=== PATIENT | male | born 1950 | race Hispanic/Latino ===

== ENCOUNTER 2017-04-04 09:47 | Day surgery (SDC) | payer MEDICARE, MEDICAID ==
[2017-01-25 08:05] VITALS: BMI 30.1
[~2017-04-04 09:47] MED LIST: Gentamicin 160 MG in Sodium Chloride 0.9% 100 ML IVPB ONE
[2017-04-04 11:25] LABS: INR 1.3
[2017-04-04] MEDS ORDERED: Lidocaine 2% Jelly (Uro-Jet) ONE (11:47)
[2017-04-04] MEDS ORDERED: Ciprofloxacin 400mg/200ml D5W 400 MG/200 ML BAG IVPB ONE (11:47)
[2017-04-04] MEDS ORDERED: Lactated Ringer's 1,000 ML IV ONE (11:55)
[2017-04-04] MEDS ORDERED: Propofol 10 mg/ml Inj (20 ML) ONE ×2 (12:01→12:23)
[2017-04-04] MEDS ORDERED: Midazolam 2 MG/2 ML VIAL ONE ×2 (12:02→12:12)
--- NOTE | 2017-04-04 12:50 | PCM.SURG1 ---
Surgeon's Initial Post Op Note - Surgeon's Notes Surgeon: leonidas Gunnery/Ordnance Officer: hemant Type of Anesthesia: General LMA Anesthesia Administered By: staff Pre-Operative Diagnosis: BPH/elevated PSA Operative Findings: bph/[place]-Operative Diagnosis: same Operation Performed: cysto prostate bx/us/usguidance Specimen/Specimens Removed: 12 core bx Estimated Blood Loss: EBL {In ML}: 0 Blood Products Given: N/A Drains Used: No Drains Post-Op Condition: Good Date of Surgery/Procedure: 04/04/17 Time of Surgery/Procedure: 12:49
--- NOTE | 2017-04-04 12:51 | OP ---
PROCEDURE DATE: 04/04/2017 PREOPERATIVE DIAGNOSES: Benign prostatic hypertrophy, elevated PSA. POSTOPERATIVE DIAGNOSES: Benign prostatic hypertrophy, elevated PSA. PROCEDURES: Cystoscopy and transrectal prostate ultrasound and ultrasound-guided prostate biopsy. DESCRIPTION OF PROCEDURE: Prior to the procedure, the patient was asked to sign a detailed informed consent. He was apprised of all the risks and complications of this procedure and elected to proceed with the procedure. He signed the consent. He was brought into the room. A timeout was taken according to rules and regulations of [facility] and the patient was draped and prepped in the usual manner. He received a Betadine enema and pro phylactic antibiotics. An ultrasound was obtained by inserting an ultrasound probe in the rectum. M ultiple images were obtained. The biopsy guide on the ultrasound was used to guide a 12-core biopsy which was taken transrectally. The patient tolerated this procedure very well. There was minimal bl eeding. The patient was then redraped and prepped and cystoscoped with a #21 Storz panendoscope. Th e membranous and pendulous urethra was normal. The prostatic urethra showed trilobar hypertrophy wit h moderately severe outlet obstruction. Bladder was entered atraumatically. There was +3 trabeculat ion. No evidence of urothelial tumor or stone. Based on the above findings, the patient is a candid ate for GreenLight laser if biopsy is negative for prostate cancer. If it is positive, other therapy and evaluation is necessary. Naseem Tolbert MD cc: [id number] TT: 04/04/2017 12:50:10 wa
[2017-04-04 12:55] VITALS: O2SAT 100
[2017-04-04 13:52] VITALS: BP 105/55; PULSE 90; RESP 16; TEMP 98.2
== END 2017-04-04 14:15 | disposition home or self-care (01) ==
LOC: C.SDS 09:47
PROVIDERS: ATTEND Urology
DX: C61 Malignant neoplasm of prostate (principal); N40.1 Benign prostatic hyperplasia with lower urinary tract symptoms
CPT/HCPCS: 36415; 52000; 55700; 76872; 76942; 85610; 88305; 88342; J0744; J1580; J7120

== ENCOUNTER 2017-12-01 11:41 | Inpatient (IN) | payer MEDICARE, MEDICAID ==
[2017-12-01 11:42] VITALS: BMI 30.1
[2017-12-01 12:51] LABS: BASO # 0.1 K/uL (0.0-0.2); BASO % 0.6 % (0.0-2.0); EOS # 0.1 K/uL (0.0-0.7); EOS % 1.3 % (0.0-4.0); LYMPH # 0.8 K/uL (1.0-4.3); LYMPH % 7.5 % (20.0-40.0); MEAN CELL VOLUME 78.8 fL (80.0-94.0); MEAN CORPUSCULAR HEMOGLOBIN 27.1 pg (27.0-31.0); MEAN CORPUSCULAR HGB CONC 34.4 g/dL (33.0-37.0); MEAN PLATELET VOLUME 8.8 fL (7.2-11.7); MONO # 0.8 K/uL (0.0-0.8); MONO % 7.5 % (0.0-10.0); NEUT # 8.6 K/uL (1.8-7.0); NEUT % 83.1 % (50.0-75.0); PLATELET COUNT 219 K/uL (130-400); RBC 4.39 Mil/uL (4.40-5.90); RED CELL DISTRIBUTION WIDTH 28.6 % (11.5-14.5)
--- NOTE | 2017-12-01 12:51 | C.PDOC ---
Time Seen by Provider: 12/01/17 11:50 Chief Complaint (Nursing): Weakness/Neurological Deficit History Per: Patient History/Exam Limitations: no limitations Onset/Duration Of Symptoms: Days Past Medical History Vital Signs: Last Vital Signs Temp 98 F 12/01/17 12:01 Pulse 81 12/01/17 12:01 Resp 20 12/01/17 12:01 BP 115/67 12/01/17 12:01 Pulse Ox 98 12/01/17 12:51 - Medical History PMH: Anemia, CHF, HTN Denies: Chronic Kidney Disease Surgical History: Endoscopy - [facility] Procedures EXCISION OF ESOPHAGUS, ENDO, DIAGN (12/01/16) EXCISION OF STOMACH, ENDO, DIAGN (12/01/16) TRANSFUSE NONAUT WHOLE BLOOD IN PERIPH VEIN, PERC (12/01/16) Family History: States: Unknown Family Hx - Social History Hx Alcohol Use: Yes Hx Substance Use: Yes (alcohol) - Immunization History Hx Tetanus Toxoid Vaccination: No Hx Influenza Vaccination: No Hx Pneumococcal Vaccination: No ED Course And Treatment O2 Sat by Pulse Oximetry: 98 Disposition - Disposition Forms: [facility] (Kiswahili)
[2017-12-01 12:52] LABS: HEMOGLOBIN 11.9 g/dL (12.0-18.0); WHITE BLOOD COUNT 10.3 K/uL (4.8-10.8)
--- NOTE | 2017-12-01 12:56 | C.PDOC ---
History Of Present Illness 67 year old male with a past medical history of anemia, liver cirrhosis and iron deficiency presents to the ED complaining of weakness, fatigue, constipation and decreased appetite x2 weeks. The patient reports that he has also noticed that his skin has been yellow but he is unsure of when this started. He states that his symptoms began after he started drinking but his last drink was on . Patient also notes some mild shortness of breath but states this may be due to his cirrhosis. PMD: Dr. Keo Olmos. Time Seen by Provider: 12/01/17 11:50 Chief Complaint (Nursing): Weakness/Neurological Deficit History Per: Patient History/Exam Limitations: no limitations Onset/Duration Of Symptoms: Days Current Symptoms Are (Timing): Still Present Past Medical History Reviewed: Historical Data, Nursing Documentation, Vital Signs Vital Signs: Last Vital Signs Temp 98 F 12/01/17 12:01 Pulse 81 12/01/17 12:01 Resp 20 12/01/17 12:01 BP 115/67 12/01/17 12:01 Pulse Ox 98 12/01/17 13:59 - Medical History PMH: Anemia, CHF, HTN Denies: Chronic Kidney Disease Other PMH: liver cirrhosis, Iron deficiency Surgical History: Endoscopy - [facility] Procedures EXCISION OF ESOPHAGUS, ENDO, DIAGN (12/01/16) EXCISION OF STOMACH, ENDO, DIAGN (12/01/16) TRANSFUSE NONAUT WHOLE BLOOD IN PERIPH VEIN, PERC (12/01/16) Family History: States: Unknown Family Hx - Social History Hx Tobacco Use: No Hx Alcohol Use: Yes Hx Substance Use: Yes (alcohol) - Immunization History Hx Tetanus Toxoid Vaccination: No Hx Influenza Vaccination: No Hx Pneumococcal Vaccination: No Review Of Systems Except As Marked, All Systems Reviewed And Found Negative. Constitutional: Positive for: Weakness, Other (fatigue; decreased appetite) Gastrointestinal: Positive for: Constipation Physical Exam - Physical Exam Appears: Non-toxic, No Acute Distress Skin: No Normal Color, Warm, Dry, Jaundice Eye(s): bilateral: Scleral Icterus Ear(s): Bilateral: Normal Nose: Normal, No Flaring Oral Mucosa: Moist, No Dry Tongue: Normal Appearing Lips: Normal Appearing Teeth: Normal Dentition Gingiva: Normal Appearing Throat: Normal Neck: Normal, Normal ROM, Supple Chest: Symmetrical, No Deformity, No Tenderness Cardiovascular: Rhythm Regular, No Edema, No Murmur Respiratory: Normal Breath Sounds, No Rales, No Rhonchi, No Wheezing Gastrointestinal/Abdominal: Bowel Sounds, Soft, No Tenderness, Organomegaly (tap ), Distention Back: Normal Inspection, No CVA Tenderness, No Paraspinal Tenderness Extremity: Normal ROM, No Tenderness, No Deformity Neurological/Psych: Oriented x3, Normal Speech, Normal Sensation ED Course And Treatment - Laboratory Results Result Diagrams: 12/01/17 12:44 12/01/17 12:44 O2 Sat by Pulse Oximetry: 98 (RA) Pulse Ox Interpretation: Normal - Other Rad X-Ray - Obstructive Series X-Ray: Viewed By Me, Read By Radiologist Interpretation: PROCEDURE: Radiographs of the chest and abdomen (obstructive series). HISTORY: Abdominal pain this. COMPARISON: No prior. TECHNIQUE: AP radiograph of the chest, with upright and supine radiographs of the abdomen. FINDINGS: CHEST: Lungs: The lungs are well inflated and clear. Cardiovascular: Normal size heart. No pulmonary vascular congestion. Pleura: No pleural fluid. No pneumothorax. Other findings: None. ABDOMEN AND PELVIS: Bowel: The bowel gas pattern is nonspecific. No evidence of mechanical obstruction. Free air: None. Bones: Unremarkable. Other findings: None. IMPRESSION: Nonspecific bowel gas pattern. No evidence of mechanical bowel obstruction. Clear lungs. Medical Decision Making Medical Decision Makin Initial Impression 67 y/o male presenting with jaundice and weakness Initial Plan: * EKG * Ammonia * B-type Natriuretic * CMP * Lipase * Troponin * CBC * Partial Thromboplastin * Prothrombin Time * Obstructive Series * Pepcid 20mg IVP * Urinalysis * Reevaluation 1303 PROCEDURE: Radiographs of the chest and abdomen (obstructive series) FINDINGS: CHEST: Lungs: The lungs are well inflated and clear. Cardiovascular: Normal size heart. No pulmonary vascular congestion. Pleura: No pleural fluid. No pneumothorax. Other findings: None. ABDOMEN AND PELVIS: Bowel: The bowel gas pattern is nonspecific. No evidence of mechanical obstruction. Free air: None. Bones: Unremarkable. Other findings: None. IMPRESSION: Nonspecific bowel gas pattern. No evidence of mechanical bowel obstruction. Clear lungs. 1316 EKG performed: Normal sinus rhythm and 76bpm, Normal intervals, Normal axis, Non specific T-wave changes 1330 Case discussed w/ hospitalist who agrees to admit patient but also requests ICU consult. 1333 ICU paged. Abdominal US ordered as per hospitalist request. [id number] ICU (Dr. Mal Parry) accepts admission to unit. Abdominal US ordered ICU will follow through. Diagnosis: Cirrhosis and Renal Failure Condition: Critical Disposition Discussed With Dr.: Epi De Los Santos Doctor Will See Patient In The: Hospital Counseled Patient/Family Regarding: Studies Performed, Diagnosis - Disposition Referrals: Mal Parry DO [Staff Provider] - Disposition: HOSPITALIZED Disposition Time: 13:51 Condition: CRITICAL Forms: [facility] (Kosovan) - POA Present On Arrival: None - Clinical Impression Clinical Impression: Renal failure, Liver failure - Scribe Statement The provider has reviewed the documentation as recorded by the Scribe Rebekah Cordova All medical record entries made by the Scribe were at my direction and personally dictated by me. I have reviewed the chart and agree that the record accurately reflects my personal performance of the history, physical exam, medical decision making, and the department course for this patient. I have also personally directed, reviewed, and agree with the discharge instructions and disposition.
--- NOTE | 2017-12-01 13:05 | RAD ---
PROCEDURE: Radiographs of the chest and abdomen (obstructive series) HISTORY: Abdominal pain this COMPARISON: No prior. TECHNIQUE: AP radiograph of the chest, with upright and supine radiographs of the abdomen. FINDINGS: CHEST: Lungs: The lungs are well inflated and clear. Cardiovascular: Normal size heart. No pulmonary vascular congestion. Pleura: No pleural fluid. No pneumothorax. Other findings: None. ABDOMEN AND PELVIS: Bowel: The bowel gas pattern is nonspecific. No evidence of mechanical obstruction. Free air: None. Bones: Unremarkable. Other findings: None. IMPRESSION: Nonspecific bowel gas pattern. No evidence of mechanical bowel obstruction. Clear lungs.
[2017-12-01 13:10] LABS: PROTHROMBIN TIME 23.1 SECONDS (9.7-12.2)
[2017-12-01 13:11] LABS: ALB/GLOB RATIO 0.6 (1.0-2.1); ALBUMIN 2.8 g/dL (3.5-5.0); ALT/SGPT 60 U/L (21-72); AST/SGOT 249 U/L (17-59); BLOOD UREA NITROGEN 59 mg/dL (9-20); CALCIUM 7.1 mg/dl (8.6-10.4); GFR AFRICAN-AMERICAN 12; GFR NON-AFRICAN AMERICAN 10; LIPASE 339 U/L (23-300)
[2017-12-01 13:20] LABS: B-TYPE NATRIURETIC PEPTIDE 1410 pg/mL (0-900)
[2017-12-01 13:25] LABS: BANDS 3 % (0-2); EOSINOPHIL 6 % (0-4); LYMPHOCYTE 5 % (20-40); MONOCYTE 5 % (0-10); NEUTROPHIL 81 % (50-75); PLATELET ESTIMATE NORMAL (NORMAL); TOTAL CELLS COUNTED 100
[2017-12-01 13:26] LABS: ANISOCYTOSIS SLIGHT; HYPOCHROMIC SLIGHT; OVALOCYTES SLIGHT; POIKILOCYTOSIS SLIGHT; TARGET CELLS SLIGHT
[2017-12-01 14:15] LABS: SQUAMOUS EPITHIAL 4 /hpf (0-5); URINE BACTERIA OCC (<OCC); URINE BILIRUBIN 2+ (NEGATIVE); URINE BLOOD NEGATIVE (NEGATIVE); URINE CLARITY Clear (Clear); URINE COLOR Amber (YELLOW); URINE GLUCOSE (UA) 1+ mg/dL (Normal); URINE LEUKOCYTE ESTERASE NEG Leu/uL (Negative); URINE NITRATE NEGATIVE (NEGATIVE); URINE PROTEIN NEGATIVE (NEGATIVE)
--- NOTE | 2017-12-01 14:59 | CP.CCUPN ---
CCU Subjective - Physician Review Critical Care Time Spent (in minutes): 35 CCU Objective - Vital Signs / Intake & Output Vital Signs (Last 4 hours): Vital Signs Temp Pulse Resp BP Pulse Ox 12/01/17 14:02 98 12/01/17 12:01 98 F 81 20 115/67 98 Intake and Output (Last 8hrs): Intake & Output 11/30/17 12/01/17 12/01/17 22:59 06:59 14:59 Weight 205 lb - Medications Active Medications: Active Medications Generic Name Dose Route Start Last Admin Trade Name Freq PRN Reason Stop Dose Admin Albumin Human 12.5 gm 12/01/17 14:45 Albumin Human 25% (12.5 Gm/50 Ml) IV Q8 DAWNA - Patient Studies Lab Studies: Lab Studies 12/01/17 12/01/17 12/01/17 Range/Units 14:00 12:44 12:44 WBC (4.8-10.8) K/uL RBC (4.40-5.90) Mil/uL Hgb (12.0-18.0) g/dL Hct (35.0-51.0) % MCV (80.0-94.0) fL MCH (27.0-31.0) pg MCHC (33.0-37.0) g/dL RDW (11.5-14.5) % Plt Count (130-400) K/uL MPV (7.2-11.7) fL Neut % (Auto) (50.0-75.0) % Lymph % (Auto) (20.0-40.0) % Spink % (Auto) (0.0-10.0) % Eos % (Auto) (0.0-4.0) % Baso % (Auto) (0.0-2.0) % Neut # (1.8-7.0) K/uL Lymph # (1.0-4.3) K/uL Spink # (0.0-0.8) K/uL Eos # (0.0-0.7) K/uL Baso # (0.0-0.2) K/uL Neutrophils % (Manual) (50-75) % Band Neutrophils % (0-2) % Lymphocytes % (Manual) (20-40) % Monocytes % (Manual) (0-10) % Eosinophils % (Manual) (0-4) % Platelet Estimate (NORMAL) Hypochromasia (manual) Poikilocytosis (manual Anisocytosis (manual) Target Cells Ovalocytes PT (9.7-12.2) SECONDS INR APTT (21-34) SECONDS Sodium 120 L* (132-148) mmol/L Potassium 3.8 (3.6-5.2) mmol/L Chloride 89 L (98-107) mmol/L Carbon Dioxide 18 L (22-30) mmol/L Anion Gap 18 (10-20) BUN 59 H (9-20) mg/dL Creatinine 5.6 H (0.8-1.5) mg/dL Est GFR ( Amer) 12 Est GFR (Non-Af Amer) 10 Random Glucose 111 H (75-110) mg/dL Calcium 7.1 L (8.6-10.4) mg/dl Total Bilirubin 33.8 H (0.2-1.3) mg/dL AST 249 H (17-59) U/L ALT 60 (21-72) U/L Alkaline Phosphatase 307 H (38-126) U/L Ammonia 55 H D (9-33) umol/L Troponin I < 0.0120 (0.00-0.120) ng/mL NT-Pro-B Natriuret Pep 1410 H (0-900) pg/mL Total Protein 7.6 (6.3-8.3) g/dL Albumin 2.8 L D (3.5-5.0) g/dL Globulin 4.8 H (2.2-3.9) gm/dL Albumin/Globulin Ratio 0.6 L (1.0-2.1) Lipase 339 H (23-300) U/L Urine Color Amanda (YELLOW) Urine Clarity Clear (Clear) Urine pH 5.0 (5.0-8.0) Ur Specific [place] 1.013 (1.003-1.030) Urine Protein Negative (NEGATIVE) mg/dL Urine Glucose (UA) 1+ H (Normal) mg/dL Urine Ketones Negative (NEGATIVE) mg/dL Urine Blood Negative (NEGATIVE) Urine Nitrate Negative (NEGATIVE) Urine Bilirubin 2+ H (NEGATIVE) Urine Urobilinogen 4.0 (0.2-1.0) mg/dL Ur Leukocyte Esterase Neg (Negative) Monica/uL Urine WBC (Auto) 7 H (0-5) /hpf Urine RBC (Auto) 1 (0-3) /hpf Ur Squamous Epith Cells 4 (0-5) /hpf Urine Bacteria Occ H (<OCC) 12/01/17 12/01/17 Range/Units 12:44 12:44 WBC 10.3 D (4.8-10.8) K/uL RBC 4.39 L (4.40-5.90) Mil/uL Hgb 11.9 L D (12.0-18.0) g/dL Hct 34.6 L (35.0-51.0) % MCV 78.8 L (80.0-94.0) fL MCH 27.1 (27.0-31.0) pg MCHC 34.4 (33.0-37.0) g/dL RDW 28.6 H (11.5-14.5) % Plt Count 219 (130-400) K/uL MPV 8.8 (7.2-11.7) fL Neut % (Auto) 83.1 H (50.0-75.0) % Lymph % (Auto) 7.5 L (20.0-40.0) % Spink % (Auto) 7.5 (0.0-10.0) % Eos % (Auto) 1.3 (0.0-4.0) % Baso % (Auto) 0.6 (0.0-2.0) % Neut # 8.6 H (1.8-7.0) K/uL Lymph # 0.8 L (1.0-4.3) K/uL Spink # 0.8 (0.0-0.8) K/uL Eos # 0.1 (0.0-0.7) K/uL Baso # 0.1 (0.0-0.2) K/uL Neutrophils % (Manual) 81 H (50-75) % Band Neutrophils % 3 H (0-2) % Lymphocytes % (Manual) 5 L (20-40) % Monocytes % (Manual) 5 (0-10) % Eosinophils % (Manual) 6 H (0-4) % Platelet Estimate Normal (NORMAL) Hypochromasia (manual) Slight Poikilocytosis (manual Slight Anisocytosis (manual) Slight Target Cells Slight Ovalocytes Slight PT 23.1 H (9.7-12.2) SECONDS INR 2.0 APTT 41 H (21-34) SECONDS Sodium (132-148) mmol/L Potassium (3.6-5.2) mmol/L Chloride (98-107) mmol/L Carbon Dioxide (22-30) mmol/L Anion Gap (10-20) BUN (9-20) mg/dL Creatinine (0.8-1.5) mg/dL Est GFR ( Amer) Est GFR (Non-Af Amer) Random Glucose (75-110) mg/dL Calcium (8.6-10.4) mg/dl Total Bilirubin (0.2-1.3) mg/dL AST (17-59) U/L ALT (21-72) U/L Alkaline Phosphatase (38-126) U/L Ammonia (9-33) umol/L Troponin I (0.00-0.120) ng/mL NT-Pro-B Natriuret Pep (0-900) pg/mL Total Protein (6.3-8.3) g/dL Albumin (3.5-5.0) g/dL Globulin (2.2-3.9) gm/dL Albumin/Globulin Ratio (1.0-2.1) Lipase (23-300) U/L Urine Color (YELLOW) Urine Clarity (Clear) Urine pH (5.0-8.0) Ur Specific [place] (1.003-1.030) Urine Protein (NEGATIVE) mg/dL Urine Glucose (UA) (Normal) mg/dL Urine Ketones (NEGATIVE) mg/dL Urine Blood (NEGATIVE) Urine Nitrate (NEGATIVE) Urine Bilirubin (NEGATIVE) Urine Urobilinogen (0.2-1.0) mg/dL Ur Leukocyte Esterase (Negative) Monica/uL Urine WBC (Auto) (0-5) /hpf Urine RBC (Auto) (0-3) /hpf Ur Squamous Epith Cells (0-5) /hpf Urine Bacteria (<OCC) Laboratory Results - last 24 hr 12/01/17 12/01/17 12/01/17 12:44 12:44 12:44 WBC 10.3 D RBC 4.39 L Hgb 11.9 L D Hct 34.6 L MCV 78.8 L MCH 27.1 MCHC 34.4 RDW 28.6 H Plt Count 219 MPV 8.8 Neut % (Auto) 83.1 H Lymph % (Auto) 7.5 L Spink % (Auto) 7.5 Eos % (Auto) 1.3 Baso % (Auto) 0.6 Neut # 8.6 H Lymph # 0.8 L Spink # 0.8 Eos # 0.1 Baso # 0.1 Neutrophils % (Manual) 81 H Band Neutrophils % 3 H Lymphocytes % (Manual) 5 L Monocytes % (Manual) 5 Eosinophils % (Manual) 6 H Platelet Estimate Normal Hypochromasia (manual) Slight Poikilocytosis (manual Slight Anisocytosis (manual) Slight Target Cells Slight Ovalocytes Slight PT 23.1 H INR 2.0 APTT 41 H Sodium 120 L* Potassium 3.8 Chloride 89 L Carbon Dioxide 18 L Anion Gap 18 BUN 59 H Creatinine 5.6 H Est GFR ( Amer) 12 Est GFR (Non-Af Amer) 10 Random Glucose 111 H Calcium 7.1 L Total Bilirubin 33.8 H AST 249 H ALT 60 Alkaline Phosphatase 307 H Ammonia Troponin I < 0.0120 NT-Pro-B Natriuret Pep 1410 H Total Protein 7.6 Albumin 2.8 L D Globulin 4.8 H Albumin/Globulin Ratio 0.6 L Lipase 339 H Urine Color Urine Clarity Urine pH Ur Specific [place] Urine Protein Urine Glucose (UA) Urine Ketones Urine Blood Urine Nitrate Urine Bilirubin Urine Urobilinogen Ur Leukocyte Esterase Urine WBC (Auto) Urine RBC (Auto) Ur Squamous Epith Cells Urine Bacteria 12/01/17 12/01/17 12:44 14:00 WBC RBC Hgb Hct MCV MCH MCHC RDW Plt Count MPV Neut % (Auto) Lymph % (Auto) Spink % (Auto) Eos % (Auto) Baso % (Auto) Neut # Lymph # Spink # Eos # Baso # Neutrophils % (Manual) Band Neutrophils % Lymphocytes % (Manual) Monocytes % (Manual) Eosinophils % (Manual) Platelet Estimate Hypochromasia (manual) Poikilocytosis (manual Anisocytosis (manual) Target Cells Ovalocytes PT INR APTT Sodium Potassium Chloride Carbon Dioxide Anion Gap BUN Creatinine Est GFR ( Amer) Est GFR (Non-Af Amer) Random Glucose Calcium Total Bilirubin AST ALT Alkaline Phosphatase Ammonia 55 H D Troponin I NT-Pro-B Natriuret Pep Total Protein Albumin Globulin Albumin/Globulin Ratio Lipase Urine Color Amanda Urine Clarity Clear Urine pH 5.0 Ur Specific [place] 1.013 Urine Protein Negative Urine Glucose (UA) 1+ H Urine Ketones Negative Urine Blood Negative Urine Nitrate Negative Urine Bilirubin 2+ H Urine Urobilinogen 4.0 Ur Leukocyte Esterase Neg Urine WBC (Auto) 7 H Urine RBC (Auto) 1 Ur Squamous Epith Cells 4 Urine Bacteria Occ H EKG/Cardiology Studies: Cardiology / EKG Studies 12/01/17 12:33 ELECTROCARDIOGRAM Stat Comment: Mode Of Transportation: BED Reason For Exam: abd pain Assessment/Plan - Assessment and Plan (Free Text) Assessment: prostate Adenocarcinoma March 2017 alcoholic cirrhosis EGD colonoscopy gastritis and hemorrhoids GI consult Dr. Ham CHF 40% November 2016 echo UDS alcohol
--- NOTE | 2017-12-01 15:00 | CP.PCM.HP ---
<Lupe Kincaid - Last Filed: 12/01/17 18:15> History of Present Illness - History of Present Illness History of Present Illness: CC weakness, fatigue, constipation and decreased appetite HPI for Dr. Alcocer 67M with PMH anemia, alcoholic liver cirrhosis and iron deficiency, prostate Adenocarcinoma March 2017, CHF (EF 40% on November 2016 echo) presents with weakness, fatigue, constipation and decreased appetite [id number]. Patient state he 's been short of breath for awhile now and has not had the chance for further cardiac workup. Patient states he used to walk more than two blocks without issue, and is now short of breath with exertion. Patient denies chest pain, nausea, vomiting. Admits to constipation, leg edema. Patient denies pruritis, but admitted to pruritis on last admission with jaundice. Patient states that he had not seen a doctor for 30 years until his visit to the ED for hemoglobin of 5, where he had 3 blood transfusions per patient. Patient states he had a biopsy of prostate by Dr. Snyder and was told he had prostate cancer. Patient has not had chemotherapy for his prostate adenocarcinoma. Dr. Snyder did a biopsy, but no treatment had started due to change with insurance. Patient states his bowel movements are small, require force, and yield pale stool. Patient states he's been having constipation for a couple of weeks now. Patient stated he drank only wine on [place] and it was the last day he drank. Patient states his abdomen has been distended for a couple of weeks, but has not noticed that he's been jaundiced. Patient was told he may have a clot in his portal vein and is being placed on heparin drip. Patient told he had gallstones in his gallbladder, which may explain elevated bilirubin. Patient had an EGD and colonoscopy and diagnosed with gastritis and hemorrhoids. Patient states he drank just wine on [place], but upon speaking with attending Dr. Alcocer, patient drank over a six pack and clear liquor as well. PMH anemia, alcoholic liver cirrhosis and iron deficiency, prostate Adenocarcinoma March 2017, CHF 40% November 2016 echo, gastritis, hemorrhoids PSH: Family History: mother and father have Alzheimer. Father' had heart history Social History: no smoking history, ETOH abuse Allergies: NKDA Oncologist: Dr. Castro PMD: Dr. Keo Olmos. GI: Dr. Ham Onco: Dr. Castro Code Status: full code Present on Admission - Present on Admission Any Indicators Present on Admission: No History of DVT/PE: No History of Uncontrolled Diabetes: No Past Patient History - Past Medical History & Family History Past Medical History?: Yes - Past Social History Smoking Status: Never Smoked - CARDIAC Hx Congestive Heart Failure: Yes Hx Hypertension: Yes - PULMONARY Hx Respiratory Disorders: No - NEUROLOGICAL Hx Neurological Disorder: No - HEENT Hx HEENT Problems: No - RENAL Hx Chronic Kidney Disease: No - ENDOCRINE/METABOLIC Hx Endocrine Disorders: No - HEMATOLOGICAL/ONCOLOGICAL Hx Anemia: Yes - INTEGUMENTARY Hx Dermatological Problems: No - MUSCULOSKELETAL/RHEUMATOLOGICAL Hx Musculoskeletal Disorders: No Hx Falls: No - GASTROINTESTINAL Hx Gastrointestinal Disorders: Yes Hx Gastroesophageal Reflux: Yes Other/Comment: CANDIDAL ESOPHAGITIS ascites - GENITOURINARY/GYNECOLOGICAL Hx Genitourinary Disorders: Yes Hx Prostate Problems: Yes - PSYCHIATRIC Hx Substance Use: Yes (alcohol) - SURGICAL HISTORY Hx Surgeries: Yes - ANESTHESIA Hx Anesthesia: Yes Hx Anesthesia Reactions: No Hx Malignant Hyperthermia: No Meds Allergies/Adverse Reactions: Allergies Allergy/AdvReac Type Severity Reaction Status Date / Time No Known Allergies Allergy Verified 12/01/17 12:02 Physical Exam - Additional Findings Additional findings: Constitutional Appears: Well, Non-toxic - Head Exam Head Exam: NORMAL INSPECTION - Eye Exam Eye Exam: EOMI, Scleral icterus. absent: Periorbital swelling, Periorbital tenderness Pupil Exam: NORMAL ACCOMODATION - ENT Exam ENT Exam: Mucous Membranes Moist - Neck Exam Neck exam: Positive for: Full Rom. Negative for: Lymphadenopathy, Tenderness, Thyromegaly - Respiratory Exam Respiratory Exam: Accessory Muscle Use, NORMAL BREATHING PATTERN. absent: Decreased Breath Sounds, Clear to Auscultation Bilateral - Cardiovascular Exam Cardiovascular Exam: REGULAR RHYTHM, +S1, +S2. absent: Bradycardia, Tachycardia - GI/Abdominal Exam GI & Abdominal Exam: Distended, Soft. absent: Firm, Rigid, Tenderness - Extremities Exam Extremities exam: Positive for: full ROM, normal inspection. Negative for: pedal edema Additional comments: no pitting edema - Neurological Exam Neurological exam: Alert, CN II-XII Intact, Normal Gait, Oriented x3 - Psychiatric Exam Psychiatric exam: Normal Affect, Normal Mood - Skin Skin Exam: Dry, Intact, Warm Additional comments: Jaundice Results - Vital Signs Recent Vital Signs: Last Vital Signs Temp 98 F 12/01/17 12:01 Pulse 81 12/01/17 12:01 Resp 20 12/01/17 12:01 BP 115/67 12/01/17 12:01 Pulse Ox 98 12/01/17 14:02 - Labs Result Diagrams: 12/01/17 12:44 12/01/17 12:44 Labs: Laboratory Results - last 24 hr 12/01/17 12/01/17 12/01/17 12:44 12:44 12:44 WBC 10.3 D RBC 4.39 L Hgb 11.9 L D Hct 34.6 L MCV 78.8 L MCH 27.1 MCHC 34.4 RDW 28.6 H Plt Count 219 MPV 8.8 Neut % (Auto) 83.1 H Lymph % (Auto) 7.[address] [place] % (Auto) 7.5 Eos % (Auto) 1.3 Baso % (Auto) 0.6 Neut # 8.6 H Lymph # 0.[address] [place] # 0.8 Eos # 0.1 Baso # 0.1 Neutrophils % (Manual) 81 H Band Neutrophils % 3 H Lymphocytes % (Manual) 5 L Monocytes % (Manual) 5 Eosinophils % (Manual) 6 H Platelet Estimate Normal Hypochromasia (manual) Slight Poikilocytosis (manual Slight Anisocytosis (manual) Slight Target Cells Slight Ovalocytes Slight PT 23.1 H INR 2.0 APTT 41 H Sodium 120 L* Potassium 3.8 Chloride 89 L Carbon Dioxide 18 L Anion Gap 18 BUN 59 H Creatinine 5.6 H Est GFR ( Amer) 12 Est GFR (Non-Af Amer) 10 Random Glucose 111 H Calcium 7.1 L Total Bilirubin 33.8 H AST 249 H ALT 60 Alkaline Phosphatase 307 H Ammonia Troponin I < 0.0120 NT-Pro-B Natriuret Pep 1410 H Total Protein 7.6 Albumin 2.8 L D Globulin 4.8 H Albumin/Globulin Ratio 0.6 L Lipase 339 H Urine Color Urine Clarity Urine pH Ur Specific [place] Urine Protein Urine Glucose (UA) Urine Ketones Urine Blood Urine Nitrate Urine Bilirubin Urine Urobilinogen Ur Leukocyte Esterase Urine WBC (Auto) Urine RBC (Auto) Ur Squamous Epith Cells Urine Bacteria 12/01/17 12/01/17 12:44 14:00 WBC RBC Hgb Hct MCV MCH MCHC RDW Plt Count MPV Neut % (Auto) Lymph % (Auto) [place] % (Auto) Eos % (Auto) Baso % (Auto) Neut # Lymph # [place] # Eos # Baso # Neutrophils % (Manual) Band Neutrophils % Lymphocytes % (Manual) Monocytes % (Manual) Eosinophils % (Manual) Platelet Estimate Hypochromasia (manual) Poikilocytosis (manual Anisocytosis (manual) Target Cells Ovalocytes PT INR APTT Sodium Potassium Chloride Carbon Dioxide Anion Gap BUN Creatinine Est GFR ( Amer) Est GFR (Non-Af Amer) Random Glucose Calcium Total Bilirubin AST ALT Alkaline Phosphatase Ammonia 55 H D Troponin I NT-Pro-B Natriuret Pep Total Protein Albumin Globulin Albumin/Globulin Ratio Lipase Urine Color [place] Urine Clarity Clear Urine pH 5.0 Ur Specific [place] 1.013 Urine Protein Negative Urine Glucose (UA) 1+ H Urine Ketones Negative Urine Blood Negative Urine Nitrate Negative Urine Bilirubin 2+ H Urine Urobilinogen 4.0 Ur Leukocyte Esterase Neg Urine WBC (Auto) 7 H Urine RBC (Auto) 1 Ur Squamous Epith Cells 4 Urine Bacteria Occ H Assessment & Plan - Assessment and Plan (Free Text) Assessment: Neuro alcohol abuse history last drink per patient is 11/20/1712/01 Ammonia 55 f/u Urine Drug Screen CIWA protocol Ativan 1mg Q4H PRN alcohol withdrawal Cardio CHF history EF 40% in November Echo 12/01 EKG 12/01 Echo: 59% preliminary 12/01 BNP 1410 12/01 Negative troponin I GI alcoholic liver cirrhosis 12/01 T bili 33.8 12/01 AST 249 ALT 60 ALP 307 12/01 Lipase 339 serum alcohol, f/u Hepatitis panel heparin drip 250cc IV 18 u/kg/hr 12/01 Abdomen obstructive XRAY: Nonspecific bowel gas pattern. no evidence of mechanical bowel obstruction. clear lungs 12/01 Abdominal US: blood flow couldn't be documented in the portal vein. suspicious for portal vein thrombosis 12/01 CT Abdomen/Pelvis: cirrhosis and small perihepatic ascites. severe intrahepatic biliary ductal dilatation, worse in left hepatic lobe nad cholelithiasis MELD score 40 points 71.3% estimated 3 month mortality. Patient made aware that he cannot have a liver transplant unless he stops drinking for 6 months to be placed on the list. Heme/onc f/u Direct bilirubin decreased urine output heparin drip 250cc IV 18 u/kg/hr Nephro: Prostate cancer history decreased urine output/oliguric f/u I/O f/u Urine output urine osm, urine sodium NS @100cc/hr 12/01 UA + for glucose, bilirubin, sienna, negative for leukocyte esterase 12/01 BUN/Cr 59/5.6 Prostate cancer history f/u PSA Albumin 12.5gm IV Q8H Prophylaxis DVT: contraindicated, patient is on heparin drip 250cc IV 18 u/kg/hr for portal vein thrombosis NS @100cc/hr - Date & Time Date: 12/01/17 Time: 18:15 <Shyla Alcocer V - Last Filed: 12/01/17 21:32> Results - Vital Signs Recent Vital Signs: Last Vital Signs Temp 98 F 12/01/17 12:01 Pulse 73 12/01/17 17:05 Resp 20 12/01/17 17:05 BP 123/64 12/01/17 17:05 Pulse Ox 99 12/01/17 17:05 - Labs Result Diagrams: 12/01/17 12:44 12/01/17 12:44 Labs: Laboratory Results - last 24 hr 12/01/17 12/01/17 12/01/17 12:44 12:44 12:44 WBC 10.3 D RBC 4.39 L Hgb 11.9 L D Hct 34.6 L MCV 78.8 L MCH 27.1 MCHC 34.4 RDW 28.6 H Plt Count 219 MPV 8.8 Neut % (Auto) 83.1 H Lymph % (Auto) 7.[address] [place] % (Auto) 7.5 Eos % (Auto) 1.3 Baso % (Auto) 0.6 Neut # 8.6 H Lymph # 0.[address] [place] # 0.8 Eos # 0.1 Baso # 0.1 Neutrophils % (Manual) 81 H Band Neutrophils % 3 H Lymphocytes % (Manual) 5 L Monocytes % (Manual) 5 Eosinophils % (Manual) 6 H Platelet Estimate Normal Hypochromasia (manual) Slight Poikilocytosis (manual Slight Anisocytosis (manual) Slight Target Cells Slight Ovalocytes Slight PT 23.1 H INR 2.0 APTT 41 H Sodium 120 L* Potassium 3.8 Chloride 89 L Carbon Dioxide 18 L Anion Gap 18 BUN 59 H Creatinine 5.6 H Est GFR ( Amer) 12 Est GFR (Non-Af Amer) 10 Random Glucose 111 H Calcium 7.1 L Total Bilirubin 33.8 H AST 249 H ALT 60 Alkaline Phosphatase 307 H Ammonia Troponin I < 0.0120 NT-Pro-B Natriuret Pep 1410 H Total Protein 7.6 Albumin 2.8 L D Globulin 4.8 H Albumin/Globulin Ratio 0.6 L Lipase 339 H Urine Color Urine Clarity Urine pH Ur Specific [place] Urine Protein Urine Glucose (UA) Urine Ketones Urine Blood Urine Nitrate Urine Bilirubin Urine Urobilinogen Ur Leukocyte Esterase Urine WBC (Auto) Urine RBC (Auto) Ur Squamous Epith Cells Urine Bacteria 12/01/17 12/01/17 12:44 14:00 WBC RBC Hgb Hct MCV MCH MCHC RDW Plt Count MPV Neut % (Auto) Lymph % (Auto) [place] % (Auto) Eos % (Auto) Baso % (Auto) Neut # Lymph # [place] # Eos # Baso # Neutrophils % (Manual) Band Neutrophils % Lymphocytes % (Manual) Monocytes % (Manual) Eosinophils % (Manual) Platelet Estimate Hypochromasia (manual) Poikilocytosis (manual Anisocytosis (manual) Target Cells Ovalocytes PT INR APTT Sodium Potassium Chloride Carbon Dioxide Anion Gap BUN Creatinine Est GFR ( Amer) Est GFR (Non-Af Amer) Random Glucose Calcium Total Bilirubin AST ALT Alkaline Phosphatase Ammonia 55 H D Troponin I NT-Pro-B Natriuret Pep Total Protein Albumin Globulin Albumin/Globulin Ratio Lipase Urine Color [place] Urine Clarity Clear Urine pH 5.0 Ur Specific [place] 1.013 Urine Protein Negative Urine Glucose (UA) 1+ H Urine Ketones Negative Urine Blood Negative Urine Nitrate Negative Urine Bilirubin 2+ H Urine Urobilinogen 4.0 Ur Leukocyte Esterase Neg Urine WBC (Auto) 7 H Urine RBC (Auto) 1 Ur Squamous Epith Cells 4 Urine Bacteria Occ H Attending/Attestation - Attestation I have personally seen and examined this patient.: Yes I have fully participated in the care of the patient.: Yes I have reviewed all pertinent clinical information: Yes Notes (Text): Patient seen and examined in [facility] emergency room bed 1. I had attempted to seeing patient earlier however was completing abdominal ultrasound and echo. CC: weakness, fatigue, dyspnea on exertion, decreased urine, and constipation This is a 67-year-old male with a past medical history including liver cirrhosis , anemia, gastritis, congestive heart failure, alcohol use presenting to the emergency room for chief complaint of weakness since . Patient reports he's been feeling sluggish, is hard for him to get out of bed, and that he's been feeling cough, as well as dyspnea on exertion. Patient reports he is normally able to walk able to walk everywhere perform her ADLs and perform ADLs for his mother who lives with him. But over the past week he has not been able to tolerate walking. Patient also reports that he's been drinking water, tea, as well as 10 beers a day for about 4 days and a bottle of wine last strength noted on . Patient reports he does not drink like this every day but has been feeling frustrated due to issues in regards to his insurance. Patient reports only medication he takes is spironolactone, which he describes as a diuretic for the for the liver. Patient denies other medications. Patient was unaware that he was jaundice. He reports he cannot tell that he is yellow. It is painless. Patient reports last time he was up the doctor's office about a year ago he was about 265 pounds a reports he is presently 205 pounds with mild diet modification but no intent for weight loss. ROS: Denies fever, denies chills, denies hearing loss Reports cough denies hemoptysis reports chest congestion denies chest pain denies palpitations Reports right upper quadrant pain denies nausea reports constipation where in needs Dulcolax denies bright red blood per rectum Reports decrease in urine flow denies dribbling denies hesitancy denies hematuria denies discharge Reports weakness sluggishness and fatigue Reports frustration and depression but denies suicidal or homicidal ideation Unintentional weight loss 60 pounds lost Medications, Aldactone Medical history: Congestive heart failure prior echo showing ejection fraction of 40%, liver cirrhosis, alcohol use, anemia, gastritis, esophagitis, colonic polyp Surgeries prostate biopsy EGD and colonoscopy 2017 Allergies denies Social denies smoking reports 10 year history of alcohol abuse but reports he binges 10 beers but does not drink daily last strength reported around . Patient lives with mother who shows signs of possible dementia. It is his caregiver. Patient has 3 other brothers. Patient's father with history of known CABG and Alzheimer's dementia. PMD is Dr. Araya Patient reports his screen printing paster is Dr. Ham Patient reports he has complete colonoscopy with Dr. Tepler n the past a reports was due to follow-up with him later. Patient reports his hemoglobin heme oncologist is Dr. Kobi Castro. He reports he is going to follow-up with him in regards to further blood studies in regards to possible prostate cancer diagnosis. Patient reports his metal neutralizer is Dr. Vigil in who he saw following a hospitalization earlier in November 2016 and reports have done some type of heart heart workup did not need any medications. Patient reports he does not want to see Dr. Tolbert. ED Nurse present at bedside during exam including exam. General: Patient is awake, alert, no acute distress, oriented 3. Patient is jaundiced from head to toe. HEENT eomi movements intact, pupils appear constricted reactive to light no observed nystagmus jaundiced sclera apparent Throat appears clear Lung exam clear to auscultation bilaterally no wheezing no rales appreciated Abdomen: soft nontender, distended, bowel sounds present, negative Sullivan sign, no observed caput medasue, no obsered asterxis, no observed fluid wave, negative suprapubic tenderness : No appreciable hernia, no observed lesions, no discharge, circumsized penis , no edema noted Neuro: CN 2-- 12 grossly intact, negative Babinksi, +gag reflex MSK: 5/5 upper and lower extremity strength Skin: jaundice, no observed petechie Patient admitted to intensive care unit. Patient has completed abdominal obstructure series, CAT scan abdomen and pelvis without contrast, echocardiogram Assessment/Plan 1) Obstructive Jaundice Portal vein thrombosis History of Liver Cirrhosis Transaminitis Alcohol Use Cholelithiasis * Admit to ICU * CT Abdomen * Obstructive series (12/01/17): nonspecific bowel gas pattern. No evidence of mechanical bowel obstruction. Clear lungs * Abdominal US (12/01/16): Blood flow could not be documented in portal vein in region of yohan hepatitis raising suspicion for portal vein thrombosis. Cirrhosis of the liver and small perihepatic ascites. Severe intrahepatic biliary ductal dilatation, worse in the left hepatic lobe and cholelithiasis * Ct abdomen and Pelvis (12/01/16): hepatic splenomegaly. Hepatic cirrhosis. Ascites. Extensive intrapheatic biliary dilatation. Common bile duct not adequately demonstrated. DD: choledocholithaisis, bilary neoplasm, colitis. Enteritis. Cholelithiasis * Patient started on Heparin Drip for Portal vein thrombosis * Ordered for direct bilirubin, hepatitis panel, UDS * MELD: 41 * Will consult GI, Dr. Ham, patient's GI * Will consult heme-onc, Dr Mindy Castro * Patient has elevated ammonia, he is awake/alert/oriented X3 * order for procalcitonin * Start Zosyn 2.25 IV Q 8Hours 2) History of Congestive Heart Failure * Echocardiogram completed awaiting official report * will consult patient's metal neutralizer 3) Hyponatremia * Order serum osmolarity, urine osmolarity, and urine sodium 4) Acute Renal Failure * 5.6 Cr today; prior 0.9 in 12/07/16 * Patient reports he is urinating but is less * CT reports bladder is nondistended * Patient is started on IV fluids concern for dehydration * monitor intake and output * Prostate adenocarcinoma (biopsy 04/04/17) rojas: 6-->patient reports to follow -up heme-onc for further blood work; has not started chemo/treatment 5) History of Alcohol Use * Ordered for blood alcohol. * Patient reports last drink was around joel * Patient does not appear in withdrawal 6) History of Anemia * Improved to 11 prior hospitalization 7s * Heme-onc (Dr. Mindy Castro) on consult 7) GI PPx * Protonix 40mg PO daily 8) DVT ppx * On heparin drip for portal vein thrombosis
--- NOTE | 2017-12-01 15:02 | US ---
HISTORY: abd pain COMPARISON: None. TECHNIQUE: Sonographic evaluation of the right upper quadrant of the abdomen. FINDINGS: LIVER: There is cirrhosis of liver and severe dilatation of the intrahepatic biliary radicles, worse in the left hepatic lobe. GALLBLADDER: There are multiple gallstones. The gallbladder is contracted. There is diffuse gallbladder thickening likely secondary to hepatic disease. COMMON BILE DUCT: Measures 10 mm. No stones. No dilatation. PANCREAS: Unremarkable as visualized. No mass. No ductal dilatation. RIGHT KIDNEY: Measures 12.0 cm in length. Normal echogenicity. No calculus, mass, or hydronephrosis. AORTA: No aneurysmal dilatation. IVC: Unremarkable. OTHER FINDINGS: There is small perihepatic ascites. IMPRESSION: Cirrhosis of liver and small perihepatic ascites. Severe intrahepatic biliary ductal dilatation, worse in the left hepatic lobe and cholelithiasis.
--- NOTE | 2017-12-01 15:19 | CT ---
PROCEDURE: CT Abdomen and Pelvis without intravenous contrast HISTORY: abd pain COMPARISON: 12/01/2016 TECHNIQUE: Without contrast.. Contrast Dose: 0 Radiation dose: Total exam DLP = 1014.08 mGy-cm. This CT exam was performed using one or more of the following dose reduction techniques: Automated exposure control, adjustment of the mA and/or kV according to patient size, and/or use of iterative reconstruction technique. FINDINGS: LOWER THORAX: Unremarkable. LIVER: Hepatomegaly. The liver measures 22.5 cm craniocaudal. The contour of the liver is nodular consistent with hepatic cirrhosis. There is a low-density mass in the lateral segment of the left hepatic lobe, at the dome of the diaphragm, approximately 1.4 cm in diameter. Grossly unchanged from prior examination. There is extensive intrahepatic biliary ductal dilatation. GALLBLADDER AND BILE DUCTS: Numerous calcifications are seen within the gallbladder. Gallbladder wall cannot be adequately assessed. Common bile duct not definitely identified. PANCREAS: Unremarkable. No gross lesion or ductal dilatation. SPLEEN: Splenomegaly. The spleen measures 16.2 cm in greatest dimension. No focal mass. ADRENALS: Unremarkable. No mass. KIDNEYS AND URETERS: Unremarkable. No hydronephrosis. No solid mass. VASCULATURE: Unremarkable. No aortic aneurysm. BOWEL: Mild mural thickening of the splenic flexure, and descending and proximal sigmoid colon, consistent with nonspecific colitis. No evidence of bowel obstruction. There is mural thickening of multiple loops of jejunum consistent with nonspecific enteritis. APPENDIX: Not identified PERITONEUM: There is moderate generalized ascites LYMPH NODES: Unremarkable. No enlarged lymph nodes. BLADDER: Nondistended REPRODUCTIVE: Unremarkable prostate BONES: Grade 1-2 anterolisthesis at L5-S1 with bilateral L5 spondylolysis. No acute fracture. OTHER FINDINGS: None. IMPRESSION: Hepatic splenomegaly. Hepatic cirrhosis. Ascites. Extensive intrahepatic biliary dilatation. Common bile duct not adequately demonstrated. Differential diagnosis includes choledocholithiasis, biliary neoplasm, or less likely obstructing hepatic neoplasm adjacent to the yohan hepatis. Nonspecific colitis. There is a nonspecific enteritis involving loops of jejunum. Cholelithiasis. Additional minor findings as above.
[2017-12-01] MEDS: Albumin Human 25% (12.5 gm/50 ml) IV SCH (16:19)
--- NOTE | 2017-12-01 17:48 | CP.PCM.CON ---
Addendum entered and electronically signed by Lupe Kincaid DO 12/01/17 18:16: Neuro alcohol abuse history last drink per patient is 11/20/1712/01 Ammonia 55 f/u Urine Drug Screen CIWA protocol Ativan 1mg Q4H PRN alcohol withdrawal Cardio CHF history EF 40% in November Echo 12/01 EKG 12/01 Echo: 59% preliminary 12/01 BNP 1410 12/01 Negative troponin I GI alcoholic liver cirrhosis 12/01 T bili 33.8 12/01 AST 249 ALT 60 ALP 307 12/01 Lipase 339 serum alcohol, f/u Hepatitis panel heparin drip 250cc IV 18 u/kg/hr 12/01 Abdomen obstructive XRAY: Nonspecific bowel gas pattern. no evidence of mechanical bowel obstruction. clear lungs 12/01 Abdominal US: blood flow couldn't be documented in the portal vein. suspicious for portal vein thrombosis 12/01 CT Abdomen/Pelvis: cirrhosis and small perihepatic ascites. severe intrahepatic biliary ductal dilatation, worse in left hepatic lobe nad cholelithiasis MELD score 40 points 71.3% estimated 3 month mortality. Patient made aware that he cannot have a liver transplant unless he stops drinking for 6 months to be placed on the list. Heme/onc f/u Direct bilirubin decreased urine output heparin drip 250cc IV 18 u/kg/hr Nephro: Prostate cancer history decreased urine output/oliguric f/u I/O f/u Urine output urine osm, urine sodium NS @100cc/hr 12/01 UA + for glucose, bilirubin, sienna, negative for leukocyte esterase 12/01 BUN/Cr 59/5.6 Prostate cancer history f/u PSA Albumin 12.5gm IV Q8H Prophylaxis DVT: contraindicated, patient is on heparin drip 250cc IV 18 u/kg/hr for portal vein thrombosis NS @100cc/hr Original Note: <Lupe Kincaid - Last Filed: 12/01/17 18:10> History of Present Illness - History of Present Illness History of Present Illness: Consult note for Dr. oShan FRANKLIN weakness, fatigue, constipation and decreased appetite HPI: 67M with PMH anemia, alcoholic liver cirrhosis and iron deficiency, prostate Adenocarcinoma March 2017, CHF (EF 40% on November 2016 echo) presents with weakness, fatigue, constipation and decreased appetite [id number]. Patient state he 's been short of breath for awhile now and has not had the chance for further cardiac workup. Patient states he used to walk more than two blocks without issue, and is now short of breath with exertion. Patient denies chest pain, nausea, vomiting. Admits to constipation, leg edema. Patient denies pruritis, but admitted to pruritis on last admission with jaundice. Patient states that he had not seen a doctor for 30 years until his visit to the ED for hemoglobin of 5, where he had 3 blood transfusions per patient. Patient states he had a biopsy of prostate by Dr. Snyder and was told he had prostate cancer. Patient has not had chemotherapy for his prostate adenocarcinoma. Dr. Snyder did a biopsy, but no treatment had started due to change with insurance. Patient states his bowel movements are small, require force, and yield pale stool. Patient states he's been having constipation for a couple of weeks now. Patient stated he drank only wine on [place] and it was the last day he drank. Patient states his abdomen has been distended for a couple of weeks, but has not noticed that he's been jaundiced. Patient was told he may have a clot in his portal vein and is being placed on heparin drip. Patient told he had gallstones in his gallbladder, which may explain elevated bilirubin. Patient had an EGD and colonoscopy and diagnosed with gastritis and hemorrhoids. Patient states he drank just wine on [place], but upon speaking with attending Dr. Alcocer, patient drank over a six pack and clear liquor as well. PMH anemia, alcoholic liver cirrhosis and iron deficiency, prostate Adenocarcinoma March 2017, CHF 40% November 2016 echo, gastritis, hemorrhoids PSH: Family History: mother and father have Alzheimer. Father' had heart history Social History: no smoking history, ETOH abuse Allergies: NKDA Oncologist: Dr. Castro PMD: Dr. Keo Olmos. GI: Dr. Ham Onco: Dr. Castro Code Status: full code Past Patient History - Past Medical History & Family History Past Medical History?: Yes - Past Social History Smoking Status: Never Smoked - CARDIAC Hx Congestive Heart Failure: Yes Hx Hypertension: Yes - PULMONARY Hx Respiratory Disorders: No - NEUROLOGICAL Hx Neurological Disorder: No - HEENT Hx HEENT Problems: No - RENAL Hx Chronic Kidney Disease: No - ENDOCRINE/METABOLIC Hx Endocrine Disorders: No - HEMATOLOGICAL/ONCOLOGICAL Hx Anemia: Yes - INTEGUMENTARY Hx Dermatological Problems: No - MUSCULOSKELETAL/RHEUMATOLOGICAL Hx Musculoskeletal Disorders: No Hx Falls: No - GASTROINTESTINAL Hx Gastrointestinal Disorders: Yes Hx Gastroesophageal Reflux: Yes Other/Comment: CANDIDAL ESOPHAGITIS ascites - GENITOURINARY/GYNECOLOGICAL Hx Genitourinary Disorders: Yes Hx Prostate Problems: Yes - PSYCHIATRIC Hx Substance Use: Yes (alcohol) - SURGICAL HISTORY Hx Surgeries: Yes - ANESTHESIA Hx Anesthesia: Yes Hx Anesthesia Reactions: No Hx Malignant Hyperthermia: No Meds Allergies/Adverse Reactions: Allergies Allergy/AdvReac Type Severity Reaction Status Date / Time No Known Allergies Allergy Verified 12/01/17 12:02 - Medications Medications: Current Medications Albumin Human (Albumin Human 25% (12.5 Gm/50 Ml)) 12.5 gm IV Q8 DAWNA Last Admin: 12/01/17 16:19 Dose: 12.5 gm Sodium Chloride (Sodium Chloride 0.9%) 1,000 mls @ 100 mls/hr IV .Q10H DAWNA Heparin Sodium/Sodium Chloride (Heparin 23299 Units/250ml 1/2 Normal Saline) 25 ,000 units in 250 mls @ 16.737 mls/hr IV .[id number] PRN; Protocol; 18 UNITS/KG/HR PRN Reason: ADJUST RATE PER PROTOCOL Physical Exam - Constitutional Appears: Well, Non-toxic - Head Exam Head Exam: NORMAL INSPECTION - Eye Exam Eye Exam: EOMI, Scleral icterus. absent: Periorbital swelling, Periorbital tenderness Pupil Exam: NORMAL ACCOMODATION - ENT Exam ENT Exam: Mucous Membranes Moist - Neck Exam Neck exam: Positive for: Full Rom. Negative for: Lymphadenopathy, Tenderness, Thyromegaly - Respiratory Exam Respiratory Exam: Accessory Muscle Use, NORMAL BREATHING PATTERN. absent: Decreased Breath Sounds, Clear to Auscultation Bilateral - Cardiovascular Exam Cardiovascular Exam: REGULAR RHYTHM, +S1, +S2. absent: Bradycardia, Tachycardia - GI/Abdominal Exam GI & Abdominal Exam: Distended, Soft. absent: Firm, Rigid, Tenderness - Extremities Exam Extremities exam: Positive for: full ROM, normal inspection. Negative for: pedal edema Additional comments: no pitting edema - Neurological Exam Neurological exam: Alert, CN II-XII Intact, Normal Gait, Oriented x3 - Psychiatric Exam Psychiatric exam: Normal Affect, Normal Mood - Skin Skin Exam: Dry, Intact, Warm Additional comments: Jaundice Results - Vital Signs Recent Vital Signs: Last Vital Signs Temp 98 F 12/01/17 12:01 Pulse 73 12/01/17 17:05 Resp 20 12/01/17 17:05 BP 123/64 12/01/17 17:05 Pulse Ox 99 12/01/17 17:05 - Labs Result Diagrams: 12/01/17 12:44 12/01/17 12:44 Labs: Laboratory Results - last 24 hr 12/01/17 12/01/17 12/01/17 12:44 12:44 12:44 WBC 10.3 D RBC 4.39 L Hgb 11.9 L D Hct 34.6 L MCV 78.8 L MCH 27.1 MCHC 34.4 RDW 28.6 H Plt Count 219 MPV 8.8 Neut % (Auto) 83.1 H Lymph % (Auto) 7.5 L [place] % (Auto) 7.5 Eos % (Auto) 1.3 Baso % (Auto) 0.6 Neut # 8.6 H Lymph # 0.8 L [place] # 0.8 Eos # 0.1 Baso # 0.1 Neutrophils % (Manual) 81 H Band Neutrophils % 3 H Lymphocytes % (Manual) 5 L Monocytes % (Manual) 5 Eosinophils % (Manual) 6 H Platelet Estimate Normal Hypochromasia (manual) Slight Poikilocytosis (manual Slight Anisocytosis (manual) Slight Target Cells Slight Ovalocytes Slight PT 23.1 H INR 2.0 APTT 41 H Sodium 120 L* Potassium 3.8 Chloride 89 L Carbon Dioxide 18 L Anion Gap 18 BUN 59 H Creatinine 5.6 H Est GFR ( Amer) 12 Est GFR (Non-Af Amer) 10 Random Glucose 111 H Calcium 7.1 L Total Bilirubin 33.8 H AST 249 H ALT 60 Alkaline Phosphatase 307 H Ammonia Troponin I < 0.0120 NT-Pro-B Natriuret Pep 1410 H Total Protein 7.6 Albumin 2.8 L D Globulin 4.8 H Albumin/Globulin Ratio 0.6 L Lipase 339 H Urine Color Urine Clarity Urine pH Ur Specific [place] Urine Protein Urine Glucose (UA) Urine Ketones Urine Blood Urine Nitrate Urine Bilirubin Urine Urobilinogen Ur Leukocyte Esterase Urine WBC (Auto) Urine RBC (Auto) Ur Squamous Epith Cells Urine Bacteria 12/01/17 12/01/17 12:44 14:00 WBC RBC Hgb Hct MCV MCH MCHC RDW Plt Count MPV Neut % (Auto) Lymph % (Auto) [place] % (Auto) Eos % (Auto) Baso % (Auto) Neut # Lymph # [place] # Eos # Baso # Neutrophils % (Manual) Band Neutrophils % Lymphocytes % (Manual) Monocytes % (Manual) Eosinophils % (Manual) Platelet Estimate Hypochromasia (manual) Poikilocytosis (manual Anisocytosis (manual) Target Cells Ovalocytes PT INR APTT Sodium Potassium Chloride Carbon Dioxide Anion Gap BUN Creatinine Est GFR ( Amer) Est GFR (Non-Af Amer) Random Glucose Calcium Total Bilirubin AST ALT Alkaline Phosphatase Ammonia 55 H D Troponin I NT-Pro-B Natriuret Pep Total Protein Albumin Globulin Albumin/Globulin Ratio Lipase Urine Color [place] Urine Clarity Clear Urine pH 5.0 Ur Specific [place] 1.013 Urine Protein Negative Urine Glucose (UA) 1+ H Urine Ketones Negative Urine Blood Negative Urine Nitrate Negative Urine Bilirubin 2+ H Urine Urobilinogen 4.0 Ur Leukocyte Esterase Neg Urine WBC (Auto) 7 H Urine RBC (Auto) 1 Ur Squamous Epith Cells 4 Urine Bacteria Occ H Assessment & Plan - Assessment and Plan (Free Text) Assessment: 67M with pmh of anemia, alcoholic liver cirrhosis and iron deficiency, prostate Adenocarcinoma March 2017, CHF 40% November 2016 echo, gastritis, hemorrhoids presents with weakness and shortness of breath. Found to be jaundiced with elevated bilirubin possible portal vein thrombosis. Patient admitted to ICU for closer observation and treatment and placed on heparin drip. Neuro alcohol abuse history last drink per patient is 11/20/17 Urine Drug Screen CIWA protocol Ativan 1mg Q4H PRN alcohol withdrawal Cardio CHF history EF 40% in November Echo 12/01 EKG 12/01 Echo: 59% preliminary GI alcoholic liver cirrhosis 12/01 T bili 32.6, serum alcohol, f/u Hepatitis panel heparin drip 250cc IV 18 u/kg/hr 12/01 Abdomen obstructive XRAY: Nonspecific bowel gas pattern. no evidence of mechanical bowel obstruction. clear lungs 12/01 Abdominal US: blood flow couldn't be documented in the portal vein. suspicious for portal vein thrombosis 12/01 CT Abdomen/Pelvis: cirrhosis and small perihepatic ascites. severe intrahepatic biliary ductal dilatation, worse in left hepatic lobe nad cholelithiasis MELD score 40 points 71.3% estimated 3 month mortality. Patient made aware that he cannot have a liver transplant unless he stops drinking for 6 months to be placed on the list. Heme/onc f/u Direct bilirubin decreased urine output heparin drip 250cc IV 18 u/kg/hr Nephro: Prostate cancer history decreased urine output/oliguric f/u I/O f/u Urine output urine osm, urine sodium NS @100cc/hr Prostate cancer history f/u PSA Albumin 12.5gm IV Q8H Prophylaxis DVT: contraindicated, patient is on heparin drip 250cc IV 18 u/kg/hr for portal vein thrombosis NS @100cc/hr - Date & Time Date: 12/01/17 Time: 17:51 <Mal Parry - Last Filed: 12/01/17 19:06> Meds - Medications Medications: Current Medications Albumin Human (Albumin Human 25% (12.5 Gm/50 Ml)) 12.5 gm IV Q8 DAWNA Last Admin: 12/01/17 16:19 Dose: 12.5 gm Sodium Chloride (Sodium Chloride 0.9%) 1,000 mls @ 100 mls/hr IV .Q10H DAWNA Heparin Sodium/Sodium Chloride (Heparin 02052 Units/250ml 1/2 Normal Saline) 25 ,000 units in 250 mls @ 16.737 mls/hr IV .[id number] PRN; Protocol; 18 UNITS/KG/HR PRN Reason: ADJUST RATE PER PROTOCOL Last Admin: 12/01/17 18:08 Dose: 18 units/kg/hr, 16.737 mls/hr Lorazepam (Ativan) 1 mg IVP Q4H PRN PRN Reason: Symptoms of alcohol withdrawl Results - Vital Signs Recent Vital Signs: Last Vital Signs Temp 98 F 12/01/17 12:01 Pulse 73 12/01/17 17:05 Resp 20 12/01/17 17:05 BP 123/64 12/01/17 17:05 Pulse Ox 99 12/01/17 17:05 - Labs Result Diagrams: 12/01/17 12:44 12/01/17 12:44 Labs: Laboratory Results - last 24 hr 12/01/17 12/01/17 12/01/17 12:44 12:44 12:44 WBC 10.3 D RBC 4.39 L Hgb 11.9 L D Hct 34.6 L MCV 78.8 L MCH 27.1 MCHC 34.4 RDW 28.6 H Plt Count 219 MPV 8.8 Neut % (Auto) 83.1 H Lymph % (Auto) 7.5 L [place] % (Auto) 7.5 Eos % (Auto) 1.3 Baso % (Auto) 0.6 Neut # 8.6 H Lymph # 0.8 L [place] # 0.8 Eos # 0.1 Baso # 0.1 Neutrophils % (Manual) 81 H Band Neutrophils % 3 H Lymphocytes % (Manual) 5 L Monocytes % (Manual) 5 Eosinophils % (Manual) 6 H Platelet Estimate Normal Hypochromasia (manual) Slight Poikilocytosis (manual Slight Anisocytosis (manual) Slight Target Cells Slight Ovalocytes Slight PT 23.1 H INR 2.0 APTT 41 H Sodium 120 L* Potassium 3.8 Chloride 89 L Carbon Dioxide 18 L Anion Gap 18 BUN 59 H Creatinine 5.6 H Est GFR ( Amer) 12 Est GFR (Non-Af Amer) 10 Random Glucose 111 H Calcium 7.1 L Total Bilirubin 33.8 H AST 249 H ALT 60 Alkaline Phosphatase 307 H Ammonia Troponin I < 0.0120 NT-Pro-B Natriuret Pep 1410 H Total Protein 7.6 Albumin 2.8 L D Globulin 4.8 H Albumin/Globulin Ratio 0.6 L Lipase 339 H Urine Color Urine Clarity Urine pH Ur Specific [place] Urine Protein Urine Glucose (UA) Urine Ketones Urine Blood Urine Nitrate Urine Bilirubin Urine Urobilinogen Ur Leukocyte Esterase Urine WBC (Auto) Urine RBC (Auto) Ur Squamous Epith Cells Urine Bacteria 12/01/17 12/01/17 12:44 14:00 WBC RBC Hgb Hct MCV MCH MCHC RDW Plt Count MPV Neut % (Auto) Lymph % (Auto) [place] % (Auto) Eos % (Auto) Baso % (Auto) Neut # Lymph # [place] # Eos # Baso # Neutrophils % (Manual) Band Neutrophils % Lymphocytes % (Manual) Monocytes % (Manual) Eosinophils % (Manual) Platelet Estimate Hypochromasia (manual) Poikilocytosis (manual Anisocytosis (manual) Target Cells Ovalocytes PT INR APTT Sodium Potassium Chloride Carbon Dioxide Anion Gap BUN Creatinine Est GFR ( Amer) Est GFR (Non-Af Amer) Random Glucose Calcium Total Bilirubin AST ALT Alkaline Phosphatase Ammonia 55 H D Troponin I NT-Pro-B Natriuret Pep Total Protein Albumin Globulin Albumin/Globulin Ratio Lipase Urine Color [place] Urine Clarity Clear Urine pH 5.0 Ur Specific [place] 1.013 Urine Protein Negative Urine Glucose (UA) 1+ H Urine Ketones Negative Urine Blood Negative Urine Nitrate Negative Urine Bilirubin 2+ H Urine Urobilinogen 4.0 Ur Leukocyte Esterase Neg Urine WBC (Auto) 7 H Urine RBC (Auto) 1 Ur Squamous Epith Cells 4 Urine Bacteria Occ H Attending/Attestation - Attestation I have personally seen and examined this patient.: Yes I have fully participated in the care of the patient.: Yes I have reviewed all pertinent clinical information: Yes Notes (Text): 12/01/17 18:54 I have seen and examined the patient. Medical records, lab studies, and imaging were reviewed by me and a management plan was formulated on multidisciplinary rounds with resident Dr. Kincaid. I agree with their documented assessment and plan. Patient admitted for obstructive jaundice, most likely secondary to choledocholithiasis. GI consulted for possible ERCP/MRCP. Chronic alcoholic liver cirrhosis, MELD - 40. Portal vein thrombosis starting on heparin gtt. Acute renal failure either from hypovolemia or hepatorenal, Albumin q8h, with fluid resuscitation. Critical Care Time 35 minutes. Multi-disciplinary rounds were performed with house staff, nursing, speech therapy, respiratory therapy, pharmacy and nutrition with integrated input from the primary team/attending and other consulting services. The documented time is cumulative and includes review of patient data/exams/labs/chart review and examination of the patient on rounds and throughout the day; time is exclusive of any procedures or teaching time.
[2017-12-01] MEDS: Heparin25000 units/250ml 1/2NS 25,000 UNITS/250 ML BAG IV PRN (18:08)
[2017-12-01 19:12] LABS: OSMOLALITY,URINE 338 mosm/kg (300-1000)
[2017-12-01] MEDS: Sodium Chloride 0.9% 1,000 ML IV SCH (19:22)
[2017-12-01 19:26] LABS: BENZODIAZEPINES, UR NEGATIVE (NEGATIVE)
[2017-12-01 19:29] LABS: BARBITURATES, UR NEGATIVE (NEGATIVE); OPIATES, UR NEGATIVE (NEGATIVE); PHENCYCLIDINE, UR NEGATIVE (NEGATIVE)
[2017-12-01 19:37] LABS: BILIRUBIN,DIRECT 31.1 mg/dL (0.0-0.4)
[2017-12-01 19:54] LABS: HEPATITIS B SURFACE AG NEGATIVE (NEGATIVE)
[2017-12-01 20:05] LABS: HEPATITIS A IGM NEGATIVE (NEGATIVE); HEPATITIS B CORE AB Negative (NEGATIVE)
[2017-12-01 20:52] LABS: HEPATITIS C ANTIBODY Negative (NEGATIVE)
[2017-12-01] MEDS: Piperacill/Tazo 2.25gm in Dex 2.25 GM/50 ML BAG IVPB SCH (22:05)
--- NOTE | 2017-12-01 22:59 | CP.PCM.CON ---
History of Present Illness - History of Present Illness History of Present Illness: 67 year old man with a history of etoh abuse admitted with abdominal pain and jaundice. Pt was seen a year ago, and LV EF was 40% of echo. He followed up with me in the office. With meds, his EF normalized, Pt denies chest pain or [place]. Review of Systems - Review of Systems All systems: reviewed and no additional remarkable complaints except (as above.) Past Patient History - Past Medical History & Family History Past Medical History?: Yes - Past Social History Smoking Status: Never Smoked - CARDIAC Hx Congestive Heart Failure: Yes Hx Hypertension: Yes - PULMONARY Hx Respiratory Disorders: No - NEUROLOGICAL Hx Neurological Disorder: No - HEENT Hx HEENT Problems: No - RENAL Hx Chronic Kidney Disease: No - ENDOCRINE/METABOLIC Hx Endocrine Disorders: No - HEMATOLOGICAL/ONCOLOGICAL Hx Anemia: Yes - INTEGUMENTARY Hx Dermatological Problems: No - MUSCULOSKELETAL/RHEUMATOLOGICAL Hx Musculoskeletal Disorders: No Hx Falls: No - GASTROINTESTINAL Hx Gastrointestinal Disorders: Yes Hx Gastroesophageal Reflux: Yes Other/Comment: CANDIDAL ESOPHAGITIS ascites - GENITOURINARY/GYNECOLOGICAL Hx Genitourinary Disorders: Yes Hx Prostate Problems: Yes - PSYCHIATRIC Hx Substance Use: Yes (alcohol) - SURGICAL HISTORY Hx Surgeries: Yes - ANESTHESIA Hx Anesthesia: Yes Hx Anesthesia Reactions: No Hx Malignant Hyperthermia: No Meds Allergies/Adverse Reactions: Allergies Allergy/AdvReac Type Severity Reaction Status Date / Time No Known Allergies Allergy Verified 12/01/17 12:02 - Medications Medications: Current Medications Albumin Human (Albumin Human 25% (12.5 Gm/50 Ml)) 12.5 gm IV Q8 [facility] Last Admin: 12/01/17 16:19 Dose: 12.5 gm Sodium Chloride (Sodium Chloride 0.9%) 1,000 mls @ 100 mls/hr IV .Q10H [facility] Last Admin: 12/01/17 19:22 Dose: 100 mls/hr Heparin Sodium/Sodium Chloride (Heparin 69008 Units/250ml 1/2 Normal Saline) 25 ,000 units in 250 mls @ 16.737 mls/hr IV .[id number] PRN; Protocol; 18 UNITS/KG/HR PRN Reason: ADJUST RATE PER PROTOCOL Last Admin: 12/01/17 18:08 Dose: 18 units/kg/hr, 16.737 mls/hr Piperacillin Sod/Tazobactam Sod (Zosyn 2.25 Gm Iv Premix) 2.25 gm in 50 mls @ 100 mls/hr IVPB Q8H DAWNA Last Admin: 12/01/17 22:05 Dose: 100 mls/hr Lorazepam (Ativan) 1 mg IVP Q4H PRN PRN Reason: Symptoms of alcohol withdrawl Pantoprazole Sodium (Protonix Ec Tab) 40 mg PO DAILY DAWNA Physical Exam - Constitutional Appears: Chronically Ill - Head Exam Head Exam: ATRAUMATIC - Eye Exam Eye Exam: EOMI - ENT Exam ENT Exam: Mucous Membranes Moist - Neck Exam Neck exam: Positive for: Normal Inspection - Respiratory Exam Respiratory Exam: Clear to Auscultation Bilateral - Cardiovascular Exam Cardiovascular Exam: REGULAR RHYTHM - GI/Abdominal Exam GI & Abdominal Exam: Normal Bowel Sounds Additional comments: ascites - Exam External exam: NORMAL EXTERNAL EXAM - Extremities Exam Extremities exam: Positive for: normal inspection - Back Exam Back exam: NORMAL INSPECTION - Neurological Exam Neurological exam: Alert - Psychiatric Exam Psychiatric exam: Normal Mood - Skin Additional comments: Jaundiced Results - Vital Signs Recent Vital Signs: Last Vital Signs Temp 98 F 12/01/17 12:01 Pulse 78 12/01/17 21:27 Resp 22 12/01/17 21:27 BP 130/67 12/01/17 21:27 Pulse Ox 100 12/01/17 21:27 - Labs Result Diagrams: 12/01/17 12:44 12/01/17 12:44 Labs: Laboratory Results - last 24 hr 12/01/17 12/01/17 12/01/17 12:44 12:44 12:44 WBC 10.3 D RBC 4.39 L Hgb 11.9 L D Hct 34.6 L MCV 78.8 L MCH 27.1 MCHC 34.4 RDW 28.6 H Plt Count 219 MPV 8.8 Neut % (Auto) 83.1 H Lymph % (Auto) 7.5 L [place] % (Auto) 7.5 Eos % (Auto) 1.3 Baso % (Auto) 0.6 Neut # 8.6 H Lymph # 0.8 L [place] # 0.8 Eos # 0.1 Baso # 0.1 Neutrophils % (Manual) 81 H Band Neutrophils % 3 H Lymphocytes % (Manual) 5 L Monocytes % (Manual) 5 Eosinophils % (Manual) 6 H Platelet Estimate Normal Hypochromasia (manual) Slight Poikilocytosis (manual Slight Anisocytosis (manual) Slight Target Cells Slight Ovalocytes Slight PT 23.1 H INR 2.0 APTT 41 H Sodium 120 L* Potassium 3.8 Chloride 89 L Carbon Dioxide 18 L Anion Gap 18 BUN 59 H Creatinine 5.6 H Est GFR ( Amer) 12 Est GFR (Non-Af Amer) 10 Random Glucose 111 H Serum Osmolality Calcium 7.1 L Total Bilirubin 33.8 H Direct Bilirubin AST 249 H ALT 60 Alkaline Phosphatase 307 H Ammonia Troponin I < 0.0120 NT-Pro-B Natriuret Pep 1410 H Total Protein 7.6 Albumin 2.8 L D Globulin 4.8 H Albumin/Globulin Ratio 0.6 L Lipase 339 H Procalcitonin Urine Color Urine Clarity Urine pH Ur Specific [place] Urine Protein Urine Glucose (UA) Urine Ketones Urine Blood Urine Nitrate Urine Bilirubin Urine Urobilinogen Ur Leukocyte Esterase Urine WBC (Auto) Urine RBC (Auto) Ur Squamous Epith Cells Urine Bacteria Urine Osmolality Ur Random Sodium Urine Opiates Screen Urine Methadone Screen Ur Barbiturates Screen Ur Phencyclidine Scrn Ur Amphetamines Screen U Benzodiazepines Scrn U Oth Cocaine Metabols U Cannabinoids Screen Alcohol, Quantitative Hepatitis A IgM Ab Hep Bs Antigen Hep B Core IgM Ab Hepatitis C Antibody 12/01/17 12/01/17 12/01/17 12:44 14:00 19:00 WBC RBC Hgb Hct MCV MCH MCHC RDW Plt Count MPV Neut % (Auto) Lymph % (Auto) [place] % (Auto) Eos % (Auto) Baso % (Auto) Neut # Lymph # [place] # Eos # Baso # Neutrophils % (Manual) Band Neutrophils % Lymphocytes % (Manual) Monocytes % (Manual) Eosinophils % (Manual) Platelet Estimate Hypochromasia (manual) Poikilocytosis (manual Anisocytosis (manual) Target Cells Ovalocytes PT INR APTT Sodium Potassium Chloride Carbon Dioxide Anion Gap BUN Creatinine Est GFR ( Amer) Est GFR (Non-Af Amer) Random Glucose Serum Osmolality Calcium Total Bilirubin Direct Bilirubin AST ALT Alkaline Phosphatase Ammonia 55 H D Troponin I NT-Pro-B Natriuret Pep Total Protein Albumin Globulin Albumin/Globulin Ratio Lipase Procalcitonin Urine Color [place] Urine Clarity Clear Urine pH 5.0 Ur Specific [place] 1.013 Urine Protein Negative Urine Glucose (UA) 1+ H Urine Ketones Negative Urine Blood Negative Urine Nitrate Negative Urine Bilirubin 2+ H Urine Urobilinogen 4.0 Ur Leukocyte Esterase Neg Urine WBC (Auto) 7 H Urine RBC (Auto) 1 Ur Squamous Epith Cells 4 Urine Bacteria Occ H Urine Osmolality 338 Ur Random Sodium < 5 Urine Opiates Screen Negative Urine Methadone Screen Negative Ur Barbiturates Screen Negative Ur Phencyclidine Scrn Negative Ur Amphetamines Screen Negative U Benzodiazepines Scrn Negative U Oth Cocaine Metabols Negative U Cannabinoids Screen Positive H Alcohol, Quantitative Hepatitis A IgM Ab Hep Bs Antigen Hep B Core IgM Ab Hepatitis C Antibody 12/01/17 12/01/17 12/01/17 19:00 19:00 19:00 WBC RBC Hgb Hct MCV MCH MCHC RDW Plt Count MPV Neut % (Auto) Lymph % (Auto) [place] % (Auto) Eos % (Auto) Baso % (Auto) Neut # Lymph # [place] # Eos # Baso # Neutrophils % (Manual) Band Neutrophils % Lymphocytes % (Manual) Monocytes % (Manual) Eosinophils % (Manual) Platelet Estimate Hypochromasia (manual) Poikilocytosis (manual Anisocytosis (manual) Target Cells Ovalocytes PT INR APTT Sodium Potassium Chloride Carbon Dioxide Anion Gap BUN Creatinine Est GFR ( Amer) Est GFR (Non-Af Amer) Random Glucose Serum Osmolality 287 Calcium Total Bilirubin Direct Bilirubin 31.1 H AST ALT Alkaline Phosphatase Ammonia Troponin I NT-Pro-B Natriuret Pep Total Protein Albumin Globulin Albumin/Globulin Ratio Lipase Procalcitonin Urine Color Urine Clarity Urine pH Ur Specific [place] Urine Protein Urine Glucose (UA) Urine Ketones Urine Blood Urine Nitrate Urine Bilirubin Urine Urobilinogen Ur Leukocyte Esterase Urine WBC (Auto) Urine RBC (Auto) Ur Squamous Epith Cells Urine Bacteria Urine Osmolality Ur Random Sodium Urine Opiates Screen Urine Methadone Screen Ur Barbiturates Screen Ur Phencyclidine Scrn Ur Amphetamines Screen U Benzodiazepines Scrn U Oth Cocaine Metabols U Cannabinoids Screen Alcohol, Quantitative < 10 Hepatitis A IgM Ab Negative Hep Bs Antigen Negative Hep B Core IgM Ab Negative Hepatitis C Antibody Negative 12/01/17 19:00 WBC RBC Hgb Hct MCV MCH MCHC RDW Plt Count MPV Neut % (Auto) Lymph % (Auto) [place] % (Auto) Eos % (Auto) Baso % (Auto) Neut # Lymph # [place] # Eos # Baso # Neutrophils % (Manual) Band Neutrophils % Lymphocytes % (Manual) Monocytes % (Manual) Eosinophils % (Manual) Platelet Estimate Hypochromasia (manual) Poikilocytosis (manual Anisocytosis (manual) Target Cells Ovalocytes PT INR APTT Sodium Potassium Chloride Carbon Dioxide Anion Gap BUN Creatinine Est GFR ( Amer) Est GFR (Non-Af Amer) Random Glucose Serum Osmolality Calcium Total Bilirubin Direct Bilirubin AST ALT Alkaline Phosphatase Ammonia Troponin I NT-Pro-B Natriuret Pep Total Protein Albumin Globulin Albumin/Globulin Ratio Lipase Procalcitonin 5.29 H Urine Color Urine Clarity Urine pH Ur Specific [place] Urine Protein Urine Glucose (UA) Urine Ketones Urine Blood Urine Nitrate Urine Bilirubin Urine Urobilinogen Ur Leukocyte Esterase Urine WBC (Auto) Urine RBC (Auto) Ur Squamous Epith Cells Urine Bacteria Urine Osmolality Ur Random Sodium Urine Opiates Screen Urine Methadone Screen Ur Barbiturates Screen Ur Phencyclidine Scrn Ur Amphetamines Screen U Benzodiazepines Scrn U Oth Cocaine Metabols U Cannabinoids Screen Alcohol, Quantitative Hepatitis A IgM Ab Hep Bs Antigen Hep B Core IgM Ab Hepatitis C Antibody - EKG Data EKG Interpreted by: Myself (nsr) Assessment & Plan - Assessment and Plan (Free Text) Assessment: Echo performed today demonstrates normal LV EF. 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
--- NOTE | 2017-12-01 23:02 | CARD ---
APPROVED REPORT EXAM: Two-dimensional and M-mode echocardiogram with Doppler and color Doppler. Other Information Quality : GoodRhythm : INDICATION Pericardial Effusion LV Function:Systolic 2D DIMENSIONS IVSd0.8 (0.7-1.1cm)LVDd5.6 (3.9-5.9cm) PWd1.0 (0.7-1.1cm)LVDs3.7 (2.5-4.0cm) FS (%) 34.6 %LVEF (%)63.0 (>50%) M-Mode DIMENSIONS Left Atrium (MM)5.21 (2.5-4.0cm)Aortic Root3.61 (2.2-3.7cm) Aortic Cusp Exc.2.57 (1.5-2.0cm) Mitral Valve MV E Smrqyvsz26.6cm/sMV A Rxsveggo16.5cm/sE/A ratio1.0 TDI E/Lateral E'0.0E/Medial E'0.0 Tricuspid Valve TR Peak [id number]/sTR Peak [id number] LEFT VENTRICLE The left ventricle is normal size. There is normal left ventricular wall thickness. The left ventricular function is normal. The left ventricular ejection fraction is within the normal range. 61% No regional wall motion abnormalities noted. The left ventricular diastolic function is indeterminate. No left ventricle thrombus noted on this study. There is no ventricular septal defect visualized. There is no left ventricular aneurysm. There is no mass noted in the left ventricle. RIGHT VENTRICLE The right ventricle is normal size. There is normal right ventricular wall thickness. The right ventricular systolic function is normal. ATRIA The left atrium size is normal. The right atrium size is normal. The interatrial septum is intact with no evidence for an atrial septal defect. AORTIC VALVE The aortic valve is normal in structure and function. No aortic regurgitation is present. There is no aortic valvular stenosis. There is no aortic valvular vegetation. MITRAL VALVE The mitral valve is normal in structure and function. There is no evidence of mitral valve prolapse. There is no mitral valve stenosis. There is no mitral valve regurgitation noted. TRICUSPID VALVE The tricuspid valve is normal in structure and function. There is trace tricuspid valve regurgitation noted. There is no tricuspid valve prolapse or vegetation. There is no tricuspid valve stenosis. PULMONIC VALVE The pulmonary valve is normal in structure and function. There is no pulmonic valvular regurgitation. There is no pulmonic valvular stenosis. GREAT VESSELS The aortic root is normal in size. The ascending aorta is normal in size. The pulmonary artery is normal. The IVC is normal in size and collapses >50% with inspiration. PERICARDIAL EFFUSION The pericardium appears normal. There is no pleural effusion. <Conclusion> Normal LV EF and Doppler.
[2017-12-02] MEDS: Albumin Human 25% (12.5 gm/50 ml) IV SCH ×4 (00:13→22:44)
[2017-12-02] MEDS: Sodium Chloride 0.9% 1,000 ML IV SCH ×2 (05:30)
[2017-12-02] MEDS: Piperacill/Tazo 2.25gm in Dex 2.25 GM/50 ML BAG IVPB SCH ×3 (06:00→22:44)
[2017-12-02 08:31] LABS: BASO # 0.1 K/uL (0.0-0.2); BASO % 0.9 % (0.0-2.0); EOS # 0.2 K/uL (0.0-0.7); EOS % 1.6 % (0.0-4.0); HEMOGLOBIN 10.3 g/dL (12.0-18.0); LYMPH # 0.6 K/uL (1.0-4.3); LYMPH % 5.8 % (20.0-40.0); MEAN CELL VOLUME 78.4 fL (80.0-94.0); MEAN CORPUSCULAR HEMOGLOBIN 27.3 pg (27.0-31.0); MEAN CORPUSCULAR HGB CONC 34.8 g/dL (33.0-37.0); MEAN PLATELET VOLUME 8.3 fL (7.2-11.7); MONO # 0.6 K/uL (0.0-0.8); MONO % 6.1 % (0.0-10.0); NEUT # 8.8 K/uL (1.8-7.0); NEUT % 85.6 % (50.0-75.0); PLATELET COUNT 161 K/uL (130-400); RBC 3.78 Mil/uL (4.40-5.90); RED CELL DISTRIBUTION WIDTH 28.6 % (11.5-14.5); WHITE BLOOD COUNT 10.3 K/uL (4.8-10.8)
[2017-12-02 08:49] LABS: ALB/GLOB RATIO 0.6 (1.0-2.1); ALBUMIN 2.7 g/dL (3.5-5.0); CALCIUM 6.6 mg/dl (8.6-10.4)
--- NOTE | 2017-12-02 10:00 | CP.PCM.CON ---
History of Present Illness - History of Present Illness History of Present Illness: CC weakness, fatigue, constipation and decreased appetite 67M with PMH anemia, alcoholic liver cirrhosis and iron deficiency, prostate CA March 2017, CHF (EF 40% on November 2016 echo) presents with weakness, fatigue, constipation and decreased appetite and decreased UO [id number]. Patient state he' s been short of breath for awhile now and has not had the chance for further cardiac workup. Patient states he used to walk more than two blocks without issue, and is now short of breath with exertion. Patient denies chest pain, nausea, vomiting. Admits to constipation, leg edema. Patient denies pruritis, but admitted to pruritis on last admission with jaundice. Patient states that he had not seen a doctor for 30 years until his visit to the ED for hemoglobin of 5, where he had 3 blood transfusions per patient. Patient states he had a biopsy of prostate by Dr. Tolbert and was told he had prostate cancer. Patient has not had chemotherapy for his prostate adenocarcinoma. Dr. Snyder did a biopsy, but no treatment had started due to change with insurance. Patient states his bowel movements are small, require force, and yield pale stool. Patient states he's been having constipation for a couple of weeks now. Patient stated he drank only wine on and it was the last day he drank. Patient states his abdomen has been distended for a couple of weeks, but has not noticed that he's been jaundiced. Patient was told he may have a clot in his portal vein and is being placed on heparin drip. Patient told he had gallstones in his gallbladder, which may explain elevated bilirubin. Patient had an EGD and colonoscopy and diagnosed with gastritis and hemorrhoids. Now with advanced azotemia, hyponatremia, low Patricia Poor UO; on IV fluids since last PM PMH anemia, alcoholic liver cirrhosis and iron deficiency, prostate CA March 2017 , CHF 40% November 2016 echo, gastritis, hemorrhoids PSH: Family History: mother and father have Alzheimer. Father' had heart history Social History: no smoking history, ETOH abuse Allergies: NKDA Review of Systems - Review of Systems All systems: reviewed and no additional remarkable complaints except - Constitutional Constitutional: Lethargy, Malaise, Weakness - EENT Eyes: absent: As Per HPI, Blind Spots, Blurred Vision, Change in Vision, Decreased Night Vision, Diplopia, Discharge, Dry Eye, Exophthalmos, Floaters, Irritation, Itchy Eyes, Loss of Peripheral Vision, Pain, Photophobia, Requires Corrective Lenses, Sees Flashes, Spots in Vision, Tunnel Vision, Other Visual Disturbances, Loss of Vision, Other Ears: absent: As Per HPI, Decreased Hearing, Ear Discharge, Ear Pain, Tinnitus, Abnormal Hearing, Disequilibrium, Dizziness, Other Nose/Mouth/Throat: absent: As Per HPI, Epistaxis, Nasal Congestion, Nasal Discharge, Nasal Obstruction, Nasal Trauma, Nose Pain, Post Nasal Drip, Sinus Pain, Sinus Pressure, Bleeding Gums, Change in Voice, Dental Pain, Dry Mouth, Dysphagia, Halitosis, Hoarsness, Lip Swelling, Mouth Lesions, Mouth Pain, Odynophagia, Sore Throat, Throat Swelling, Tongue Swelling, Facial Pain, Neck Pain, Neck Mass, Other - Cardiovascular Cardiovascular: As Per HPI, Dyspnea on Exertion - Respiratory Respiratory: Cough, Dyspnea on Exertion - Gastrointestinal Gastrointestinal: Bloating, Early Satiety, Nausea - Genitourinary Genitourinary: As Per HPI, Difficulty Urinating - Musculoskeletal Musculoskeletal: Muscle Cramps, Myalgias Past Patient History - Past Medical History & Family History Past Medical History?: Yes Past Family History: Reviewed and not pertinent - Past Social History Smoking Status: Never Smoked Chewing Tobacco Use: No Cigar Use: No Alcohol: > 2 Drinks/Day Drugs: Denies Home Situation {Lives}: With Family - CARDIAC Hx Congestive Heart Failure: Yes Hx Hypertension: Yes - PULMONARY Hx Respiratory Disorders: No - NEUROLOGICAL Hx Neurological Disorder: No - HEENT Hx HEENT Problems: No - RENAL Hx Chronic Kidney Disease: No - ENDOCRINE/METABOLIC Hx Endocrine Disorders: No - HEMATOLOGICAL/ONCOLOGICAL Hx Anemia: Yes - INTEGUMENTARY Hx Dermatological Problems: No - MUSCULOSKELETAL/RHEUMATOLOGICAL Hx Falls: No - GASTROINTESTINAL Hx Gastrointestinal Disorders: Yes Hx Gastroesophageal Reflux: Yes Hx Liver Failure: Yes Other/Comment: CANDIDAL ESOPHAGITIS ascites - GENITOURINARY/GYNECOLOGICAL Hx Genitourinary Disorders: Yes Hx Prostate Problems: Yes - PSYCHIATRIC Hx Substance Use: No - SURGICAL HISTORY Hx Surgeries: Yes - ANESTHESIA Hx Anesthesia: Yes Hx Anesthesia Reactions: No Hx Malignant Hyperthermia: No Has any member of the family had a problem w/ anesthesia?: No Meds Allergies/Adverse Reactions: Allergies Allergy/AdvReac Type Severity Reaction Status Date / Time No Known Allergies Allergy Verified 12/01/17 12:02 - Medications Medications: Current Medications Albumin Human (Albumin Human 25% (12.5 Gm/50 Ml)) 12.5 gm IV Q8 [facility] Last Admin: 12/02/17 06:00 Dose: 12.5 gm Sodium Chloride (Sodium Chloride 0.9%) 1,000 mls @ 100 mls/hr IV .Q10H [facility] Last Admin: 12/02/17 05:30 Dose: 100 mls/hr Heparin Sodium/Sodium Chloride (Heparin 90427 Units/250ml 1/2 Normal Saline) 25 ,000 units in 250 mls @ 16.737 mls/hr IV .[id number] PRN; Protocol; 18 UNITS/KG/HR PRN Reason: ADJUST RATE PER PROTOCOL Last Admin: 12/01/17 18:08 Dose: 18 units/kg/hr, 16.737 mls/hr Piperacillin Sod/Tazobactam Sod (Zosyn 2.25 Gm Iv Premix) 2.25 gm in 50 mls @ 100 mls/hr IVPB Q8H [facility] Last Admin: 12/02/17 06:00 Dose: 100 mls/hr Lorazepam (Ativan) 1 mg IVP Q4H PRN PRN Reason: Symptoms of alcohol withdrawl Pantoprazole Sodium (Protonix Ec Tab) 40 mg PO DAILY [facility] Physical Exam - Constitutional Appears: No Acute Distress, Chronically Ill - Head Exam Head Exam: ATRAUMATIC, NORMAL INSPECTION - Eye Exam Eye Exam: Normal appearance, Scleral icterus - Neck Exam Neck exam: Positive for: Normal Inspection. Negative for: Tenderness - Respiratory Exam Respiratory Exam: Clear to Auscultation Bilateral, NORMAL BREATHING PATTERN - Cardiovascular Exam Cardiovascular Exam: REGULAR RHYTHM, +S1 - GI/Abdominal Exam GI & Abdominal Exam: Distended, Soft - Extremities Exam Extremities exam: Positive for: normal inspection. Negative for: tenderness - Neurological Exam Neurological exam: Alert, CN II-XII Intact - Skin Skin Exam: Dry, Warm Results - Vital Signs Recent Vital Signs: Last Vital Signs Temp 97.2 F L 12/02/17 04:00 Pulse 81 12/02/17 08:08 Resp 21 12/02/17 08:08 BP 120/59 L 12/02/17 08:09 Pulse Ox 98 12/02/17 08:08 - Labs Result Diagrams: 12/02/17 08:23 12/02/17 08:23 Labs: Laboratory Results - last 24 hr 12/01/17 12/01/17 12/01/17 12:44 12:44 12:44 WBC 10.3 D RBC 4.39 L Hgb 11.9 L D Hct 34.6 L MCV 78.8 L MCH 27.1 MCHC 34.4 RDW 28.6 H Plt Count 219 MPV 8.8 Neut % (Auto) 83.1 H Lymph % (Auto) 7.5 L [place] % (Auto) 7.5 Eos % (Auto) 1.3 Baso % (Auto) 0.6 Neut # 8.6 H Lymph # 0.8 L [place] # 0.8 Eos # 0.1 Baso # 0.1 Neutrophils % (Manual) 81 H Band Neutrophils % 3 H Lymphocytes % (Manual) 5 L Monocytes % (Manual) 5 Eosinophils % (Manual) 6 H Platelet Estimate Normal Hypochromasia (manual) Slight Poikilocytosis (manual Slight Anisocytosis (manual) Slight Target Cells Slight Ovalocytes Slight PT 23.1 H INR 2.0 APTT 41 H Sodium 120 L* Potassium 3.8 Chloride 89 L Carbon Dioxide 18 L Anion Gap 18 BUN 59 H Creatinine 5.6 H Est GFR ( Amer) 12 Est GFR (Non-Af Amer) 10 Random Glucose 111 H Serum Osmolality Calcium 7.1 L Phosphorus Total Bilirubin 33.8 H Direct Bilirubin AST 249 H ALT 60 Alkaline Phosphatase 307 H Ammonia Troponin I < 0.0120 NT-Pro-B Natriuret Pep 1410 H Total Protein 7.6 Albumin 2.8 L D Globulin 4.8 H Albumin/Globulin Ratio 0.6 L Lipase 339 H Procalcitonin Urine Color Urine Clarity Urine pH Ur Specific Dora Urine Protein Urine Glucose (UA) Urine Ketones Urine Blood Urine Nitrate Urine Bilirubin Urine Urobilinogen Ur Leukocyte Esterase Urine WBC (Auto) Urine RBC (Auto) Ur Squamous Epith Cells Urine Bacteria Urine Osmolality Ur Random Sodium Urine Opiates Screen Urine Methadone Screen Ur Barbiturates Screen Ur Phencyclidine Scrn Ur Amphetamines Screen U Benzodiazepines Scrn U Oth Cocaine Metabols U Cannabinoids Screen Alcohol, Quantitative Hepatitis A IgM Ab Hep Bs Antigen Hep B Core IgM Ab Hepatitis C Antibody 12/01/17 12/01/17 12/01/17 12:44 14:00 19:00 WBC RBC Hgb Hct MCV MCH MCHC RDW Plt Count MPV Neut % (Auto) Lymph % (Auto) [place] % (Auto) Eos % (Auto) Baso % (Auto) Neut # Lymph # [place] # Eos # Baso # Neutrophils % (Manual) Band Neutrophils % Lymphocytes % (Manual) Monocytes % (Manual) Eosinophils % (Manual) Platelet Estimate Hypochromasia (manual) Poikilocytosis (manual Anisocytosis (manual) Target Cells Ovalocytes PT INR APTT Sodium Potassium Chloride Carbon Dioxide Anion Gap BUN Creatinine Est GFR ( Amer) Est GFR (Non-Af Amer) Random Glucose Serum Osmolality Calcium Phosphorus Total Bilirubin Direct Bilirubin AST ALT Alkaline Phosphatase Ammonia 55 H D Troponin I NT-Pro-B Natriuret Pep Total Protein Albumin Globulin Albumin/Globulin Ratio Lipase Procalcitonin Urine Color Amanda Urine Clarity Clear Urine pH 5.0 Ur Specific Dora 1.013 Urine Protein Negative Urine Glucose (UA) 1+ H Urine Ketones Negative Urine Blood Negative Urine Nitrate Negative Urine Bilirubin 2+ H Urine Urobilinogen 4.0 Ur Leukocyte Esterase Neg Urine WBC (Auto) 7 H Urine RBC (Auto) 1 Ur Squamous Epith Cells 4 Urine Bacteria Occ H Urine Osmolality 338 Ur Random Sodium < 5 Urine Opiates Screen Negative Urine Methadone Screen Negative Ur Barbiturates Screen Negative Ur Phencyclidine Scrn Negative Ur Amphetamines Screen Negative U Benzodiazepines Scrn Negative U Oth Cocaine Metabols Negative U Cannabinoids Screen Positive H Alcohol, Quantitative Hepatitis A IgM Ab Hep Bs Antigen Hep B Core IgM Ab Hepatitis C Antibody 12/01/17 12/01/17 12/01/17 19:00 19:00 19:00 WBC RBC Hgb Hct MCV MCH MCHC RDW Plt Count MPV Neut % (Auto) Lymph % (Auto) [place] % (Auto) Eos % (Auto) Baso % (Auto) Neut # Lymph # [place] # Eos # Baso # Neutrophils % (Manual) Band Neutrophils % Lymphocytes % (Manual) Monocytes % (Manual) Eosinophils % (Manual) Platelet Estimate Hypochromasia (manual) Poikilocytosis (manual Anisocytosis (manual) Target Cells Ovalocytes PT INR APTT Sodium Potassium Chloride Carbon Dioxide Anion Gap BUN Creatinine Est GFR ( Amer) Est GFR (Non-Af Amer) Random Glucose Serum Osmolality 287 Calcium Phosphorus Total Bilirubin Direct Bilirubin 31.1 H AST ALT Alkaline Phosphatase Ammonia Troponin I NT-Pro-B Natriuret Pep Total Protein Albumin Globulin Albumin/Globulin Ratio Lipase Procalcitonin Urine Color Urine Clarity Urine pH Ur Specific Dora Urine Protein Urine Glucose (UA) Urine Ketones Urine Blood Urine Nitrate Urine Bilirubin Urine Urobilinogen Ur Leukocyte Esterase Urine WBC (Auto) Urine RBC (Auto) Ur Squamous Epith Cells Urine Bacteria Urine Osmolality Ur Random Sodium Urine Opiates Screen Urine Methadone Screen Ur Barbiturates Screen Ur Phencyclidine Scrn Ur Amphetamines Screen U Benzodiazepines Scrn U Oth Cocaine Metabols U Cannabinoids Screen Alcohol, Quantitative < 10 Hepatitis A IgM Ab Negative Hep Bs Antigen Negative Hep B Core IgM Ab Negative Hepatitis C Antibody Negative 12/01/17 12/02/17 12/02/17 19:00 02:07 08:23 WBC 10.3 RBC 3.78 L Hgb 10.3 L Hct 29.6 L MCV 78.4 L MCH 27.3 MCHC 34.8 RDW 28.6 H Plt Count 161 MPV 8.3 Neut % (Auto) 85.6 H Lymph % (Auto) 5.8 L [place] % (Auto) 6.1 Eos % (Auto) 1.6 Baso % (Auto) 0.9 Neut # 8.8 H Lymph # 0.6 L [place] # 0.6 Eos # 0.2 Baso # 0.1 Neutrophils % (Manual) Band Neutrophils % Lymphocytes % (Manual) Monocytes % (Manual) Eosinophils % (Manual) Platelet Estimate Hypochromasia (manual) Poikilocytosis (manual Anisocytosis (manual) Target Cells Ovalocytes PT INR APTT 179 H* D Sodium Potassium Chloride Carbon Dioxide Anion Gap BUN Creatinine Est GFR ( Amer) Est GFR (Non-Af Amer) Random Glucose Serum Osmolality Calcium Phosphorus Total Bilirubin Direct Bilirubin AST ALT Alkaline Phosphatase Ammonia Troponin I NT-Pro-B Natriuret Pep Total Protein Albumin Globulin Albumin/Globulin Ratio Lipase Procalcitonin 5.29 H Urine Color Urine Clarity Urine pH Ur Specific Dora Urine Protein Urine Glucose (UA) Urine Ketones Urine Blood Urine Nitrate Urine Bilirubin Urine Urobilinogen Ur Leukocyte Esterase Urine WBC (Auto) Urine RBC (Auto) Ur Squamous Epith Cells Urine Bacteria Urine Osmolality Ur Random Sodium Urine Opiates Screen Urine Methadone Screen Ur Barbiturates Screen Ur Phencyclidine Scrn Ur Amphetamines Screen U Benzodiazepines Scrn U Oth Cocaine Metabols U Cannabinoids Screen Alcohol, Quantitative Hepatitis A IgM Ab Hep Bs Antigen Hep B Core IgM Ab Hepatitis C Antibody 12/02/17 08:23 WBC RBC Hgb Hct MCV MCH MCHC RDW Plt Count MPV Neut % (Auto) Lymph % (Auto) [place] % (Auto) Eos % (Auto) Baso % (Auto) Neut # Lymph # [place] # Eos # Baso # Neutrophils % (Manual) Band Neutrophils % Lymphocytes % (Manual) Monocytes % (Manual) Eosinophils % (Manual) Platelet Estimate Hypochromasia (manual) Poikilocytosis (manual Anisocytosis (manual) Target Cells Ovalocytes PT INR APTT Sodium 122 L Potassium 3.4 L Chloride 92 L Carbon Dioxide 15 L Anion Gap 18 BUN 66 H Creatinine 5.7 H Est GFR ( Amer) 12 Est GFR (Non-Af Amer) 10 Random Glucose 83 Serum Osmolality Calcium 6.6 L Phosphorus 6.8 H Total Bilirubin 34.2 H Direct Bilirubin AST 183 H D ALT 57 Alkaline Phosphatase 237 H D Ammonia Troponin I NT-Pro-B Natriuret Pep Total Protein 7.0 Albumin 2.7 L Globulin 4.3 H Albumin/Globulin Ratio 0.6 L Lipase Procalcitonin Urine Color Urine Clarity Urine pH Ur Specific Dora Urine Protein Urine Glucose (UA) Urine Ketones Urine Blood Urine Nitrate Urine Bilirubin Urine Urobilinogen Ur Leukocyte Esterase Urine WBC (Auto) Urine RBC (Auto) Ur Squamous Epith Cells Urine Bacteria Urine Osmolality Ur Random Sodium Urine Opiates Screen Urine Methadone Screen Ur Barbiturates Screen Ur Phencyclidine Scrn Ur Amphetamines Screen U Benzodiazepines Scrn U Oth Cocaine Metabols U Cannabinoids Screen Alcohol, Quantitative Hepatitis A IgM Ab Hep Bs Antigen Hep B Core IgM Ab Hepatitis C Antibody Assessment & Plan (1) KELSEY (acute kidney injury) Status: Acute (2) Hepatorenal syndrome Status: Acute (3) Alcoholic cirrhosis Status: Acute - Assessment and Plan (Free Text) Plan: Recommend IV bicarb gtt serial chemistires avoid paracentesis octeotride if not better by AM would likely need dialysis
[2017-12-02 10:04] LABS: BANDS 1 % (0-2); EOSINOPHIL 1 % (0-4); LYMPHOCYTE 7 % (20-40); MONOCYTE 6 % (0-10); NEUTROPHIL 85 % (50-75); TOTAL CELLS COUNTED 100
[2017-12-02 10:05] LABS: ANISOCYTOSIS MODERATE; PLATELET ESTIMATE NORMAL (NORMAL)
[2017-12-02] MEDS: Pantoprazole 40 mg EC Tab PO SCH (10:05)
[2017-12-02 10:06] LABS: MICROCYTOSIS SLIGHT; POIKILOCYTOSIS SLIGHT
[2017-12-02 10:07] LABS: HYPOCHROMIC SLIGHT; OVALOCYTES SLIGHT; TARGET CELLS SLIGHT; TEARDROP CELLS SLIGHT
--- NOTE | 2017-12-02 10:14 | CP.PCM.CON ---
History of Present Illness - History of Present Illness History of Present Illness: CC: Jaundice HPI: GI consult requested on this 67 year old man admitted with weakness, lethargy, acute renal failure, and severe jaundice. Patient began feeling weakness and malaise on Nov 20 when he admittedly binge-drank a lot of alcohol. He generally abstains from alcohol but does admit to periodic binges this past year, and patient does have a prior history of compensated alcoholic cirrhosis. Case discussed with geophysical support specialist, and felt to have acute HRS or prerenal renal failure, and may require dialysis in the next 48 hours. Patient has been having poor appetite and fluid intake since he became ill, also has chills without fevers, severe hyponatremia, and constipation. He denies GI bleeding. Patient denies CAM or herbal medications. Sonogram shows intrahepatic bilisry ductal dilatation, gallstones, cirrhotic liver, possible portal vein thrombosis, dilated CBD. CT shows cirrhotic liver with intrahepatic ductal dilatation and focal liver lesion. Patient had severe anemia last year, EGD by Dr Livingston was done, and Colonoscopy by me showed large colon polyp which was resected endoscopically. He was then lost to follow up with [facility] Dr Castro and myself, he claims due to loss of insurance at the time. Patient is in ICU. Review of Systems - Constitutional Constitutional: Anorexia, Chills, Daytime Sleepiness, Fatigue, Lethargy, Weakness. absent: Fever - EENT Eyes: absent: Change in Vision Ears: absent: Decreased Hearing Nose/Mouth/Throat: absent: Epistaxis - Cardiovascular Cardiovascular: Dyspnea, Dyspnea on Exertion, Edema. absent: Chest Pain - Respiratory Respiratory: Dyspnea, Dyspnea on Exertion - Gastrointestinal Gastrointestinal: Bloating, Constipation. absent: Abdominal Pain, Coffee Ground Emesis, Dysphagia, Melena - Genitourinary Genitourinary: Difficulty Urinating. absent: Hematuria - Musculoskeletal Musculoskeletal: absent: Abnormal Gait - Integumentary Integumentary: Jaundice - Neurological Neurological: Weakness. absent: Confusion, Focal Weakness - Psychiatric Psychiatric: Abnormal Sleep Pattern. absent: Anxiety - Endocrine Endocrine: absent: Polydipsia, Polyphagia - Hematologic/Lymphatic Hematologic: Easy Bruising Past Patient History - Past Medical History & Family History Past Medical History?: Yes Past Family History: Reviewed and not pertinent - Past Social History Smoking Status: Never Smoked Chewing Tobacco Use: No Cigar Use: No Alcohol: > 2 Drinks/Day Drugs: Denies Home Situation {Lives}: With Family - CARDIAC Hx Congestive Heart Failure: Yes Hx Hypertension: Yes - PULMONARY Hx Respiratory Disorders: No - NEUROLOGICAL Hx Neurological Disorder: No - HEENT Hx HEENT Problems: No - RENAL Hx Chronic Kidney Disease: No - ENDOCRINE/METABOLIC Hx Endocrine Disorders: No - HEMATOLOGICAL/ONCOLOGICAL Hx Anemia: Yes - INTEGUMENTARY Hx Dermatological Problems: No - MUSCULOSKELETAL/RHEUMATOLOGICAL Hx Falls: No - GASTROINTESTINAL Hx Gastrointestinal Disorders: Yes (Colon polyp 2017) Hx Gastroesophageal Reflux: Yes Hx Liver Failure: Yes Other/Comment: CANDIDAL ESOPHAGITIS ascites - GENITOURINARY/GYNECOLOGICAL Hx Genitourinary Disorders: Yes Hx Prostate Problems: Yes - PSYCHIATRIC Hx Substance Use: No - SURGICAL HISTORY Hx Surgeries: Yes - ANESTHESIA Hx Anesthesia: Yes Hx Anesthesia Reactions: No Hx Malignant Hyperthermia: No Has any member of the family had a problem w/ anesthesia?: No Meds Allergies/Adverse Reactions: Allergies Allergy/AdvReac Type Severity Reaction Status Date / Time No Known Allergies Allergy Verified 12/01/17 12:02 - Medications Medications: Current Medications Albumin Human (Albumin Human 25% (12.5 Gm/50 Ml)) 12.5 gm IV Q8 [facility] Last Admin: 12/02/17 06:00 Dose: 12.5 gm Sodium Chloride (Sodium Chloride 0.9%) 1,000 mls @ 100 mls/hr IV .Q10H [facility] Last Admin: 12/02/17 05:30 Dose: 100 mls/hr Heparin Sodium/Sodium Chloride (Heparin 49069 Units/250ml 1/2 Normal Saline) 25 ,000 units in 250 mls @ 16.737 mls/hr IV .[id number] PRN; Protocol; 18 UNITS/KG/HR PRN Reason: ADJUST RATE PER PROTOCOL Last Admin: 12/01/17 18:08 Dose: 18 units/kg/hr, 16.737 mls/hr Piperacillin Sod/Tazobactam Sod (Zosyn 2.25 Gm Iv Premix) 2.25 gm in 50 mls @ 100 mls/hr IVPB Q8H [facility] Last Admin: 12/02/17 06:00 Dose: 100 mls/hr Lorazepam (Ativan) 1 mg IVP Q4H PRN PRN Reason: Symptoms of alcohol withdrawl Pantoprazole Sodium (Protonix Ec Tab) 40 mg PO DAILY [facility] Last Admin: 12/02/17 10:05 Dose: 40 mg Physical Exam - Constitutional Appears: Non-toxic, No Acute Distress Additional comments: Deeply jaundiced - Head Exam Head Exam: ATRAUMATIC, NORMOCEPHALIC - Eye Exam Eye Exam: Scleral icterus - ENT Exam ENT Exam: Normal Exam - Neck Exam Neck exam: Negative for: Meningismus, Tenderness, Thyromegaly - Respiratory Exam Respiratory Exam: Clear to Auscultation Bilateral - Cardiovascular Exam Cardiovascular Exam: REGULAR RHYTHM - GI/Abdominal Exam GI & Abdominal Exam: Soft. absent: Distended, Mass, Organomegaly, Rebound, Tenderness - Rectal Exam Rectal Exam: Deferred - Extremities Exam Extremities exam: Positive for: normal inspection - Back Exam Back exam: NORMAL INSPECTION - Neurological Exam Neurological exam: Alert, Oriented x3 - Psychiatric Exam Psychiatric exam: Flat Affect - Skin Skin Exam: Normal Color Results - Vital Signs Recent Vital Signs: Last Vital Signs Temp 97.2 F L 12/02/17 04:00 Pulse 81 12/02/17 08:08 Resp 21 12/02/17 08:08 BP 120/59 L 12/02/17 08:09 Pulse Ox 98 12/02/17 08:08 - Labs Result Diagrams: 12/02/17 08:23 12/02/17 08:23 Labs: Laboratory Results - last 24 hr 12/01/17 12/01/17 12/01/17 12:44 12:44 12:44 WBC 10.3 D RBC 4.39 L Hgb 11.9 L D Hct 34.6 L MCV 78.8 L MCH 27.1 MCHC 34.4 RDW 28.6 H Plt Count 219 MPV 8.8 Neut % (Auto) 83.1 H Lymph % (Auto) 7.5 L Frio % (Auto) 7.5 Eos % (Auto) 1.3 Baso % (Auto) 0.6 Neut # 8.6 H Lymph # 0.8 L Frio # 0.8 Eos # 0.1 Baso # 0.1 Neutrophils % (Manual) 81 H Band Neutrophils % 3 H Lymphocytes % (Manual) 5 L Monocytes % (Manual) 5 Eosinophils % (Manual) 6 H Platelet Estimate Normal Hypochromasia (manual) Slight Poikilocytosis (manual Slight Anisocytosis (manual) Slight Target Cells Slight Ovalocytes Slight PT 23.1 H INR 2.0 APTT 41 H Sodium 120 L* Potassium 3.8 Chloride 89 L Carbon Dioxide 18 L Anion Gap 18 BUN 59 H Creatinine 5.6 H Est GFR ( Amer) 12 Est GFR (Non-Af Amer) 10 Random Glucose 111 H Serum Osmolality Calcium 7.1 L Phosphorus Total Bilirubin 33.8 H Direct Bilirubin AST 249 H ALT 60 Alkaline Phosphatase 307 H Ammonia Troponin I < 0.0120 NT-Pro-B Natriuret Pep 1410 H Total Protein 7.6 Albumin 2.8 L D Globulin 4.8 H Albumin/Globulin Ratio 0.6 L Lipase 339 H Procalcitonin Urine Color Urine Clarity Urine pH Ur Specific [place] Urine Protein Urine Glucose (UA) Urine Ketones Urine Blood Urine Nitrate Urine Bilirubin Urine Urobilinogen Ur Leukocyte Esterase Urine WBC (Auto) Urine RBC (Auto) Ur Squamous Epith Cells Urine Bacteria Urine Osmolality Ur Random Sodium Urine Opiates Screen Urine Methadone Screen Ur Barbiturates Screen Ur Phencyclidine Scrn Ur Amphetamines Screen U Benzodiazepines Scrn U Oth Cocaine Metabols U Cannabinoids Screen Alcohol, Quantitative Hepatitis A IgM Ab Hep Bs Antigen Hep B Core IgM Ab Hepatitis C Antibody 12/01/17 12/01/17 12/01/17 12:44 14:00 19:00 WBC RBC Hgb Hct MCV MCH MCHC RDW Plt Count MPV Neut % (Auto) Lymph % (Auto) Frio % (Auto) Eos % (Auto) Baso % (Auto) Neut # Lymph # Frio # Eos # Baso # Neutrophils % (Manual) Band Neutrophils % Lymphocytes % (Manual) Monocytes % (Manual) Eosinophils % (Manual) Platelet Estimate Hypochromasia (manual) Poikilocytosis (manual Anisocytosis (manual) Target Cells Ovalocytes PT INR APTT Sodium Potassium Chloride Carbon Dioxide Anion Gap BUN Creatinine Est GFR ( Amer) Est GFR (Non-Af Amer) Random Glucose Serum Osmolality Calcium Phosphorus Total Bilirubin Direct Bilirubin AST ALT Alkaline Phosphatase Ammonia 55 H D Troponin I NT-Pro-B Natriuret Pep Total Protein Albumin Globulin Albumin/Globulin Ratio Lipase Procalcitonin Urine Color Amanda Urine Clarity Clear Urine pH 5.0 Ur Specific [place] 1.013 Urine Protein Negative Urine Glucose (UA) 1+ H Urine Ketones Negative Urine Blood Negative Urine Nitrate Negative Urine Bilirubin 2+ H Urine Urobilinogen 4.0 Ur Leukocyte Esterase Neg Urine WBC (Auto) 7 H Urine RBC (Auto) 1 Ur Squamous Epith Cells 4 Urine Bacteria Occ H Urine Osmolality 338 Ur Random Sodium < 5 Urine Opiates Screen Negative Urine Methadone Screen Negative Ur Barbiturates Screen Negative Ur Phencyclidine Scrn Negative Ur Amphetamines Screen Negative U Benzodiazepines Scrn Negative U Oth Cocaine Metabols Negative U Cannabinoids Screen Positive H Alcohol, Quantitative Hepatitis A IgM Ab Hep Bs Antigen Hep B Core IgM Ab Hepatitis C Antibody 12/01/17 12/01/17 12/01/17 19:00 19:00 19:00 WBC RBC Hgb Hct MCV MCH MCHC RDW Plt Count MPV Neut % (Auto) Lymph % (Auto) Frio % (Auto) Eos % (Auto) Baso % (Auto) Neut # Lymph # Frio # Eos # Baso # Neutrophils % (Manual) Band Neutrophils % Lymphocytes % (Manual) Monocytes % (Manual) Eosinophils % (Manual) Platelet Estimate Hypochromasia (manual) Poikilocytosis (manual Anisocytosis (manual) Target Cells Ovalocytes PT INR APTT Sodium Potassium Chloride Carbon Dioxide Anion Gap BUN Creatinine Est GFR ( Amer) Est GFR (Non-Af Amer) Random Glucose Serum Osmolality 287 Calcium Phosphorus Total Bilirubin Direct Bilirubin 31.1 H AST ALT Alkaline Phosphatase Ammonia Troponin I NT-Pro-B Natriuret Pep Total Protein Albumin Globulin Albumin/Globulin Ratio Lipase Procalcitonin Urine Color Urine Clarity Urine pH Ur Specific [place] Urine Protein Urine Glucose (UA) Urine Ketones Urine Blood Urine Nitrate Urine Bilirubin Urine Urobilinogen Ur Leukocyte Esterase Urine WBC (Auto) Urine RBC (Auto) Ur Squamous Epith Cells Urine Bacteria Urine Osmolality Ur Random Sodium Urine Opiates Screen Urine Methadone Screen Ur Barbiturates Screen Ur Phencyclidine Scrn Ur Amphetamines Screen U Benzodiazepines Scrn U Oth Cocaine Metabols U Cannabinoids Screen Alcohol, Quantitative < 10 Hepatitis A IgM Ab Negative Hep Bs Antigen Negative Hep B Core IgM Ab Negative Hepatitis C Antibody Negative 12/01/17 12/02/17 12/02/17 19:00 02:07 08:23 WBC 10.3 RBC 3.78 L Hgb 10.3 L Hct 29.6 L MCV 78.4 L MCH 27.3 MCHC 34.8 RDW 28.6 H Plt Count 161 MPV 8.3 Neut % (Auto) 85.6 H Lymph % (Auto) 5.8 L Frio % (Auto) 6.1 Eos % (Auto) 1.6 Baso % (Auto) 0.9 Neut # 8.8 H Lymph # 0.6 L Frio # 0.6 Eos # 0.2 Baso # 0.1 Neutrophils % (Manual) Band Neutrophils % Lymphocytes % (Manual) Monocytes % (Manual) Eosinophils % (Manual) Platelet Estimate Hypochromasia (manual) Poikilocytosis (manual Anisocytosis (manual) Target Cells Ovalocytes PT INR APTT 179 H* D Sodium Potassium Chloride Carbon Dioxide Anion Gap BUN Creatinine Est GFR ( Amer) Est GFR (Non-Af Amer) Random Glucose Serum Osmolality Calcium Phosphorus Total Bilirubin Direct Bilirubin AST ALT Alkaline Phosphatase Ammonia Troponin I NT-Pro-B Natriuret Pep Total Protein Albumin Globulin Albumin/Globulin Ratio Lipase Procalcitonin 5.29 H Urine Color Urine Clarity Urine pH Ur Specific [place] Urine Protein Urine Glucose (UA) Urine Ketones Urine Blood Urine Nitrate Urine Bilirubin Urine Urobilinogen Ur Leukocyte Esterase Urine WBC (Auto) Urine RBC (Auto) Ur Squamous Epith Cells Urine Bacteria Urine Osmolality Ur Random Sodium Urine Opiates Screen Urine Methadone Screen Ur Barbiturates Screen Ur Phencyclidine Scrn Ur Amphetamines Screen U Benzodiazepines Scrn U Oth Cocaine Metabols U Cannabinoids Screen Alcohol, Quantitative Hepatitis A IgM Ab Hep Bs Antigen Hep B Core IgM Ab Hepatitis C Antibody 12/02/17 08:23 WBC RBC Hgb Hct MCV MCH MCHC RDW Plt Count MPV Neut % (Auto) Lymph % (Auto) Frio % (Auto) Eos % (Auto) Baso % (Auto) Neut # Lymph # Frio # Eos # Baso # Neutrophils % (Manual) Band Neutrophils % Lymphocytes % (Manual) Monocytes % (Manual) Eosinophils % (Manual) Platelet Estimate Hypochromasia (manual) Poikilocytosis (manual Anisocytosis (manual) Target Cells Ovalocytes PT INR APTT Sodium 122 L Potassium 3.4 L Chloride 92 L Carbon Dioxide 15 L Anion Gap 18 BUN 66 H Creatinine 5.7 H Est GFR ( Amer) 12 Est GFR (Non-Af Amer) 10 Random Glucose 83 Serum Osmolality Calcium 6.6 L Phosphorus 6.8 H Total Bilirubin 34.2 H Direct Bilirubin AST 183 H D ALT 57 Alkaline Phosphatase 237 H D Ammonia Troponin I NT-Pro-B Natriuret Pep Total Protein 7.0 Albumin 2.7 L Globulin 4.3 H Albumin/Globulin Ratio 0.6 L Lipase Procalcitonin Urine Color Urine Clarity Urine pH Ur Specific [place] Urine Protein Urine Glucose (UA) Urine Ketones Urine Blood Urine Nitrate Urine Bilirubin Urine Urobilinogen Ur Leukocyte Esterase Urine WBC (Auto) Urine RBC (Auto) Ur Squamous Epith Cells Urine Bacteria Urine Osmolality Ur Random Sodium Urine Opiates Screen Urine Methadone Screen Ur Barbiturates Screen Ur Phencyclidine Scrn Ur Amphetamines Screen U Benzodiazepines Scrn U Oth Cocaine Metabols U Cannabinoids Screen Alcohol, Quantitative Hepatitis A IgM Ab Hep Bs Antigen Hep B Core IgM Ab Hepatitis C Antibody Assessment & Plan (1) Alcoholic cirrhosis Assessment and Plan: Chronic alcoholic cirrhosis now with superimposed hepatic injury due to acute alcoholic hepatitis DF= 84, indicating > 50% 30 day mortality Alcohol cessation discussed with patient Will start Prednisolone for acute alcoholic hepatitis with elevated Discriminant Funtion and high mortality Status: Acute (2) Renal failure Assessment and Plan: Discussed with renal- May need dialysis. Management of renal failure, fluids, and hyponatremia is deferred to nephrology Status: Acute (3) Portal vein thrombosis Assessment and Plan: CT is suggestive of thrombosis. Unfortunately due to renal failure, contrast can not be given. R/O Malignancy. Agree with IV Heparin. Will order venous doppler of portal vein Status: Acute (4) Biliary obstruction Assessment and Plan: R/O Malignancy, Klatzkin tumor at yohan hepatis or Cholangiocarcinoma Rec: MRI. Cancer seromarkers Status: Acute (5) Cholelithiasis Assessment and Plan: Sono shows gallstones in the GB (NOT present last year). Unlikely to be cause of biliary obstruction. Will check via MRI. Status: Acute - Date & Time Date: 12/02/17 Time: 10:34
[2017-12-02] MEDS ORDERED: MethylPREDNISolone 40 mg Vial IV STA (10:36)
[2017-12-02] MEDS: SODIUM BICARBONATE IV SCH ×2 (10:42→23:52)
[2017-12-02] MEDS: [UNRECOGNIZED DRUG - OTHER] IV SCH ×2 (10:42→23:52)
[2017-12-02] MEDS: DEXTROSE IV SCH ×2 (10:42→23:52)
[2017-12-02] MEDS: Heparin25000 units/250ml 1/2NS 25,000 UNITS/250 ML BAG IV PRN (10:43)
[2017-12-02] MEDS ORDERED: MethylPREDNISolone 40 mg Vial IV SCH (11:23)
[2017-12-02] MEDS: MethylPREDNISolone 40 mg Vial IV SCH (11:48)
--- NOTE | 2017-12-02 14:16 | US ---
HISTORY: Portal vein thrombosis COMPARISON: Comparison is made with the previous study dated 12/01/2017 CT of the abdomen dated 12/01/2017 TECHNIQUE: Sonographic evaluation of the abdomen. FINDINGS: LIVER: Measures 21.6 cm. Heterogeneous diffuse increase echogenicity of the liver parenchyma. Cirrhotic manifestation of the liver is noted. Intrahepatic biliary ductal dilatation is noted. No blood flow appreciated at the portal vein. The possibility of portal vein thrombosis should be considered. GALLBLADDER: The gallbladder is impacted with gallstones. COMMON BILE DUCT: Measures 10.6 mm. No stones. No dilatation. PANCREAS: Optimal evaluation of the pancreas due to overlying bowel gas. RIGHT KIDNEY: Measures 11.9 x 5.6 x 4.7cm. Normal echogenicity. No calculus, mass, or hydronephrosis. LEFT KIDNEY: Measures 11.9 x 5.3 x 5.7cm. Normal echogenicity. No calculus, mass, or hydronephrosis. SPLEEN: Spleen is enlarged measures 15.8 centimeter. Dilated splenic veins are noted demonstrate retrograde blood flow. Multiple varices are also noted adjacent to the spleen. AORTA: The aorta is not well visualized P IVC: Unremarkable. OTHER FINDINGS: Small ascites noted in the upper abdomen. IMPRESSION: Somewhat limited study due to the patient's body habitus. Advanced cirrhosis. Findings suspicious for portal vein thrombosis. Dilated intrahepatic biliary ducts of uncertain etiology. Splenomegaly. Small ascites. Gallstones without definite evidence of acute cholecystitis. Dilated CBD measures up to 10.6 millimeter.
--- NOTE | 2017-12-02 16:09 | CP.PCM.PN ---
Subjective - Date & Time of Evaluation Date of Evaluation: 12/02/17 Time of Evaluation: 16:05 - Subjective Subjective: Medical Attending Note: Patient seen, examined and case discussed with ICU, GI, Nephrology. Patient reports he feels stronger, persistent cough, positive constipation, patient does not believe he is yellow. I showed him a picture to show him. Patient is awake, alert, oriented X3. He reports he has told his family to come in on Monday. Patient completed MRI earlier. Objective - Vital Signs/Intake and Output Vital Signs (last 24 hours): Temp Pulse Resp BP Pulse Ox 97.5 F L 71 20 124/65 99 12/02/17 08:00 12/02/17 15:09 12/02/17 15:09 12/02/17 15:09 12/02/17 15:09 Intake and Output: 12/02/17 12/02/17 06:59 18:59 Intake Total 774.5 495.4 Output Total 0 0 Balance 774.5 495.4 - Medications Medications: Current Medications Albumin Human (Albumin Human 25% (12.5 Gm/50 Ml)) 12.5 gm IV Q8 [facility] Last Admin: 12/02/17 15:22 Dose: 12.5 gm Guaifenesin (Mucinex La) 600 mg PO BID [facility] Heparin Sodium/Sodium Chloride (Heparin 74987 Units/250ml 1/2 Normal Saline) 25 ,000 units in 250 mls @ 16.737 mls/hr IV .[id number] PRN; Protocol; 18 UNITS/KG/HR PRN Reason: ADJUST RATE PER PROTOCOL Last Titration: 12/02/17 14:56 Dose: 11.75 units/kg/hr, 10.926 mls/hr Piperacillin Sod/Tazobactam Sod (Zosyn 2.25 Gm Iv Premix) 2.25 gm in 50 mls @ 100 mls/hr IVPB Q8H [facility] Last Admin: 12/02/17 14:58 Dose: 100 mls/hr Sodium Bicarbonate 75 ml/ (Dextrose/Sodium Chloride) 1,075 mls @ 100 mls/hr IV .[id number] [facility] Last Admin: 12/02/17 10:42 Dose: 100 mls/hr Octreotide Acetate 1,250 mcg/ (Sodium Chloride) 252.5 mls @ 10.1 mls/hr SC .Q24H [facility] PRN Reason: 50 MCG/HR Last Admin: 12/02/17 11:20 Dose: 10.1 mls/hr Lorazepam (Ativan) 1 mg IVP Q4H PRN PRN Reason: Symptoms of alcohol withdrawl Methylprednisolone (Solu-Medrol) 32 mg IV DAILY [facility] Last Admin: 12/02/17 11:48 Dose: Not Given Midodrine (Proamatine) 7.5 mg PO TID [facility] Last Admin: 12/02/17 14:58 Dose: 7.5 mg Pantoprazole Sodium (Protonix Ec Tab) 40 mg PO DAILY [facility] Last Admin: 12/02/17 10:05 Dose: 40 mg - Labs Labs: 12/02/17 08:23 12/02/17 08:23 PT 23.1 SECONDS (9.7-12.2) H 12/01/17 12:44 INR 2.0 12/01/17 12:44 APTT > 400 SECONDS (21-34) H* D 12/02/17 11:43 - Head Exam Head Exam: NORMAL INSPECTION - Eye Exam Eye Exam: EOMI, PERRL, Scleral icterus - ENT Exam ENT Exam: Mucous Membranes Moist - Respiratory Exam Respiratory Exam: Clear to Ausculation Bilateral, NORMAL BREATHING PATTERN. absent: Rales, Rhonchi, Wheezes - Cardiovascular Exam Cardiovascular Exam: REGULAR RHYTHM, +S1, +S2 - GI/Abdominal Exam GI & Abdominal Exam: Soft, Normal Bowel Sounds. absent: Distended, Firm, Guarding, Rigid, Tenderness, Rebound - Extremities Exam Extremities Exam: Normal Capillary Refill. absent: Pedal Edema, Tenderness - Back Exam Back Exam: absent: CVA tenderness (L), CVA tenderness (R) - Neurological Exam Neurological Exam: Alert, Awake, Oriented x3 - Psychiatric Exam Psychiatric exam: Normal Affect, Normal Mood - Skin Skin Exam: Dry, Intact, Warm Additional comments: jaundice from head to toe. Assessment and Plan - Assessment and Plan (Free Text) Assessment: Assessment/Plan 1) Obstructive Jaundice Portal vein thrombosis History of Liver Cirrhosis Transaminitis Alcohol Use Intrahepatic Biliary dilatation Cholelithiasis * Admit to ICU * MELD 44; 90-Day Mortality Rate: 0.94 * Discriminant Function>32 indicated poor prognosis and patient may benefit from glucocorticoid therapy * GI (Dr. Ham) on board-->Help appreciated * Chronic alcoholic cirrhosis now with superimposed hepatic injury due to acute alcoholic hepatitis * DF= 84, indicating > 50% 30 day mortality * Alcohol cessation discussed with patient * Will start Prednisolone for acute alcoholic hepatitis with elevated Discriminant Funtion and high mortality * Solumedrol 32mg IV daily * Hematology (Dr. Mindy Castro) on board-->help appreciated * Obstructive series (12/01/17): nonspecific bowel gas pattern. No evidence of mechanical bowel obstruction. Clear lungs * Abdominal US (12/01/16): Blood flow could not be documented in portal vein in region of yohan hepatitis raising suspicion for portal vein thrombosis. Cirrhosis of the liver and small perihepatic ascites. Severe intrahepatic biliary ductal dilatation, worse in the left hepatic lobe and cholelithiasis * CT abdomen and Pelvis (12/01/16): hepatic splenomegaly. Hepatic cirrhosis. Ascites. Extensive intrapheatic biliary dilatation. Common bile duct not adequately demonstrated. DD: choledocholithaisis, bilary neoplasm, colitis. Enteritis. Cholelithiasis * Abdominal US (12/02/16): somewhat limited study to patient's body habitus. Advanced cirrhosis. Findings suspicious for portal vein thrombosis. Dilated intrahepatic biliary ducts of uncertain etiology. Splenomegaly. Small ascites. Gallstones without definite evidence of acute cholecystitis. Dilated CBD 10.6mm. * Abdominal MRI (12/02/16): pending * Patient started on Heparin Drip for Portal vein thrombosis * Patient has elevated ammonia on admission he is awake/alert/oriented X3 * Start Zosyn 2.25 IV Q 8Hours (active since 12/01/16) 2) Acute Renal Failure * Nephrology (Dr. Balderrama) on board-->help appreciated * Recommend IV bicarb gtt * serial chemistires * avoid paracentesis * octeotride drip * if not better by AM (12/03) would likely need dialysis * monitor intake and output * Prostate adenocarcinoma (biopsy 04/04/17) rojas: 6 3) Alcoholic Cardiomyopathy * Echocardiogram (12/01/17): normal LV EF and Doppler * Cardiology (Dr. Vigil) on board-->help appreciated * Echo performed today demonstrates normal LV EF. 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 * Unable to give aspirin secondary to elevated INR * Unable to give ARB/Statin secondary to ARF 4) Hyponatremia * Nephrology (Dr. Balderrama) on board-->help appreciated * serum osmolarity: 287 * urine osmolarity: 338 * Urine sodium: <5 5) History of Alcohol Use * Blood alcohol <10 * Patient reports last drink was around michael * Patient does not appear in withdrawal 6) History of Anemia * Improved to 11 prior hospitalization 7s * Heme-onc (Dr. Mindy Castro) on consult 7) GI PPx * Protonix 40mg PO daily 8) DVT ppx * On heparin drip for portal vein thrombosis
--- NOTE | 2017-12-02 16:10 | CP.CCUPN ---
CCU Subjective - Physician Review Events Since Last Encounter (Free Text): 12/02/17 15:50 67M with PMH anemia, alcoholic liver cirrhosis and iron deficiency, prostate Adenocarcinoma March 2017, CHF (EF 40% on November 2016 echo). p/w hepatorenal syndrome, portal vein thrombosis and obstructive jaundice. GI: GI consulted, obtaining MRI abdomen to r/o obstructive cancer vs choledocholithiasis. Portal vein thrombosis, started on heparin gtt, will need chcf a/c for at least 6 months. Hepatorenal syndrome, started on midodrine , octreotide, fluids and albumin drip. Monitor for improvement, usually takes at least 48 hours. If no improvement must consider dialysis. Critical Care Time spent 35 minutes Multi-disciplinary rounds were performed with house staff, nursing, speech therapy, respiratory therapy, pharmacy and nutrition with integrated input from the primary team/attending and other consulting services. The documented time is cumulative and includes review of patient data/exams/labs/chart review and examination of the patient on rounds and throughout the day; time is exclusive of any procedures or teaching time. CCU Objective - Vital Signs / Intake & Output Vital Signs (Last 4 hours): Vital Signs Pulse Resp BP Pulse Ox 12/02/17 15:09 71 20 124/65 99 12/02/17 15:04 69 22 127/59 L 99 12/02/17 15:00 71 20 94 L 12/02/17 14:42 79 12/02/17 13:09 73 11 L 119/60 100 12/02/17 13:00 70 18 100 12/02/17 12:09 77 19 128/53 L 99 12/02/17 12:00 70 15 100 Intake and Output (Last 8hrs): Intake & Output 12/02/17 12/02/17 12/02/17 06:59 14:59 22:59 Intake Total 774.5 495.4 Output Total 0 0 Balance 774.5 495.4 Weight 207 lb Intake: IV 268 Intake, IV Amount 774.5 227.4 Left Antecubital 74.5 27.4 Left Proximal Port 700 200 Oral 0 Output: Urine 0 0 Urine, Voided 0 0 Other: # Bowel Movements 0 - Medications Active Medications: Active Medications Generic Name Dose Route Start Last Admin Trade Name Freq PRN Reason Stop Dose Admin Albumin Human 12.5 gm 12/01/17 14:45 12/02/17 15:22 Albumin Human 25% (12.5 Gm/50 Ml) IV 12.5 gm Q8 DAWNA Administration Guaifenesin 600 mg 12/02/17 18:00 Mucinex La PO BID DAWNA Heparin Sodium/Sodium Chloride 25,000 units in 250 mls @ 16.737 mls/hr 17:10 12/02/17 14:56 Heparin 98387 Units/250ml 1/2 Normal Saline IV 11.75 units/kg/hr .[id number] PRN 10.926 mls/hr ADJUST RATE PER PROTOCOL Titration Protocol 18 UNITS/KG/HR Piperacillin Sod/Tazobactam Sod 2.25 gm in 50 mls @ 100 mls/hr 12/01/17 22:00 12/02/17 14:58 Zosyn 2.25 Gm Iv Premix IVPB 100 mls/hr Q8H DAWNA Administration Sodium Bicarbonate 75 ml/ 1,075 mls @ 100 mls/hr 12/02/17 10:30 12/02/17 10: 42 Dextrose/Sodium Chloride IV 100 mls/hr .[id number] DAWNA Administration Octreotide Acetate 1,250 mcg/ 252.5 mls @ 10.1 mls/hr 12/02/17 10:15 11:20 Sodium Chloride SC 10.1 mls/hr .Q24H DAWNA Administration 50 MCG/HR Lorazepam 1 mg 12/01/17 18:00 Ativan IVP Q4H PRN Symptoms of alcohol withdrawl Methylprednisolone 32 mg 12/02/17 11:45 12/02/17 11:48 Solu-Medrol IV Not Given DAILY DAWNA Midodrine 7.5 mg 12/02/17 14:00 12/02/17 14:58 Proamatine PO 7.5 mg TID DAWNA Administration Pantoprazole Sodium 40 mg 12/02/17 10:00 12/02/17 10:05 Protonix Ec Tab PO 40 mg DAILY DAWNA Administration - Patient Studies Lab Studies: Lab Studies 12/02/17 12/02/17 12/02/17 Range/Units 11:43 08:23 08:23 WBC (4.8-10.8) K/uL RBC (4.40-5.90) Mil/uL Hgb (12.0-18.0) g/dL Hct (35.0-51.0) % MCV (80.0-94.0) fL MCH (27.0-31.0) pg MCHC (33.0-37.0) g/dL RDW (11.5-14.5) % Plt Count (130-400) K/uL MPV (7.2-11.7) fL Neut % (Auto) (50.0-75.0) % Lymph % (Auto) (20.0-40.0) % [place] % (Auto) (0.0-10.0) % Eos % (Auto) (0.0-4.0) % Baso % (Auto) (0.0-2.0) % Neut # (1.8-7.0) K/uL Lymph # (1.0-4.3) K/uL [place] # (0.0-0.8) K/uL Eos # (0.0-0.7) K/uL Baso # (0.0-0.2) K/uL Neutrophils % (Manual) (50-75) % Band Neutrophils % (0-2) % Lymphocytes % (Manual) (20-40) % Monocytes % (Manual) (0-10) % Eosinophils % (Manual) (0-4) % Platelet Estimate (NORMAL) Hypochromasia (manual) Poikilocytosis (manual Anisocytosis (manual) Microcytosis (manual) Macrocytosis (manual) Target Cells Tear Drop Cells Ovalocytes APTT > 400 H* D (21-34) SECONDS Sodium 122 L (132-148) mmol/L Potassium 3.4 L (3.6-5.2) mmol/L Chloride 92 L (98-107) mmol/L Carbon Dioxide 15 L (22-30) mmol/L Anion Gap 18 (10-20) BUN 66 H (9-20) mg/dL Creatinine 5.7 H (0.8-1.5) mg/dL Est GFR ( Amer) 12 Est GFR (Non-Af Amer) 10 Random Glucose 83 (75-110) mg/dL Serum Osmolality (272-300) mosm/kg Calcium 6.6 L (8.6-10.4) mg/dl Phosphorus 6.8 H (2.5-4.5) mg/dL Total Bilirubin 34.2 H (0.2-1.3) mg/dL Direct Bilirubin (0.0-0.4) mg/dL AST 183 H D (17-59) U/L ALT 57 (21-72) U/L Alkaline Phosphatase 237 H D (38-126) U/L Total Protein 7.0 (6.3-8.3) g/dL Albumin 2.7 L (3.5-5.0) g/dL Globulin 4.3 H (2.2-3.9) gm/dL Albumin/Globulin Ratio 0.6 L (1.0-2.1) Procalcitonin 5.20 H (0.19-0.49) NG/ML Urine Osmolality (300-1000) mosm/kg Ur Random Sodium mmol/L Urine Opiates Screen (NEGATIVE) Urine Methadone Screen (NEGATIVE) Ur Barbiturates Screen (NEGATIVE) Ur Phencyclidine Scrn (NEGATIVE) Ur Amphetamines Screen (NEGATIVE) U Benzodiazepines Scrn (NEGATIVE) U Oth Cocaine Metabols (NEGATIVE) U Cannabinoids Screen (NEGATIVE) Alcohol, Quantitative (0-10) mg/dl Hepatitis A IgM Ab (NEGATIVE) Hep Bs Antigen (NEGATIVE) Hep B Core IgM Ab (NEGATIVE) Hepatitis C Antibody (NEGATIVE) 12/02/17 12/02/17 12/01/17 Range/Units 08:23 02:07 19:00 WBC 10.3 (4.8-10.8) K/uL RBC 3.78 L (4.40-5.90) Mil/uL Hgb 10.3 L (12.0-18.0) g/dL Hct 29.6 L (35.0-51.0) % MCV 78.4 L (80.0-94.0) fL MCH 27.3 (27.0-31.0) pg MCHC 34.8 (33.0-37.0) g/dL RDW 28.6 H (11.5-14.5) % Plt Count 161 (130-400) K/uL MPV 8.3 (7.2-11.7) fL Neut % (Auto) 85.6 H (50.0-75.0) % Lymph % (Auto) 5.8 L (20.0-40.0) % [place] % (Auto) 6.1 (0.0-10.0) % Eos % (Auto) 1.6 (0.0-4.0) % Baso % (Auto) 0.9 (0.0-2.0) % Neut # 8.8 H (1.8-7.0) K/uL Lymph # 0.6 L (1.0-4.3) K/uL [place] # 0.6 (0.0-0.8) K/uL Eos # 0.2 (0.0-0.7) K/uL Baso # 0.1 (0.0-0.2) K/uL Neutrophils % (Manual) 85 H (50-75) % Band Neutrophils % 1 (0-2) % Lymphocytes % (Manual) 7 L (20-40) % Monocytes % (Manual) 6 (0-10) % Eosinophils % (Manual) 1 (0-4) % Platelet Estimate Normal (NORMAL) Hypochromasia (manual) Slight Poikilocytosis (manual Slight Anisocytosis (manual) Moderate Microcytosis (manual) Slight Macrocytosis (manual) Slight Target Cells Slight Tear Drop Cells Slight Ovalocytes Slight APTT 179 H* D (21-34) SECONDS Sodium (132-148) mmol/L Potassium (3.6-5.2) mmol/L Chloride (98-107) mmol/L Carbon Dioxide (22-30) mmol/L Anion Gap (10-20) BUN (9-20) mg/dL Creatinine (0.8-1.5) mg/dL Est GFR ( Amer) Est GFR (Non-Af Amer) Random Glucose (75-110) mg/dL Serum Osmolality (272-300) mosm/kg Calcium (8.6-10.4) mg/dl Phosphorus (2.5-4.5) mg/dL Total Bilirubin (0.2-1.3) mg/dL Direct Bilirubin (0.0-0.4) mg/dL AST (17-59) U/L ALT (21-72) U/L Alkaline Phosphatase (38-126) U/L Total Protein (6.3-8.3) g/dL Albumin (3.5-5.0) g/dL Globulin (2.2-3.9) gm/dL Albumin/Globulin Ratio (1.0-2.1) Procalcitonin 5.29 H (0.19-0.49) NG/ML Urine Osmolality (300-1000) mosm/kg Ur Random Sodium mmol/L Urine Opiates Screen (NEGATIVE) Urine Methadone Screen (NEGATIVE) Ur Barbiturates Screen (NEGATIVE) Ur Phencyclidine Scrn (NEGATIVE) Ur Amphetamines Screen (NEGATIVE) U Benzodiazepines Scrn (NEGATIVE) U Oth Cocaine Metabols (NEGATIVE) U Cannabinoids Screen (NEGATIVE) Alcohol, Quantitative (0-10) mg/dl Hepatitis A IgM Ab (NEGATIVE) Hep Bs Antigen (NEGATIVE) Hep B Core IgM Ab (NEGATIVE) Hepatitis C Antibody (NEGATIVE) 12/01/17 12/01/17 12/01/17 Range/Units 19:00 19:00 19:00 WBC (4.8-10.8) K/uL RBC (4.40-5.90) Mil/uL Hgb (12.0-18.0) g/dL Hct (35.0-51.0) % MCV (80.0-94.0) fL MCH (27.0-31.0) pg MCHC (33.0-37.0) g/dL RDW (11.5-14.5) % Plt Count (130-400) K/uL MPV (7.2-11.7) fL Neut % (Auto) (50.0-75.0) % Lymph % (Auto) (20.0-40.0) % [place] % (Auto) (0.0-10.0) % Eos % (Auto) (0.0-4.0) % Baso % (Auto) (0.0-2.0) % Neut # (1.8-7.0) K/uL Lymph # (1.0-4.3) K/uL [place] # (0.0-0.8) K/uL Eos # (0.0-0.7) K/uL Baso # (0.0-0.2) K/uL Neutrophils % (Manual) (50-75) % Band Neutrophils % (0-2) % Lymphocytes % (Manual) (20-40) % Monocytes % (Manual) (0-10) % Eosinophils % (Manual) (0-4) % Platelet Estimate (NORMAL) Hypochromasia (manual) Poikilocytosis (manual Anisocytosis (manual) Microcytosis (manual) Macrocytosis (manual) Target Cells Tear Drop Cells Ovalocytes APTT (21-34) SECONDS Sodium (132-148) mmol/L Potassium (3.6-5.2) mmol/L Chloride (98-107) mmol/L Carbon Dioxide (22-30) mmol/L Anion Gap (10-20) BUN (9-20) mg/dL Creatinine (0.8-1.5) mg/dL Est GFR ( Amer) Est GFR (Non-Af Amer) Random Glucose (75-110) mg/dL Serum Osmolality 287 (272-300) mosm/kg Calcium (8.6-10.4) mg/dl Phosphorus (2.5-4.5) mg/dL Total Bilirubin (0.2-1.3) mg/dL Direct Bilirubin 31.1 H (0.0-0.4) mg/dL AST (17-59) U/L ALT (21-72) U/L Alkaline Phosphatase (38-126) U/L Total Protein (6.3-8.3) g/dL Albumin (3.5-5.0) g/dL Globulin (2.2-3.9) gm/dL Albumin/Globulin Ratio (1.0-2.1) Procalcitonin (0.19-0.49) NG/ML Urine Osmolality (300-1000) mosm/kg Ur Random Sodium mmol/L Urine Opiates Screen (NEGATIVE) Urine Methadone Screen (NEGATIVE) Ur Barbiturates Screen (NEGATIVE) Ur Phencyclidine Scrn (NEGATIVE) Ur Amphetamines Screen (NEGATIVE) U Benzodiazepines Scrn (NEGATIVE) U Oth Cocaine Metabols (NEGATIVE) U Cannabinoids Screen (NEGATIVE) Alcohol, Quantitative < 10 (0-10) mg/dl Hepatitis A IgM Ab Negative (NEGATIVE) Hep Bs Antigen Negative (NEGATIVE) Hep B Core IgM Ab Negative (NEGATIVE) Hepatitis C Antibody Negative (NEGATIVE) 12/01/17 Range/Units 19:00 WBC (4.8-10.8) K/uL RBC (4.40-5.90) Mil/uL Hgb (12.0-18.0) g/dL Hct (35.0-51.0) % MCV (80.0-94.0) fL MCH (27.0-31.0) pg MCHC (33.0-37.0) g/dL RDW (11.5-14.5) % Plt Count (130-400) K/uL MPV (7.2-11.7) fL Neut % (Auto) (50.0-75.0) % Lymph % (Auto) (20.0-40.0) % [place] % (Auto) (0.0-10.0) % Eos % (Auto) (0.0-4.0) % Baso % (Auto) (0.0-2.0) % Neut # (1.8-7.0) K/uL Lymph # (1.0-4.3) K/uL [place] # (0.0-0.8) K/uL Eos # (0.0-0.7) K/uL Baso # (0.0-0.2) K/uL Neutrophils % (Manual) (50-75) % Band Neutrophils % (0-2) % Lymphocytes % (Manual) (20-40) % Monocytes % (Manual) (0-10) % Eosinophils % (Manual) (0-4) % Platelet Estimate (NORMAL) Hypochromasia (manual) Poikilocytosis (manual Anisocytosis (manual) Microcytosis (manual) Macrocytosis (manual) Target Cells Tear Drop Cells Ovalocytes APTT (21-34) SECONDS Sodium (132-148) mmol/L Potassium (3.6-5.2) mmol/L Chloride (98-107) mmol/L Carbon Dioxide (22-30) mmol/L Anion Gap (10-20) BUN (9-20) mg/dL Creatinine (0.8-1.5) mg/dL Est GFR ( Amer) Est GFR (Non-Af Amer) Random Glucose (75-110) mg/dL Serum Osmolality (272-300) mosm/kg Calcium (8.6-10.4) mg/dl Phosphorus (2.5-4.5) mg/dL Total Bilirubin (0.2-1.3) mg/dL Direct Bilirubin (0.0-0.4) mg/dL AST (17-59) U/L ALT (21-72) U/L Alkaline Phosphatase (38-126) U/L Total Protein (6.3-8.3) g/dL Albumin (3.5-5.0) g/dL Globulin (2.2-3.9) gm/dL Albumin/Globulin Ratio (1.0-2.1) Procalcitonin (0.19-0.49) NG/ML Urine Osmolality 338 (300-1000) mosm/kg Ur Random Sodium < 5 mmol/L Urine Opiates Screen Negative (NEGATIVE) Urine Methadone Screen Negative (NEGATIVE) Ur Barbiturates Screen Negative (NEGATIVE) Ur Phencyclidine Scrn Negative (NEGATIVE) Ur Amphetamines Screen Negative (NEGATIVE) U Benzodiazepines Scrn Negative (NEGATIVE) U Oth Cocaine Metabols Negative (NEGATIVE) U Cannabinoids Screen Positive H (NEGATIVE) Alcohol, Quantitative (0-10) mg/dl Hepatitis A IgM Ab (NEGATIVE) Hep Bs Antigen (NEGATIVE) Hep B Core IgM Ab (NEGATIVE) Hepatitis C Antibody (NEGATIVE) Laboratory Results - last 24 hr 12/01/17 12/01/17 12/01/17 19:00 19:00 19:00 WBC RBC Hgb Hct MCV MCH MCHC RDW Plt Count MPV Neut % (Auto) Lymph % (Auto) [place] % (Auto) Eos % (Auto) Baso % (Auto) Neut # Lymph # [place] # Eos # Baso # Neutrophils % (Manual) Band Neutrophils % Lymphocytes % (Manual) Monocytes % (Manual) Eosinophils % (Manual) Platelet Estimate Hypochromasia (manual) Poikilocytosis (manual Anisocytosis (manual) Microcytosis (manual) Macrocytosis (manual) Target Cells Tear Drop Cells Ovalocytes APTT Sodium Potassium Chloride Carbon Dioxide Anion Gap BUN Creatinine Est GFR ( Amer) Est GFR (Non-Af Amer) Random Glucose Serum Osmolality 287 Calcium Phosphorus Total Bilirubin Direct Bilirubin 31.1 H AST ALT Alkaline Phosphatase Total Protein Albumin Globulin Albumin/Globulin Ratio Procalcitonin Urine Osmolality 338 Ur Random Sodium < 5 Urine Opiates Screen Negative Urine Methadone Screen Negative Ur Barbiturates Screen Negative Ur Phencyclidine Scrn Negative Ur Amphetamines Screen Negative U Benzodiazepines Scrn Negative U Oth Cocaine Metabols Negative U Cannabinoids Screen Positive H Alcohol, Quantitative < 10 Hepatitis A IgM Ab Hep Bs Antigen Hep B Core IgM Ab Hepatitis C Antibody 12/01/17 12/01/17 12/02/17 19:00 19:00 02:07 WBC RBC Hgb Hct MCV MCH MCHC RDW Plt Count MPV Neut % (Auto) Lymph % (Auto) [place] % (Auto) Eos % (Auto) Baso % (Auto) Neut # Lymph # [place] # Eos # Baso # Neutrophils % (Manual) Band Neutrophils % Lymphocytes % (Manual) Monocytes % (Manual) Eosinophils % (Manual) Platelet Estimate Hypochromasia (manual) Poikilocytosis (manual Anisocytosis (manual) Microcytosis (manual) Macrocytosis (manual) Target Cells Tear Drop Cells Ovalocytes APTT 179 H* D Sodium Potassium Chloride Carbon Dioxide Anion Gap BUN Creatinine Est GFR ( Amer) Est GFR (Non-Af Amer) Random Glucose Serum Osmolality Calcium Phosphorus Total Bilirubin Direct Bilirubin AST ALT Alkaline Phosphatase Total Protein Albumin Globulin Albumin/Globulin Ratio Procalcitonin 5.29 H Urine Osmolality Ur Random Sodium Urine Opiates Screen Urine Methadone Screen Ur Barbiturates Screen Ur Phencyclidine Scrn Ur Amphetamines Screen U Benzodiazepines Scrn U Oth Cocaine Metabols U Cannabinoids Screen Alcohol, Quantitative Hepatitis A IgM Ab Negative Hep Bs Antigen Negative Hep B Core IgM Ab Negative Hepatitis C Antibody Negative 12/02/17 12/02/17 12/02/17 08:23 08:23 08:23 WBC 10.3 RBC 3.78 L Hgb 10.3 L Hct 29.6 L MCV 78.4 L MCH 27.3 MCHC 34.8 RDW 28.6 H Plt Count 161 MPV 8.3 Neut % (Auto) 85.6 H Lymph % (Auto) 5.8 L [place] % (Auto) 6.1 Eos % (Auto) 1.6 Baso % (Auto) 0.9 Neut # 8.8 H Lymph # 0.6 L [place] # 0.6 Eos # 0.2 Baso # 0.1 Neutrophils % (Manual) 85 H Band Neutrophils % 1 Lymphocytes % (Manual) 7 L Monocytes % (Manual) 6 Eosinophils % (Manual) 1 Platelet Estimate Normal Hypochromasia (manual) Slight Poikilocytosis (manual Slight Anisocytosis (manual) Moderate Microcytosis (manual) Slight Macrocytosis (manual) Slight Target Cells Slight Tear Drop Cells Slight Ovalocytes Slight APTT Sodium 122 L Potassium 3.4 L Chloride 92 L Carbon Dioxide 15 L Anion Gap 18 BUN 66 H Creatinine 5.7 H Est GFR ( Amer) 12 Est GFR (Non-Af Amer) 10 Random Glucose 83 Serum Osmolality Calcium 6.6 L Phosphorus 6.8 H Total Bilirubin 34.2 H Direct Bilirubin AST 183 H D ALT 57 Alkaline Phosphatase 237 H D Total Protein 7.0 Albumin 2.7 L Globulin 4.3 H Albumin/Globulin Ratio 0.6 L Procalcitonin 5.20 H Urine Osmolality Ur Random Sodium Urine Opiates Screen Urine Methadone Screen Ur Barbiturates Screen Ur Phencyclidine Scrn Ur Amphetamines Screen U Benzodiazepines Scrn U Oth Cocaine Metabols U Cannabinoids Screen Alcohol, Quantitative Hepatitis A IgM Ab Hep Bs Antigen Hep B Core IgM Ab Hepatitis C Antibody 12/02/17 11:43 WBC RBC Hgb Hct MCV MCH MCHC RDW Plt Count MPV Neut % (Auto) Lymph % (Auto) [place] % (Auto) Eos % (Auto) Baso % (Auto) Neut # Lymph # [place] # Eos # Baso # Neutrophils % (Manual) Band Neutrophils % Lymphocytes % (Manual) Monocytes % (Manual) Eosinophils % (Manual) Platelet Estimate Hypochromasia (manual) Poikilocytosis (manual Anisocytosis (manual) Microcytosis (manual) Macrocytosis (manual) Target Cells Tear Drop Cells Ovalocytes APTT > 400 H* D Sodium Potassium Chloride Carbon Dioxide Anion Gap BUN Creatinine Est GFR ( Amer) Est GFR (Non-Af Amer) Random Glucose Serum Osmolality Calcium Phosphorus Total Bilirubin Direct Bilirubin AST ALT Alkaline Phosphatase Total Protein Albumin Globulin Albumin/Globulin Ratio Procalcitonin Urine Osmolality Ur Random Sodium Urine Opiates Screen Urine Methadone Screen Ur Barbiturates Screen Ur Phencyclidine Scrn Ur Amphetamines Screen U Benzodiazepines Scrn U Oth Cocaine Metabols U Cannabinoids Screen Alcohol, Quantitative Hepatitis A IgM Ab Hep Bs Antigen Hep B Core IgM Ab Hepatitis C Antibody Critical Care Progress Note - Nutrition Nutrition: Nutrition Category Date Time Status Renal Diet [DIET] Diets 12/02/17 Dinner Active
[2017-12-02] MEDS ORDERED: guaiFENesin 600 mg ER Tab PO SCH (18:00)
--- NOTE | 2017-12-02 20:25 | CP.PCM.CON ---
History of Present Illness - History of Present Illness History of Present Illness: 67 year old male with a history of alcoholic liver cirrhosis with pHTN, splenomegaly, iron deficiency anemia, untreated localized prostate cancer dx 2016 ([place] 6), admitted with fatigue and constipation, found to be anemic, couagulopathic, with renal failure, and portal vein thrombosis on anticoagulation. The patient notes his symptoms began after drinking alcohol around [place]. He notes he has been abstaining from alcohol but had a relapse. He denies abnormal bleeding and bruising. Past medical history: alcoholic liver cirrhosis with pHTN, splenomegaly, iron deficiency anemia, untreated localized prostate cancer dx 03/2017 ([place] 6) Past surgical history: Denies Family history: Denies hematologic and oncologic problems Socila history: Alcohol abuse Allergies: NKA Review of systems: All remaining review of systems including HEENT, cardiovascular, respiratory, gastrointestinal, genitoruinary, musculoskeletal, dermatologic, neurologic, and psychiatric are negative unless mentioned in the HPI. Past Patient History - Past Medical History & Family History Past Medical History?: Yes Past Family History: Reviewed and not pertinent - Past Social History Smoking Status: Never Smoked Chewing Tobacco Use: No Cigar Use: No Alcohol: > 2 Drinks/Day Drugs: Denies Home Situation {Lives}: With Family - CARDIAC Hx Congestive Heart Failure: Yes Hx Hypertension: Yes - PULMONARY Hx Respiratory Disorders: No - NEUROLOGICAL Hx Neurological Disorder: No - HEENT Hx HEENT Problems: No - RENAL Hx Chronic Kidney Disease: No - ENDOCRINE/METABOLIC Hx Endocrine Disorders: No - HEMATOLOGICAL/ONCOLOGICAL Hx Anemia: Yes - INTEGUMENTARY Hx Dermatological Problems: No - MUSCULOSKELETAL/RHEUMATOLOGICAL Hx Falls: No - GASTROINTESTINAL Hx Gastrointestinal Disorders: Yes (Colon polyp 2016) Hx Gastroesophageal Reflux: Yes Hx Liver Failure: Yes Other/Comment: CANDIDAL ESOPHAGITIS ascites - GENITOURINARY/GYNECOLOGICAL Hx Genitourinary Disorders: Yes Hx Prostate Problems: Yes - PSYCHIATRIC Hx Substance Use: No - SURGICAL HISTORY Hx Surgeries: Yes - ANESTHESIA Hx Anesthesia: Yes Hx Anesthesia Reactions: No Hx Malignant Hyperthermia: No Has any member of the family had a problem w/ anesthesia?: No Meds Allergies/Adverse Reactions: Allergies Allergy/AdvReac Type Severity Reaction Status Date / Time No Known Allergies Allergy Verified 12/01/17 12:02 - Medications Medications: Current Medications Albumin Human (Albumin Human 25% (12.5 Gm/50 Ml)) 12.5 gm IV Q8 [facility] Last Admin: 12/02/17 15:22 Dose: 12.5 gm Guaifenesin (Mucinex La) 600 mg PO BID [facility] Last Admin: 12/02/17 17:25 Dose: 600 mg Heparin Sodium/Sodium Chloride (Heparin 75469 Units/250ml 1/2 Normal Saline) 25 ,000 units in 250 mls @ 16.737 mls/hr IV .[id number] PRN; Protocol; 18 UNITS/KG/HR PRN Reason: ADJUST RATE PER PROTOCOL Last Titration: 12/02/17 14:56 Dose: 11.75 units/kg/hr, 10.926 mls/hr Piperacillin Sod/Tazobactam Sod (Zosyn 2.25 Gm Iv Premix) 2.25 gm in 50 mls @ 100 mls/hr IVPB Q8H [facility] Last Admin: 12/02/17 14:58 Dose: 100 mls/hr Sodium Bicarbonate 75 ml/ (Dextrose/Sodium Chloride) 1,075 mls @ 100 mls/hr IV .[id number] [facility] Last Admin: 12/02/17 10:42 Dose: 100 mls/hr Octreotide Acetate 1,250 mcg/ (Sodium Chloride) 252.5 mls @ 10.1 mls/hr SC .Q24H DAWNA PRN Reason: 50 MCG/HR Last Admin: 12/02/17 11:20 Dose: 10.1 mls/hr Lorazepam (Ativan) 1 mg IVP Q4H PRN PRN Reason: Symptoms of alcohol withdrawl Methylprednisolone (Solu-Medrol) 32 mg IV DAILY [facility] Last Admin: 12/02/17 11:48 Dose: Not Given Midodrine (Proamatine) 7.5 mg PO TID [facility] Last Admin: 12/02/17 17:25 Dose: 7.5 mg Pantoprazole Sodium (Protonix Ec Tab) 40 mg PO DAILY [facility] Last Admin: 12/02/17 10:05 Dose: 40 mg Physical Exam - Head Exam Head Exam: ATRAUMATIC - Eye Exam Eye Exam: Scleral icterus - ENT Exam ENT Exam: Mucous Membranes Dry - Respiratory Exam Respiratory Exam: NORMAL BREATHING PATTERN - Cardiovascular Exam Cardiovascular Exam: +S1, +S2 - GI/Abdominal Exam GI & Abdominal Exam: Normal Bowel Sounds - Neurological Exam Neurological exam: Oriented x3 - Psychiatric Exam Psychiatric exam: Normal Affect, Normal Mood - Skin Skin Exam: Warm Results - Vital Signs Recent Vital Signs: Last Vital Signs Temp 96.3 F L 12/02/17 16:00 Pulse 73 12/02/17 20:00 Resp 13 12/02/17 20:00 BP 113/57 L 12/02/17 19:09 Pulse Ox 98 12/02/17 20:00 - Labs Result Diagrams: 12/03/17 06:38 12/03/17 06:38 Labs: Laboratory Results - last 24 hr 12/01/17 12/02/17 12/02/17 19:00 02:07 08:23 WBC 10.3 RBC 3.78 L Hgb 10.3 L Hct 29.6 L MCV 78.4 L MCH 27.3 MCHC 34.8 RDW 28.6 H Plt Count 161 MPV 8.3 Neut % (Auto) 85.6 H Lymph % (Auto) 5.8 L [place] % (Auto) 6.1 Eos % (Auto) 1.6 Baso % (Auto) 0.9 Neut # 8.8 H Lymph # 0.6 L [place] # 0.6 Eos # 0.2 Baso # 0.1 Neutrophils % (Manual) 85 H Band Neutrophils % 1 Lymphocytes % (Manual) 7 L Monocytes % (Manual) 6 Eosinophils % (Manual) 1 Platelet Estimate Normal Hypochromasia (manual) Slight Poikilocytosis (manual Slight Anisocytosis (manual) Moderate Microcytosis (manual) Slight Macrocytosis (manual) Slight Target Cells Slight Tear Drop Cells Slight Ovalocytes Slight APTT 179 H* D Sodium Potassium Chloride Carbon Dioxide Anion Gap BUN Creatinine Est GFR ( Amer) Est GFR (Non-Af Amer) Random Glucose Calcium Phosphorus Total Bilirubin AST ALT Alkaline Phosphatase Total Protein Albumin Globulin Albumin/Globulin Ratio Procalcitonin Hepatitis C Antibody Negative 12/02/17 12/02/17 12/02/17 08:23 08:23 11:43 WBC RBC Hgb Hct MCV MCH MCHC RDW Plt Count MPV Neut % (Auto) Lymph % (Auto) [place] % (Auto) Eos % (Auto) Baso % (Auto) Neut # Lymph # [place] # Eos # Baso # Neutrophils % (Manual) Band Neutrophils % Lymphocytes % (Manual) Monocytes % (Manual) Eosinophils % (Manual) Platelet Estimate Hypochromasia (manual) Poikilocytosis (manual Anisocytosis (manual) Microcytosis (manual) Macrocytosis (manual) Target Cells Tear Drop Cells Ovalocytes APTT > 400 H* D Sodium 122 L Potassium 3.4 L Chloride 92 L Carbon Dioxide 15 L Anion Gap 18 BUN 66 H Creatinine 5.7 H Est GFR ( Amer) 12 Est GFR (Non-Af Amer) 10 Random Glucose 83 Calcium 6.6 L Phosphorus 6.8 H Total Bilirubin 34.2 H AST 183 H D ALT 57 Alkaline Phosphatase 237 H D Total Protein 7.0 Albumin 2.7 L Globulin 4.3 H Albumin/Globulin Ratio 0.6 L Procalcitonin 5.20 H Hepatitis C Antibody Assessment & Plan (1) Portal vein thrombosis Assessment and Plan: secondary to liver cirrhosis and pHTN on heparin drip Status: Acute (2) Coagulopathy Assessment and Plan: liver disease heparin drip Status: Acute (3) Anemia Assessment and Plan: prior iron deficiency will check iron, b12, folate stores okay to give IV iron if no active infection Thank you for this interesting consult. Status: Chronic Priority: High
--- NOTE | 2017-12-02 20:44 | MRI ---
PROCEDURE: MRI Abdomen without contrast HISTORY: COMPARISON: Comparison is made to the previous CT dated 12/01/2017 TECHNIQUE: Multisequence, multiplanar MR images of the abdomen without gadolinium contrast enhancement. FINDINGS: LIVER: Branching dilated structures findings may represent dilated portal veins versus dilated intrahepatic ducts. These dilated distal tubular structure are more prominent in the left liver. No definite evidence of mass lesion in the liver in this limited non contrast enhancing study. Cirrhotic change changes . GALLBLADDER: Gallstones are noted in the gallbladder. High signal intensity also noted in the gallbladder of uncertain etiology. No evidence of acute cholecystitis. The common bile duct is not dilated. SPLEEN: Mild splenomegaly is noted. ADRENALS: Unremarkable. KIDNEYS: Unremarkable. PANCREAS: The pancreas is small in size. The main pancreatic duct is not dilated. AORTA: No aneurysm. ASCITES: Small amount of ascites seen in the upper abdomen. PERITONEUM: Unremarkable. LYMPH NODES: Unremarkable. OTHER FINDINGS: None. IMPRESSION: Limited study without IV contrast administration and due to the patient's motion. Tubular shaped dilated branching structures in the liver may represent dilated portal vein versus dilated intrahepatic biliary ducts. No definite evidence of mass lesion in the yohan hepatis region in this study. Advanced cirrhosis. Splenomegaly and small ascites. The CBD is not dilated. The main pancreatic duct is not dilated. Gallstones without evidence of acute cholecystitis.
[2017-12-03] MEDS: Albumin Human 25% (12.5 gm/50 ml) IV SCH ×3 (05:25→21:07)
[2017-12-03] MEDS: Piperacill/Tazo 2.25gm in Dex 2.25 GM/50 ML BAG IVPB SCH ×3 (05:30→21:08)
[2017-12-03 06:48] LABS: BASO % 0.4 % (0.0-2.0); HEMOGLOBIN 9.4 g/dL (12.0-18.0); LYMPH # 0.5 K/uL (1.0-4.3); LYMPH % 3.7 % (20.0-40.0); MEAN CELL VOLUME 79.1 fL (80.0-94.0); MEAN CORPUSCULAR HEMOGLOBIN 27.3 pg (27.0-31.0); MEAN CORPUSCULAR HGB CONC 34.5 g/dL (33.0-37.0); MEAN PLATELET VOLUME 9.6 fL (7.2-11.7); MONO # 0.4 K/uL (0.0-0.8); MONO % 3.3 % (0.0-10.0); NEUT # 11.3 K/uL (1.8-7.0); NEUT % 92.6 % (50.0-75.0); PLATELET COUNT 147 K/uL (130-400); RBC 3.44 Mil/uL (4.40-5.90); RED CELL DISTRIBUTION WIDTH 28.3 % (11.5-14.5); WHITE BLOOD COUNT 12.2 K/uL (4.8-10.8)
[2017-12-03 07:02] LABS: ALB/GLOB RATIO 0.7 (1.0-2.1); ALBUMIN 2.6 g/dL (3.5-5.0); ALT/SGPT 51 U/L (21-72); AST/SGOT 172 U/L (17-59); BLOOD UREA NITROGEN 71 mg/dL (9-20); GFR AFRICAN-AMERICAN 12; GFR NON-AFRICAN AMERICAN 10; MAGNESIUM 2.5 mg/dL (1.6-2.3)
--- NOTE | 2017-12-03 08:07 | CP.PCM.PN ---
Subjective - Date & Time of Evaluation Date of Evaluation: 12/03/17 Time of Evaluation: 07:45 - Subjective Subjective: Medical Attending Note: Patient seen and examined at bedside. Patient denies headache, denies chest pain, +cough, +constipation, +abdominal distension, +oliguric, denies nausea, denies vomitting. No family at bedside. Objective - Vital Signs/Intake and Output Vital Signs (last 24 hours): Temp Pulse Resp BP Pulse Ox 97.9 F 67 20 120/63 100 12/03/17 04:00 12/03/17 07:09 12/03/17 07:09 12/03/17 07:09 12/03/17 07:09 Intake and Output: 12/03/17 12/03/17 06:59 18:59 Intake Total 1510.2 115.9 Output Total 300 300 Balance 1210.2 -184.1 - Medications Medications: Current Medications Albumin Human (Albumin Human 25% (12.5 Gm/50 Ml)) 12.5 gm IV Q8 [facility] Last Admin: 12/03/17 05:25 Dose: 12.5 gm Guaifenesin (Mucinex La) 600 mg PO BID [facility] Last Admin: 12/02/17 17:25 Dose: 600 mg Heparin Sodium/Sodium Chloride (Heparin 83966 Units/250ml 1/2 Normal Saline) 25 ,000 units in 250 mls @ 16.737 mls/hr IV .[id number] PRN; Protocol; 18 UNITS/KG/HR PRN Reason: ADJUST RATE PER PROTOCOL Last Titration: 12/02/17 14:56 Dose: 11.75 units/kg/hr, 10.926 mls/hr Piperacillin Sod/Tazobactam Sod (Zosyn 2.25 Gm Iv Premix) 2.25 gm in 50 mls @ 100 mls/hr IVPB Q8H [facility] Last Admin: 12/03/17 05:30 Dose: 100 mls/hr Octreotide Acetate 1,250 mcg/ (Sodium Chloride) 252.5 mls @ 10.1 mls/hr SC .Q24H DAWNA PRN Reason: 50 MCG/HR Last Admin: 12/02/17 11:20 Dose: 10.1 mls/hr Sodium Bicarbonate 75 meq/ (Dextrose/Sodium Chloride) 1,075 mls @ 100 mls/hr IV .[id number] DAWNA Lorazepam (Ativan) 1 mg IVP Q4H PRN PRN Reason: Symptoms of alcohol withdrawl Methylprednisolone (Solu-Medrol) 32 mg IV DAILY [facility] Last Admin: 12/02/17 11:48 Dose: Not Given Midodrine (Proamatine) 7.5 mg PO TID [facility] Last Admin: 12/02/17 17:25 Dose: 7.5 mg Pantoprazole Sodium (Protonix Ec Tab) 40 mg PO DAILY [facility] Last Admin: 12/02/17 10:05 Dose: 40 mg - Labs Labs: 12/03/17 06:38 12/03/17 06:38 PT 23.1 SECONDS (9.7-12.2) H 12/01/17 12:44 INR 2.0 12/01/17 12:44 APTT 130 SECONDS (21-34) H* D 12/03/17 04:43 - Constitutional Appears: Non-toxic, No Acute Distress - Head Exam Head Exam: NORMAL INSPECTION - Eye Exam Eye Exam: EOMI, PERRL - ENT Exam ENT Exam: Mucous Membranes Moist - Respiratory Exam Respiratory Exam: NORMAL BREATHING PATTERN. absent: Rales, Rhonchi, Wheezes - Cardiovascular Exam Cardiovascular Exam: REGULAR RHYTHM, +S1, +S2 - GI/Abdominal Exam GI & Abdominal Exam: Distended, Soft, Normal Bowel Sounds. absent: Firm, Guarding, Rigid, Tenderness, Rebound - Extremities Exam Extremities Exam: Normal Capillary Refill. absent: Pedal Edema, Tenderness - Neurological Exam Neurological Exam: Alert, Awake, Oriented x3 Neuro motor strength exam: Left Upper Extremity: 5, Right Upper Extremity: 5, Left Lower Extremity: 5, Right Lower Extremity: 5 - Psychiatric Exam Psychiatric exam: Normal Affect, Normal Mood - Skin Additional comments: jaundiced head to toe Assessment and Plan (1) Obstructive jaundice Status: Acute (2) Hepatorenal syndrome Status: Acute (3) Portal vein thrombosis Status: Acute (4) Alcoholic cirrhosis of liver with ascites Status: Chronic (5) Acute renal failure Status: Acute (6) Alcoholic cardiomyopathy Status: Acute (7) Cholelithiasis Status: Acute (8) Dilation of biliary tract Status: Acute (9) Transaminitis Status: Acute Attending/Attestation - Attestation I have personally seen and examined this patient.: Yes I have fully participated in the care of the patient.: Yes I have reviewed all pertinent clinical information, including history, physical exam and plan: Yes Notes (Text): 1) Obstructive Jaundice Portal vein thrombosis History of Liver Cirrhosis Transaminitis Alcohol Use Intrahepatic Biliary dilatation Cholelithiasis * Admit to ICU * MELD 44; 90-Day Mortality Rate: 0.94 * Discriminant Function>32 indicated poor prognosis and patient may benefit from glucocorticoid therapy * GI (Dr. Ham) on board-->Help appreciated * Chronic alcoholic cirrhosis now with superimposed hepatic injury due to acute alcoholic hepatitis * DF= 84, indicating > 50% 30 day mortality * Alcohol cessation discussed with patient * Will start Prednisolone for acute alcoholic hepatitis with elevated Discriminant Funtion and high mortality * Solumedrol 32mg IV daily * Hematology (Dr. Mindy Castro) on board-->help appreciated * Obstructive series (12/01/17): nonspecific bowel gas pattern. No evidence of mechanical bowel obstruction. Clear lungs * Abdominal US (12/01/16): Blood flow could not be documented in portal vein in region of yohan hepatitis raising suspicion for portal vein thrombosis. Cirrhosis of the liver and small perihepatic ascites. Severe intrahepatic biliary ductal dilatation, worse in the left hepatic lobe and cholelithiasis * CT abdomen and Pelvis (12/01/16): hepatic splenomegaly. Hepatic cirrhosis. Ascites. Extensive intrapheatic biliary dilatation. Common bile duct not adequately demonstrated. DD: choledocholithaisis, bilary neoplasm, colitis. Enteritis. Cholelithiasis * Abdominal US (12/02/16): somewhat limited study to patient's body habitus. Advanced cirrhosis. Findings suspicious for portal vein thrombosis. Dilated intrahepatic biliary ducts of uncertain etiology. Splenomegaly. Small ascites. Gallstones without definite evidence of acute cholecystitis. Dilated CBD 10.6mm. * Abdominal MRI (12/02/16): tubular shaped dilated branching structures in the liver may represent dilated protal vein versus dilated intrahepatic biliary ducts. No definite evidence of mass liesion in the yohan hepatis region in this study. Advanced cirrhosis. Splenomegaly and small ascites. The CBD is not dilated. The main pancreatic duct is not dilated. Gallstones without evidence of acute cholecystitis * Patient started on Heparin Drip for Portal vein thrombosis * Patient has elevated ammonia on admission he is awake/alert/oriented X3 * Start Zosyn 2.25 IV Q 8Hours (active since 12/01/16) 2) Acute Renal Failure Hepatorenal syndrome * Nephrology (Dr. Balderrama) on board-->help appreciated * Recommend IV bicarb gtt * serial chemistires * avoid paracentesis * octeotride drip * if not better by AM (12/03) would likely need dialysis * monitor intake and output * Prostate adenocarcinoma (biopsy 04/04/17) rojas: 6 * Possible dialysis today-->will need to f/u nephrology and ICU 3) Sepsis Elevated INR * Urine culture (12/01/17): no growth * Blood culture (12/01/17): pending results * Elevated procalcitonin (5.29-->5.20) * Significantly higher in CKD patients w/o infections prior to starting renal replacement therapy * Order procalcitonin when patient starts dialysis to see if drops * Zosyn 2.25g IVPB Q8H (active since 12/01/17) 4) Alcoholic Cardiomyopathy * Echocardiogram (12/01/17): normal LV EF and Doppler * Cardiology (Dr. Vigil) on board-->help appreciated * Echo performed today demonstrates normal LV EF. 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 * Unable to give aspirin secondary to elevated INR * Unable to give ARB/Statin secondary to ARF 5) Hyponatremia * Nephrology (Dr. Balderrama) on board-->help appreciated * serum osmolarity: 287 * urine osmolarity: 338 * Urine sodium: <5 6) History of Alcohol Use * Blood alcohol <10 * Patient reports last drink was around michael * Patient does not appear in withdrawal 7) History of Anemia * Improved to 10 prior hospitalization 7s 11/27/16 * Heme-onc (Dr. Mindy Castro) on consult 8) GI PPx * Protonix 40mg PO daily 9) DVT ppx * On heparin drip for portal vein thrombosis
[2017-12-03] MEDS ORDERED: Albuterol-Ipratrop 3 mg / 0.5 (3 ml) UD INH PRN (08:34)
[2017-12-03] MEDS ORDERED: Promethazine/Cod 6.25mg-10mg/5ml Syr UD PO PRN (08:34)
[2017-12-03 08:35] LABS: ANISOCYTOSIS MODERATE; HYPOCHROMIC SLIGHT; LYMPHOCYTE 4 % (20-40); MICROCYTOSIS SLIGHT; MONOCYTE 3 % (0-10); NEUTROPHIL 93 % (50-75); PLATELET ESTIMATE NORMAL (NORMAL); POIKILOCYTOSIS SLIGHT; POLYCHROMIC SLIGHT; TOTAL CELLS COUNTED 100
[2017-12-03 08:36] LABS: LARGE PLATELETS PRESENT; OVALOCYTES SLIGHT; SPHEROCYTES SLIGHT; TARGET CELLS SLIGHT; TEARDROP CELLS SLIGHT
[2017-12-03 08:37] LABS: BURR CELLS SLIGHT; SCHISTOCYTES SLIGHT
[2017-12-03] MEDS: Pantoprazole 40 mg EC Tab PO SCH (09:20)
[2017-12-03] MEDS: MethylPREDNISolone 40 mg Vial IV SCH (09:20)
--- NOTE | 2017-12-03 09:31 | CP.PCM.PN ---
Subjective - Date & Time of Evaluation Date of Evaluation: 12/03/17 Time of Evaluation: 09:28 - Subjective Subjective: CC: Portal vein thrombosis In renal failure. Likely HRS, may need dialysis. MRI most consistent with large portal vein thrombosis. Patient on IV Heparin Feels bloating, early satiety with meals In ICU Objective - Vital Signs/Intake and Output Vital Signs (last 24 hours): Temp Pulse Resp BP Pulse Ox 97.6 F 66 17 129/67 99 12/03/17 08:00 12/03/17 08:09 12/03/17 08:09 12/03/17 08:09 12/03/17 08:09 Intake and Output: 12/03/17 12/03/17 06:59 18:59 Intake Total 1510.2 547.7 Output Total 300 300 Balance 1210.2 247.7 - Medications Medications: Current Medications Albumin Human (Albumin Human 25% (12.5 Gm/50 Ml)) 12.5 gm IV Q8 DAWNA Last Admin: 12/03/17 05:25 Dose: 12.5 gm Albuterol/Ipratropium (Duoneb 3 Mg/0.5 Mg (3 Ml) Ud) 3 ml INH RQ6 PRN PRN Reason: Shortness of Breath Heparin Sodium/Sodium Chloride (Heparin 62032 Units/250ml 1/2 Normal Saline) 25 ,000 units in 250 mls @ 16.737 mls/hr IV .[id number] PRN; Protocol; 18 UNITS/KG/HR PRN Reason: ADJUST RATE PER PROTOCOL Last Titration: 12/02/17 14:56 Dose: 11.75 units/kg/hr, 10.926 mls/hr Piperacillin Sod/Tazobactam Sod (Zosyn 2.25 Gm Iv Premix) 2.25 gm in 50 mls @ 100 mls/hr IVPB Q8H [facility]WNA Last Admin: 12/03/17 05:30 Dose: 100 mls/hr Octreotide Acetate 1,250 mcg/ (Sodium Chloride) 252.5 mls @ 10.1 mls/hr SC .Q24H DAWNA PRN Reason: 50 MCG/HR Last Admin: 12/02/17 11:20 Dose: 10.1 mls/hr Sodium Bicarbonate 75 meq/ (Dextrose/Sodium Chloride) 1,075 mls @ 100 mls/hr IV .[id number] DAWNA Lorazepam (Ativan) 1 mg IVP Q4H PRN PRN Reason: Symptoms of alcohol withdrawl Methylprednisolone (Solu-Medrol) 32 mg IV DAILY [facility] Last Admin: 12/03/17 09:20 Dose: 32 mg Midodrine (Proamatine) 7.5 mg PO TID [facility] Last Admin: 12/02/17 17:25 Dose: 7.5 mg Pantoprazole Sodium (Protonix Ec Tab) 40 mg PO DAILY [facility] Last Admin: 12/03/17 09:20 Dose: 40 mg Promethazine HCl/Codeine (Phenergan/Codeine Oral Syrup) 5 ml PO Q4 PRN PRN Reason: Cough Last Admin: 12/03/17 09:20 Dose: 5 ml - Labs Labs: 12/03/17 06:38 12/03/17 06:38 PT 23.1 SECONDS (9.7-12.2) H 12/01/17 12:44 INR 2.0 12/01/17 12:44 APTT 130 SECONDS (21-34) H* D 12/03/17 04:43 - Constitutional Appears: Chronically Ill - Head Exam Head Exam: NORMOCEPHALIC - Eye Exam Eye Exam: Scleral icterus - Neck Exam Neck Exam: Normal Inspection - Respiratory Exam Respiratory Exam: Clear to Ausculation Bilateral - Cardiovascular Exam Cardiovascular Exam: REGULAR RHYTHM - GI/Abdominal Exam GI & Abdominal Exam: Soft. absent: Guarding, Mass, Rebound - Extremities Exam Extremities Exam: Normal Inspection. absent: Pedal Edema - Neurological Exam Neurological Exam: Awake, Oriented x3 - Psychiatric Exam Psychiatric exam: Normal Mood - Skin Additional comments: Deeply jaundiced Assessment and Plan (1) Alcoholic cirrhosis Assessment & Plan: Now with superimposed alcoholic hepatitis and portal vein thrombosis Status: Acute (2) Renal failure Assessment & Plan: HRS likely managed by Renal Status: Acute (3) Portal vein thrombosis Assessment & Plan: On IV Heparin continuous drip Status: Acute (4) Biliary obstruction Assessment & Plan: No Malinancy or mass lesion found on MRI. Likely dilated portal venous system rather than biliary obstruction Status: Acute (5) Cholelithiasis Assessment & Plan: Asymptomatic Status: Acute
[2017-12-03] MEDS ORDERED: Influenza Vaccine 60 mcg/0.5 mL SYR (4YR UP) IM ONE (10:00)
[2017-12-03] MEDS ORDERED: Phytonadione 10 mg/ml Inj (Adult) IV STA (10:30)
[2017-12-03] MEDS: Sodium Bicarbonate 8.4% 75 MEQ in Dextrose 5%/0.45% NS 1,000 ML IV SCH ×2 (10:55→21:08)
[2017-12-03 14:05] LABS: INR 2.2; PROTHROMBIN TIME 25.7 SECONDS (9.7-12.2)
--- NOTE | 2017-12-03 16:01 | CP.CCUPN ---
CCU Subjective - Physician Review Events Since Last Encounter (Free Text): 12/03/17 15:58 patient seen and examined in the intensive care unit. Case discussed with house staff On heparin drip for portal vein thrombosis with elevated INR On antibiotics for elevated pro calcitonin level Patient is awake and responsive Afebrile Urine output 30 mL an hour Complaining of cough and constipation CCU Objective - Vital Signs / Intake & Output Intake and Output (Last 8hrs): Intake & Output 12/03/17 12/03/17 12/03/17 06:59 14:59 22:59 Intake Total 938.1 547.7 Output Total 0 300 Balance 938.1 247.7 Weight 227 lb 1.218 oz Intake: Intake, IV Amount 938.1 347.7 Left Antecubital 58.1 17.7 Left Hand 800 300 Right Forearm 80 30 Oral 0 200 Output: Urine 0 300 Urine, Voided 0 300 - Physical Exam Head: Positive for: Atraumatic, Normocephalic Mouth: Positive for: Moist Mucous Membranes Neck: Positive for: Normal Range of Motion Respiratory/Chest: Positive for: Clear to Auscultation Cardiovascular: Positive for: Regular Rate and Rhythm Abdomen: Positive for: Distention Upper Extremity: Positive for: Normal Inspection Lower Extremity: Positive for: Edema Skin: Positive for: Warm Psychiatric: Positive for: Alert - Medications Active Medications: Active Medications Generic Name Dose Route Start Last Admin Trade Name Freq PRN Reason Stop Dose Admin Albumin Human 12.5 gm 12/01/17 14:45 12/03/17 14:15 Albumin Human 25% (12.5 Gm/50 Ml) IV 12.5 gm Q8 DAWNA Administration Albuterol/Ipratropium 3 ml 12/03/17 08:34 Duoneb 3 Mg/0.5 Mg (3 Ml) Ud INH RQ6 PRN Shortness of Breath Heparin Sodium/Sodium Chloride 25,000 units in 250 mls @ 16.737 mls/hr 17:10 12/02/17 14:56 Heparin 18104 Units/250ml 1/2 Normal Saline IV 11.75 units/kg/hr .[id number] PRN 10.926 mls/hr ADJUST RATE PER PROTOCOL Titration Protocol 18 UNITS/KG/HR Piperacillin Sod/Tazobactam Sod 2.25 gm in 50 mls @ 100 mls/hr 12/01/17 22:00 12/03/17 14:16 Zosyn 2.25 Gm Iv Premix IVPB 100 mls/hr Q8H DAWNA Administration Octreotide Acetate 1,250 mcg/ 252.5 mls @ 10.1 mls/hr 12/02/17 10:15 10:55 Sodium Chloride SC 10.1 mls/hr .Q24H DAWNA Administration 50 MCG/HR Sodium Bicarbonate 75 meq/ 1,075 mls @ 100 mls/hr 12/03/17 10:00 12/03/17 10: 55 Dextrose/Sodium Chloride IV 100 mls/hr .[id number] DAWNA Administration Lorazepam 1 mg 12/01/17 18:00 Ativan IVP Q4H PRN Symptoms of alcohol withdrawl Methylprednisolone 32 mg 12/02/17 11:45 12/03/17 09:20 Solu-Medrol IV 32 mg DAILY DAWNA Administration Midodrine 7.5 mg 12/02/17 14:00 12/03/17 14:16 Proamatine PO 7.5 mg TID DAWNA Administration Pantoprazole Sodium 40 mg 12/02/17 10:00 12/03/17 09:20 Protonix Ec Tab PO 40 mg DAILY DAWNA Administration Promethazine HCl/Codeine 5 ml 12/03/17 08:34 12/03/17 09:20 Phenergan/Codeine Oral Syrup PO 5 ml Q4 PRN Administration Cough - Patient Studies Lab Studies: Microbiology Studies 12/01/17 20:10 Blood Culture - Preliminary Blood NO GROWTH AFTER 24 HOURS 12/01/17 20:00 Blood Culture - Preliminary Blood NO GROWTH AFTER 24 HOURS 12/01/17 23:06 MRSA Culture (Admit) - Final Nose MRSA NOT DETECTED 12/01/17 19:07 Urine Culture - Final Urine,Clean Catch No Growth (<1,000 CFU/ML) Lab Studies 12/03/17 12/03/17 12/03/17 Range/Units 13:32 06:38 06:38 WBC (4.8-10.8) K/uL RBC (4.40-5.90) Mil/uL Hgb (12.0-18.0) g/dL Hct (35.0-51.0) % MCV (80.0-94.0) fL MCH (27.0-31.0) pg MCHC (33.0-37.0) g/dL RDW (11.5-14.5) % Plt Count (130-400) K/uL MPV (7.2-11.7) fL Neut % (Auto) (50.0-75.0) % Lymph % (Auto) (20.0-40.0) % [place] % (Auto) (0.0-10.0) % Eos % (Auto) (0.0-4.0) % Baso % (Auto) (0.0-2.0) % Neut # (1.8-7.0) K/uL Lymph # (1.0-4.3) K/uL [place] # (0.0-0.8) K/uL Eos # (0.0-0.7) K/uL Baso # (0.0-0.2) K/uL Neutrophils % (Manual) (50-75) % Lymphocytes % (Manual) (20-40) % Monocytes % (Manual) (0-10) % Platelet Estimate (NORMAL) Large Platelets Polychromasia Hypochromasia (manual) Poikilocytosis (manual Anisocytosis (manual) Microcytosis (manual) Macrocytosis (manual) Spherocytes Target Cells Tear Drop Cells Ovalocytes [place] Cells Schistocytes PT 25.7 H (9.7-12.2) SECONDS INR 2.2 APTT 55 H D (21-34) SECONDS Sodium 120 L* (132-148) mmol/L Potassium 4.1 (3.6-5.2) mmol/L Chloride 90 L (98-107) mmol/L Carbon Dioxide 16 L (22-30) mmol/L Anion Gap 18 (10-20) BUN 71 H (9-20) mg/dL Creatinine 5.8 H (0.8-1.5) mg/dL Est GFR ( Amer) 12 Est GFR (Non-Af Amer) 10 Random Glucose 122 H (75-110) mg/dL Calcium 6.0 L* (8.6-10.4) mg/dl Phosphorus 7.1 H (2.5-4.5) mg/dL Magnesium 2.5 H (1.6-2.3) mg/dL Total Bilirubin > 27.0 H (0.2-1.3) mg/dL AST 172 H (17-59) U/L ALT 51 (21-72) U/L Alkaline Phosphatase 208 H (38-126) U/L Ammonia 35 H D (9-33) umol/L Total Protein 6.6 (6.3-8.3) g/dL Albumin 2.6 L (3.5-5.0) g/dL Globulin 4.0 H (2.2-3.9) gm/dL Albumin/Globulin Ratio 0.7 L (1.0-2.1) 12/03/17 12/03/17 12/02/17 Range/Units 06:38 04:43 21:14 WBC 12.2 H (4.8-10.8) K/uL RBC 3.44 L (4.40-5.90) Mil/uL Hgb 9.4 L (12.0-18.0) g/dL Hct 27.2 L (35.0-51.0) % MCV 79.1 L (80.0-94.0) fL MCH 27.3 (27.0-31.0) pg MCHC 34.5 (33.0-37.0) g/dL RDW 28.3 H (11.5-14.5) % Plt Count 147 (130-400) K/uL MPV 9.6 (7.2-11.7) fL Neut % (Auto) 92.6 H (50.0-75.0) % Lymph % (Auto) 3.7 L (20.0-40.0) % [place] % (Auto) 3.3 (0.0-10.0) % Eos % (Auto) 0.0 (0.0-4.0) % Baso % (Auto) 0.4 (0.0-2.0) % Neut # 11.3 H (1.8-7.0) K/uL Lymph # 0.5 L (1.0-4.3) K/uL [place] # 0.4 (0.0-0.8) K/uL Eos # 0.0 (0.0-0.7) K/uL Baso # 0.0 (0.0-0.2) K/uL Neutrophils % (Manual) 93 H (50-75) % Lymphocytes % (Manual) 4 L (20-40) % Monocytes % (Manual) 3 (0-10) % Platelet Estimate Normal (NORMAL) Large Platelets Present Polychromasia Slight Hypochromasia (manual) Slight Poikilocytosis (manual Slight Anisocytosis (manual) Moderate Microcytosis (manual) Slight Macrocytosis (manual) Slight Spherocytes Slight Target Cells Slight Tear Drop Cells Slight Ovalocytes Slight Chantal Cells Slight Schistocytes Slight PT (9.7-12.2) SECONDS INR APTT 130 H* D 206 H* D (21-34) SECONDS Sodium (132-148) mmol/L Potassium (3.6-5.2) mmol/L Chloride (98-107) mmol/L Carbon Dioxide (22-30) mmol/L Anion Gap (10-20) BUN (9-20) mg/dL Creatinine (0.8-1.5) mg/dL Est GFR ( Amer) Est GFR (Non-Af Amer) Random Glucose (75-110) mg/dL Calcium (8.6-10.4) mg/dl Phosphorus (2.5-4.5) mg/dL Magnesium (1.6-2.3) mg/dL Total Bilirubin (0.2-1.3) mg/dL AST (17-59) U/L ALT (21-72) U/L Alkaline Phosphatase (38-126) U/L Ammonia (9-33) umol/L Total Protein (6.3-8.3) g/dL Albumin (3.5-5.0) g/dL Globulin (2.2-3.9) gm/dL Albumin/Globulin Ratio (1.0-2.1) Laboratory Results - last 24 hr 12/02/17 12/03/17 12/03/17 21:14 04:43 06:38 WBC 12.2 H RBC 3.44 L Hgb 9.4 L Hct 27.2 L MCV 79.1 L MCH 27.3 MCHC 34.5 RDW 28.3 H Plt Count 147 MPV 9.6 Neut % (Auto) 92.6 H Lymph % (Auto) 3.7 L [place] % (Auto) 3.3 Eos % (Auto) 0.0 Baso % (Auto) 0.4 Neut # 11.3 H Lymph # 0.5 L [place] # 0.4 Eos # 0.0 Baso # 0.0 Neutrophils % (Manual) 93 H Lymphocytes % (Manual) 4 L Monocytes % (Manual) 3 Platelet Estimate Normal Large Platelets Present Polychromasia Slight Hypochromasia (manual) Slight Poikilocytosis (manual Slight Anisocytosis (manual) Moderate Microcytosis (manual) Slight Macrocytosis (manual) Slight Spherocytes Slight Target Cells Slight Tear Drop Cells Slight Ovalocytes Slight [place] Cells Slight Schistocytes Slight PT INR APTT 206 H* D 130 H* D Sodium Potassium Chloride Carbon Dioxide Anion Gap BUN Creatinine Est GFR ( Amer) Est GFR (Non-Af Amer) Random Glucose Calcium Phosphorus Magnesium Total Bilirubin AST ALT Alkaline Phosphatase Ammonia Total Protein Albumin Globulin Albumin/Globulin Ratio 12/03/17 12/03/17 12/03/17 06:38 06:38 13:32 WBC RBC Hgb Hct MCV MCH MCHC RDW Plt Count MPV Neut % (Auto) Lymph % (Auto) [place] % (Auto) Eos % (Auto) Baso % (Auto) Neut # Lymph # [place] # Eos # Baso # Neutrophils % (Manual) Lymphocytes % (Manual) Monocytes % (Manual) Platelet Estimate Large Platelets Polychromasia Hypochromasia (manual) Poikilocytosis (manual Anisocytosis (manual) Microcytosis (manual) Macrocytosis (manual) Spherocytes Target Cells Tear Drop Cells Ovalocytes Chantal Cells Schistocytes PT 25.7 H INR 2.2 APTT 55 H D Sodium 120 L* Potassium 4.1 Chloride 90 L Carbon Dioxide 16 L Anion Gap 18 BUN 71 H Creatinine 5.8 H Est GFR ( Amer) 12 Est GFR (Non-Af Amer) 10 Random Glucose 122 H Calcium 6.0 L* Phosphorus 7.1 H Magnesium 2.5 H Total Bilirubin > 27.0 H AST 172 H ALT 51 Alkaline Phosphatase 208 H Ammonia 35 H D Total Protein 6.6 Albumin 2.6 L Globulin 4.0 H Albumin/Globulin Ratio 0.7 L Critical Care Progress Note - Nutrition Nutrition: Nutrition Category Date Time Status Renal Diet [DIET] Diets 12/02/17 Dinner Active Assessment/Plan (1) Alcoholic cirrhosis Current Visit: Yes Status: Acute Comment: Alcoholic cirrhosis with ascites Rule out SBP patient on antibiotics with elevated pro calcitonin level(falsely elevated) (2) Hepatorenal syndrome Current Visit: Yes Status: Acute Comment: urine output 30 mL and output hemodialysis as as per nephrology (3) Portal vein thrombosis Current Visit: Yes Status: Acute Comment: on heparin drip for portal vein thrombosis INR 2.2
--- NOTE | 2017-12-03 18:57 | RAD ---
HISTORY: cough COMPARISON: Comparison is made with 12/01/2016 FINDINGS: LUNGS: [id number] pulmonary vascular congestion is noted. PLEURA: No significant pleural effusion identified, no pneumothorax apparent. CARDIOVASCULAR: Normal. OSSEOUS STRUCTURES: No significant abnormalities. VISUALIZED UPPER ABDOMEN: Normal. OTHER FINDINGS: None. IMPRESSION: Pulmonary congestion.
[2017-12-04] MEDS: Albumin Human 25% (12.5 gm/50 ml) IV SCH ×3 (05:12→21:23)
[2017-12-04] MEDS: Piperacill/Tazo 2.25gm in Dex 2.25 GM/50 ML BAG IVPB SCH ×3 (05:13→21:22)
[2017-12-04 06:59] LABS: HEMOGLOBIN 8.6 g/dL (12.0-18.0); LYMPH # 0.6 K/uL (1.0-4.3); LYMPH % 3.5 % (20.0-40.0); MEAN CELL VOLUME 78.7 fL (80.0-94.0); MEAN CORPUSCULAR HGB CONC 34.3 g/dL (33.0-37.0); MEAN PLATELET VOLUME 8.8 fL (7.2-11.7); MONO # 0.8 K/uL (0.0-0.8); NEUT # 14.8 K/uL (1.8-7.0); NEUT % 91.5 % (50.0-75.0); PLATELET COUNT 139 K/uL (130-400); RBC 3.17 Mil/uL (4.40-5.90); RED CELL DISTRIBUTION WIDTH 28.7 % (11.5-14.5); WHITE BLOOD COUNT 16.2 K/uL (4.8-10.8)
[2017-12-04 07:00] LABS: INR 2.2; PROTHROMBIN TIME 25.8 SECONDS (9.7-12.2)
[2017-12-04 07:34] LABS: ALB/GLOB RATIO 0.7 (1.0-2.1); ALBUMIN 2.6 g/dL (3.5-5.0); CALCIUM 5.1 mg/dl (8.6-10.4); MAGNESIUM 2.1 mg/dL (1.6-2.3)
[2017-12-04] MEDS ORDERED: Promethazine DM 6.25 mg-15 mg/5 ml Syrup PO PRN ×2 (08:38→18:20)
[2017-12-04 08:39] LABS: FERRITIN 81.9 ng/mL; FOLATE 12.4 ng/mL
[2017-12-04 08:52] LABS: LYMPHOCYTE 3 % (20-40); MONOCYTE 2 % (0-10); NEUTROPHIL 95 % (50-75); NUCLEATED RED BLOOD CELL 1 % (0-0); TOTAL CELLS COUNTED 100
[2017-12-04 08:53] LABS: ANISOCYTOSIS MODERATE; HYPOCHROMIC SLIGHT; OVALOCYTES SLIGHT; PLATELET ESTIMATE NORMAL (NORMAL); POLYCHROMIC SLIGHT; TARGET CELLS SLIGHT
--- NOTE | 2017-12-04 08:56 | CP.CCUPN ---
CCU Subjective - Physician Review Subjective (Free Text): 12/04/17 09:[address] Preciado No acute events overnight. Patient seen and examined at bedside. Patient makes urine at 40-50cc/hr. Patient was made DNR/DNI. Patient spoke with Dr. Curtis who stated patient will start dialysis when his creatinine is closer to 7. Critical Care Time Spent (in minutes): 35 CCU Objective - Vital Signs / Intake & Output Vital Signs (Last 4 hours): Vital Signs Pulse Resp BP Pulse Ox 12/04/17 07:09 59 L 17 134/67 98 12/04/17 06:09 60 16 125/64 99 12/04/17 05:09 61 16 124/66 98 12/04/17 05:00 62 17 98/43 L 97 Intake and Output (Last 8hrs): Intake & Output 12/03/17 12/04/17 12/04/17 22:59 06:59 14:59 Intake Total 1265.4 1043.1 Output Total 500 600 Balance 765.4 443.1 Weight 220 lb Intake: IV 0 Intake, IV Amount 1015.4 1043.1 Left Antecubital 35.4 53.1 Left Hand 800 900 Right Antecubital 100 Right Forearm 80 90 Oral 250 Output: Urine 500 600 Urine, Voided 500 600 - Physical Exam Head: Positive for: Atraumatic, Normocephalic Mouth: Positive for: Moist Mucous Membranes Pharnyx: Positive for: Other (yellow hue) Neck: Positive for: Normal Range of Motion, Trachea Midline Respiratory/Chest: Positive for: Clear to Auscultation Cardiovascular: Positive for: Regular Rate and Rhythm Abdomen: Positive for: Distention Upper Extremity: Positive for: Normal Inspection Lower Extremity: Positive for: Edema Skin: Positive for: Warm Psychiatric: Positive for: Alert - Medications Active Medications: Active Medications Generic Name Dose Route Start Last Admin Trade Name Freq PRN Reason Stop Dose Admin Albumin Human 12.5 gm 12/01/17 14:45 12/04/17 05:12 Albumin Human 25% (12.5 Gm/50 Ml) IV 12.5 gm Q8 DAWNA Administration Albuterol/Ipratropium 3 ml 12/03/17 08:34 Duoneb 3 Mg/0.5 Mg (3 Ml) Ud INH RQ6 PRN Shortness of Breath Heparin Sodium/Sodium Chloride 25,000 units in 250 mls @ 16.737 mls/hr 17:10 12/03/17 17:42 Heparin 34826 Units/250ml 1/2 Normal Saline IV 6.36 units/kg/hr .[id number] PRN 5.914 mls/hr ADJUST RATE PER PROTOCOL Titration Protocol 18 UNITS/KG/HR Piperacillin Sod/Tazobactam Sod 2.25 gm in 50 mls @ 100 mls/hr 12/01/17 22:00 12/04/17 05:13 Zosyn 2.25 Gm Iv Premix IVPB 100 mls/hr Q8H DAWNA Administration Sodium Bicarbonate 75 meq/ 1,075 mls @ 100 mls/hr 12/03/17 10:00 12/03/17 21: 08 Dextrose/Sodium Chloride IV 100 mls/hr .[id number] DAWNA Administration Octreotide Acetate 1,250 mcg/ 252.5 mls @ 10.1 mls/hr 12/04/17 10:15 Sodium Chloride IV .Q24H DAWNA 50 MCG/HR Lorazepam 1 mg 12/01/17 18:00 Ativan IVP Q4H PRN Symptoms of alcohol withdrawl Methylprednisolone 32 mg 12/02/17 11:45 12/03/17 09:20 Solu-Medrol IV 32 mg DAILY DAWNA Administration Midodrine 7.5 mg 12/02/17 14:00 12/03/17 17:49 Proamatine PO 7.5 mg TID DAWNA Administration Pantoprazole Sodium 40 mg 12/02/17 10:00 12/03/17 09:20 Protonix Ec Tab PO 40 mg DAILY DAWNA Administration Promethazine HCl/Dextromethorphan 5 ml 12/04/17 08:38 Phenergan Dm Syrup PO Q6H PRN Cough - Patient Studies Lab Studies: Microbiology Studies 12/01/17 20:10 Blood Culture - Preliminary Blood NO GROWTH AFTER 24 HOURS 12/01/17 20:00 Blood Culture - Preliminary Blood NO GROWTH AFTER 24 HOURS 12/01/17 23:06 MRSA Culture (Admit) - Final Nose MRSA NOT DETECTED Lab Studies 12/04/17 12/04/17 12/04/17 Range/Units 06:44 06:44 06:44 WBC (4.8-10.8) K/uL RBC (4.40-5.90) Mil/uL Hgb (12.0-18.0) g/dL Hct (35.0-51.0) % MCV (80.0-94.0) fL MCH (27.0-31.0) pg MCHC (33.0-37.0) g/dL RDW (11.5-14.5) % Plt Count (130-400) K/uL MPV (7.2-11.7) fL Neut % (Auto) (50.0-75.0) % Lymph % (Auto) (20.0-40.0) % Tama % (Auto) (0.0-10.0) % Eos % (Auto) (0.0-4.0) % Baso % (Auto) (0.0-2.0) % Neut # (1.8-7.0) K/uL Lymph # (1.0-4.3) K/uL Tama # (0.0-0.8) K/uL Eos # (0.0-0.7) K/uL Baso # (0.0-0.2) K/uL Neutrophils % (Manual) (50-75) % Lymphocytes % (Manual) (20-40) % Monocytes % (Manual) (0-10) % Nucleated RBC % (0-0) % Platelet Estimate (NORMAL) Polychromasia Hypochromasia (manual) Anisocytosis (manual) Target Cells Ovalocytes Retic Count (0.5-1.5) % PT 25.8 H (9.7-12.2) SECONDS INR 2.2 APTT 95 H (21-34) SECONDS Sodium 119 L* (132-148) mmol/L Potassium 3.0 L (3.6-5.2) mmol/L Chloride 82 L (98-107) mmol/L Carbon Dioxide 15 L (22-30) mmol/L Anion Gap 25 H (10-20) BUN 67 H (9-20) mg/dL Creatinine 5.5 H (0.8-1.5) mg/dL Est GFR ( Amer) 13 Est GFR (Non-Af Amer) 10 Random Glucose 211 H (75-110) mg/dL Calcium 5.1 L* (8.6-10.4) mg/dl Phosphorus 5.4 H (2.5-4.5) mg/dL Magnesium 2.1 (1.6-2.3) mg/dL Ferritin 81.9 ng/mL Total Bilirubin 26.9 H (0.2-1.3) mg/dL AST 131 H D (17-59) U/L ALT 39 (21-72) U/L Alkaline Phosphatase 166 H D (38-126) U/L Ammonia 36 H (9-33) umol/L Total Protein 6.3 (6.3-8.3) g/dL Albumin 2.6 L (3.5-5.0) g/dL Globulin 3.7 (2.2-3.9) gm/dL Albumin/Globulin Ratio 0.7 L (1.0-2.1) Vitamin B12 962 H (239-931) pg/mL Folate 12.4 ng/mL 12/04/17 12/03/17 12/03/17 Range/Units 06:44 21:23 13:32 WBC 16.2 H (4.8-10.8) K/uL RBC 3.17 L (4.40-5.90) Mil/uL Hgb 8.6 L (12.0-18.0) g/dL Hct 25.0 L (35.0-51.0) % MCV 78.7 L (80.0-94.0) fL MCH 27.0 (27.0-31.0) pg MCHC 34.3 (33.0-37.0) g/dL RDW 28.7 H (11.5-14.5) % Plt Count 139 (130-400) K/uL MPV 8.8 (7.2-11.7) fL Neut % (Auto) 91.5 H (50.0-75.0) % Lymph % (Auto) 3.5 L (20.0-40.0) % Tama % (Auto) 5.0 (0.0-10.0) % Eos % (Auto) 0.0 (0.0-4.0) % Baso % (Auto) 0.0 (0.0-2.0) % Neut # 14.8 H (1.8-7.0) K/uL Lymph # 0.6 L (1.0-4.3) K/uL Tama # 0.8 (0.0-0.8) K/uL Eos # 0.0 (0.0-0.7) K/uL Baso # 0.0 (0.0-0.2) K/uL Neutrophils % (Manual) 95 H (50-75) % Lymphocytes % (Manual) 3 L (20-40) % Monocytes % (Manual) 2 (0-10) % Nucleated RBC % 1 H (0-0) % Platelet Estimate Normal (NORMAL) Polychromasia Slight Hypochromasia (manual) Slight Anisocytosis (manual) Moderate Target Cells Slight Ovalocytes Slight Retic Count 1.5 D (0.5-1.5) % PT 25.7 H (9.7-12.2) SECONDS INR 2.2 APTT 93 H D 55 H D (21-34) SECONDS Sodium (132-148) mmol/L Potassium (3.6-5.2) mmol/L Chloride (98-107) mmol/L Carbon Dioxide (22-30) mmol/L Anion Gap (10-20) BUN (9-20) mg/dL Creatinine (0.8-1.5) mg/dL Est GFR ( Amer) Est GFR (Non-Af Amer) Random Glucose (75-110) mg/dL Calcium (8.6-10.4) mg/dl Phosphorus (2.5-4.5) mg/dL Magnesium (1.6-2.3) mg/dL Ferritin ng/mL Total Bilirubin (0.2-1.3) mg/dL AST (17-59) U/L ALT (21-72) U/L Alkaline Phosphatase (38-126) U/L Ammonia (9-33) umol/L Total Protein (6.3-8.3) g/dL Albumin (3.5-5.0) g/dL Globulin (2.2-3.9) gm/dL Albumin/Globulin Ratio (1.0-2.1) Vitamin B12 (239-931) pg/mL Folate ng/mL 12/01/17 Range/Units 12:44 WBC (4.8-10.8) K/uL RBC (4.40-5.90) Mil/uL Hgb (12.0-18.0) g/dL Hct (35.0-51.0) % MCV (80.0-94.0) fL MCH (27.0-31.0) pg MCHC (33.0-37.0) g/dL RDW (11.5-14.5) % Plt Count (130-400) K/uL MPV (7.2-11.7) fL Neut % (Auto) (50.0-75.0) % Lymph % (Auto) (20.0-40.0) % Tama % (Auto) (0.0-10.0) % Eos % (Auto) (0.0-4.0) % Baso % (Auto) (0.0-2.0) % Neut # (1.8-7.0) K/uL Lymph # (1.0-4.3) K/uL Tama # (0.0-0.8) K/uL Eos # (0.0-0.7) K/uL Baso # (0.0-0.2) K/uL Neutrophils % (Manual) (50-75) % Lymphocytes % (Manual) (20-40) % Monocytes % (Manual) (0-10) % Nucleated RBC % (0-0) % Platelet Estimate (NORMAL) Polychromasia Hypochromasia (manual) Anisocytosis (manual) Target Cells Ovalocytes Retic Count (0.5-1.5) % PT (9.7-12.2) SECONDS INR APTT (21-34) SECONDS Sodium 120 L* (132-148) mmol/L Potassium (3.6-5.2) mmol/L Chloride (98-107) mmol/L Carbon Dioxide (22-30) mmol/L Anion Gap 17 (10-20) BUN (9-20) mg/dL Creatinine (0.8-1.5) mg/dL Est GFR ( Amer) Est GFR (Non-Af Amer) Random Glucose (75-110) mg/dL Calcium (8.6-10.4) mg/dl Phosphorus (2.5-4.5) mg/dL Magnesium (1.6-2.3) mg/dL Ferritin ng/mL Total Bilirubin (0.2-1.3) mg/dL AST (17-59) U/L ALT (21-72) U/L Alkaline Phosphatase (38-126) U/L Ammonia (9-33) umol/L Total Protein (6.3-8.3) g/dL Albumin (3.5-5.0) g/dL Globulin (2.2-3.9) gm/dL Albumin/Globulin Ratio (1.0-2.1) Vitamin B12 (239-931) pg/mL Folate ng/mL Laboratory Results - last 24 hr 12/01/17 12/03/17 12/03/17 12:44 13:32 21:23 WBC RBC Hgb Hct MCV MCH MCHC RDW Plt Count MPV Neut % (Auto) Lymph % (Auto) Tama % (Auto) Eos % (Auto) Baso % (Auto) Neut # Lymph # Tama # Eos # Baso # Neutrophils % (Manual) Lymphocytes % (Manual) Monocytes % (Manual) Nucleated RBC % Platelet Estimate Polychromasia Hypochromasia (manual) Anisocytosis (manual) Target Cells Ovalocytes Retic Count PT 25.7 H INR 2.2 APTT 55 H D 93 H D Sodium 120 L* Potassium Chloride Carbon Dioxide Anion Gap 17 BUN Creatinine Est GFR ( Amer) Est GFR (Non-Af Amer) Random Glucose Calcium Phosphorus Magnesium Ferritin Total Bilirubin AST ALT Alkaline Phosphatase Ammonia Total Protein Albumin Globulin Albumin/Globulin Ratio Vitamin B12 Folate 12/04/17 12/04/17 12/04/17 06:44 06:44 06:44 WBC 16.2 H RBC 3.17 L Hgb 8.6 L Hct 25.0 L MCV 78.7 L MCH 27.0 MCHC 34.3 RDW 28.7 H Plt Count 139 MPV 8.8 Neut % (Auto) 91.5 H Lymph % (Auto) 3.5 L Tama % (Auto) 5.0 Eos % (Auto) 0.0 Baso % (Auto) 0.0 Neut # 14.8 H Lymph # 0.6 L Tama # 0.8 Eos # 0.0 Baso # 0.0 Neutrophils % (Manual) 95 H Lymphocytes % (Manual) 3 L Monocytes % (Manual) 2 Nucleated RBC % 1 H Platelet Estimate Normal Polychromasia Slight Hypochromasia (manual) Slight Anisocytosis (manual) Moderate Target Cells Slight Ovalocytes Slight Retic Count 1.5 D PT 25.8 H INR 2.2 APTT 95 H Sodium 119 L* Potassium 3.0 L Chloride 82 L Carbon Dioxide 15 L Anion Gap 25 H BUN 67 H Creatinine 5.5 H Est GFR ( Amer) 13 Est GFR (Non-Af Amer) 10 Random Glucose 211 H Calcium 5.1 L* Phosphorus 5.4 H Magnesium 2.1 Ferritin 81.9 Total Bilirubin 26.9 H AST 131 H D ALT 39 Alkaline Phosphatase 166 H D Ammonia Total Protein 6.3 Albumin 2.6 L Globulin 3.7 Albumin/Globulin Ratio 0.7 L Vitamin B12 962 H Folate 12.4 12/04/17 06:44 WBC RBC Hgb Hct MCV MCH MCHC RDW Plt Count MPV Neut % (Auto) Lymph % (Auto) Tama % (Auto) Eos % (Auto) Baso % (Auto) Neut # Lymph # Tama # Eos # Baso # Neutrophils % (Manual) Lymphocytes % (Manual) Monocytes % (Manual) Nucleated RBC % Platelet Estimate Polychromasia Hypochromasia (manual) Anisocytosis (manual) Target Cells Ovalocytes Retic Count PT INR APTT Sodium Potassium Chloride Carbon Dioxide Anion Gap BUN Creatinine Est GFR ( Amer) Est GFR (Non-Af Amer) Random Glucose Calcium Phosphorus Magnesium Ferritin Total Bilirubin AST ALT Alkaline Phosphatase Ammonia 36 H Total Protein Albumin Globulin Albumin/Globulin Ratio Vitamin B12 Folate Critical Care Progress Note - Nutrition Nutrition: Nutrition Category Date Time Status Renal Diet [DIET] Diets 12/02/17 Dinner Active Assessment/Plan - Assessment and Plan (Free Text) Assessment: 67M with pmh of anemia, alcoholic liver cirrhosis and iron deficiency, prostate Adenocarcinoma March 2017, CHF 40% November 2016 echo, gastritis, hemorrhoids presents with weakness and shortness of breath. Found to be jaundiced with elevated bilirubin possible portal vein thrombosis. Patient admitted to ICU for closer observation and treatment and placed on heparin drip. Patient found to have portal vein thrombosis, hepatorenal syndrome, started on octreotide, albumin drip, midodrine, IV fluids, and monitored for renal function improvement. Neuro alcohol abuse history last drink per patient is 11/20/1712/01 Ammonia 55 f/u Urine Drug Screen [facility] protocol Ativan 1mg Q4H PRN alcohol withdrawal Cardio CHF history EF 40% in November Echo 12/01 EKG 12/01 Echo: 59% preliminary 12/01 BNP 1410 12/01 Negative troponin I Pulm Promethazine 5cc PO Q6H PRN GI alcoholic liver cirrhosis hepatorenal syndrome 12/01 T bili 33.8 12/01 AST 249 ALT 60 ALP 307 12/01 Lipase 339 serum alcohol, f/u Hepatitis panel heparin drip 250cc IV 18 u/kg/hr 12/01 Abdomen obstructive XRAY: Nonspecific bowel gas pattern. no evidence of mechanical bowel obstruction. clear lungs 12/01 Abdominal US: blood flow couldn't be documented in the portal vein. suspicious for portal vein thrombosis 12/01 CT Abdomen/Pelvis: cirrhosis and small perihepatic ascites. severe intrahepatic biliary ductal dilatation, worse in left hepatic lobe nad cholelithiasis MELD score 40 points 71.3% estimated 3 month mortality. Patient made aware that he cannot have a liver transplant unless he stops drinking for 6 months to be placed on the list. GI: Renal diet. GI Consult: obtain MRI abdomen to r/o obstructive cancer v choledocholithiasis. anticoagulation for 6 months for portal vein thrombosis. Hepatorenal syndrome: midodrine, octreotide, fluids, albumin drip. monitor for improvement. Consider dialysis. Aguedasyn, for possible biliary tract infection. Methylprednisolone 32mg IVQD Midodrine 7.5mg PO TID NS Octreotide 50mcg/hr Heme/onc f/u Direct bilirubin decreased urine output heparin drip 250cc IV 18 u/kg/hr Nephro: Prostate cancer history decreased urine output/oliguric f/u I/O f/u Urine output urine osm, urine sodium NS @100cc/hr 12/01 UA + for glucose, bilirubin, sienna, negative for leukocyte esterase 12/01 BUN/Cr 59/5.6 D51/2NS+75SB@100 for metabolic acidosis, hypochloremic fluid Renal consult: Dr. Balderrama for acute renal failure ID: Zosyn, for possible biliary tract infection. Prostate cancer history f/u PSA Albumin 12.5gm IV Q8H Prophylaxis DVT: contraindicated, patient is on heparin drip 250cc IV 18 u/kg/hr for portal vein thrombosis NS @100cc/hr
--- NOTE | 2017-12-04 09:04 | CP.PCM.PN ---
Subjective - Date & Time of Evaluation Date of Evaluation: 12/04/17 Time of Evaluation: 08:45 - Subjective Subjective: Hospitalist Progress Note Patient was seen and examined at 8:45 AM 12/04/17 ICU Bed #12 67 year old male who was admitted on 12/01/16 for complaints of weakness, fatigue , constipation, and decreased appetite for 2 weeks along with SOB. He was found to have Portal Vein Thrombosis, started on Heparin Drip, and admitted to the ICU for further evaluation. Please see individual Assessment and Plans below for other issues for this patient. Currently upon FULL ROS: Has not had a bowel movement in 2 days Producing some urine but very little and there is some initial burning when he initiates urination NO chest pain SOB is better but still present at times He is eating more Abdominal pain secondary to the distention Cough that is dry that comes and goes Blurriness of vision that is not new and has been present since the beginning of 2016 Exam: General: AAOx3, NAD HEENT: NCA, EOMI, PERRLA, SCERAL ICTERUS, NO pharyngeal erythema/exudate, NO cervical lymphadenopathy, NO thyromegaly, Nasal Turbinates are moist/ nonerthematous/nonedematous Cardio: NS1 and NS2, NO M/R/G Resp: CTA B/L, NO R/R/W GI: BSx4 are REDUCED, DISTENTION, Liver and Spleen could not be palpated, Slightly tender to palpation, NO guarding/rebound tenderness Ext: NO edema, Capillary Refill is 2 seconds, Pulses are strong and equal Neuro: CN II through XII are grossly intact Skin: Jaundice diffusely 1) Obstructive Jaundice Portal vein thrombosis History of Liver Cirrhosis Transaminitis Alcohol Use Intrahepatic Biliary dilatation Cholelithiasis * Admit to ICU * MELD 44; 90-Day Mortality Rate: 0.94 * Discriminant Function>32 indicated poor prognosis and patient may benefit from glucocorticoid therapy * GI (Dr. Ham) on board-->Help appreciated * Chronic alcoholic cirrhosis now with superimposed hepatic injury due to acute alcoholic hepatitis * DF= 84, indicating > 50% 30 day mortality * Alcohol cessation discussed with patient * Will start Prednisolone for acute alcoholic hepatitis with elevated Discriminant Funtion and high mortality * Solumedrol 32mg IV daily * Hematology (Dr. Mindy Castro) on board-->help appreciated * Obstructive series (12/01/17): nonspecific bowel gas pattern. No evidence of mechanical bowel obstruction. Clear lungs * Abdominal US (12/01/16): Blood flow could not be documented in portal vein in region of yohan hepatitis raising suspicion for portal vein thrombosis. Cirrhosis of the liver and small perihepatic ascites. Severe intrahepatic biliary ductal dilatation, worse in the left hepatic lobe and cholelithiasis * CT abdomen and Pelvis (12/01/16): hepatic splenomegaly. Hepatic cirrhosis. Ascites. Extensive intrapheatic biliary dilatation. Common bile duct not adequately demonstrated. DD: choledocholithaisis, bilary neoplasm, colitis. Enteritis. Cholelithiasis * Abdominal US (12/02/16): somewhat limited study to patient's body habitus. Advanced cirrhosis. Findings suspicious for portal vein thrombosis. Dilated intrahepatic biliary ducts of uncertain etiology. Splenomegaly. Small ascites. Gallstones without definite evidence of acute cholecystitis. Dilated CBD 10.6mm. * Abdominal MRI (12/02/16): tubular shaped dilated branching structures in the liver may represent dilated protal vein versus dilated intrahepatic biliary ducts. No definite evidence of mass liesion in the yohan hepatis region in this study. Advanced cirrhosis. Splenomegaly and small ascites. The CBD is not dilated. The main pancreatic duct is not dilated. Gallstones without evidence of acute cholecystitis * Patient started on Heparin Drip for Portal vein thrombosis * Patient has elevated ammonia on admission he is awake/alert/oriented X3 * Start Zosyn 2.25 IV Q 8Hours (active since 12/01/16) 2) Acute Renal Failure Hepatorenal syndrome * Nephrology (Dr. Balderrama) on board-->help appreciated * Recommend IV bicarb gtt * serial chemistires * avoid paracentesis * octeotride drip * if not better by AM (12/03) would likely need dialysis * monitor intake and output * Prostate adenocarcinoma (biopsy 04/04/17) rojas: 6 * Possible HD: ICU Resident Dr. Kincaid to reach out to Nephrology and if agreed to start HD then will get Vascular Access 3) Sepsis Elevated INR * Urine culture (12/01/17): no growth * Blood culture (12/01/17): pending results * Elevated procalcitonin (5.29-->5.20) * Significantly higher in CKD patients w/o infections prior to starting renal replacement therapy * Order procalcitonin when patient starts dialysis to see if drops * Zosyn 2.25g IVPB Q8H (active since 12/01/17) 4) Alcoholic Cardiomyopathy * Echocardiogram (12/01/17): normal LV EF and Doppler * Cardiology (Dr. Vigil) on board-->help appreciated * Echo performed today demonstrates normal LV EF. 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 * Unable to give aspirin secondary to elevated INR * Unable to give ARB/Statin secondary to ARF 5) Hyponatremia * Nephrology (Dr. Balderrama) on board-->help appreciated * serum osmolarity: 287 * urine osmolarity: 338 * Urine sodium: <5 6) History of Alcohol Use * Blood alcohol <10 * Patient reports last drink was around michael * Patient does not appear in withdrawal 7) History of Anemia * Improved to 10 prior hospitalization 7s 11/27/16: Currently 12/04/17 at 8.6/25.0 * Heme-onc (Dr. Mindy Castro) on consult 8) GI PPx * Protonix 40mg PO daily 9) DVT ppx * On heparin drip for portal vein thrombosis 10) Cough * Chest X Ray 12/03/17 showed mild to moderate pulmonary vascular congestion however this was not heard on Respiratory exam 12/04/17 * start Promethazine DM 5ml PO Q6H PRN cough * Start Duoneb PRN Q6H PRN shortness of breathe 11) Constipation * Lactulose 20 gm PO x 1 dose given 12/03/17 however NO bowel movement 12/04/17 and another dose was ordered. Patient does not have an Advance Directive and does not have anyone to designate as his Health Care Proxy. I have spoken with Palliate Care Nurse Jelena and she will see patient later today 12/04/17. Den Steen D.O. Objective - Vital Signs/Intake and Output Vital Signs (last 24 hours): Temp Pulse Resp BP Pulse Ox 98.2 F 109 H 16 113/53 L 98 12/04/17 08:00 12/04/17 08:09 12/04/17 08:09 12/04/17 08:09 12/04/17 08:09 Intake and Output: 12/04/17 12/04/17 06:59 18:59 Intake Total 1606.7 315.9 Output Total 600 Balance 1006.7 315.9 - Medications Medications: Current Medications Albumin Human (Albumin Human 25% (12.5 Gm/50 Ml)) 12.5 gm IV Q8 [facility] Last Admin: 12/04/17 05:12 Dose: 12.5 gm Albuterol/Ipratropium (Duoneb 3 Mg/0.5 Mg (3 Ml) Ud) 3 ml INH RQ6 PRN PRN Reason: Shortness of Breath Heparin Sodium/Sodium Chloride (Heparin 20778 Units/250ml 1/2 Normal Saline) 25 ,000 units in 250 mls @ 16.737 mls/hr IV .[id number] PRN; Protocol; 18 UNITS/KG/HR PRN Reason: ADJUST RATE PER PROTOCOL Last Titration: 12/03/17 17:42 Dose: 6.36 units/kg/hr, 5.914 mls/hr Piperacillin Sod/Tazobactam Sod (Zosyn 2.25 Gm Iv Premix) 2.25 gm in 50 mls @ 100 mls/hr IVPB Q8H DAWNA Last Admin: 12/04/17 05:13 Dose: 100 mls/hr Sodium Bicarbonate 75 meq/ (Dextrose/Sodium Chloride) 1,075 mls @ 100 mls/hr IV .[id number] DAWNA Last Admin: 12/03/17 21:08 Dose: 100 mls/hr Octreotide Acetate 1,250 mcg/ (Sodium Chloride) 252.5 mls @ 10.1 mls/hr IV .Q24H DAWNA PRN Reason: 50 MCG/HR Lorazepam (Ativan) 1 mg IVP Q4H PRN PRN Reason: Symptoms of alcohol withdrawl Methylprednisolone (Solu-Medrol) 32 mg IV DAILY [facility] Last Admin: 12/03/17 09:20 Dose: 32 mg Midodrine (Proamatine) 7.5 mg PO TID [facility] Last Admin: 12/03/17 17:49 Dose: 7.5 mg Pantoprazole Sodium (Protonix Ec Tab) 40 mg PO DAILY [facility] Last Admin: 12/03/17 09:20 Dose: 40 mg Promethazine HCl/Dextromethorphan (Phenergan Dm Syrup) 5 ml PO Q6H PRN PRN Reason: Cough - Labs Labs: 12/04/17 06:44 12/04/17 06:44 PT 25.8 SECONDS (9.7-12.2) H 12/04/17 06:44 INR 2.2 12/04/17 06:44 APTT 95 SECONDS (21-34) H 12/04/17 06:44
--- NOTE | 2017-12-04 09:59 | CP.PCM.PCO ---
Physician Communication Note - Physician Communication Note Physician Communication Note: Patient signed DNR/DNI
[2017-12-04] MEDS: MethylPREDNISolone 40 mg Vial IV SCH (10:13)
[2017-12-04] MEDS: Pantoprazole 40 mg EC Tab PO SCH (10:14)
[2017-12-04] MEDS ORDERED: Sodium Bicarbonate 8.4% 150 MEQ in Dextrose 5% In Water 1,000 ML IV SCH (10:45)
--- NOTE | 2017-12-04 10:51 | CP.PCM.CON ---
History of Present Illness - History of Present Illness History of Present Illness: Palliative consult requested for goals of care discussion Patient is a 67 yo male admitted from home with complaints of weakness, fatigue and poor appetite X 2 weeks. Patient noticed his skin turning yellow but is not sure for how long, prior to admission. Patient admits drinking alcohol , sometimes for 4-5 consecutive days than would stop for a moth. Patient used to drink about 10 beers a day. His last drink was on . Upon admission the CT abdomen was significant for extensive liver cirrhosis, and MRI abdomen showed the Portal vein distention. Patient diagnosed with hepatorenal Syndrom. PMH: iron deficiency anemia, liver cirrhosis, ETOH abuse Soc. Hx: single, lives with mother and takes care of her, has 3 more brothers who [place]. Fam. Hx: denies knowledge of any significant Hx Review of Systems - Constitutional Constitutional: Weakness - EENT Eyes: absent: As Per HPI, Blind Spots, Blurred Vision, Change in Vision, Decreased Night Vision, Diplopia, Discharge, Dry Eye, Exophthalmos, Floaters, Irritation, Itchy Eyes, Loss of Peripheral Vision, Pain, Photophobia, Requires Corrective Lenses, Sees Flashes, Spots in Vision, Tunnel Vision, Other Visual Disturbances, Loss of Vision, Other Ears: absent: As Per HPI, Decreased Hearing, Ear Discharge, Ear Pain, Tinnitus, Abnormal Hearing, Disequilibrium, Dizziness, Other Nose/Mouth/Throat: absent: As Per HPI, Epistaxis, Nasal Congestion, Nasal Discharge, Nasal Obstruction, Nasal Trauma, Nose Pain, Post Nasal Drip, Sinus Pain, Sinus Pressure, Bleeding Gums, Change in Voice, Dental Pain, Dry Mouth, Dysphagia, Halitosis, Hoarsness, Lip Swelling, Mouth Lesions, Mouth Pain, Odynophagia, Sore Throat, Throat Swelling, Tongue Swelling, Facial Pain, Neck Pain, Neck Mass, Other - Cardiovascular Cardiovascular: Dyspnea - Respiratory Respiratory: Dyspnea on Exertion - Gastrointestinal Gastrointestinal: Bloating, Constipation - Genitourinary Genitourinary: absent: As Per HPI, Change in Urinary Stream, Difficulty Urinating, Dysuria, Flank Pain, Hematuria, Pyuria, Nocturia, Urinary Incontinence, Urinary Frequency, Urinary Hesitance, Urinary Urgency, Voiding Freq/Small Amts, Freq UTI, Hx Renal/Bladder Calculi, Hx /Renal Surgery, Bladder Distension, Other - Musculoskeletal Musculoskeletal: Muscle Weakness - Integumentary Integumentary: Dry Skin, Jaundice - Neurological Neurological: absent: As Per HPI, Abnormal Gait, Abnormal Hearing, Abnormal Movements, Abnormal Speech, Behavioral Changes, Burning Sensations, Confusion, Convulsions, Disequilibrium, Dizziness, Numbness, Focal Weakness, Frequent Falls , Headaches, Lack of Coordination, Loss of Vision, Memory Loss, Paresthesias, Radicular Pain, Restless Legs, Sensory Deficit, Syncope, Tingling, Tremor, Vertigo, Weakness, Other Visual Disturbances, Other - Psychiatric Psychiatric: Depression - Endocrine Endocrine: Change in Body Appearance - Hematologic/Lymphatic Hematologic: Easy Bleeding Past Patient History - Past Medical History & Family History Past Medical History?: Yes Past Family History: Reviewed and not pertinent - Past Social History Smoking Status: Never Smoked Chewing Tobacco Use: No Cigar Use: No Alcohol: > 2 Drinks/Day Drugs: Denies Home Situation {Lives}: With Family - CARDIAC Hx Congestive Heart Failure: Yes Hx Hypertension: Yes - PULMONARY Hx Respiratory Disorders: No - NEUROLOGICAL Hx Neurological Disorder: No - HEENT Hx HEENT Problems: No - RENAL Hx Chronic Kidney Disease: No - ENDOCRINE/METABOLIC Hx Endocrine Disorders: No - HEMATOLOGICAL/ONCOLOGICAL Hx Anemia: Yes - INTEGUMENTARY Hx Dermatological Problems: No - MUSCULOSKELETAL/RHEUMATOLOGICAL Hx Falls: No - GASTROINTESTINAL Hx Gastrointestinal Disorders: Yes (Colon polyp 2017) Hx Gastroesophageal Reflux: Yes Hx Liver Failure: Yes Other/Comment: CANDIDAL ESOPHAGITIS ascites - GENITOURINARY/GYNECOLOGICAL Hx Genitourinary Disorders: Yes Hx Prostate Problems: Yes - PSYCHIATRIC Hx Substance Use: No - SURGICAL HISTORY Hx Surgeries: Yes - ANESTHESIA Hx Anesthesia: Yes Hx Anesthesia Reactions: No Hx Malignant Hyperthermia: No Has any member of the family had a problem w/ anesthesia?: No Meds Allergies/Adverse Reactions: Allergies Allergy/AdvReac Type Severity Reaction Status Date / Time No Known Allergies Allergy Verified 12/01/17 12:02 - Medications Medications: Current Medications Albumin Human (Albumin Human 25% (12.5 Gm/50 Ml)) 12.5 gm IV Q8 [facility] Last Admin: 12/04/17 05:12 Dose: 12.5 gm Albuterol/Ipratropium (Duoneb 3 Mg/0.5 Mg (3 Ml) Ud) 3 ml INH RQ6 PRN PRN Reason: Shortness of Breath Heparin Sodium/Sodium Chloride (Heparin 01373 Units/250ml 1/2 Normal Saline) 25 ,000 units in 250 mls @ 16.737 mls/hr IV .[id number] PRN; Protocol; 18 UNITS/KG/HR PRN Reason: ADJUST RATE PER PROTOCOL Last Titration: 12/03/17 17:42 Dose: 6.36 units/kg/hr, 5.914 mls/hr Piperacillin Sod/Tazobactam Sod (Zosyn 2.25 Gm Iv Premix) 2.25 gm in 50 mls @ 100 mls/hr IVPB Q8H [facility] Last Admin: 12/04/17 05:13 Dose: 100 mls/hr Sodium Bicarbonate 75 meq/ (Dextrose/Sodium Chloride) 1,075 mls @ 100 mls/hr IV .[id number] [facility] Last Admin: 12/03/17 21:08 Dose: 100 mls/hr Octreotide Acetate 1,250 mcg/ (Sodium Chloride) 252.5 mls @ 10.1 mls/hr IV .Q24H [facility] PRN Reason: 50 MCG/HR Sodium Bicarbonate 150 meq/ (Dextrose) 1,150 mls @ 50 mls/hr IV .Q23H [facility] Methylprednisolone (Solu-Medrol) 32 mg IV DAILY [facility] Last Admin: 12/03/17 09:20 Dose: 32 mg Midodrine (Proamatine) 7.5 mg PO TID [facility] Last Admin: 12/03/17 17:49 Dose: 7.5 mg Pantoprazole Sodium (Protonix Ec Tab) 40 mg PO DAILY [facility] Last Admin: 12/03/17 09:20 Dose: 40 mg Physical Exam - Constitutional Appears: Chronically Ill - Head Exam Head Exam: ATRAUMATIC, NORMAL INSPECTION, NORMOCEPHALIC - Eye Exam Eye Exam: EOMI, Normal appearance Pupil Exam: NORMAL ACCOMODATION, PERRL Additional comments: sclera yellow - ENT Exam ENT Exam: Mucous Membranes Moist, Normal Exam - Neck Exam Neck exam: Positive for: Normal Inspection - Respiratory Exam Respiratory Exam: Decreased Breath Sounds, Clear to Auscultation Bilateral, NORMAL BREATHING PATTERN - Cardiovascular Exam Cardiovascular Exam: Tachycardia, REGULAR RHYTHM - GI/Abdominal Exam GI & Abdominal Exam: Diminished Bowel Sounds, Distended - Rectal Exam Rectal Exam: Deferred - Exam Exam: NORMAL INSPECTION - Extremities Exam Extremities exam: Positive for: normal inspection - Back Exam Back exam: NORMAL INSPECTION - Neurological Exam Neurological exam: Alert, Oriented x3 - Psychiatric Exam Psychiatric exam: Depressed - Skin Additional comments: severe jaundice Results - Vital Signs Recent Vital Signs: Last Vital Signs Temp 98.2 F 12/04/17 08:00 Pulse 109 H 12/04/17 08:09 Resp 16 12/04/17 08:09 BP 113/53 L 12/04/17 08:09 Pulse Ox 98 12/04/17 08:09 - Labs Result Diagrams: 12/04/17 06:44 12/04/17 06:44 Labs: Laboratory Results - last 24 hr 12/01/17 12/03/17 12/03/17 12:44 13:32 21:23 WBC RBC Hgb Hct MCV MCH MCHC RDW Plt Count MPV Neut % (Auto) Lymph % (Auto) [place] % (Auto) Eos % (Auto) Baso % (Auto) Neut # Lymph # [place] # Eos # Baso # Neutrophils % (Manual) Lymphocytes % (Manual) Monocytes % (Manual) Nucleated RBC % Platelet Estimate Polychromasia Hypochromasia (manual) Anisocytosis (manual) Target Cells Ovalocytes Retic Count PT 25.7 H INR 2.2 APTT 55 H D 93 H D Sodium 120 L* Potassium Chloride Carbon Dioxide Anion Gap 17 BUN Creatinine Est GFR ( Amer) Est GFR (Non-Af Amer) Random Glucose Calcium Phosphorus Magnesium Ferritin Total Bilirubin AST ALT Alkaline Phosphatase Ammonia Total Protein Albumin Globulin Albumin/Globulin Ratio Vitamin B12 Folate 12/04/17 12/04/17 12/04/17 06:44 06:44 06:44 WBC 16.2 H RBC 3.17 L Hgb 8.6 L Hct 25.0 L MCV 78.7 L MCH 27.0 MCHC 34.3 RDW 28.7 H Plt Count 139 MPV 8.8 Neut % (Auto) 91.5 H Lymph % (Auto) 3.5 L [place] % (Auto) 5.0 Eos % (Auto) 0.0 Baso % (Auto) 0.0 Neut # 14.8 H Lymph # 0.6 L [place] # 0.8 Eos # 0.0 Baso # 0.0 Neutrophils % (Manual) 95 H Lymphocytes % (Manual) 3 L Monocytes % (Manual) 2 Nucleated RBC % 1 H Platelet Estimate Normal Polychromasia Slight Hypochromasia (manual) Slight Anisocytosis (manual) Moderate Target Cells Slight Ovalocytes Slight Retic Count 1.5 D PT 25.8 H INR 2.2 APTT 95 H Sodium 119 L* Potassium 3.0 L Chloride 82 L Carbon Dioxide 15 L Anion Gap 25 H BUN 67 H Creatinine 5.5 H Est GFR ( Amer) 13 Est GFR (Non-Af Amer) 10 Random Glucose 211 H Calcium 5.1 L* Phosphorus 5.4 H Magnesium 2.1 Ferritin 81.9 Total Bilirubin 26.9 H AST 131 H D ALT 39 Alkaline Phosphatase 166 H D Ammonia Total Protein 6.3 Albumin 2.6 L Globulin 3.7 Albumin/Globulin Ratio 0.7 L Vitamin B12 962 H Folate 12.4 12/04/17 06:44 WBC RBC Hgb Hct MCV MCH MCHC RDW Plt Count MPV Neut % (Auto) Lymph % (Auto) [place] % (Auto) Eos % (Auto) Baso % (Auto) Neut # Lymph # [place] # Eos # Baso # Neutrophils % (Manual) Lymphocytes % (Manual) Monocytes % (Manual) Nucleated RBC % Platelet Estimate Polychromasia Hypochromasia (manual) Anisocytosis (manual) Target Cells Ovalocytes Retic Count PT INR APTT Sodium Potassium Chloride Carbon Dioxide Anion Gap BUN Creatinine Est GFR ( Amer) Est GFR (Non-Af Amer) Random Glucose Calcium Phosphorus Magnesium Ferritin Total Bilirubin AST ALT Alkaline Phosphatase Ammonia 36 H Total Protein Albumin Globulin Albumin/Globulin Ratio Vitamin B12 Folate Assessment & Plan - Assessment and Plan (Free Text) Assessment: Palliative consult Code status prior to consult was Full Code, no advance directive was on chart, PPS 30% I reviewed medical records, all diagnostic studies, examined and interviewed patient in the bed and discussed his condition with Doctor Jenni Steen. Patient is alert, oriented X 3, looking chronically ill , in no acute distress. There is severe jaundice of the skin and sclera. Abdomen is softly distended. Denies nausea/ abdominal pain. Reports poor appetite. Denies nausea. There is no pedal edema. BP 133/53, HR 109. WBC 16.2, Hb 8.6, Na 119, Bun 67, [employer] 5.5, T Agustin 26.9. Albumin IV , Sandostatin IV, Sodium Bicarbonates, Lactulose and Zosyn, are all on board. Goals of care discussed with patient. Patient had good insight about his condition as Doctor Jenni Steen reviewed it with him this morning. I elicited his expectations of care and his concerns regarding quality of life issues. Patient admits he has not taken good care of his health in the past in part due to Insurance issues. Patient talks openly about his drinking problems and attributes them to feeling depressed, being lonely. Patient used to take care of his mother, and now his brother will take it over. Patient wishes to get better and returns home. I discussed his liver deficiency , acute kidney injuries and inability to drain ascites. Patient wishes to undergo all prudent measures to improve his condition. The severity of diagnosis discussed with patient . Patient stated understanding. Code status discussed. Patient was very clear that if his condition declines despite all reasonable prudent measures applied, he would want to be allowed natural . Patient does not want to be resuscitated or put on MV support. Patient signed POLST asking for DNR/DNI. This was discussed with Doctor Jenni Steen and nursing. Impression * This is a very sick man with advanced liver cirrhosis * There is a body image disturbance due to jaundice * The treatment options are limited due to complexity of condition * Patient wishes to be treated ordinarily without use of aggressive measures * Subjective depression * Patient choose DNR/DNI Suggestion * Agree with DNR/DNI * Promote comfort * Assist with ADLs * Hydration * Monitor for signs of depression I will fallow with this patient as needed and offer support Thank you forconsulting palliative Care
--- NOTE | 2017-12-04 11:07 | CP.PCM.PN ---
Subjective - Date & Time of Evaluation Date of Evaluation: 12/04/17 Time of Evaluation: 11:04 - Subjective Subjective: Still weak; c/o constipation Not dyspneic; UO increased now Changed to increased bicarb concentration gtt Creat sl improved no other complaint Objective - Vital Signs/Intake and Output Vital Signs (last 24 hours): Temp Pulse Resp BP Pulse Ox 98.2 F 109 H 16 113/53 L 98 12/04/17 08:00 12/04/17 08:09 12/04/17 08:09 12/04/17 08:09 12/04/17 08:09 Intake and Output: 12/04/17 12/04/17 06:59 18:59 Intake Total 1606.7 315.9 Output Total 600 Balance 1006.7 315.9 - Medications Medications: Current Medications Albumin Human (Albumin Human 25% (12.5 Gm/50 Ml)) 12.5 gm IV Q8 [facility] Last Admin: 12/04/17 05:12 Dose: 12.5 gm Albuterol/Ipratropium (Duoneb 3 Mg/0.5 Mg (3 Ml) Ud) 3 ml INH RQ6 PRN PRN Reason: Shortness of Breath Heparin Sodium/Sodium Chloride (Heparin 85553 Units/250ml 1/2 Normal Saline) 25 ,000 units in 250 mls @ 16.737 mls/hr IV .[id number] PRN; Protocol; 18 UNITS/KG/HR PRN Reason: ADJUST RATE PER PROTOCOL Last Titration: 12/03/17 17:42 Dose: 6.36 units/kg/hr, 5.914 mls/hr Piperacillin Sod/Tazobactam Sod (Zosyn 2.25 Gm Iv Premix) 2.25 gm in 50 mls @ 100 mls/hr IVPB Q8H [facility] Last Admin: 12/04/17 05:13 Dose: 100 mls/hr Sodium Bicarbonate 75 meq/ (Dextrose/Sodium Chloride) 1,075 mls @ 100 mls/hr IV .[id number] [facility] Last Admin: 12/03/17 21:08 Dose: 100 mls/hr Octreotide Acetate 1,250 mcg/ (Sodium Chloride) 252.5 mls @ 10.1 mls/hr IV .Q24H [facility] PRN Reason: 50 MCG/HR Sodium Bicarbonate 150 meq/ (Dextrose) 1,150 mls @ 50 mls/hr IV .Q23H [facility] Methylprednisolone (Solu-Medrol) 32 mg IV DAILY [facility] Last Admin: 12/03/17 09:20 Dose: 32 mg Midodrine (Proamatine) 7.5 mg PO TID [facility] Last Admin: 12/04/17 10:14 Dose: 7.5 mg Pantoprazole Sodium (Protonix Ec Tab) 40 mg PO DAILY [facility] Last Admin: 12/04/17 10:14 Dose: 40 mg - Labs Labs: 12/04/17 06:44 12/04/17 06:44 PT 25.8 SECONDS (9.7-12.2) H 12/04/17 06:44 INR 2.2 12/04/17 06:44 APTT 95 SECONDS (21-34) H 12/04/17 06:44 - Constitutional Appears: No Acute Distress, Chronically Ill - Head Exam Head Exam: ATRAUMATIC, NORMAL INSPECTION - Eye Exam Eye Exam: EOMI, Scleral icterus - Neck Exam Neck Exam: Normal Inspection. absent: Tenderness - Respiratory Exam Respiratory Exam: Clear to Ausculation Bilateral, NORMAL BREATHING PATTERN - Cardiovascular Exam Cardiovascular Exam: REGULAR RHYTHM, +S1 - GI/Abdominal Exam GI & Abdominal Exam: Soft. absent: Tenderness - Extremities Exam Extremities Exam: Tenderness. absent: Normal Inspection - Neurological Exam Neurological Exam: Alert, CN II-XII Intact - Skin Skin Exam: Dry, Warm Assessment and Plan (1) KELSEY (acute kidney injury) Status: Acute (2) Hepatorenal syndrome Status: Acute (3) Alcoholic cirrhosis Status: Acute - Assessment and Plan (Free Text) Plan: Agree with IV bicarb gtt KELSEY might be improving now- to monitor Add lactulose Replete K
[2017-12-04] MEDS: DEXTROSE 5% IV SCH ×2 (12:11→21:21)
[2017-12-04] MEDS: [UNRECOGNIZED DRUG - OTHER] IV SCH ×2 (12:11→21:21)
[2017-12-04] MEDS: POTASSIUM CHLORIDE IV SCH ×2 (12:11→21:21)
[2017-12-04] MEDS: SODIUM BICARBONATE IV SCH ×2 (12:11→21:21)
--- NOTE | 2017-12-04 14:54 | CP.PCM.PN ---
Subjective - Date & Time of Evaluation Date of Evaluation: 12/04/17 Time of Evaluation: 14:48 - Subjective Subjective: CC: Acute liver decompensation In ICU. Alert. Oriented. No major complaints Hyponatremic, in renal failure, coagulopathic, Objective - Vital Signs/Intake and Output Vital Signs (last 24 hours): Temp Pulse Resp BP Pulse Ox 98.1 F 66 21 123/63 99 12/04/17 12:00 12/04/17 12:00 12/04/17 12:00 12/04/17 11:09 12/04/17 11:09 Intake and Output: 12/04/17 12/04/17 06:59 18:59 Intake Total 1606.7 1029.5 Output Total 600 Balance 1006.7 1029.5 - Medications Medications: Current Medications Albumin Human (Albumin Human 25% (12.5 Gm/50 Ml)) 12.5 gm IV Q8 [facility] Last Admin: 12/04/17 05:12 Dose: 12.5 gm Albuterol/Ipratropium (Duoneb 3 Mg/0.5 Mg (3 Ml) Ud) 3 ml INH RQ6 PRN PRN Reason: Shortness of Breath Heparin Sodium/Sodium Chloride (Heparin 67285 Units/250ml 1/2 Normal Saline) 25 ,000 units in 250 mls @ 16.737 mls/hr IV .[id number] PRN; Protocol; 18 UNITS/KG/HR PRN Reason: ADJUST RATE PER PROTOCOL Last Titration: 12/03/17 17:42 Dose: 6.36 units/kg/hr, 5.914 mls/hr Piperacillin Sod/Tazobactam Sod (Zosyn 2.25 Gm Iv Premix) 2.25 gm in 50 mls @ 100 mls/hr IVPB Q8H [facility] Last Admin: 12/04/17 05:13 Dose: 100 mls/hr Octreotide Acetate 1,250 mcg/ (Sodium Chloride) 252.5 mls @ 10.1 mls/hr IV .Q24H [facility] PRN Reason: 50 MCG/HR Sodium Bicarbonate 150 meq/Potassium Chloride 20 meq/Dextrose 1,010 mls @ 100 mls/hr IV .Q10H6M [facility] Last Admin: 12/04/17 12:11 Dose: Not Given Lactulose (Enulose) 20 gm PO BID [facility] Methylprednisolone (Solu-Medrol) 32 mg IV DAILY [facility] Last Admin: 12/03/17 09:20 Dose: 32 mg Midodrine (Proamatine) 7.5 mg PO TID [facility] Last Admin: 12/04/17 10:14 Dose: 7.5 mg Pantoprazole Sodium (Protonix Ec Tab) 40 mg PO DAILY [facility] Last Admin: 12/04/17 10:14 Dose: 40 mg - Labs Labs: 12/04/17 06:44 12/04/17 06:44 PT 25.8 SECONDS (9.7-12.2) H 12/04/17 06:44 INR 2.2 12/04/17 06:44 APTT 95 SECONDS (21-34) H 12/04/17 06:44 - Head Exam Additional comments: Deeply Jaundiced - Eye Exam Eye Exam: Scleral icterus - Cardiovascular Exam Cardiovascular Exam: REGULAR RHYTHM - GI/Abdominal Exam GI & Abdominal Exam: Soft. absent: Tenderness, Organomegaly Assessment and Plan (1) Alcoholic cirrhosis Assessment & Plan: Acutely decompensated with HRS, alcoholic hepatitis, severe hyponatremia Status: Acute (2) Renal failure Assessment & Plan: HRS? managed by Renal Status: Acute (3) Portal vein thrombosis Assessment & Plan: On IV Heparin Will try to transfer to [facility] for management Status: Acute (4) Biliary obstruction Status: Acute (5) Cholelithiasis Status: Acute
[2017-12-04 19:08] LABS: ALB/GLOB RATIO 0.7 (1.0-2.1); ALBUMIN 2.8 g/dL (3.5-5.0); CALCIUM 5.7 mg/dl (8.6-10.4)
[2017-12-04 21:15] LABS: TOTAL PSA 18.3 ng/mL (< or = 4.0)
--- NOTE | 2017-12-04 22:00 | CP.PCM.PCO ---
Physician Communication Note - Physician Communication Note Physician Communication Note: Please see above
[2017-12-05] MEDS: SODIUM BICARBONATE IV SCH ×4 (04:13→19:11)
[2017-12-05] MEDS: DEXTROSE 5% IV SCH ×4 (04:13→19:11)
[2017-12-05] MEDS: POTASSIUM CHLORIDE IV SCH ×4 (04:13→19:11)
[2017-12-05] MEDS: [UNRECOGNIZED DRUG - OTHER] IV SCH ×4 (04:13→19:11)
[2017-12-05] MEDS: Piperacill/Tazo 2.25gm in Dex 2.25 GM/50 ML BAG IVPB SCH ×3 (05:53→22:00)
[2017-12-05] MEDS: Albumin Human 25% (12.5 gm/50 ml) IV SCH ×3 (05:53→22:00)
[2017-12-05 06:21] LABS: BASO % 0.3 % (0.0-2.0); EOS # 0.3 K/uL (0.0-0.7); EOS % 1.9 % (0.0-4.0); HEMOGLOBIN 9.7 g/dL (12.0-18.0); LYMPH # 0.9 K/uL (1.0-4.3); LYMPH % 5.9 % (20.0-40.0); MEAN CELL VOLUME 78.2 fL (80.0-94.0); MEAN CORPUSCULAR HEMOGLOBIN 27.1 pg (27.0-31.0); MEAN CORPUSCULAR HGB CONC 34.7 g/dL (33.0-37.0); MEAN PLATELET VOLUME 8.6 fL (7.2-11.7); MONO % 6.8 % (0.0-10.0); NEUT # 13.2 K/uL (1.8-7.0); NEUT % 85.1 % (50.0-75.0); PLATELET COUNT 132 K/uL (130-400); RBC 3.56 Mil/uL (4.40-5.90); WHITE BLOOD COUNT 15.5 K/uL (4.8-10.8)
[2017-12-05 06:28] LABS: INR 1.9; PROTHROMBIN TIME 21.8 SECONDS (9.7-12.2)
[2017-12-05 06:59] LABS: CALCIUM 5.4 mg/dl (8.6-10.4)
[2017-12-05 07:00] LABS: ALB/GLOB RATIO 0.8 (1.0-2.1); MAGNESIUM 2.3 mg/dL (1.6-2.3)
--- NOTE | 2017-12-05 07:45 | CP.PCM.PN ---
Subjective - Date & Time of Evaluation Date of Evaluation: 12/05/17 Time of Evaluation: 07:40 - Subjective Subjective: Medical Attending Note: Patient seen and examined this morning. patient denies headache, denies chest pain, denies palpitations, reports dry cough, reports abdominal distension, reports he is having bowel movement, denies diarrhea, and reports he is urinating. Patient is awake, alert, oriented X3. no acute distress. Awaiting blood work to be available for this morning. Objective - Vital Signs/Intake and Output Vital Signs (last 24 hours): Temp Pulse Resp BP Pulse Ox 97.2 F L 64 14 123/63 97 12/05/17 04:00 12/05/17 06:18 12/05/17 06:18 12/05/17 06:18 12/05/17 04:00 Intake and Output: 12/05/17 12/05/17 06:59 18:59 Intake Total 1620.8 Output Total 550 Balance 1070.8 - Medications Medications: Current Medications Albumin Human (Albumin Human 25% (12.5 Gm/50 Ml)) 12.5 gm IV Q8 [facility] Last Admin: 12/05/17 05:53 Dose: 12.5 gm Albuterol/Ipratropium (Duoneb 3 Mg/0.5 Mg (3 Ml) Ud) 3 ml INH RQ6 PRN PRN Reason: Shortness of Breath Heparin Sodium/Sodium Chloride (Heparin 97549 Units/250ml 1/2 Normal Saline) 25 ,000 units in 250 mls @ 16.737 mls/hr IV .[id number] PRN; Protocol; 18 UNITS/KG/HR PRN Reason: ADJUST RATE PER PROTOCOL Last Titration: 12/03/17 17:42 Dose: 6.36 units/kg/hr, 5.914 mls/hr Piperacillin Sod/Tazobactam Sod (Zosyn 2.25 Gm Iv Premix) 2.25 gm in 50 mls @ 100 mls/hr IVPB Q8H [facility] Last Admin: 12/05/17 05:53 Dose: 100 mls/hr Sodium Bicarbonate 150 meq/Potassium Chloride 20 meq/Dextrose 1,010 mls @ 100 mls/hr IV .Q10H6M [facility] Last Admin: 12/05/17 04:13 Dose: 100 mls/hr Lactulose (Enulose) 20 gm PO BID [facility] Last Admin: 12/04/17 18:12 Dose: 20 gm Methylprednisolone (Solu-Medrol) 32 mg IV DAILY [facility] Last Admin: 12/04/17 10:13 Dose: 32 mg Midodrine (Proamatine) 7.5 mg PO TID [facility] Last Admin: 12/04/17 18:12 Dose: 7.5 mg Pantoprazole Sodium (Protonix Ec Tab) 40 mg PO DAILY [facility] Last Admin: 12/04/17 10:14 Dose: 40 mg - Labs Labs: 12/05/17 06:12 12/05/17 06:12 PT 21.8 SECONDS (9.7-12.2) H 12/05/17 06:12 INR 1.9 12/05/17 06:12 APTT 68 SECONDS (21-34) H D 12/05/17 06:12 - Constitutional Appears: Non-toxic, No Acute Distress - Head Exam Head Exam: NORMAL INSPECTION - Eye Exam Eye Exam: EOMI, PERRL, Scleral icterus. absent: Nystagmus - ENT Exam ENT Exam: Mucous Membranes Moist - Respiratory Exam Respiratory Exam: Clear to Ausculation Bilateral, NORMAL BREATHING PATTERN. absent: Rales, Rhonchi, Wheezes - Cardiovascular Exam Cardiovascular Exam: REGULAR RHYTHM, +S1, +S2 - GI/Abdominal Exam GI & Abdominal Exam: Soft, Normal Bowel Sounds. absent: Distended, Firm, Guarding, Rigid, Tenderness, Rebound - Extremities Exam Extremities Exam: absent: Pedal Edema, Tenderness - Back Exam Back Exam: absent: CVA tenderness (L), CVA tenderness (R) - Neurological Exam Neurological Exam: Alert, Awake, Oriented x3 - Psychiatric Exam Psychiatric exam: Normal Affect, Normal Mood - Skin Skin Exam: Dry, Intact, Warm Additional comments: Jaundice Assessment and Plan (1) Obstructive jaundice Status: Acute (2) Hepatorenal syndrome Status: Acute (3) Portal vein thrombosis Status: Acute (4) Alcoholic cirrhosis of liver with ascites Status: Chronic (5) Acute renal failure Status: Acute (6) Alcoholic cardiomyopathy Status: Acute (7) Cholelithiasis Status: Acute (8) Dilation of biliary tract Status: Acute (9) Transaminitis Status: Acute Attending/Attestation - Attestation I have personally seen and examined this patient.: Yes I have fully participated in the care of the patient.: Yes I have reviewed all pertinent clinical information, including history, physical exam and plan: Yes Notes (Text): 1) Obstructive Jaundice Portal vein thrombosis History of Liver Cirrhosis Transaminitis Alcohol Use Intrahepatic Biliary dilatation Cholelithiasis * Admit to ICU * MELD 44; 90-Day Mortality Rate: 0.94 * Discriminant Function>32 indicated poor prognosis and patient may benefit from glucocorticoid therapy * GI (Dr. Ham) on board-->Help appreciated * Chronic alcoholic cirrhosis now with superimposed hepatic injury due to acute alcoholic hepatitis * DF= 84, indicating > 50% 30 day mortality * Alcohol cessation discussed with patient * Will start Prednisolone for acute alcoholic hepatitis with elevated Discriminant Funtion and high mortality * Solumedrol 32mg IV daily * Arrange for transfer for [facility] under chief of squilgeer ICU * Hematology (Dr. Mindy Castro) on board-->help appreciated * Obstructive series (12/01/17): nonspecific bowel gas pattern. No evidence of mechanical bowel obstruction. Clear lungs * Abdominal US (12/01/16): Blood flow could not be documented in portal vein in region of yohan hepatitis raising suspicion for portal vein thrombosis. Cirrhosis of the liver and small perihepatic ascites. Severe intrahepatic biliary ductal dilatation, worse in the left hepatic lobe and cholelithiasis * CT abdomen and Pelvis (12/01/16): hepatic splenomegaly. Hepatic cirrhosis. Ascites. Extensive intrapheatic biliary dilatation. Common bile duct not adequately demonstrated. DD: choledocholithaisis, bilary neoplasm, colitis. Enteritis. Cholelithiasis * Abdominal US (12/02/16): somewhat limited study to patient's body habitus. Advanced cirrhosis. Findings suspicious for portal vein thrombosis. Dilated intrahepatic biliary ducts of uncertain etiology. Splenomegaly. Small ascites. Gallstones without definite evidence of acute cholecystitis. Dilated CBD 10.6mm. * Abdominal MRI (12/02/16): tubular shaped dilated branching structures in the liver may represent dilated protal vein versus dilated intrahepatic biliary ducts. No definite evidence of mass liesion in the yohan hepatis region in this study. Advanced cirrhosis. Splenomegaly and small ascites. The CBD is not dilated. The main pancreatic duct is not dilated. Gallstones without evidence of acute cholecystitis * Patient started on Heparin Drip for Portal vein thrombosis * Patient has elevated ammonia on admission he is awake/alert/oriented X3 * Start Zosyn 2.25 IV Q 8Hours (active since 12/01/16) 2) Acute Renal Failure Hepatorenal syndrome * Nephrology (Dr. Balderrama) on board-->help appreciated * Recommend IV bicarb gtt * serial chemistires * avoid paracentesis * octeotride drip * if not better by AM (12/03) would likely need dialysis * monitor intake and output * Prostate adenocarcinoma (biopsy 04/04/17) rojas: 6 * Possible HD: ICU Resident Dr. Kincaid to reach out to Nephrology and if agreed to start HD then will get Vascular Access 3) Sepsis Elevated INR * Urine culture (12/01/17): no growth * Blood culture (12/01/17): pending results * Elevated procalcitonin (5.29-->5.20) * Significantly higher in CKD patients w/o infections prior to starting renal replacement therapy * Order procalcitonin when patient starts dialysis to see if drops * Zosyn 2.25g IVPB Q8H (active since 12/01/17) 4) Alcoholic Cardiomyopathy * Echocardiogram (12/01/17): normal LV EF and Doppler * Cardiology (Dr. Vigil) on board-->help appreciated * Echo performed today demonstrates normal LV EF. 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 * Unable to give aspirin secondary to elevated INR * Unable to give ARB/Statin secondary to ARF 5) Hyponatremia * Nephrology (Dr. Balderrama) on board-->help appreciated * serum osmolarity: 287 * urine osmolarity: 338 * Urine sodium: <5 6) History of Alcohol Use * Blood alcohol <10 * Patient reports last drink was around michael * Patient does not appear in withdrawal 7) History of Anemia * Improved to 10 prior hospitalization 7s 11/27/16: Currently 12/04/17 at 8.6/25.0 * Heme-onc (Dr. Mindy Castro) on consult 8) GI PPx * Protonix 40mg PO daily 9) DVT ppx * On heparin drip for portal vein thrombosis 10) Cough * Chest X Ray 12/03/17 showed mild to moderate pulmonary vascular congestion however this was not heard on Respiratory exam 12/04/17 * Start Duoneb PRN Q6H PRN shortness of breathe * Start Tesslon Pearles for cough * promethazine was discontinued 11) Constipation * Lactulose 20gm PO BID Patient does not have an Advance Directive and does not have anyone to designate as his Health Care Proxy. I have spoken with Palliate Care Nurse Jelena and she will see patient later today 12/04/17. Disposition: GI Dr. Ham spoke with Chief of Hepatology Dr. Rodriguez and Dr. Rodriguez has agreed to have patient transferred to his institution [facility] in [place], [place]. I tried calling Dr. Rodriguez shortly after my conversation with Dr. Ham, however there was NO answer and NO message could be left. ICU Resident Dr. Kincaid spoke with Hepatology Fellow at [facility] and this Fellow was attempting to arrange for transfer to their ICU. Nephrology: NO HD for now Code status: Patient is DNR/DNI.
[2017-12-05] MEDS ORDERED: Potassium Chloride 20 mEq ER Tab PO ONE (07:50)
[2017-12-05 08:27] LABS: EOSINOPHIL 1 % (0-4); LYMPHOCYTE 9 % (20-40); MONOCYTE 5 % (0-10); NEUTROPHIL 85 % (50-75); TOTAL CELLS COUNTED 100
[2017-12-05 08:28] LABS: ANISOCYTOSIS MODERATE; PLATELET ESTIMATE NORMAL (NORMAL)
[2017-12-05 08:29] LABS: HYPOCHROMIC SLIGHT; OVALOCYTES SLIGHT; POLYCHROMIC SLIGHT
[2017-12-05 08:30] LABS: TARGET CELLS MODERATE
[2017-12-05] MEDS: Pantoprazole 40 mg EC Tab PO SCH (09:29)
[2017-12-05] MEDS: MethylPREDNISolone 40 mg Vial IV SCH (09:32)
--- NOTE | 2017-12-05 13:33 | CP.PCM.PN ---
Subjective - Date & Time of Evaluation Date of Evaluation: 12/05/17 Time of Evaluation: 13:30 - Subjective Subjective: seen and examined plan for transfer to [facility] noted reports no uop since this am, however charted 550cc, good uop yesterday c/o sob , abdominal swelling, poor appetite. Objective - Vital Signs/Intake and Output Vital Signs (last 24 hours): Temp Pulse Resp BP Pulse Ox 97.4 F L 68 17 138/65 96 12/05/17 08:00 12/05/17 10:00 12/05/17 10:00 12/05/17 09:35 12/05/17 08:00 Intake and Output: 12/05/17 12/05/17 06:59 18:59 Intake Total 1620.8 Output Total 550 Balance 1070.8 - Medications Medications: Current Medications Albumin Human (Albumin Human 25% (12.5 Gm/50 Ml)) 12.5 gm IV Q8 [facility] Last Admin: 12/05/17 05:53 Dose: 12.5 gm Albuterol/Ipratropium (Duoneb 3 Mg/0.5 Mg (3 Ml) Ud) 3 ml INH RQ6 PRN PRN Reason: Shortness of Breath Heparin Sodium/Sodium Chloride (Heparin 24259 Units/250ml 1/2 Normal Saline) 25 ,000 units in 250 mls @ 16.737 mls/hr IV .[id number] PRN; Protocol; 18 UNITS/KG/HR PRN Reason: ADJUST RATE PER PROTOCOL Last Titration: 12/03/17 17:42 Dose: 6.36 units/kg/hr, 5.914 mls/hr Piperacillin Sod/Tazobactam Sod (Zosyn 2.25 Gm Iv Premix) 2.25 gm in 50 mls @ 100 mls/hr IVPB Q8H [facility] Last Admin: 12/05/17 05:53 Dose: 100 mls/hr Sodium Bicarbonate 150 meq/Potassium Chloride 20 meq/Dextrose 1,010 mls @ 100 mls/hr IV .Q10H6M [facility] Last Admin: 12/05/17 12:03 Dose: Not Given Lactulose (Enulose) 20 gm PO BID [facility] Last Admin: 12/05/17 09:32 Dose: 20 gm Methylprednisolone (Solu-Medrol) 32 mg IV DAILY [facility] Last Admin: 12/05/17 09:32 Dose: 32 mg Midodrine (Proamatine) 7.5 mg PO TID [facility] Last Admin: 12/05/17 09:29 Dose: 7.5 mg Pantoprazole Sodium (Protonix Ec Tab) 40 mg PO DAILY [facility] Last Admin: 12/05/17 09:29 Dose: 40 mg - Labs Labs: 12/05/17 06:12 12/05/17 06:12 PT 21.8 SECONDS (9.7-12.2) H 12/05/17 06:12 INR 1.9 12/05/17 06:12 APTT 68 SECONDS (21-34) H D 12/05/17 06:12 - Constitutional Appears: No Acute Distress, Older Than Stated Age, Chronically Ill - Head Exam Head Exam: NORMAL INSPECTION - Eye Exam Eye Exam: Normal appearance, PERRL, Scleral icterus Pupil Exam: PERRL - ENT Exam ENT Exam: Mucous Membranes Moist, Normal Exam - Neck Exam Neck Exam: Full ROM, Normal Inspection - Respiratory Exam Respiratory Exam: Decreased Breath Sounds, NORMAL BREATHING PATTERN - Cardiovascular Exam Cardiovascular Exam: REGULAR RHYTHM, RRR - GI/Abdominal Exam GI & Abdominal Exam: Distended (+ascited), Soft - Extremities Exam Extremities Exam: Normal Inspection, Pedal Edema - Neurological Exam Neurological Exam: Alert, Awake, Oriented x3 - Psychiatric Exam Psychiatric exam: Normal Affect, Normal Mood - Skin Skin Exam: Dry, Intact, Warm Assessment and Plan (1) KELSEY (acute kidney injury) Status: Acute (2) Alcoholic cardiomyopathy Status: Acute (3) Alcoholic cirrhosis Status: Acute (4) Hepatorenal syndrome Status: Acute (5) Transaminitis Status: Acute (6) Anasarca Status: Acute - Assessment and Plan (Free Text) Assessment: Discussed w/ pt in detail, hold off hd for now awaiting transfer to [facility] poor prognosis overall recommend abraham if pt unable to urinate
--- NOTE | 2017-12-05 16:18 | CP.PCM.PN ---
Subjective - Date & Time of Evaluation Date of Evaluation: 12/05/17 Time of Evaluation: 16:15 - Subjective Subjective: F/U cirrhosis Denies fever, chills, CP, CORREIA, cough, RB, melena, diarrhea. BM- yest. None today. Objective - Vital Signs/Intake and Output Vital Signs (last 24 hours): Temp Pulse Resp BP Pulse Ox 98.1 F 62 15 128/71 97 12/05/17 12:00 12/05/17 15:35 12/05/17 15:35 12/05/17 15:35 12/05/17 12:00 Intake and Output: 12/05/17 12/05/17 06:59 18:59 Intake Total 1620.8 Output Total 550 Balance 1070.8 - Medications Medications: Current Medications Albumin Human (Albumin Human 25% (12.5 Gm/50 Ml)) 12.5 gm IV Q8 [facility] Last Admin: 12/05/17 14:33 Dose: 12.5 gm Albuterol/Ipratropium (Duoneb 3 Mg/0.5 Mg (3 Ml) Ud) 3 ml INH RQ6 PRN PRN Reason: Shortness of Breath Heparin Sodium/Sodium Chloride (Heparin 99531 Units/250ml 1/2 Normal Saline) 25 ,000 units in 250 mls @ 16.737 mls/hr IV .[id number] PRN; Protocol; 18 UNITS/KG/HR PRN Reason: ADJUST RATE PER PROTOCOL Last Titration: 12/03/17 17:42 Dose: 6.36 units/kg/hr, 5.914 mls/hr Piperacillin Sod/Tazobactam Sod (Zosyn 2.25 Gm Iv Premix) 2.25 gm in 50 mls @ 100 mls/hr IVPB Q8H [facility] Last Admin: 12/05/17 14:33 Dose: 100 mls/hr Sodium Bicarbonate 150 meq/Potassium Chloride 20 meq/Dextrose 1,010 mls @ 100 mls/hr IV .Q10H6M [facility] Last Admin: 12/05/17 15:47 Dose: 100 mls/hr Lactulose (Enulose) 20 gm PO BID [facility] Last Admin: 12/05/17 09:32 Dose: 20 gm Methylprednisolone (Solu-Medrol) 32 mg IV DAILY [facility] Last Admin: 12/05/17 09:32 Dose: 32 mg Midodrine (Proamatine) 7.5 mg PO TID [facility] Last Admin: 12/05/17 14:33 Dose: 7.5 mg Pantoprazole Sodium (Protonix Ec Tab) 40 mg PO DAILY [facility] Last Admin: 12/05/17 09:29 Dose: 40 mg - Labs Labs: 12/05/17 06:12 12/05/17 06:12 PT 21.8 SECONDS (9.7-12.2) H 12/05/17 06:12 INR 1.9 12/05/17 06:12 APTT 68 SECONDS (21-34) H D 12/05/17 06:12 - Constitutional Appears: Non-toxic - Respiratory Exam Respiratory Exam: Clear to Ausculation Bilateral - Cardiovascular Exam Cardiovascular Exam: RRR - GI/Abdominal Exam GI & Abdominal Exam: Distended, Normal Bowel Sounds. absent: Tenderness, Mass - Extremities Exam Extremities Exam: absent: Pedal Edema - Neurological Exam Neurological Exam: Alert, Oriented x3 Assessment and Plan (1) Acute renal failure Status: Acute (2) Alcoholic cirrhosis Assessment & Plan: On heparin. lAbs noted. No bleeding. Discussed with [facility]. They accepted pt. Awaiting bed. Status: Acute (3) Cholelithiasis Status: Acute (4) Dilation of biliary tract Status: Acute (5) Portal vein thrombosis Status: Acute (6) Transaminitis Status: Acute (7) Ascites Status: Acute (8) Coagulopathy Status: Acute (9) Anemia Status: Chronic
--- NOTE | 2017-12-05 18:21 | CP.PCM.DIS ---
<Christine Sampson - Last Filed: 12/05/17 18:17> Provider - Provider Date of Admission: 12/01/17 13:49 Attending physician: Shyla Alcocer DO Primary care physician: PMD: Dr. Keo Olmos Consults: Cardio: Yaritza GI: Maicoler Heme/Onc: [place] Nephro: Balderrama Palliative: Obradovic Intensive Care: [place] Time Spent in preparation of Discharge (in minutes): 45 Diagnosis - Discharge Diagnosis (1) Portal vein thrombosis Status: Chronic (2) Alcoholic cirrhosis Status: Chronic (3) Hepatorenal syndrome Status: Chronic (4) Sepsis Status: Resolved (5) Cardiomyopathy Status: Resolved (6) Cholelithiasis Status: Acute (7) Obstructive jaundice Status: Acute (8) Renal failure Status: Acute (9) Transaminitis Status: Acute (10) Alcoholic cirrhosis of liver with ascites Status: Chronic (11) Anemia Status: Chronic Priority: High Hospital Course - Lab Results Lab Results: Micro Results 12/01/17 20:10 Blood Blood Culture - Preliminary NO GROWTH AFTER 3 DAYS 12/01/17 20:00 Blood Blood Culture - Preliminary NO GROWTH AFTER 3 DAYS 12/01/17 23:06 Nose MRSA Culture (Admit) - Final MRSA NOT DETECTED 12/01/17 19:07 Urine,Clean Catch Urine Culture - Final No Growth (<1,000 CFU/ML) Most Recent Lab Values WBC 15.5 K/uL (4.8-10.8) H 12/05/17 06:12 RBC 3.56 Mil/uL (4.40-5.90) L 12/05/17 06:12 Hgb 9.7 g/dL (12.0-18.0) L 12/05/17 06:12 Hct 27.9 % (35.0-51.0) L 12/05/17 06:12 MCV 78.2 fL (80.0-94.0) L 12/05/17 06:12 MCH 27.1 pg (27.0-31.0) 12/05/17 06:12 MCHC 34.7 g/dL (33.0-37.0) 12/05/17 06:12 RDW 29.0 % (11.5-14.5) H 12/05/17 06:12 Plt Count 132 K/uL (130-400) 12/05/17 06:12 MPV 8.6 fL (7.2-11.7) 12/05/17 06:12 Neut % (Auto) 85.1 % (50.0-75.0) H 12/05/17 06:12 Lymph % (Auto) 5.9 % (20.0-40.0) L 12/05/17 06:12 [place] % (Auto) 6.8 % (0.0-10.0) 12/05/17 06:12 Eos % (Auto) 1.9 % (0.0-4.0) 12/05/17 06:12 Baso % (Auto) 0.3 % (0.0-2.0) 12/05/17 06:12 Neut # 13.2 K/uL (1.8-7.0) H 12/05/17 06:12 Lymph # 0.9 K/uL (1.0-4.3) L 12/05/17 06:12 [place] # 1.0 K/uL (0.0-0.8) H 12/05/17 06:12 Eos # 0.3 K/uL (0.0-0.7) 12/05/17 06:12 Baso # 0.0 K/uL (0.0-0.2) 12/05/17 06:12 Neutrophils % (Manual) 85 % (50-75) H 12/05/17 06:12 Band Neutrophils % 1 % (0-2) 12/02/17 08:23 Lymphocytes % (Manual) 9 % (20-40) L 12/05/17 06:12 Monocytes % (Manual) 5 % (0-10) 12/05/17 06:12 Eosinophils % (Manual) 1 % (0-4) 12/05/17 06:12 Nucleated RBC % 1 % (0-0) H 12/04/17 06:44 Platelet Estimate Normal (NORMAL) 12/05/17 06:12 Large Platelets Present 12/03/17 06:38 Polychromasia Slight 12/05/17 06:12 Hypochromasia (manual) Slight 12/05/17 06:12 Poikilocytosis (manual Slight 12/03/17 06:38 Anisocytosis (manual) Moderate 12/05/17 06:12 Microcytosis (manual) Slight 12/03/17 06:38 Macrocytosis (manual) Slight 12/03/17 06:38 Spherocytes Slight 12/03/17 06:38 Target Cells Moderate 12/05/17 06:12 Tear Drop Cells Slight 12/03/17 06:38 Ovalocytes Slight 12/05/17 06:12 Chantal Cells Slight 12/03/17 06:38 Schistocytes Slight 12/03/17 06:38 Retic Count 1.5 % (0.5-1.5) D 12/04/17 06:44 PT 21.8 SECONDS (9.7-12.2) H 12/05/17 06:12 INR 1.9 12/05/17 06:12 APTT 68 SECONDS (21-34) H D 12/05/17 06:12 Sodium 122 mmol/L (132-148) L 12/05/17 06:12 Potassium 3.1 mmol/L (3.6-5.2) L 12/05/17 06:12 Chloride 87 mmol/L (98-107) L 12/05/17 06:12 Carbon Dioxide 18 mmol/L (22-30) L 12/05/17 06:12 Anion Gap 20 (10-20) 12/05/17 06:12 BUN 73 mg/dL (9-20) H 12/05/17 06:12 Creatinine 6.1 mg/dL (0.8-1.5) H 12/05/17 06:12 Est GFR ( Amer) 11 12/05/17 06:12 Est GFR (Non-Af Amer) 9 12/05/17 06:12 Random Glucose 125 mg/dL (75-110) H 12/05/17 06:12 Serum Osmolality 287 mosm/kg (272-300) 12/01/17 19:00 Calcium 5.4 mg/dl (8.6-10.4) L* 12/05/17 06:12 Phosphorus 5.3 mg/dL (2.5-4.5) H 12/05/17 06:12 Magnesium 2.3 mg/dL (1.6-2.3) 12/05/17 06:12 Ferritin 81.9 ng/mL 12/04/17 06:44 Total Bilirubin 47.0 mg/dL (0.2-1.3) H 12/05/17 06:12 Direct Bilirubin 31.1 mg/dL (0.0-0.4) H 12/01/17 19:00 AST 166 U/L (17-59) H 12/05/17 06:12 ALT 50 U/L (21-72) 12/05/17 06:12 Alkaline Phosphatase 179 U/L (38-126) H 12/05/17 06:12 Ammonia 41 umol/L (9-33) H 12/05/17 08:00 Troponin I < 0.0120 ng/mL (0.00-0.120) 12/01/17 12:44 NT-Pro-B Natriuret Pep 1410 pg/mL (0-900) H 12/01/17 12:44 Total Protein 6.7 g/dL (6.3-8.3) 12/05/17 06:12 Albumin 3.0 g/dL (3.5-5.0) L 12/05/17 06:12 Globulin 3.8 gm/dL (2.2-3.9) 12/05/17 06:12 Albumin/Globulin Ratio 0.8 (1.0-2.1) L 12/05/17 06:12 Lipase 339 U/L (23-300) H 12/01/17 12:44 Free PSA 0.7 ng/mL 12/01/17 19:00 % Free PSA Not calculated % (calc) (>25) 12/01/17 19:00 Total PSA 18.3 ng/mL (< or = 4.0) H 12/01/17 19:00 Vitamin B12 962 pg/mL (239-931) H 12/04/17 06:44 Folate 12.4 ng/mL 12/04/17 06:44 Procalcitonin 5.20 NG/ML (0.19-0.49) H 12/02/17 08:23 Urine Color Amanda (YELLOW) 12/01/17 14:00 Urine Clarity Clear (Clear) 12/01/17 14:00 Urine pH 5.0 (5.0-8.0) 12/01/17 14:00 Ur Specific [place] 1.013 (1.003-1.030) 12/01/17 14:00 Urine Protein Negative mg/dL (NEGATIVE) 12/01/17 14:00 Urine Glucose (UA) 1+ mg/dL (Normal) H 12/01/17 14:00 Urine Ketones Negative mg/dL (NEGATIVE) 12/01/17 14:00 Urine Blood Negative (NEGATIVE) 12/01/17 14:00 Urine Nitrate Negative (NEGATIVE) 12/01/17 14:00 Urine Bilirubin 2+ (NEGATIVE) H 12/01/17 14:00 Urine Urobilinogen 4.0 mg/dL (0.2-1.0) 12/01/17 14:00 Ur Leukocyte Esterase Neg Monica/uL (Negative) 12/01/17 14:00 Urine WBC (Auto) 7 /hpf (0-5) H 12/01/17 14:00 Urine RBC (Auto) 1 /hpf (0-3) 12/01/17 14:00 Ur Squamous Epith Cells 4 /hpf (0-5) 12/01/17 14:00 Urine Bacteria Occ (<OCC) H 12/01/17 14:00 Urine Osmolality 338 mosm/kg (300-1000) 12/01/17 19:00 Ur Random Sodium < 5 mmol/L 12/01/17 19:00 Urine Opiates Screen Negative (NEGATIVE) 12/01/17 19:00 Urine Methadone Screen Negative (NEGATIVE) 12/01/17 19:00 Ur Barbiturates Screen Negative (NEGATIVE) 12/01/17 19:00 Ur Phencyclidine Scrn Negative (NEGATIVE) 12/01/17 19:00 Ur Amphetamines Screen Negative (NEGATIVE) 12/01/17 19:00 U Benzodiazepines Scrn Negative (NEGATIVE) 12/01/17 19:00 U Oth Cocaine Metabols Negative (NEGATIVE) 12/01/17 19:00 U Cannabinoids Screen Positive (NEGATIVE) H 12/01/17 19:00 Alcohol, Quantitative < 10 mg/dl (0-10) 12/01/17 19:00 Hepatitis A IgM Ab Negative (NEGATIVE) 12/01/17 19:00 Hep Bs Antigen Negative (NEGATIVE) 12/01/17 19:00 Hep B Core IgM Ab Negative (NEGATIVE) 12/01/17 19:00 Hepatitis C Antibody Negative (NEGATIVE) 12/01/17 19:00 - Hospital Course Hospital Course: "CC weakness, fatigue, constipation and decreased appetite 67M with PMH anemia, alcoholic liver cirrhosis and iron deficiency, prostate Adenocarcinoma March 2017, CHF (EF 40% on November 2016 echo) presents with weakness, fatigue, constipation and decreased appetite [id number]. Patient state he 's been short of breath for awhile now and has not had the chance for further cardiac workup. Patient states he used to walk more than two blocks without issue, and is now short of breath with exertion. Patient denies chest pain, nausea, vomiting. Admits to constipation, leg edema. Patient denies pruritis, but admitted to pruritis on last admission with jaundice. Patient states that he had not seen a doctor for 30 years until his visit to the ED for hemoglobin of 5, where he had 3 blood transfusions per patient. Patient states he had a biopsy of prostate by Dr. Snyder and was told he had prostate cancer. Patient has not had chemotherapy for his prostate adenocarcinoma. Dr. Snyder did a biopsy, but no treatment had started due to change with insurance. Patient states his bowel movements are small, require force, and yield pale stool. Patient states he's been having constipation for a couple of weeks now. Patient stated he drank only wine on [place] and it was the last day he drank. Patient states his abdomen has been distended for a couple of weeks, but has not noticed that he's been jaundiced. Patient was told he may have a clot in his portal vein and is being placed on heparin drip. Patient told he had gallstones in his gallbladder, which may explain elevated bilirubin. Patient had an EGD and colonoscopy and diagnosed with gastritis and hemorrhoids. Patient states he drank just wine on [place], but upon speaking with attending Dr. Alcocer, patient drank over a six pack and clear liquor as well. " Hospital Course: Patient presented with obstructive jaundice. Patient also found to have: portal vein thrombosis, history of liver cirrhosis, transaminitis, alcohol use, intrahepatic biliary dilatation, cholelithiasis. Patient admitted to ICU. Patient's MELD 44 with 90-Day mortality rate: 0.94. Discriminant Function>32 indicated poor prognosis and patient may benefit from glucocorticoid therapy. GI (Dr. Ham) consulted. Patient's chronic alcoholic cirrhosis now with superimposed hepatic injury due to acute alcoholic hepatitis. DF= 84, indicating > 50% 30 day mortality. Alcohol cessation discussed with patient. Prednisolone given for acute alcoholic hepatitis with elevated Discriminant Funtion and high mortality. Hematology (Dr. Mindy Castro) consulted. The following imaging and results were done. Please see full reports for details : Obstructive series (12/01/17): nonspecific bowel gas pattern. No evidence of mechanical bowel obstruction. Clear lungs Abdominal US (12/01/16): Blood flow could not be documented in portal vein in region of yohan hepatitis raising suspicion for portal vein thrombosis. Cirrhosis of the liver and small perihepatic ascites. Severe intrahepatic biliary ductal dilatation, worse in the left hepatic lobe and cholelithiasis CT abdomen and Pelvis (12/01/16): hepatic splenomegaly. Hepatic cirrhosis. Ascites. Extensive intrapheatic biliary dilatation. Common bile duct not adequately demonstrated. DD: choledocholithaisis, bilary neoplasm, colitis. Enteritis. Cholelithiasis Abdominal US (12/02/16): somewhat limited study to patient's body habitus. Advanced cirrhosis. Findings suspicious for portal vein thrombosis. Dilated intrahepatic biliary ducts of uncertain etiology. Splenomegaly. Small ascites. Gallstones without definite evidence of acute cholecystitis. Dilated CBD 10.6mm. Abdominal MRI (12/02/16): tubular shaped dilated branching structures in the liver may represent dilated protal vein versus dilated intrahepatic biliary ducts. No definite evidence of mass liesion in the yohan hepatis region in this study. Advanced cirrhosis. Splenomegaly and small ascites. The CBD is not dilated. The main pancreatic duct is not dilated. Gallstones without evidence of acute cholecystitis Patient started on Heparin Drip for Portal vein thrombosis. Patient treated with Zosyn 2.25 IV Q 8Hours (active since 12/01/16). Patient went into acute renal failure secondary to hepatorenal syndrome. Nephrology (Dr. Balderrama) was consulted who recommended IV bicarb gtt. Chemistry followed. Patient put on octeotride drip. Patient will likely need dialysis. Intake and output monitored closely. Patient has a history of prostate adenocarcinoma (biopsy 04/04/17) rojas: 6 Patient had sepsis and elevated INR. Urine culture (12/01/17) and blood culture () showed no growth. MRSA in naris was negative. Zosyn 2.25g IVPB Q8H (from 12/01/17) was given. Patient had alcoholic cardiomyopathy. Echocardiogram (12/01/17) showed normal LV EF. Cardiology (Dr. Vigil) was consulted. Pt unable to receive aspirin secondary to elevated INR or ARB/Statin secondary to ARF. Patient found to have hyponatremia which was repleated appropriately. Nephrology (Dr. Balderrama) was consulted. Pertinent labs were: serum osmolarity : 287, urine osmolarity: 338, urine sodium: <5. Patient has a history of anemia. Improved to 10, prior hospitalization was in the 7s. Pending transfer, HgB was 9.7. Heme-onc (Dr. Mindy Castro) on consult. For gi prophylaxis patient given Protonix 40mg PO daily and was on a heparin drip for portal vein thrombosis. Patient DNR/DNI. Patient accepted under Chief of Hepatology Dr. Rodriguez [phone] at [facility] pending bed availability. Discharge Exam - Head Exam Head Exam: NORMAL INSPECTION - Additional Findings Additional findings: - Constitutional Appears: Non-toxic, No Acute Distress - Head Exam Head Exam: NORMAL INSPECTION - Eye Exam Eye Exam: EOMI, PERRL, Scleral icterus. absent: Nystagmus - ENT Exam ENT Exam: Mucous Membranes Moist - Respiratory Exam Respiratory Exam: Clear to Ausculation Bilateral, NORMAL BREATHING PATTERN. absent: Rales, Rhonchi, Wheezes - Cardiovascular Exam Cardiovascular Exam: REGULAR RHYTHM, +S1, +S2 - GI/Abdominal Exam GI & Abdominal Exam: Soft, Distended, Normal Bowel Sounds. absent: Firm, Guarding, Rigid, Tenderness, Rebound - Extremities Exam Extremities Exam: absent: Pedal Edema, Tenderness - Back Exam Back Exam: absent: CVA tenderness (L), CVA tenderness (R) - Neurological Exam Neurological Exam: Alert, Awake, Oriented x3 - Psychiatric Exam Psychiatric exam: Normal Affect, Normal Mood - Skin Skin Exam: Dry, Intact, Warm Additional comments: Jaundice from head to toe Discharge Plan - Follow Up Plan Condition: CRITICAL Disposition: Trans to Other Acute Care [facility] Additional Instructions: Patient to be transferred to [facility] as soon as bed is available. Referrals: Mal Parry DO [Staff Provider] - <Shyla Alcocer V - Last Filed: 12/07/17 22:37> Provider - Provider Date of Admission: 12/01/17 13:49 Attending physician: Den Steen MD Diagnosis - Discharge Diagnosis (1) Obstructive jaundice Status: Acute (2) Hepatorenal syndrome Status: Chronic (3) Portal vein thrombosis Status: Chronic (4) Alcoholic cirrhosis of liver with ascites Status: Chronic (5) Acute renal failure Status: Acute (6) Alcoholic cardiomyopathy Status: Acute (7) Cholelithiasis Status: Acute (8) Dilation of biliary tract Status: Acute (9) Transaminitis Status: Acute Hospital Course - Lab Results Lab Results: Micro Results 12/06/17 15:45 Naris MRSA Culture - Final MRSA NOT DETECTED 12/01/17 20:10 Blood Blood Culture - Final NO GROWTH AFTER 5 DAYS 12/01/17 20:10 Blood Gram Stain - Final TEST NOT PERFORMED 12/01/17 20:00 Blood Blood Culture - Final NO GROWTH AFTER 5 DAYS 12/01/17 20:00 Blood Gram Stain - Final TEST NOT PERFORMED 12/01/17 23:06 Nose MRSA Culture (Admit) - Final MRSA NOT DETECTED 12/01/17 19:07 Urine,Clean Catch Urine Culture - Final No Growth (<1,000 CFU/ML) Most Recent Lab Values WBC 18.0 K/uL (4.8-10.8) H 12/07/17 06:59 RBC 3.35 Mil/uL (4.40-5.90) L 12/07/17 06:59 Hgb 9.0 g/dL (12.0-18.0) L 12/07/17 06:59 Hct 26.1 % (35.0-51.0) L 12/07/17 06:59 MCV 77.9 fL (80.0-94.0) L 12/07/17 06:59 MCH 26.9 pg (27.0-31.0) L 12/07/17 06:59 MCHC 34.5 g/dL (33.0-37.0) 12/07/17 06:59 RDW 28.8 % (11.5-14.5) H 12/07/17 06:59 Plt Count 78 K/uL (130-400) L 12/07/17 06:59 MPV 9.3 fL (7.2-11.7) 12/07/17 06:59 Neut % (Auto) 88.7 % (50.0-75.0) H 12/07/17 06:59 Lymph % (Auto) 4.1 % (20.0-40.0) L 12/07/17 06:59 [place] % (Auto) 6.4 % (0.0-10.0) 12/07/17 06:59 Eos % (Auto) 0.2 % (0.0-4.0) 12/07/17 06:59 Baso % (Auto) 0.6 % (0.0-2.0) 12/07/17 06:59 Neut # 16.0 K/uL (1.8-7.0) H 12/07/17 06:59 Lymph # 0.7 K/uL (1.0-4.3) L 12/07/17 06:59 [place] # 1.2 K/uL (0.0-0.8) H 12/07/17 06:59 Eos # 0.0 K/uL (0.0-0.7) 12/07/17 06:59 Baso # 0.1 K/uL (0.0-0.2) 12/07/17 06:59 Neutrophils % (Manual) 86 % (50-75) H 12/07/17 06:59 Band Neutrophils % 1 % (0-2) 12/07/17 06:59 Lymphocytes % (Manual) 3 % (20-40) L 12/07/17 06:59 Monocytes % (Manual) 10 % (0-10) 12/07/17 06:59 Eosinophils % (Manual) 1 % (0-4) 12/05/17 06:12 Nucleated RBC % 1 % (0-0) H 12/04/17 06:44 Platelet Estimate Decreased (NORMAL) L 12/07/17 06:59 Large Platelets Present 12/03/17 06:38 Polychromasia Slight 12/07/17 06:59 Hypochromasia (manual) Moderate 12/07/17 06:59 Poikilocytosis (manual Slight 12/03/17 06:38 Anisocytosis (manual) Moderate 12/07/17 06:59 Microcytosis (manual) Slight 12/03/17 06:38 Macrocytosis (manual) Slight 12/03/17 06:38 Spherocytes Slight 12/03/17 06:38 Target Cells Moderate 12/07/17 06:59 Tear Drop Cells Slight 12/07/17 06:59 Ovalocytes Slight 12/07/17 06:59 Chantal Cells Slight 12/07/17 06:59 Schistocytes Slight 12/06/17 06:39 Retic Count 1.5 % (0.5-1.5) D 12/04/17 06:44 PT 26.4 SECONDS (9.7-12.2) H 12/07/17 06:59 INR 2.3 12/07/17 06:59 APTT 70 SECONDS (21-34) H D 12/07/17 06:59 Sodium 123 mmol/L (132-148) L 12/07/17 06:59 Potassium 3.5 mmol/L (3.6-5.2) L 12/07/17 06:59 Chloride 82 mmol/L (98-107) L 12/07/17 06:59 Carbon Dioxide 27 mmol/L (22-30) 12/07/17 06:59 Anion Gap 18 (10-20) 12/07/17 06:59 BUN 78 mg/dL (9-20) H 12/07/17 06:59 Creatinine 6.3 mg/dL (0.8-1.5) H 12/07/17 06:59 Est GFR ( Amer) 11 12/07/17 06:59 Est GFR (Non-Af Amer) 9 12/07/17 06:59 Random Glucose 136 mg/dL (75-110) H 12/07/17 06:59 Serum Osmolality 287 mosm/kg (272-300) 12/01/17 19:00 Calcium 5.6 mg/dl (8.6-10.4) L* 12/07/17 06:59 Phosphorus 5.0 mg/dL (2.5-4.5) H 12/07/17 06:59 Magnesium 2.2 mg/dL (1.6-2.3) 12/07/17 06:59 Ferritin 81.9 ng/mL 12/04/17 06:44 Total Bilirubin 36.1 mg/dL (0.2-1.3) H 12/07/17 06:59 Direct Bilirubin 31.1 mg/dL (0.0-0.4) H 12/01/17 19:00 AST 136 U/L (17-59) H 12/07/17 06:59 ALT 43 U/L (21-72) 12/07/17 06:59 Alkaline Phosphatase 148 U/L (38-126) H 12/07/17 06:59 Ammonia 41 umol/L (9-33) H 12/05/17 08:00 Troponin I < 0.0120 ng/mL (0.00-0.120) 12/01/17 12:44 NT-Pro-B Natriuret Pep 1410 pg/mL (0-900) H 12/01/17 12:44 Total Protein 6.1 g/dL (6.3-8.3) L 12/07/17 06:59 Albumin 2.8 g/dL (3.5-5.0) L 12/07/17 06:59 Globulin 3.3 gm/dL (2.2-3.9) 12/07/17 06:59 Albumin/Globulin Ratio 0.8 (1.0-2.1) L 12/07/17 06:59 Lipase 339 U/L (23-300) H 12/01/17 12:44 Free PSA 0.7 ng/mL 12/01/17 19:00 % Free PSA Not calculated % (calc) (>25) 12/01/17 19:00 Total PSA 18.3 ng/mL (< or = 4.0) H 12/01/17 19:00 Vitamin B12 962 pg/mL (239-931) H 12/04/17 06:44 Folate 12.4 ng/mL 12/04/17 06:44 Procalcitonin 5.20 NG/ML (0.19-0.49) H 12/02/17 08:23 Urine Color Amanda (YELLOW) 12/01/17 14:00 Urine Clarity Clear (Clear) 12/01/17 14:00 Urine pH 5.0 (5.0-8.0) 12/01/17 14:00 Ur Specific [place] 1.013 (1.003-1.030) 12/01/17 14:00 Urine Protein Negative mg/dL (NEGATIVE) 12/01/17 14:00 Urine Glucose (UA) 1+ mg/dL (Normal) H 12/01/17 14:00 Urine Ketones Negative mg/dL (NEGATIVE) 12/01/17 14:00 Urine Blood Negative (NEGATIVE) 12/01/17 14:00 Urine Nitrate Negative (NEGATIVE) 12/01/17 14:00 Urine Bilirubin 2+ (NEGATIVE) H 12/01/17 14:00 Urine Urobilinogen 4.0 mg/dL (0.2-1.0) 12/01/17 14:00 Ur Leukocyte Esterase Neg Monica/uL (Negative) 12/01/17 14:00 Urine WBC (Auto) 7 /hpf (0-5) H 12/01/17 14:00 Urine RBC (Auto) 1 /hpf (0-3) 12/01/17 14:00 Ur Squamous Epith Cells 4 /hpf (0-5) 12/01/17 14:00 Urine Bacteria Occ (<OCC) H 12/01/17 14:00 Urine Osmolality 338 mosm/kg (300-1000) 12/01/17 19:00 Ur Random Sodium < 5 mmol/L 12/01/17 19:00 Urine Opiates Screen Negative (NEGATIVE) 12/01/17 19:00 Urine Methadone Screen Negative (NEGATIVE) 12/01/17 19:00 Ur Barbiturates Screen Negative (NEGATIVE) 12/01/17 19:00 Ur Phencyclidine Scrn Negative (NEGATIVE) 12/01/17 19:00 Ur Amphetamines Screen Negative (NEGATIVE) 12/01/17 19:00 U Benzodiazepines Scrn Negative (NEGATIVE) 12/01/17 19:00 U Oth Cocaine Metabols Negative (NEGATIVE) 12/01/17 19:00 U Cannabinoids Screen Positive (NEGATIVE) H 12/01/17 19:00 Alcohol, Quantitative < 10 mg/dl (0-10) 12/01/17 19:00 Anti-Smooth Muscle Ab Negative (Negative) 12/04/17 18:48 Hepatitis A IgM Ab Negative (NEGATIVE) 12/01/17 19:00 Hep Bs Antigen Negative (NEGATIVE) 12/01/17 19:00 Hep B Core IgM Ab Negative (NEGATIVE) 12/01/17 19:00 Hepatitis C Antibody Negative (NEGATIVE) 12/01/17 19:00 Blood Type B POSITIVE 12/07/17 14:21 Antibody Screen Negative 12/07/17 14:21 Attending/Attestation - Attestation I have personally seen and examined this patient.: Yes I have fully participated in the care of the patient.: Yes I have reviewed all pertinent clinical information, including history, physical exam and plan: Yes Notes (Text): Discharge order place for [facility] under chief of hepatology service. Awaiting bed. Please refer to my progress note for the same date. 1) Obstructive Jaundice Portal vein thrombosis History of Liver Cirrhosis Transaminitis Alcohol Use Intrahepatic Biliary dilatation Cholelithiasis * Admit to ICU * MELD 44; 90-Day Mortality Rate: 0.94 * Discriminant Function>32 indicated poor prognosis and patient may benefit from glucocorticoid therapy * GI (Dr. Ham) on board-->Help appreciated * Chronic alcoholic cirrhosis now with superimposed hepatic injury due to acute alcoholic hepatitis * DF= 84, indicating > 50% 30 day mortality * Alcohol cessation discussed with patient * Will start Prednisolone for acute alcoholic hepatitis with elevated Discriminant Funtion and high mortality * Solumedrol 32mg IV daily * Arrange for transfer for [facility] under chief of ux ui designer ICU * Hematology (Dr. Mindy Castro) on board-->help appreciated * Obstructive series (12/01/17): nonspecific bowel gas pattern. No evidence of mechanical bowel obstruction. Clear lungs * Abdominal US (12/01/16): Blood flow could not be documented in portal vein in region of yohan hepatitis raising suspicion for portal vein thrombosis. Cirrhosis of the liver and small perihepatic ascites. Severe intrahepatic biliary ductal dilatation, worse in the left hepatic lobe and cholelithiasis * CT abdomen and Pelvis (12/01/16): hepatic splenomegaly. Hepatic cirrhosis. Ascites. Extensive intrapheatic biliary dilatation. Common bile duct not adequately demonstrated. DD: choledocholithaisis, bilary neoplasm, colitis. Enteritis. Cholelithiasis * Abdominal US (12/02/16): somewhat limited study to patient's body habitus. Advanced cirrhosis. Findings suspicious for portal vein thrombosis. Dilated intrahepatic biliary ducts of uncertain etiology. Splenomegaly. Small ascites. Gallstones without definite evidence of acute cholecystitis. Dilated CBD 10.6mm. * Abdominal MRI (12/02/16): tubular shaped dilated branching structures in the liver may represent dilated protal vein versus dilated intrahepatic biliary ducts. No definite evidence of mass liesion in the yohan hepatis region in this study. Advanced cirrhosis. Splenomegaly and small ascites. The CBD is not dilated. The main pancreatic duct is not dilated. Gallstones without evidence of acute cholecystitis * Patient started on Heparin Drip for Portal vein thrombosis * Patient has elevated ammonia on admission he is awake/alert/oriented X3 * Start Zosyn 2.25 IV Q 8Hours (active since 12/01/16) 2) Acute Renal Failure Hepatorenal syndrome * Nephrology (Dr. Balderrama) on board-->help appreciated * Recommend IV bicarb gtt * serial chemistires * avoid paracentesis * octeotride drip * if not better by AM (12/03) would likely need dialysis * monitor intake and output * Prostate adenocarcinoma (biopsy 04/04/17) rojas: 6 * Possible HD: ICU Resident Dr. Kincaid to reach out to Nephrology and if agreed to start HD then will get Vascular Access 3) Sepsis Elevated INR * Urine culture (12/01/17): no growth * Blood culture (12/01/17): pending results * Elevated procalcitonin (5.29-->5.20) * Significantly higher in CKD patients w/o infections prior to starting renal replacement therapy * Order procalcitonin when patient starts dialysis to see if drops * Zosyn 2.25g IVPB Q8H (active since 12/01/17) 4) Alcoholic Cardiomyopathy * Echocardiogram (12/01/17): normal LV EF and Doppler * Cardiology (Dr. Vigil) on board-->help appreciated * Echo performed today demonstrates normal LV EF. 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 * Unable to give aspirin secondary to elevated INR * Unable to give ARB/Statin secondary to ARF 5) Hyponatremia * Nephrology (Dr. Balderrama) on board-->help appreciated * serum osmolarity: 287 * urine osmolarity: 338 * Urine sodium: <5 6) History of Alcohol Use * Blood alcohol <10 * Patient reports last drink was around michael * Patient does not appear in withdrawal 7) History of Anemia * Heme-onc (Dr. Mindy Castro) on consult * Monitor H/H * Patient is heparin drip for portal vein thrombosis. 8) GI PPx * Protonix 40mg PO daily 9) DVT ppx * On heparin drip for portal vein thrombosis 10) Cough * Chest X Ray 12/03/17 showed mild to moderate pulmonary vascular congestion however this was not heard on Respiratory exam 12/04/17 * Start Duoneb PRN Q6H PRN shortness of breathe * Start Tesslon Pearles for cough * promethazine was discontinued 11) Constipation * Lactulose 20gm PO BID Code status: DNR/DNI/ Disposition: We are awaiting bed to be available at [facility]. Patient had been downgrade to telemetry as of 12/04/18. I spoke with the ICU at [facility] updated her on progress of the patient. I confirmed with Dr. Ham, telemetry bed appropriate.
--- NOTE | 2017-12-05 20:17 | CP.PCM.PN ---
Subjective - Date & Time of Evaluation Date of Evaluation: 12/05/17 Time of Evaluation: 17:00 - Subjective Subjective: No complaints, for transfer Objective - Vital Signs/Intake and Output Vital Signs (last 24 hours): Temp Pulse Resp BP Pulse Ox 97.5 F L 54 L 14 125/64 97 12/05/17 16:00 12/05/17 19:00 12/05/17 19:00 12/05/17 17:34 12/05/17 12:00 Intake and Output: 12/05/17 12/06/17 18:59 06:59 Intake Total 1970.8 Output Total 400 Balance 1570.8 - Medications Medications: Current Medications Albumin Human (Albumin Human 25% (12.5 Gm/50 Ml)) 12.5 gm IV Q8 [facility] Last Admin: 12/05/17 14:33 Dose: 12.5 gm Albuterol/Ipratropium (Duoneb 3 Mg/0.5 Mg (3 Ml) Ud) 3 ml INH RQ6 PRN PRN Reason: Shortness of Breath Heparin Sodium/Sodium Chloride (Heparin 55960 Units/250ml 1/2 Normal Saline) 25 ,000 units in 250 mls @ 16.737 mls/hr IV .[id number] PRN; Protocol; 18 UNITS/KG/HR PRN Reason: ADJUST RATE PER PROTOCOL Last Titration: 12/03/17 17:42 Dose: 6.36 units/kg/hr, 5.914 mls/hr Piperacillin Sod/Tazobactam Sod (Zosyn 2.25 Gm Iv Premix) 2.25 gm in 50 mls @ 100 mls/hr IVPB Q8H [facility] Last Admin: 12/05/17 14:33 Dose: 100 mls/hr Sodium Bicarbonate 150 meq/Potassium Chloride 20 meq/Dextrose 1,010 mls @ 100 mls/hr IV .Q10H6M [facility] Last Admin: 12/05/17 19:11 Dose: Not Given Lactulose (Enulose) 20 gm PO BID [facility] Last Admin: 12/05/17 19:19 Dose: 20 gm Methylprednisolone (Solu-Medrol) 32 mg IV DAILY [facility] Last Admin: 12/05/17 09:32 Dose: 32 mg Midodrine (Proamatine) 7.5 mg PO TID [facility] Last Admin: 01/09/18 19:19 Dose: 7.5 mg Pantoprazole Sodium (Protonix Ec Tab) 40 mg PO DAILY [facility] Last Admin: 12/05/17 09:29 Dose: 40 mg - Labs Labs: 12/05/17 06:12 12/05/17 06:12 PT 21.8 SECONDS (9.7-12.2) H 12/05/17 06:12 INR 1.9 12/05/17 06:12 APTT 68 SECONDS (21-34) H D 12/05/17 06:12 - Head Exam Head Exam: ATRAUMATIC - Eye Exam Eye Exam: Scleral icterus - ENT Exam ENT Exam: Mucous Membranes Dry - Respiratory Exam Respiratory Exam: NORMAL BREATHING PATTERN - Cardiovascular Exam Cardiovascular Exam: +S1, +S2 - GI/Abdominal Exam GI & Abdominal Exam: Normal Bowel Sounds Assessment and Plan (1) Portal vein thrombosis Assessment & Plan: secondary to liver cirrhosis and pHTN on heparin drip Status: Chronic (2) Coagulopathy Assessment & Plan: liver disease heparin Status: Acute (3) Anemia Assessment & Plan: chronic disease, renal disease adequate iron/b12/folate stores Status: Chronic
[2017-12-06] MEDS: POTASSIUM CHLORIDE IV SCH ×4 (03:00→16:49)
[2017-12-06] MEDS: SODIUM BICARBONATE IV SCH ×4 (03:00→16:49)
[2017-12-06] MEDS: [UNRECOGNIZED DRUG - OTHER] IV SCH ×4 (03:00→16:49)
[2017-12-06] MEDS: DEXTROSE 5% IV SCH ×4 (03:00→16:49)
[2017-12-06] MEDS: Heparin25000 units/250ml 1/2NS 25,000 UNITS/250 ML BAG IV PRN (03:33)
[2017-12-06] MEDS: Piperacill/Tazo 2.25gm in Dex 2.25 GM/50 ML BAG IVPB SCH ×3 (06:00→21:37)
[2017-12-06] MEDS: Albumin Human 25% (12.5 gm/50 ml) IV SCH ×3 (06:30→21:30)
[2017-12-06 07:11] LABS: BASO % 0.2 % (0.0-2.0); EOS % 0.1 % (0.0-4.0); HEMOGLOBIN 9.3 g/dL (12.0-18.0); LYMPH # 0.6 K/uL (1.0-4.3); LYMPH % 3.8 % (20.0-40.0); MEAN CELL VOLUME 77.6 fL (80.0-94.0); MEAN CORPUSCULAR HEMOGLOBIN 26.6 pg (27.0-31.0); MEAN CORPUSCULAR HGB CONC 34.3 g/dL (33.0-37.0); MEAN PLATELET VOLUME 8.9 fL (7.2-11.7); MONO # 0.8 K/uL (0.0-0.8); MONO % 4.9 % (0.0-10.0); NEUT # 14.1 K/uL (1.8-7.0); RBC 3.48 Mil/uL (4.40-5.90); WHITE BLOOD COUNT 15.5 K/uL (4.8-10.8)
[2017-12-06 07:15] LABS: PLATELET COUNT 92 K/uL (130-400)
[2017-12-06 08:00] LABS: ALB/GLOB RATIO 0.8 (1.0-2.1); ALBUMIN 2.6 g/dL (3.5-5.0); CALCIUM 5.2 mg/dl (8.6-10.4); MAGNESIUM 2.3 mg/dL (1.6-2.3)
--- NOTE | 2017-12-06 08:11 | CP.PCM.PN ---
Subjective - Date & Time of Evaluation Date of Evaluation: 12/06/17 Time of Evaluation: 08:00 - Subjective Subjective: Hospitalist Progress Note Patient was seen and examined at 8:00 AM 12/06/17 ICU Bed #12 67 year old male who was admitted on 12/01/16 for complaints of weakness, fatigue , constipation, and decreased appetite for 2 weeks along with SOB. He was found to have Portal Vein Thrombosis, started on Heparin Drip, and admitted to the ICU for further evaluation. Please see individual Assessment and Plans below for other issues for this patient. Currently upon FULL ROS: He had 2 soft nonbloody/nonblack bowel movements today He is producing urine and is no longer burning NO chest pain SOB is better but still present at times especially if he moves side to side He is eating more Abdominal pain secondary to the distention especially if he moves side to side Cough that is dry that comes and goes but states that today is less Blurriness of vision that is not new and has been present since the beginning of 2016 Exam: General: AAOx3, NAD HEENT: NCA, EOMI, PERRLA, SCERAL ICTERUS, NO pharyngeal erythema/exudate, NO cervical lymphadenopathy, NO thyromegaly, Nasal Turbinates are moist/ nonerthematous/nonedematous Cardio: NS1 and NS2, NO M/R/G Resp: CTA B/L, NO R/R/W GI: BSx4 are REDUCED, DISTENTION, Liver and Spleen could not be palpated, Slightly tender to palpation, NO guarding/rebound tenderness Ext: NO edema, Capillary Refill is 2 seconds, Pulses are strong and equal Neuro: CN II through XII are grossly intact Skin: Jaundice diffusely 1) Obstructive Jaundice Portal vein thrombosis History of Liver Cirrhosis Transaminitis Alcohol Use Intrahepatic Biliary dilatation Cholelithiasis * Admit to ICU * MELD 44; 90-Day Mortality Rate: 0.94 * Discriminant Function>32 indicated poor prognosis and patient may benefit from glucocorticoid therapy * GI (Dr. Ham) on board-->Help appreciated * Chronic alcoholic cirrhosis now with superimposed hepatic injury due to acute alcoholic hepatitis * DF= 84, indicating > 50% 30 day mortality * Alcohol cessation discussed with patient * Will start Prednisolone for acute alcoholic hepatitis with elevated Discriminant Funtion and high mortality * Solumedrol 32mg IV daily * Hematology (Dr. Mindy Castro) on board-->help appreciated * Obstructive series (12/01/17): nonspecific bowel gas pattern. No evidence of mechanical bowel obstruction. Clear lungs * Abdominal US (12/01/16): Blood flow could not be documented in portal vein in region of yohan hepatitis raising suspicion for portal vein thrombosis. Cirrhosis of the liver and small perihepatic ascites. Severe intrahepatic biliary ductal dilatation, worse in the left hepatic lobe and cholelithiasis * CT abdomen and Pelvis (12/01/16): hepatic splenomegaly. Hepatic cirrhosis. Ascites. Extensive intrapheatic biliary dilatation. Common bile duct not adequately demonstrated. DD: choledocholithaisis, bilary neoplasm, colitis. Enteritis. Cholelithiasis * Abdominal US (12/02/16): somewhat limited study to patient's body habitus. Advanced cirrhosis. Findings suspicious for portal vein thrombosis. Dilated intrahepatic biliary ducts of uncertain etiology. Splenomegaly. Small ascites. Gallstones without definite evidence of acute cholecystitis. Dilated CBD 10.6mm. * Abdominal MRI (12/02/16): tubular shaped dilated branching structures in the liver may represent dilated protal vein versus dilated intrahepatic biliary ducts. No definite evidence of mass liesion in the yohan hepatis region in this study. Advanced cirrhosis. Splenomegaly and small ascites. The CBD is not dilated. The main pancreatic duct is not dilated. Gallstones without evidence of acute cholecystitis * Patient started on Heparin Drip for Portal vein thrombosis * Patient has elevated ammonia on admission he is awake/alert/oriented X3 * Start Zosyn 2.25 IV Q 8Hours (active since 12/01/16) 2) Acute Renal Failure Hepatorenal syndrome * Nephrology (Dr. Balderrama) on board-->help appreciated * Recommend IV bicarb gtt * serial chemistires * avoid paracentesis * octeotride drip * if not better by AM (12/03) would likely need dialysis * monitor intake and output * Prostate adenocarcinoma (biopsy 04/04/17) rojas: 6 * NO HD for now as per Nephrology 3) Sepsis Elevated INR * Urine culture (12/01/17): no growth * Blood culture (12/01/17): negative to date * Elevated procalcitonin (5.29-->5.20) * Significantly higher in CKD patients w/o infections prior to starting renal replacement therapy * Order procalcitonin when patient starts dialysis to see if drops * Zosyn 2.25g IVPB Q8H (active since 12/01/17) 4) Alcoholic Cardiomyopathy * Echocardiogram (12/01/17): normal LV EF and Doppler * Cardiology (Dr. Vigil) on board-->help appreciated * Echo demonstrates normal LV EF. 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 * Unable to give aspirin secondary to elevated INR * Unable to give ARB/Statin secondary to ARF 5) Hyponatremia * Nephrology (Dr. Balderrama) on board-->help appreciated * serum osmolarity: 287 * urine osmolarity: 338 * Urine sodium: <5 6) History of Alcohol Use * Blood alcohol <10 * Patient reports last drink was around Joel * Patient does not appear in withdrawal 7) History of Anemia * HgB/Hct are stable * Heme-onc (Dr. Mindy Castro) on consult 8) GI PPx * Protonix 40mg PO daily 9) DVT ppx * On heparin drip for portal vein thrombosis 10) Cough * Chest X Ray 12/03/17 showed mild to moderate pulmonary vascular congestion however this was not heard on Respiratory exam 12/04/17 * Promethazine DM 5ml PO Q6H PRN cough * Duoneb PRN Q6H PRN shortness of breathe 11) Constipation * Lactulose 20 gm PO 2x/day. 12). Hyocalcemia Calcium Gluconate 2 mg IV over 2 hours x 2 dose 12/06/17. On 12/05/[address] Alcocer: discussed with GI, patient accepted under Chief of Hepatology Dr. Rodriguez [phone] at [facility] confirmed. I spoke with Dr. Gaby Zapata (ICU/[facility]) given that beds are not available for ICU; I updated her that patient was downgraded to telemetry since yesterday afternoon; awaiting call from hepatology fellow. Dr. Zapata unaware who the fellow is. I provided my personal cell number to follow-up if any further discussion warranted. Patient when I spoke with nurse this morning has had 550 urine output over past 21 hours. I spoke with Dr. Ham to confirm bed for telemetry. EMTLA is filled out. We are awaiting bed availablility. Den Steen D.O. Objective - Vital Signs/Intake and Output Vital Signs (last 24 hours): Temp Pulse Resp BP Pulse Ox 98 F 63 18 100/47 L 97 12/06/17 04:00 12/06/17 07:34 12/06/17 07:34 12/06/17 07:34 12/05/17 20:00 Intake and Output: 12/06/17 12/06/17 06:59 18:59 Intake Total 3182.8 Output Total 750 Balance 2432.8 - Medications Medications: Current Medications Albumin Human (Albumin Human 25% (12.5 Gm/50 Ml)) 12.5 gm IV Q8 [facility] Last Admin: 12/06/17 06:30 Dose: 12.5 gm Albuterol/Ipratropium (Duoneb 3 Mg/0.5 Mg (3 Ml) Ud) 3 ml INH RQ6 PRN PRN Reason: Shortness of Breath Heparin Sodium/Sodium Chloride (Heparin 14842 Units/250ml 1/2 Normal Saline) 25 ,000 units in 250 mls @ 16.737 mls/hr IV .[id number] PRN; Protocol; 18 UNITS/KG/HR PRN Reason: ADJUST RATE PER PROTOCOL Last Admin: 12/06/17 03:33 Dose: 6.36 units/kg/hr, 5.914 mls/hr Piperacillin Sod/Tazobactam Sod (Zosyn 2.25 Gm Iv Premix) 2.25 gm in 50 mls @ 100 mls/hr IVPB Q8H [facility] Last Admin: 12/06/17 06:00 Dose: 100 mls/hr Sodium Bicarbonate 150 meq/Potassium Chloride 20 meq/Dextrose 1,010 mls @ 100 mls/hr IV .Q10H6M [facility] Last Admin: 12/06/17 03:32 Dose: Not Given Lactulose (Enulose) 20 gm PO BID [facility] Last Admin: 12/05/17 19:19 Dose: 20 gm Methylprednisolone (Solu-Medrol) 32 mg IV DAILY [facility] Last Admin: 12/05/17 09:32 Dose: 32 mg Midodrine (Proamatine) 7.5 mg PO TID [facility] Last Admin: 12/05/17 19:19 Dose: 7.5 mg Pantoprazole Sodium (Protonix Ec Tab) 40 mg PO DAILY [facility] Last Admin: 12/05/17 09:29 Dose: 40 mg - Labs Labs: 12/06/17 06:39 12/06/17 06:39 PT 21.8 SECONDS (9.7-12.2) H 12/05/17 06:12 INR 1.9 12/05/17 06:12 APTT 68 SECONDS (21-34) H D 12/05/17 06:12
[2017-12-06 08:39] LABS: INR 2.1; PROTHROMBIN TIME 25.1 SECONDS (9.7-12.2)
[2017-12-06 08:46] LABS: ANISOCYTOSIS MODERATE; LYMPHOCYTE 3 % (20-40); MONOCYTE 8 % (0-10); NEUTROPHIL 89 % (50-75); PLATELET ESTIMATE DECREASED (NORMAL); TOTAL CELLS COUNTED 100
[2017-12-06 08:47] LABS: HYPOCHROMIC MODERATE; OVALOCYTES SLIGHT; POLYCHROMIC SLIGHT; TARGET CELLS MODERATE
[2017-12-06 08:48] LABS: SCHISTOCYTES SLIGHT; TEARDROP CELLS SLIGHT
[2017-12-06] MEDS: MethylPREDNISolone 40 mg Vial IV SCH (09:45)
[2017-12-06] MEDS: Pantoprazole 40 mg EC Tab PO SCH (09:45)
--- NOTE | 2017-12-06 11:01 | CP.PCM.PN ---
Subjective - Date & Time of Evaluation Date of Evaluation: 12/06/17 Time of Evaluation: 10:58 - Subjective Subjective: CC: Hepatorenal syndrome Clinically unchanged Has BMs, eating better. Labs unchanged Awaiting transfer to [facility] Objective - Vital Signs/Intake and Output Vital Signs (last 24 hours): Temp Pulse Resp BP Pulse Ox 98.4 F 62 18 100/47 L 97 12/06/17 08:00 12/06/17 08:00 12/06/17 07:34 12/06/17 07:34 12/05/17 20:00 Intake and Output: 12/06/17 12/06/17 06:59 18:59 Intake Total 3182.8 131.1 Output Total 750 Balance 2432.8 131.1 - Medications Medications: Current Medications Albumin Human (Albumin Human 25% (12.5 Gm/50 Ml)) 12.5 gm IV Q8 [facility] Last Admin: 12/06/17 06:30 Dose: 12.5 gm Albuterol/Ipratropium (Duoneb 3 Mg/0.5 Mg (3 Ml) Ud) 3 ml INH RQ6 PRN PRN Reason: Shortness of Breath Heparin Sodium/Sodium Chloride (Heparin 08342 Units/250ml 1/2 Normal Saline) 25 ,000 units in 250 mls @ 16.737 mls/hr IV .[id number] PRN; Protocol; 18 UNITS/KG/HR PRN Reason: ADJUST RATE PER PROTOCOL Last Titration: 12/06/17 10:16 Dose: 3.3 units/kg/hr, 3.069 mls/hr Piperacillin Sod/Tazobactam Sod (Zosyn 2.25 Gm Iv Premix) 2.25 gm in 50 mls @ 100 mls/hr IVPB Q8H [facility] Last Admin: 12/06/17 06:00 Dose: 100 mls/hr Sodium Bicarbonate 150 meq/Potassium Chloride 20 meq/Dextrose 1,010 mls @ 100 mls/hr IV .Q10H6M [facility] Last Admin: 12/06/17 03:32 Dose: Not Given Calcium Gluconate 4.65 meq/ (Sodium Chloride) 110 mls @ 110 mls/hr IVPB Q1H [facility] Stop: 12/06/17 10:59 Last Admin: 12/06/17 09:39 Dose: 110 mls/hr Lactulose (Enulose) 20 gm PO BID [facility] Last Admin: 12/06/17 10:22 Dose: 20 gm Methylprednisolone (Solu-Medrol) 32 mg IV DAILY [facility] Last Admin: 12/06/17 09:45 Dose: 32 mg Midodrine (Proamatine) 7.5 mg PO TID [facility] Last Admin: 12/06/17 09:45 Dose: 7.5 mg Pantoprazole Sodium (Protonix Ec Tab) 40 mg PO DAILY [facility] Last Admin: 12/06/17 09:45 Dose: 40 mg Promethazine HCl (Phenergan Syrup) 6.25 mg PO Q6H PRN PRN Reason: Cough - Labs Labs: 12/06/17 06:39 12/06/17 06:39 PT 25.1 SECONDS (9.7-12.2) H 12/06/17 08:26 INR 2.1 12/06/17 08:26 APTT 112 SECONDS (21-34) H* D 12/06/17 08:26 - Constitutional Appears: No Acute Distress - Head Exam Head Exam: NORMOCEPHALIC - Eye Exam Eye Exam: Scleral icterus - Neck Exam Neck Exam: Normal Inspection - Respiratory Exam Respiratory Exam: Clear to Ausculation Bilateral - Cardiovascular Exam Cardiovascular Exam: REGULAR RHYTHM - GI/Abdominal Exam GI & Abdominal Exam: Distended, Soft. absent: Tenderness, Mass, Rebound - Extremities Exam Additional comments: 1+ bilat LE edema - Neurological Exam Neurological Exam: Alert, Awake, Oriented x3 - Psychiatric Exam Psychiatric exam: Normal Affect, Normal Mood - Skin Additional comments: Deeply jaundiced Assessment and Plan (1) Alcoholic cirrhosis Assessment & Plan: with acute alcoholic hepatitis Status: Chronic (2) Renal failure Assessment & Plan: Unchanged Hyponatremic Managed by Renal On Midodrine and albumin Status: Acute (3) Portal vein thrombosis Assessment & Plan: On IV Heparin Status: Chronic (4) Cholelithiasis Assessment & Plan: Asymptomatic Status: Acute (5) Hepatorenal syndrome Assessment & Plan: Managed by Renal No clinical changes in renal function Awaiting transfer to [facility] Status: Chronic (6) Acute alcoholic hepatitis Assessment & Plan: High DF Treated with IV Methylprednisolone LFTs essentially unchanged since admission Status: Acute
--- NOTE | 2017-12-06 12:27 | CP.PCM.PN ---
Subjective - Date & Time of Evaluation Date of Evaluation: 12/06/17 Time of Evaluation: 12:24 - Subjective Subjective: Feels about same Awaiting transfer to [facility] UO increased to 950ml Still with severe azotemia, hyponatremia discussed [employer] with pt if no improvement Objective - Vital Signs/Intake and Output Vital Signs (last 24 hours): Temp Pulse Resp BP Pulse Ox 98.2 F 62 18 100/47 L 97 12/06/17 12:00 12/06/17 08:00 12/06/17 07:34 12/06/17 07:34 12/05/17 20:00 Intake and Output: 12/06/17 12/06/17 06:59 18:59 Intake Total 3182.8 131.1 Output Total 750 Balance 2432.8 131.1 - Medications Medications: Current Medications Albumin Human (Albumin Human 25% (12.5 Gm/50 Ml)) 12.5 gm IV Q8 [facility] Last Admin: 12/06/17 06:30 Dose: 12.5 gm Albuterol/Ipratropium (Duoneb 3 Mg/0.5 Mg (3 Ml) Ud) 3 ml INH RQ6 PRN PRN Reason: Shortness of Breath Heparin Sodium/Sodium Chloride (Heparin 84022 Units/250ml 1/2 Normal Saline) 25 ,000 units in 250 mls @ 16.737 mls/hr IV .[id number] PRN; Protocol; 18 UNITS/KG/HR PRN Reason: ADJUST RATE PER PROTOCOL Last Titration: 12/06/17 10:16 Dose: 3.3 units/kg/hr, 3.069 mls/hr Piperacillin Sod/Tazobactam Sod (Zosyn 2.25 Gm Iv Premix) 2.25 gm in 50 mls @ 100 mls/hr IVPB Q8H [facility] Last Admin: 12/06/17 06:00 Dose: 100 mls/hr Sodium Bicarbonate 150 meq/Potassium Chloride 20 meq/Dextrose 1,010 mls @ 100 mls/hr IV .Q10H6M [facility] Last Admin: 12/06/17 03:32 Dose: Not Given Lactulose (Enulose) 20 gm PO BID [facility] Last Admin: 12/06/17 10:22 Dose: 20 gm Methylprednisolone (Solu-Medrol) 32 mg IV DAILY [facility] Last Admin: 12/06/17 09:45 Dose: 32 mg Midodrine (Proamatine) 7.5 mg PO TID [facility] Last Admin: 12/06/17 09:45 Dose: 7.5 mg Pantoprazole Sodium (Protonix Ec Tab) 40 mg PO DAILY [facility] Last Admin: 12/06/17 09:45 Dose: 40 mg Promethazine HCl (Phenergan Syrup) 6.25 mg PO Q6H PRN PRN Reason: Cough - Labs Labs: 12/06/17 06:39 12/06/17 06:39 PT 25.1 SECONDS (9.7-12.2) H 12/06/17 08:26 INR 2.1 12/06/17 08:26 APTT 112 SECONDS (21-34) H* D 12/06/17 08:26 - Constitutional Appears: No Acute Distress, Chronically Ill - Head Exam Head Exam: ATRAUMATIC, NORMAL INSPECTION - Eye Exam Eye Exam: EOMI, Scleral icterus - Neck Exam Neck Exam: Normal Inspection. absent: Tenderness - Respiratory Exam Respiratory Exam: Clear to Ausculation Bilateral, NORMAL BREATHING PATTERN - Cardiovascular Exam Cardiovascular Exam: REGULAR RHYTHM, +S1 - GI/Abdominal Exam GI & Abdominal Exam: Soft. absent: Tenderness - Extremities Exam Extremities Exam: Pedal Edema. absent: Tenderness - Neurological Exam Neurological Exam: Awake, CN II-XII Intact - Skin Skin Exam: Dry, Warm Assessment and Plan (1) KELSEY (acute kidney injury) Status: Acute (2) Hepatorenal syndrome Status: Chronic (3) Alcoholic cirrhosis Status: Chronic - Assessment and Plan (Free Text) Plan: Add phoslo continue bicarb gtt possible transfer if not better will need dialysis
--- NOTE | 2017-12-06 16:35 | CARD ---
APPROVED REPORT EKG Measurement Heart [id number] <Conclusion> Normal sinus rhythm Nonspecific ST and T wave abnormality Abnormal ECG
--- NOTE | 2017-12-06 22:20 | CP.PCM.PN ---
Subjective - Date & Time of Evaluation Date of Evaluation: 12/06/17 Time of Evaluation: 12:05 - Subjective Subjective: No complaints, for transfer Objective - Vital Signs/Intake and Output Vital Signs (last 24 hours): Temp Pulse Resp BP Pulse Ox 97.3 F L 60 18 126/57 L 98 12/06/17 15:48 12/06/17 17:15 12/06/17 15:48 12/06/17 15:48 12/06/17 15:48 Intake and Output: 12/06/17 12/07/17 18:59 06:59 Intake Total 957.5 Balance 957.5 - Medications Medications: Current Medications Albumin Human (Albumin Human 25% (12.5 Gm/50 Ml)) 12.5 gm IV Q8 [facility] Last Admin: 12/06/17 21:30 Dose: 12.5 gm Albuterol/Ipratropium (Duoneb 3 Mg/0.5 Mg (3 Ml) Ud) 3 ml INH RQ6 PRN PRN Reason: Shortness of Breath Calcium Acetate (Phoslo) 667 mg PO TIDCC [facility] Last Admin: 12/06/17 17:17 Dose: 667 mg Heparin Sodium/Sodium Chloride (Heparin 39910 Units/250ml 1/2 Normal Saline) 25 ,000 units in 250 mls @ 16.737 mls/hr IV .[id number] PRN; Protocol; 18 UNITS/KG/HR PRN Reason: ADJUST RATE PER PROTOCOL Last Titration: 12/06/17 10:16 Dose: 3.3 units/kg/hr, 3.069 mls/hr Piperacillin Sod/Tazobactam Sod (Zosyn 2.25 Gm Iv Premix) 2.25 gm in 50 mls @ 100 mls/hr IVPB Q8H [facility] Last Admin: 12/06/17 21:37 Dose: 100 mls/hr Sodium Bicarbonate 150 meq/Potassium Chloride 20 meq/Dextrose 1,010 mls @ 100 mls/hr IV .Q10H6M [facility] Last Admin: 12/06/17 16:49 Dose: 100 mls/hr Lactulose (Enulose) 20 gm PO BID [facility] Last Admin: 12/06/17 17:17 Dose: 20 gm Methylprednisolone (Solu-Medrol) 32 mg IV DAILY [facility] Last Admin: 12/06/17 09:45 Dose: 32 mg Midodrine (Proamatine) 7.5 mg PO TID [facility] Last Admin: 12/06/17 17:20 Dose: 7.5 mg Pantoprazole Sodium (Protonix Ec Tab) 40 mg PO DAILY [facility] Last Admin: 12/06/17 09:45 Dose: 40 mg Promethazine HCl (Phenergan Syrup) 6.25 mg PO Q6H PRN PRN Reason: Cough - Labs Labs: 12/06/17 06:39 12/06/17 06:39 PT 25.1 SECONDS (9.7-12.2) H 12/06/17 08:26 INR 2.1 12/06/17 08:26 APTT 63 SECONDS (21-34) H D 12/06/17 16:22 - Head Exam Head Exam: ATRAUMATIC - Eye Exam Eye Exam: Scleral icterus - ENT Exam ENT Exam: Mucous Membranes Dry - Respiratory Exam Respiratory Exam: NORMAL BREATHING PATTERN - Cardiovascular Exam Cardiovascular Exam: +S1, +S2 - GI/Abdominal Exam GI & Abdominal Exam: Normal Bowel Sounds Assessment and Plan (1) Portal vein thrombosis Assessment & Plan: on anticoagulation Status: Chronic (2) Coagulopathy Assessment & Plan: liver disease Status: Acute (3) Anemia Assessment & Plan: chronic disease and renal disease Status: Chronic
[2017-12-07] MEDS: Promethazine 6.25 MG/5 ML CUP PO PRN (02:35)
[2017-12-07] MEDS: POTASSIUM CHLORIDE IV SCH ×3 (03:26→19:36)
[2017-12-07] MEDS: DEXTROSE 5% IV SCH ×3 (03:26→19:36)
[2017-12-07] MEDS: SODIUM BICARBONATE IV SCH ×3 (03:26→19:36)
[2017-12-07] MEDS: [UNRECOGNIZED DRUG - OTHER] IV SCH ×2 (03:26→10:40)
[2017-12-07] MEDS: Piperacill/Tazo 2.25gm in Dex 2.25 GM/50 ML BAG IVPB SCH ×3 (05:41→21:27)
[2017-12-07] MEDS: Albumin Human 25% (12.5 gm/50 ml) IV SCH ×3 (05:44→22:53)
[2017-12-07 07:09] LABS: BASO # 0.1 K/uL (0.0-0.2); BASO % 0.6 % (0.0-2.0); EOS % 0.2 % (0.0-4.0); LYMPH # 0.7 K/uL (1.0-4.3); LYMPH % 4.1 % (20.0-40.0); MEAN CELL VOLUME 77.9 fL (80.0-94.0); MEAN CORPUSCULAR HEMOGLOBIN 26.9 pg (27.0-31.0); MEAN CORPUSCULAR HGB CONC 34.5 g/dL (33.0-37.0); MEAN PLATELET VOLUME 9.3 fL (7.2-11.7); MONO # 1.2 K/uL (0.0-0.8); MONO % 6.4 % (0.0-10.0); NEUT % 88.7 % (50.0-75.0); PLATELET COUNT 78 K/uL (130-400); RBC 3.35 Mil/uL (4.40-5.90); RED CELL DISTRIBUTION WIDTH 28.8 % (11.5-14.5)
[2017-12-07 07:15] LABS: INR 2.3; PROTHROMBIN TIME 26.4 SECONDS (9.7-12.2)
[2017-12-07 08:21] LABS: ALB/GLOB RATIO 0.8 (1.0-2.1); ALBUMIN 2.8 g/dL (3.5-5.0); MAGNESIUM 2.2 mg/dL (1.6-2.3)
[2017-12-07 08:41] LABS: BANDS 1 % (0-2); LYMPHOCYTE 3 % (20-40); MONOCYTE 10 % (0-10); NEUTROPHIL 86 % (50-75); TOTAL CELLS COUNTED 100
[2017-12-07 08:42] LABS: ANISOCYTOSIS MODERATE; HYPOCHROMIC MODERATE; PLATELET ESTIMATE DECREASED (NORMAL)
[2017-12-07 08:43] LABS: BURR CELLS SLIGHT; OVALOCYTES SLIGHT; POLYCHROMIC SLIGHT; TARGET CELLS MODERATE
[2017-12-07 08:45] LABS: TEARDROP CELLS SLIGHT
[2017-12-07 09:14] LABS: CALCIUM 5.6 mg/dl (8.6-10.4)
--- NOTE | 2017-12-07 10:00 | CP.PCM.PN ---
Subjective - Date & Time of Evaluation Date of Evaluation: 12/07/17 Time of Evaluation: 09:58 - Subjective Subjective: Appears same; weak, very jaundiced Creat increasing, remains hyponatremic no n,v, diarrhea, fever, chills Objective - Vital Signs/Intake and Output Vital Signs (last 24 hours): Temp Pulse Resp BP Pulse Ox 97.6 F 61 20 112/59 L 97 12/07/17 04:00 12/07/17 04:20 12/07/17 04:00 12/07/17 04:00 12/07/17 04:00 Intake and Output: 12/07/17 12/07/17 06:59 18:59 Intake Total 100 Balance 100 - Medications Medications: Current Medications Albumin Human (Albumin Human 25% (12.5 Gm/50 Ml)) 12.5 gm IV Q8 [facility] Last Admin: 12/07/17 05:44 Dose: 12.5 gm Albuterol/Ipratropium (Duoneb 3 Mg/0.5 Mg (3 Ml) Ud) 3 ml INH RQ6 PRN PRN Reason: Shortness of Breath Calcium Acetate (Phoslo) 667 mg PO TIDCC [facility] Last Admin: 12/06/17 17:17 Dose: 667 mg Heparin Sodium/Sodium Chloride (Heparin 72638 Units/250ml 1/2 Normal Saline) 25 ,000 units in 250 mls @ 16.737 mls/hr IV .[id number] PRN; Protocol; 18 UNITS/KG/HR PRN Reason: ADJUST RATE PER PROTOCOL Last Titration: 12/06/17 10:16 Dose: 3.3 units/kg/hr, 3.069 mls/hr Piperacillin Sod/Tazobactam Sod (Zosyn 2.25 Gm Iv Premix) 2.25 gm in 50 mls @ 100 mls/hr IVPB Q8H [facility] Last Admin: 12/07/17 05:41 Dose: 100 mls/hr Sodium Bicarbonate 150 meq/Potassium Chloride 20 meq/Dextrose 1,010 mls @ 100 mls/hr IV .Q10H6M [facility] Last Admin: 12/07/17 03:26 Dose: 100 mls/hr Lactulose (Enulose) 20 gm PO BID [facility] Last Admin: 12/06/17 17:17 Dose: 20 gm Methylprednisolone (Solu-Medrol) 32 mg IV DAILY [facility] Last Admin: 12/06/17 09:45 Dose: 32 mg Midodrine (Proamatine) 7.5 mg PO TID [facility] Last Admin: 12/06/17 17:20 Dose: 7.5 mg Pantoprazole Sodium (Protonix Ec Tab) 40 mg PO DAILY [facility] Last Admin: 12/06/17 09:45 Dose: 40 mg Promethazine HCl (Phenergan Syrup) 6.25 mg PO Q6H PRN PRN Reason: Cough Last Admin: 12/07/17 02:35 Dose: 6.25 mg - Labs Labs: 12/07/17 06:59 12/07/17 06:59 PT 26.4 SECONDS (9.7-12.2) H 12/07/17 06:59 INR 2.3 12/07/17 06:59 APTT 70 SECONDS (21-34) H D 12/07/17 06:59 - Constitutional Appears: No Acute Distress, Chronically Ill - Head Exam Head Exam: ATRAUMATIC, NORMAL INSPECTION - Eye Exam Eye Exam: EOMI, Scleral icterus - Respiratory Exam Respiratory Exam: Decreased Breath Sounds, Clear to Ausculation Bilateral - Cardiovascular Exam Cardiovascular Exam: REGULAR RHYTHM, +S1 - GI/Abdominal Exam GI & Abdominal Exam: Distended, Soft - Extremities Exam Extremities Exam: Pedal Edema. absent: Tenderness - Neurological Exam Neurological Exam: Alert, CN II-XII Intact - Skin Skin Exam: Dry, Warm Assessment and Plan (1) KELSEY (acute kidney injury) Status: Acute (2) Hepatorenal syndrome Status: Chronic (3) Alcoholic cirrhosis Status: Chronic - Assessment and Plan (Free Text) Plan: Will initiate dialysis await liver eval at [facility]
[2017-12-07] MEDS: MethylPREDNISolone 40 mg Vial IV SCH (10:36)
[2017-12-07] MEDS: Pantoprazole 40 mg EC Tab PO SCH (10:39)
--- NOTE | 2017-12-07 10:48 | CP.PCM.PN ---
Subjective - Date & Time of Evaluation Date of Evaluation: 12/07/17 Time of Evaluation: 10:45 - Subjective Subjective: F/U cirrhosis. ARF Denies abdom pain, CP, SOB, fever, chills, CORREIA, cough, hematuria, hemoptysis Objective - Vital Signs/Intake and Output Vital Signs (last 24 hours): Temp Pulse Resp BP Pulse Ox 97.7 F 71 20 127/61 98 12/07/17 08:00 12/07/17 08:00 12/07/17 08:00 12/07/17 08:00 12/07/17 08:00 Intake and Output: 12/07/17 12/07/17 06:59 18:59 Intake Total 100 Balance 100 - Medications Medications: Current Medications Albumin Human (Albumin Human 25% (12.5 Gm/50 Ml)) 12.5 gm IV Q8 [facility] Last Admin: 12/07/17 05:44 Dose: 12.5 gm Albuterol/Ipratropium (Duoneb 3 Mg/0.5 Mg (3 Ml) Ud) 3 ml INH RQ6 PRN PRN Reason: Shortness of Breath Calcium Acetate (Phoslo) 667 mg PO TIDCC [facility] Last Admin: 12/07/17 08:00 Dose: 667 mg Heparin Sodium/Sodium Chloride (Heparin 37850 Units/250ml 1/2 Normal Saline) 25 ,000 units in 250 mls @ 16.737 mls/hr IV .[id number] PRN; Protocol; 18 UNITS/KG/HR PRN Reason: ADJUST RATE PER PROTOCOL Last Titration: 12/06/17 10:16 Dose: 3.3 units/kg/hr, 3.069 mls/hr Piperacillin Sod/Tazobactam Sod (Zosyn 2.25 Gm Iv Premix) 2.25 gm in 50 mls @ 100 mls/hr IVPB Q8H [facility] Last Admin: 12/07/17 05:41 Dose: 100 mls/hr Sodium Bicarbonate 150 meq/Potassium Chloride 20 meq/Dextrose 1,010 mls @ 100 mls/hr IV .Q10H6M [facility] Last Admin: 12/07/17 10:40 Dose: Not Given Lactulose (Enulose) 20 gm PO BID [facility] Last Admin: 12/07/17 10:36 Dose: 20 gm Methylprednisolone (Solu-Medrol) 32 mg IV DAILY [facility] Last Admin: 12/07/17 10:36 Dose: 32 mg Midodrine (Proamatine) 7.5 mg PO TID [facility] Last Admin: 12/07/17 10:38 Dose: 7.5 mg Pantoprazole Sodium (Protonix Ec Tab) 40 mg PO DAILY [facility] Last Admin: 12/07/17 10:39 Dose: 40 mg Promethazine HCl (Phenergan Syrup) 6.25 mg PO Q6H PRN PRN Reason: Cough Last Admin: 12/07/17 02:35 Dose: 6.25 mg - Labs Labs: 12/07/17 06:59 12/07/17 06:59 PT 26.4 SECONDS (9.7-12.2) H 12/07/17 06:59 INR 2.3 12/07/17 06:59 APTT 70 SECONDS (21-34) H D 12/07/17 06:59 - Constitutional Appears: Non-toxic - Respiratory Exam Respiratory Exam: Clear to Ausculation Bilateral - Cardiovascular Exam Cardiovascular Exam: RRR - GI/Abdominal Exam GI & Abdominal Exam: Distended, Normal Bowel Sounds. absent: Tenderness - Extremities Exam Extremities Exam: absent: Calf Tenderness - Neurological Exam Neurological Exam: Alert, Oriented x3 Assessment and Plan (1) Acute renal failure Assessment & Plan: HD Status: Acute (2) Alcoholic cirrhosis Status: Chronic (3) Cholelithiasis Status: Acute (4) Dilation of biliary tract Status: Acute (5) Portal vein thrombosis Status: Chronic (6) Transaminitis Status: Acute (7) Ascites Status: Acute (8) Coagulopathy Status: Acute (9) Anemia Status: Chronic (10) Alcoholic hepatitis Assessment & Plan: was given steroids. LFTs- about same. [facility] accepted patient- but pt is still here. Status: Acute
--- NOTE | 2017-12-07 11:56 | CP.PCM.CON ---
History of Present Illness - History of Present Illness History of Present Illness: Vascular Surgery Consult Note: 67 year old male is consulted for permacath placement due to cirrhosis , portal hypertension, and KELSEY. Patient currently complains of moderate bloating and tightness in his abdomen and mild swelling in his thighs. He states that his symptoms began at the end of October, when he got short of breath while walking and noticed that he was gaining weight. He called his PMD Dr. Velasuqez last Monday and he instructed the patient to go to the hospital. The patient states that his abdominal bloating and extremity swelling decreases with urinating. He states he noticed the swelling in his feet during Joel. He states that there is no associated pain, however, his swelling has changed intermittently. The patient admits to drinking about 10 beers/day and his last drink was on . He denies current withdrawal symptoms and states he has never had withdraw symptoms. He states he is still producing urine but usually only when he has a bowel movement. He denies chest pain, palpitations, shortness of breath at rest, dysuria, nausea, vomiting, fever or diarrhea. He states he does currently feel constipated but he just received a laxative which he hopes will help him. PMD: Dr. Velasquez Past Medical History:Anemia, portal hypertension, Cirrhosis, KELSEY, also per chart prostate Adenocarcinoma March 2017, CHF 40% November 2016 echo, gastritis, hemorrhoids Past Medical History:Prostate Biopsy last march, results are unknown to the patient Past Hospitalizations: Last year in November for anemia diagnosed by PMD. Patient received 3 transfusions, iron supplements, and had a colonoscopy and echo done. Medications: Sprinolactone 20mg/day Social History: Binge drinks 4-5 days at a time. Drinks on average 10 beers/ day. Patient attributes his drinking to his fathers passing about 7 year ago. He currently lives with his mother and takes care of her. Single, no children. 1 brother in [place]. Patient denies smoking and illicit drug use. Family History: Father 7 years ago, with Alzheimer Review of Systems - Constitutional Constitutional: Chills, Weight Gain, Weakness. absent: Fever, Weight Loss - EENT Eyes: absent: Blurred Vision Nose/Mouth/Throat: absent: Neck Pain - Cardiovascular Cardiovascular: absent: Chest Pain, Dyspnea, Lightheadedness, Palpitations - Gastrointestinal Gastrointestinal: Constipation. absent: Diarrhea, Nausea, Vomiting - Genitourinary Genitourinary: absent: Dysuria - Integumentary Integumentary: Jaundice - Neurological Neurological: absent: Headaches, Tingling, Tremor - Endocrine Endocrine: absent: Fatigue, Palpitations Past Patient History - Past Medical History & Family History Past Medical History?: Yes Past Family History: Reviewed and not pertinent - Past Social History Smoking Status: Never Smoked Chewing Tobacco Use: No Cigar Use: No Alcohol: > 2 Drinks/Day Drugs: Denies Home Situation {Lives}: With Family - CARDIAC Hx Congestive Heart Failure: Yes Hx Hypertension: Yes - PULMONARY Hx Respiratory Disorders: No - NEUROLOGICAL Hx Neurological Disorder: No - HEENT Hx HEENT Problems: No - RENAL Hx Chronic Kidney Disease: No - ENDOCRINE/METABOLIC Hx Endocrine Disorders: No - HEMATOLOGICAL/ONCOLOGICAL Hx Anemia: Yes - INTEGUMENTARY Hx Dermatological Problems: No - MUSCULOSKELETAL/RHEUMATOLOGICAL Hx Falls: No - GASTROINTESTINAL Hx Gastrointestinal Disorders: Yes (Colon polyp 2016) Hx Gastroesophageal Reflux: Yes Hx Liver Failure: Yes Other/Comment: CANDIDAL ESOPHAGITIS ascites - GENITOURINARY/GYNECOLOGICAL Hx Genitourinary Disorders: Yes Hx Prostate Problems: Yes - PSYCHIATRIC Hx Substance Use: No - SURGICAL HISTORY Hx Surgeries: Yes - ANESTHESIA Hx Anesthesia: Yes Hx Anesthesia Reactions: No Hx Malignant Hyperthermia: No Has any member of the family had a problem w/ anesthesia?: No Meds Home Medications: Home Medication List Medication Instructions Recorded Confirmed Type Albumin Human 25% [Albumin Human 12.5 gm IV Q8 vial 12/05/17 Rx 25% (12.5 gm/50 ml)] Albuterol/Ipratropium [Duoneb 3 3 ml INH RQ6 PRN neb 12/05/17 Rx mg/0.5 mg (3 ml) UD] Lactulose [Enulose] 20 gm PO BID udc 12/05/17 Rx Midodrine [Proamatine] 7.5 mg PO TID tab 12/05/17 Rx Octreotide [SandoSTATIN] 1,250 mcg IV .Q24H amp 12/05/17 Rx Pantoprazole [Protonix EC Tab] 40 mg PO DAILY ect 12/05/17 Rx Phytonadione [Vitamin K Inj] 10 mg IV STAT amp 12/05/17 Rx Potassium Chloride [Potassium 20 meq IV .Q10H6M vial 12/05/17 Rx Chloride Inj] Promethazine/Codeine 5 ml PO Q4 PRN udc 12/05/17 Rx [Phenergan/Codeine Oral Syrup] Sodium Bicarbonate 8.4% [Sodium 150 meq IV .Q10H6M syr 12/05/17 Rx Bicarbonate (8.4%) 50 Meq Syringe] Sodium Bicarbonate 8.4% [Sodium 75 meq IV .[id number] vial 12/05/17 Rx Bicarbonate 8.4% (50 mEq) Vial] Sodium Bicarbonate [Neut 5 ml] 75 ml IV .[id number] vial 12/05/17 Rx guaiFENesin [Mucinex LA] 600 mg PO BID tab 12/05/17 Rx methylPREDNISolone [Solu-Medrol] 32 mg IV DAILY ml 12/05/17 Rx Allergies/Adverse Reactions: Allergies Allergy/AdvReac Type Severity Reaction Status Date / Time No Known Allergies Allergy Verified 12/01/17 12:02 - Medications Medications: Current Medications Albumin Human (Albumin Human 25% (12.5 Gm/50 Ml)) 12.5 gm IV Q8 [facility] Last Admin: 12/07/17 05:44 Dose: 12.5 gm Albuterol/Ipratropium (Duoneb 3 Mg/0.5 Mg (3 Ml) Ud) 3 ml INH RQ6 PRN PRN Reason: Shortness of Breath Calcium Acetate (Phoslo) 667 mg PO TIDCC [facility] Last Admin: 12/07/17 11:12 Dose: 667 mg Heparin Sodium/Sodium Chloride (Heparin 18022 Units/250ml 1/2 Normal Saline) 25 ,000 units in 250 mls @ 16.737 mls/hr IV .[id number] PRN; Protocol; 18 UNITS/KG/HR PRN Reason: ADJUST RATE PER PROTOCOL Last Titration: 12/06/17 10:16 Dose: 3.3 units/kg/hr, 3.069 mls/hr Piperacillin Sod/Tazobactam Sod (Zosyn 2.25 Gm Iv Premix) 2.25 gm in 50 mls @ 100 mls/hr IVPB Q8H [facility] Last Admin: 12/07/17 05:41 Dose: 100 mls/hr Sodium Bicarbonate 150 meq/Potassium Chloride 20 meq/Dextrose 1,010 mls @ 100 mls/hr IV .Q10H6M [facility] Last Admin: 12/07/17 10:40 Dose: Not Given Lactulose (Enulose) 20 gm PO BID [facility] Last Admin: 12/07/17 10:36 Dose: 20 gm Methylprednisolone (Solu-Medrol) 32 mg IV DAILY [facility] Last Admin: 12/07/17 10:36 Dose: 32 mg Midodrine (Proamatine) 7.5 mg PO TID [facility] Last Admin: 12/07/17 10:38 Dose: 7.5 mg Pantoprazole Sodium (Protonix Ec Tab) 40 mg PO DAILY [facility] Last Admin: 12/07/17 10:39 Dose: 40 mg Promethazine HCl (Phenergan Syrup) 6.25 mg PO Q6H PRN PRN Reason: Cough Last Admin: 12/07/17 02:35 Dose: 6.25 mg Physical Exam - Constitutional Appears: No Acute Distress, Chronically Ill - Head Exam Head Exam: ATRAUMATIC, NORMAL INSPECTION - Eye Exam Eye Exam: EOMI, PERRL, Scleral icterus Pupil Exam: NORMAL ACCOMODATION - ENT Exam ENT Exam: Mucous Membranes Moist - Respiratory Exam Respiratory Exam: Clear to Auscultation Bilateral, NORMAL BREATHING PATTERN - Cardiovascular Exam Cardiovascular Exam: REGULAR RHYTHM, RRR, +S1, +S2. absent: Diastolic murmur, Gallop, JVD - GI/Abdominal Exam GI & Abdominal Exam: Distended, Firm, Normal Bowel Sounds. absent: Tenderness - Extremities Exam Extremities exam: Positive for: normal inspection, pedal edema, pedal pulses present. Negative for: calf tenderness, tenderness - Neurological Exam Neurological exam: Alert, Oriented x3 - Psychiatric Exam Psychiatric exam: Normal Affect, Normal Mood - Skin Skin Exam: Warm (jaundice) Results - Vital Signs Recent Vital Signs: Last Vital Signs Temp 97.7 F 12/07/17 08:00 Pulse 71 12/07/17 08:00 Resp 20 12/07/17 08:00 BP 127/61 12/07/17 08:00 Pulse Ox 98 12/07/17 08:00 - Labs Result Diagrams: 12/07/17 06:59 12/07/17 06:59 Labs: Laboratory Results - last 24 hr 12/04/17 12/06/17 12/07/17 18:48 16:22 06:59 WBC 18.0 H RBC 3.35 L Hgb 9.0 L Hct 26.1 L MCV 77.9 L MCH 26.9 L MCHC 34.5 RDW 28.8 H Plt Count 78 L MPV 9.3 Neut % (Auto) 88.7 H Lymph % (Auto) 4.1 L [place] % (Auto) 6.4 Eos % (Auto) 0.2 Baso % (Auto) 0.6 Neut # 16.0 H Lymph # 0.7 L [place] # 1.2 H Eos # 0.0 Baso # 0.1 Neutrophils % (Manual) 86 H Band Neutrophils % 1 Lymphocytes % (Manual) 3 L Monocytes % (Manual) 10 Platelet Estimate Decreased L Polychromasia Slight Hypochromasia (manual) Moderate Anisocytosis (manual) Moderate Target Cells Moderate Tear Drop Cells Slight Ovalocytes Slight Bull[place] Cells Slight PT INR APTT 63 H D Sodium Potassium Chloride Carbon Dioxide Anion Gap BUN Creatinine Est GFR ( Amer) Est GFR (Non-Af Amer) Random Glucose Calcium Phosphorus Magnesium Total Bilirubin AST ALT Alkaline Phosphatase Total Protein Albumin Globulin Albumin/Globulin Ratio Anti-Smooth Muscle Ab Negative 12/07/17 12/07/17 06:59 06:59 WBC RBC Hgb Hct MCV MCH MCHC RDW Plt Count MPV Neut % (Auto) Lymph % (Auto) [place] % (Auto) Eos % (Auto) Baso % (Auto) Neut # Lymph # [place] # Eos # Baso # Neutrophils % (Manual) Band Neutrophils % Lymphocytes % (Manual) Monocytes % (Manual) Platelet Estimate Polychromasia Hypochromasia (manual) Anisocytosis (manual) Target Cells Tear Drop Cells Ovalocytes Chantal Cells PT 26.4 H INR 2.3 APTT 70 H D Sodium 123 L Potassium 3.5 L Chloride 82 L Carbon Dioxide 27 Anion Gap 18 BUN 78 H Creatinine 6.3 H Est GFR ( Amer) 11 Est GFR (Non-Af Amer) 9 Random Glucose 136 H Calcium 5.6 L* Phosphorus 5.0 H Magnesium 2.2 Total Bilirubin 36.1 H AST 136 H ALT 43 Alkaline Phosphatase 148 H Total Protein 6.1 L Albumin 2.8 L Globulin 3.3 Albumin/Globulin Ratio 0.8 L Anti-Smooth Muscle Ab Assessment & Plan - Assessment and Plan (Free Text) Assessment: 67 year old male is vascular surgery consulted for permacath placement due to cirrhosis, portal hypertension, and KELSEY. - Permacath placement with Dr. Russo afternoon 12/07/17 - NPO - Heparin held Kinjal [place] PGY-1
[2017-12-07] MEDS ORDERED: HEPARIN-NS 5,000 UNITS/500 ML 0 UNIT/0 ML BAG IV ONE (13:10)
[2017-12-07] MEDS ORDERED: Lidocaine 1% Inj (20ml) ONE ×2 (13:10→14:05)
[2017-12-07] MEDS ORDERED: HEPARIN-NS 5,000 UNITS/500 ML 5,000 UNIT/500 ML BAG IV ONE (14:05)
[2017-12-07] MEDS ORDERED: POTASSIUM CH IV SCH (15:15)
[2017-12-07] MEDS ORDERED: D5W IV SCH (15:15)
[2017-12-07] MEDS ORDERED: SODIUM BICARBONATE IV SCH (15:15)
--- NOTE | 2017-12-07 15:59 | CP.PCM.PN ---
Subjective - Date & Time of Evaluation Date of Evaluation: 12/07/17 Time of Evaluation: 15:00 - Subjective Subjective: No compliants awaiting transfer Objective - Vital Signs/Intake and Output Vital Signs (last 24 hours): Temp Pulse Resp BP Pulse Ox 97.7 F 66 20 127/61 98 12/07/17 08:00 12/07/17 12:00 12/07/17 08:00 12/07/17 08:00 12/07/17 08:00 Intake and Output: 12/07/17 12/07/17 06:59 18:59 Intake Total 100 Balance 100 - Medications Medications: Current Medications Albumin Human (Albumin Human 25% (12.5 Gm/50 Ml)) 12.5 gm IV Q8 [facility] Last Admin: 12/07/17 14:15 Dose: 12.5 gm Albuterol/Ipratropium (Duoneb 3 Mg/0.5 Mg (3 Ml) Ud) 3 ml INH RQ6 PRN PRN Reason: Shortness of Breath Calcium Acetate (Phoslo) 667 mg PO TIDCC [facility] Last Admin: 12/07/17 11:12 Dose: 667 mg Heparin Sodium/Sodium Chloride (Heparin 44407 Units/250ml 1/2 Normal Saline) 25 ,000 units in 250 mls @ 16.737 mls/hr IV .[id number] PRN; Protocol; 18 UNITS/KG/HR PRN Reason: ADJUST RATE PER PROTOCOL Last Titration: 12/06/17 10:16 Dose: 3.3 units/kg/hr, 3.069 mls/hr Piperacillin Sod/Tazobactam Sod (Zosyn 2.25 Gm Iv Premix) 2.25 gm in 50 mls @ 100 mls/hr IVPB Q8H [facility] Last Admin: 12/07/17 14:15 Dose: 100 mls/hr Sodium Bicarbonate 150 meq/ (Potassium Chloride/Dextrose) 1,150 mls @ 100 mls/ hr IV .[id number] [facility] Lactulose (Enulose) 20 gm PO BID [facility] Last Admin: 12/07/17 10:36 Dose: 20 gm Methylprednisolone (Solu-Medrol) 32 mg IV DAILY [facility] Last Admin: 12/07/17 10:36 Dose: 32 mg Midodrine (Proamatine) 7.5 mg PO TID [facility] Last Admin: 12/07/17 14:30 Dose: Not Given Pantoprazole Sodium (Protonix Ec Tab) 40 mg PO DAILY [facility] Last Admin: 12/07/17 10:39 Dose: 40 mg Promethazine HCl (Phenergan Syrup) 6.25 mg PO Q6H PRN PRN Reason: Cough Last Admin: 12/07/17 02:35 Dose: 6.25 mg - Labs Labs: 12/07/17 06:59 12/07/17 06:59 PT 26.4 SECONDS (9.7-12.2) H 12/07/17 06:59 INR 2.3 12/07/17 06:59 APTT 70 SECONDS (21-34) H D 12/07/17 06:59 - Head Exam Head Exam: ATRAUMATIC - Eye Exam Eye Exam: Scleral icterus - Respiratory Exam Respiratory Exam: NORMAL BREATHING PATTERN - Cardiovascular Exam Cardiovascular Exam: +S1, +S2 - GI/Abdominal Exam GI & Abdominal Exam: Normal Bowel Sounds Assessment and Plan (1) Portal vein thrombosis Assessment & Plan: on heparin drip Status: Chronic (2) Coagulopathy Assessment & Plan: anticoagulation and liver disease Status: Acute (3) Anemia Assessment & Plan: chronic disease and renal disease Status: Chronic
[2017-12-07] MEDS ORDERED: Propofol 10 mg/ml Inj (20 ML) ONE ×2 (16:31→17:12)
[2017-12-07] MEDS ORDERED: Sodium Chloride 0.9% 250 ML IV ONE ×2 (16:35→17:30)
--- NOTE | 2017-12-07 17:12 | CP.PCM.PN ---
<Christine Sampson - Last Filed: 12/07/17 17:32> Subjective - Date & Time of Evaluation Date of Evaluation: 12/07/17 Time of Evaluation: 07:00 - Subjective Subjective: PGY1- Medicine Note- Dr. Steen's service Patient seen and examined at bedside and in no acute distress. Patient has little appetite, but says he is trying to eat more. Patient denies any chest pain, shortness of breath, abdominal pain, nausea, vomiting, diarrhea, or constipation. Objective - Vital Signs/Intake and Output Vital Signs (last 24 hours): Temp Pulse Resp BP Pulse Ox 97.7 F 66 20 127/61 98 12/07/17 08:00 12/07/17 12:00 12/07/17 08:00 12/07/17 08:00 12/07/17 08:00 Intake and Output: 12/07/17 12/07/17 06:59 18:59 Intake Total 100 800 Balance 100 800 - Medications Medications: Current Medications Albumin Human (Albumin Human 25% (12.5 Gm/50 Ml)) 12.5 gm IV Q8 [facility] Last Admin: 12/07/17 14:15 Dose: 12.5 gm Albuterol/Ipratropium (Duoneb 3 Mg/0.5 Mg (3 Ml) Ud) 3 ml INH RQ6 PRN PRN Reason: Shortness of Breath Calcium Acetate (Phoslo) 667 mg PO TIDCC [facility] Last Admin: 12/07/17 11:12 Dose: 667 mg Heparin Sodium/Sodium Chloride (Heparin 41525 Units/250ml 1/2 Normal Saline) 25 ,000 units in 250 mls @ 16.737 mls/hr IV .[id number] PRN; Protocol; 18 UNITS/KG/HR PRN Reason: ADJUST RATE PER PROTOCOL Last Titration: 12/06/17 10:16 Dose: 3.3 units/kg/hr, 3.069 mls/hr Piperacillin Sod/Tazobactam Sod (Zosyn 2.25 Gm Iv Premix) 2.25 gm in 50 mls @ 100 mls/hr IVPB Q8H [facility] Last Admin: 12/07/17 14:15 Dose: 100 mls/hr Sodium Bicarbonate 150 meq/ (Potassium Chloride/Dextrose) 1,150 mls @ 100 mls/ hr IV .[id number] [facility] Potassium Chloride 20 meq/Sodium Bicarbonate 150 meq/Dextrose 1,160 mls @ 100 mls/hr IV .[id number] [facility] Lactulose (Enulose) 20 gm PO BID [facility] Last Admin: 12/07/17 10:36 Dose: 20 gm Methylprednisolone (Solu-Medrol) 32 mg IV DAILY [facility] Last Admin: 12/07/17 10:36 Dose: 32 mg Midodrine (Proamatine) 7.5 mg PO TID [facility] Last Admin: 12/07/17 14:30 Dose: Not Given Pantoprazole Sodium (Protonix Ec Tab) 40 mg PO DAILY [facility] Last Admin: 12/07/17 10:39 Dose: 40 mg Promethazine HCl (Phenergan Syrup) 6.25 mg PO Q6H PRN PRN Reason: Cough Last Admin: 12/07/17 02:35 Dose: 6.25 mg - Labs Labs: 12/07/17 06:59 12/07/17 06:59 PT 26.4 SECONDS (9.7-12.2) H 12/07/17 06:59 INR 2.3 12/07/17 06:59 APTT 70 SECONDS (21-34) H D 12/07/17 06:59 - Constitutional Appears: Non-toxic, Chronically Ill - Head Exam Head Exam: ATRAUMATIC, NORMAL INSPECTION, NORMOCEPHALIC - Eye Exam Eye Exam: EOMI - ENT Exam ENT Exam: Mucous Membranes Moist - Respiratory Exam Respiratory Exam: Clear to Ausculation Bilateral, NORMAL BREATHING PATTERN. absent: Rales, Rhonchi, Wheezes, Respiratory Distress, Stridor - Cardiovascular Exam Cardiovascular Exam: REGULAR RHYTHM, RRR, +S1, +S2 - GI/Abdominal Exam GI & Abdominal Exam: Distended, Firm, Normal Bowel Sounds. absent: Tenderness - Extremities Exam Extremities Exam: Normal Inspection. absent: Pedal Edema - Neurological Exam Neurological Exam: Alert, Awake, Oriented x3 - Psychiatric Exam Psychiatric exam: Normal Affect, Normal Mood - Skin Skin Exam: Intact, Warm Additional comments: Jaundice from head to toe Assessment and Plan - Assessment and Plan (Free Text) Assessment: 1) Obstructive Jaundice secondary to: Portal vein thrombosis, History of Liver Cirrhosis, Transaminitis , Alcohol Use, Intrahepatic Biliary dilatation, Cholelithiasis * Admitted to ICU * MELD 44; 90-Day Mortality Rate: 0.94 * Discriminant Function>32 indicated poor prognosis and patient may benefit from glucocorticoid therapy * GI (Dr. Ham) on board-->Help appreciated * Chronic alcoholic cirrhosis now with superimposed hepatic injury due to acute alcoholic hepatitis * DF= 84, indicating > 50% 30 day mortality * Alcohol cessation discussed with patient * Will start Prednisolone for acute alcoholic hepatitis with elevated Discriminant Funtion and high mortality * Solumedrol 32mg IV daily * Hematology (Dr. Mindy Castro) on board-->help appreciated * Obstructive series (12/01/17): nonspecific bowel gas pattern. No evidence of mechanical bowel obstruction. Clear lungs * Abdominal US (12/01/16): Blood flow could not be documented in portal vein in region of yohan hepatitis raising suspicion for portal vein thrombosis. Cirrhosis of the liver and small perihepatic ascites. Severe intrahepatic biliary ductal dilatation, worse in the left hepatic lobe and cholelithiasis * CT abdomen and Pelvis (12/01/16): hepatic splenomegaly. Hepatic cirrhosis. Ascites. Extensive intrapheatic biliary dilatation. Common bile duct not adequately demonstrated. DD: choledocholithaisis, bilary neoplasm, colitis. Enteritis. Cholelithiasis * Abdominal US (12/02/16): somewhat limited study to patient's body habitus. Advanced cirrhosis. Findings suspicious for portal vein thrombosis. Dilated intrahepatic biliary ducts of uncertain etiology. Splenomegaly. Small ascites. Gallstones without definite evidence of acute cholecystitis. Dilated CBD 10.6mm. * Abdominal MRI (12/02/16): tubular shaped dilated branching structures in the liver may represent dilated protal vein versus dilated intrahepatic biliary ducts. No definite evidence of mass liesion in the yohan hepatis region in this study. Advanced cirrhosis. Splenomegaly and small ascites. The CBD is not dilated. The main pancreatic duct is not dilated. Gallstones without evidence of acute cholecystitis * Patient started on Heparin Drip for Portal vein thrombosis * Patient has elevated ammonia on admission he is awake/alert/oriented X3 * Start Zosyn 2.25 IV Q 8Hours (active since 12/01/16) 2) Acute Renal Failure Secondary to Hepatorenal syndrome * Patient to get permacath by vascular surgeon, Dr. Russo today and then dialysis * Nephrology (Dr. Balderrama) on board-->help appreciated * Recommend IV bicarb gtt * serial chemistires * avoid paracentesis * octeotride drip * if not better by AM (12/03) would likely need dialysis * monitor intake and output * Prostate adenocarcinoma (biopsy 04/04/17) rojas: 6 3) Sepsis Elevated INR * Urine culture (12/01/17): no growth * Blood culture (12/01/17): negative to date * Elevated procalcitonin (5.29-->5.20) * Significantly higher in CKD patients w/o infections prior to starting renal replacement therapy * Order procalcitonin when patient starts dialysis to see if drops * Zosyn 2.25g IVPB Q8H (active since 12/01/17) 4) Alcoholic Cardiomyopathy * Echocardiogram (12/01/17): normal LV EF and Doppler * Cardiology (Dr. Vigil) on board-->help appreciated * Echo demonstrates normal LV EF. 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 * Unable to give aspirin secondary to elevated INR * Unable to give ARB/Statin secondary to ARF 5) Hyponatremia * Nephrology (Dr. Balderrama) on board-->help appreciated * serum osmolarity: 287 * urine osmolarity: 338 * Urine sodium: <5 6) History of Alcohol Use * Blood alcohol <10 * Patient reports last drink was around Joel * Patient does not appear in withdrawal 7) History of Anemia * HgB/Hct are stable * Heme-onc (Dr. Mindy Castro) on consult 8) GI PPx * Protonix 40mg PO daily 9) DVT ppx * On heparin drip for portal vein thrombosis - held for permacath placement * Discontinued heparin drip on 12/07/17- INR: 2.3 10) Cough * Chest X Ray 12/03/17 showed mild to moderate pulmonary vascular congestion however this was not heard on Respiratory exam 12/04/17 * Promethazine DM 5ml PO Q6H PRN cough * Duoneb PRN Q6H PRN shortness of breathe 11) Constipation * Lactulose 20 gm PO 2x/day. 12). Hyocalcemia * Calcium Acetate 667 mg po TIDCC On 12/05/[address] Alcocer: discussed with GI, patient accepted under Chief of Hepatology Dr. Rodriguez [phone] at [facility]. EMTLA is filled out. We are awaiting bed availablility. <Den Steen - Last Filed: 12/07/17 19:46> Objective - Vital Signs/Intake and Output Vital Signs (last 24 hours): Temp Pulse Resp BP Pulse Ox 97.3 F L 60 20 134/69 11 L 12/07/17 19:09 12/07/17 19:09 12/07/17 19:09 12/07/17 19:09 12/07/17 18:45 Intake and Output: 12/07/17 12/08/17 18:59 06:59 Intake Total 800 Balance 800 - Medications Medications: Current Medications Albumin Human (Albumin Human 25% (12.5 Gm/50 Ml)) 12.5 gm IV Q8 [facility] Last Admin: 12/07/17 14:15 Dose: 12.5 gm Albuterol/Ipratropium (Duoneb 3 Mg/0.5 Mg (3 Ml) Ud) 3 ml INH RQ6 PRN PRN Reason: Shortness of Breath Calcium Acetate (Phoslo) 667 mg PO TIDCC [facility] Last Admin: 12/07/17 17:42 Dose: Not Given Piperacillin Sod/Tazobactam Sod (Zosyn 2.25 Gm Iv Premix) 2.25 gm in 50 mls @ 100 mls/hr IVPB Q8H [facility] Last Admin: 12/07/17 14:15 Dose: 100 mls/hr Sodium Bicarbonate 150 meq/ (Potassium Chloride/Dextrose) 1,150 mls @ 100 mls/ hr IV .[id number] [facility] Potassium Chloride 20 meq/Sodium Bicarbonate 150 meq/Dextrose 1,160 mls @ 100 mls/hr IV .[id number] [facility] Last Admin: 12/07/17 19:36 Dose: 100 mls/hr Lactulose (Enulose) 20 gm PO BID [facility] Last Admin: 12/07/17 18:00 Dose: Not Given Methylprednisolone (Solu-Medrol) 32 mg IV DAILY [facility] Last Admin: 12/07/17 10:36 Dose: 32 mg Midodrine (Proamatine) 7.5 mg PO TID [facility] Last Admin: 12/07/17 17:42 Dose: Not Given Oxycodone/Acetaminophen (Percocet 5/325 Mg Tab) 2 tab PO Q4H PRN PRN Reason: Pain, severe (8-10) Stop: 12/10/17 17:34 Pantoprazole Sodium (Protonix Ec Tab) 40 mg PO DAILY [facility] Last Admin: 12/07/17 10:39 Dose: 40 mg Promethazine HCl (Phenergan Syrup) 6.25 mg PO Q6H PRN PRN Reason: Cough Last Admin: 12/07/17 02:35 Dose: 6.25 mg - Labs Labs: 12/07/17 06:59 12/07/17 06:59 PT 26.4 SECONDS (9.7-12.2) H 12/07/17 06:59 INR 2.3 12/07/17 06:59 APTT 70 SECONDS (21-34) H D 12/07/17 06:59 Attending/Attestation - Attestation I have personally seen and examined this patient.: Yes I have fully participated in the care of the patient.: Yes I have reviewed all pertinent clinical information, including history, physical exam and plan: Yes Notes (Text): 12/07/17 19:44 Patient was seen at 3:30 PM 12/07/17. Exam, assessment and plan were gone over with the resident. At the time of my exam, patient was awaiting to get the PermCath placed. We will discontinue the Heparin Drip (treatment for the Portal Vein Thrombosis) that was held for the PermCath placment, as patient's INR is > 2.0. Patient is pending transfer to [facility]/[place], [place] and as per my conversation with our Dean Of Admissions Nicolette, bed in [place] was still not available. Den Steen D.O.
[2017-12-07] MEDS ORDERED: Oxycodone/Acetaminophen 5/325 mg Tab PO PRN (17:33)
--- NOTE | 2017-12-07 17:36 | PCM.SURG1 ---
Surgeon's Initial Post Op Note - Surgeon's Notes Surgeon: Karan Grainer Machine: Bre Christianson PGY2 Type of Anesthesia: IV Sedation, Local Pre-Operative Diagnosis: Renal failure needing HD Operative Findings: GOod R IJ Post-Operative Diagnosis: SAme Operation Performed: Permacath insertion on R IJ w tunnel catheter Specimen/Specimens Removed: None Estimated Blood Loss: EBL {In ML}: 10 Blood Products Given: N/A Drains Used: No Drains Post-Op Condition: Good Date of Surgery/Procedure: 12/07/17 Time of Surgery/Procedure: 17:36
--- NOTE | 2017-12-07 18:11 | RAD ---
HISTORY: s/p permacath PACU COMPARISON: Chest x-ray performed 12/03/17 TECHNIQUE: Chest, one view. FINDINGS: Right-sided dialysis catheter with distal tips at the cavoatrial junction/ right atrium. LUNGS: Examination limited by habitus and hypoinflation. Mild pulmonary venous congestion. Please note that chest x-ray has limited sensitivity for the detection of pulmonary masses. PLEURA: No significant pleural effusion identified. No definite pneumothorax . CARDIOVASCULAR: Heart size appears top normal. OSSEOUS STRUCTURES: No acute osseous abnormality identified. VISUALIZED UPPER ABDOMEN: Unremarkable. OTHER FINDINGS: None. IMPRESSION: Right-sided dialysis catheter with distal tips at the cavoatrial junction/ right atrium. Mild pulmonary venous congestion.
[2017-12-07] MEDS: [UNRECOGNIZED DRUG - OTHER] IV SCH (19:36)
--- NOTE | 2017-12-08 04:03 | OP ---
PROCEDURE DATE: 12/07/2017 PREOPERATIVE DIAGNOSIS: Renal failure. POSTOPERATIVE DIAGNOSIS: Renal failure. PROCEDURE: Placement of PermCath in right jugular vein with C-arm fluoroscopy, ultrasound-guided puncture, and micropuncture technique. INDICATIONS: The patient is a middle-aged male with renal failure and liver failure, who requires a PermCath for access. OPERATIVE FINDINGS: Catheter was inserted via the right jugular vein using ultrasound guidance and micropuncture technique. PROCEDURE IN DETAIL: The patient was given local anesthesia. Using ultrasound guidance, the vein was punctured. Under fluoroscopic control, guidewire was advanced centrally. Sheath dilator was passed over this and then the catheter was deployed in the appropriate location adjacent to the superior vena cava-right atrial junction. It was flushed with heparinized saline with excellent return. The patient tolerated the procedure uneventfully. Ultrasound images of the neck showed the vein was approximately 18 mm in diameter with normal compressibility, no intraluminal thrombosis. After placement of the catheter successfully, we tunneled along the chest wall and brought it out on the chest wall, originating on the chest right subclavian area and terminating via the jugular vein in superior vena cava-right atrial junction. Placement of PermCath cuffed catheter, right side. It was flushed with heparinized saline after it was determined that there was an excellent flow. Kar Russo Jr., MD
[2017-12-08] MEDS: Albumin Human 25% (12.5 gm/50 ml) IV SCH ×3 (05:35→21:13)
[2017-12-08] MEDS: Piperacill/Tazo 2.25gm in Dex 2.25 GM/50 ML BAG IVPB SCH ×3 (05:38→21:13)
[2017-12-08 07:22] LABS: BASO # 0.1 K/uL (0.0-0.2); HEMOGLOBIN 8.6 g/dL (12.0-18.0); MONO # 1.5 K/uL (0.0-0.8); MONO % 7.4 % (0.0-10.0)
[2017-12-08 07:24] LABS: INR 2.4; PROTHROMBIN TIME 27.4 SECONDS (9.7-12.2)
[2017-12-08 07:29] LABS: BASO % 0.4 % (0.0-2.0); LYMPH # 0.6 K/uL (1.0-4.3); NEUT # 18.6 K/uL (1.8-7.0); NEUT % 89.2 % (50.0-75.0); NRBC % 0.1 % (0.0-2.0); PLATELET COUNT 77 K/uL (130-400); RED CELL DISTRIBUTION WIDTH 29.7 % (11.5-14.5); WHITE BLOOD COUNT 20.9 K/uL (4.8-10.8)
[2017-12-08 08:31] LABS: ALB/GLOB RATIO 0.9 (1.0-2.1); ALBUMIN 2.7 g/dL (3.5-5.0); CALCIUM 5.4 mg/dl (8.6-10.4); MAGNESIUM 2.2 mg/dL (1.6-2.3)
--- NOTE | 2017-12-08 08:54 | CP.PCM.PN ---
Subjective - Date & Time of Evaluation Date of Evaluation: 12/08/17 Time of Evaluation: 07:00 - Subjective Subjective: Surgical Progress Note: Patient was seen and examined at bedside in the AM. Per nurse patient was bleeding overnight from permacath insertion. Patient denies nausea, vomiting, diarrhea or constipation at this time. Objective - Vital Signs/Intake and Output Vital Signs (last 24 hours): Temp Pulse Resp BP Pulse Ox 98.3 F 72 20 107/61 95 12/08/17 04:28 12/08/17 04:29 12/08/17 04:28 12/08/17 04:28 12/08/17 04:28 Intake and Output: 12/08/17 12/08/17 06:59 18:59 Intake Total 770 Balance 770 - Medications Medications: Current Medications Albumin Human (Albumin Human 25% (12.5 Gm/50 Ml)) 12.5 gm IV Q8 [facility] Last Admin: 12/08/17 05:35 Dose: 12.5 gm Albuterol/Ipratropium (Duoneb 3 Mg/0.5 Mg (3 Ml) Ud) 3 ml INH RQ6 PRN PRN Reason: Shortness of Breath Calcium Acetate (Phoslo) 667 mg PO TIDCC [facility] Last Admin: 12/08/17 08:37 Dose: 667 mg Piperacillin Sod/Tazobactam Sod (Zosyn 2.25 Gm Iv Premix) 2.25 gm in 50 mls @ 100 mls/hr IVPB Q8H [facility] Last Admin: 12/08/17 05:38 Dose: 100 mls/hr Sodium Bicarbonate 150 meq/ (Potassium Chloride/Dextrose) 1,150 mls @ 100 mls/ hr IV .[id number] [facility] Potassium Chloride 20 meq/Sodium Bicarbonate 150 meq/Dextrose 1,160 mls @ 100 mls/hr IV .[id number] [facility] Last Admin: 12/07/17 19:36 Dose: 100 mls/hr Lactulose (Enulose) 20 gm PO BID [facility] Last Admin: 12/07/17 22:55 Dose: 20 gm Methylprednisolone (Solu-Medrol) 32 mg IV DAILY [facility] Last Admin: 12/07/17 10:36 Dose: 32 mg Midodrine (Proamatine) 7.5 mg PO TID [facility] Last Admin: 12/07/17 22:55 Dose: 7.5 mg Oxycodone/Acetaminophen (Percocet 5/325 Mg Tab) 2 tab PO Q4H PRN PRN Reason: Pain, severe (8-10) Stop: 12/10/17 17:34 Pantoprazole Sodium (Protonix Ec Tab) 40 mg PO DAILY [facility] Last Admin: 12/07/17 10:39 Dose: 40 mg Promethazine HCl (Phenergan Syrup) 6.25 mg PO Q6H PRN PRN Reason: Cough Last Admin: 12/07/17 02:35 Dose: 6.25 mg - Labs Labs: 12/08/17 07:01 12/08/17 07:01 PT 27.4 SECONDS (9.7-12.2) H 12/08/17 07:01 INR 2.4 12/08/17 07:01 APTT 70 SECONDS (21-34) H D 12/07/17 06:59 - Constitutional Appears: No Acute Distress, Chronically Ill - Head Exam Head Exam: ATRAUMATIC, NORMAL INSPECTION - Eye Exam Eye Exam: Scleral icterus - Respiratory Exam Respiratory Exam: NORMAL BREATHING PATTERN - Cardiovascular Exam Cardiovascular Exam: +S1, +S2 - GI/Abdominal Exam GI & Abdominal Exam: Distended, Rigid, Normal Bowel Sounds. absent: Tenderness - Extremities Exam Extremities Exam: Normal Inspection - Neurological Exam Neurological Exam: Alert, Awake, Oriented x3 - Psychiatric Exam Psychiatric exam: Normal Affect, Normal Mood - Skin Skin Exam: absent: Normal Color (jaundice) Additional comments: Permacath insertion on R IJ w tunnel catheter Assessment and Plan - Assessment and Plan (Free Text) Assessment: 67 year old male is vascular surgery consulted for permacath placement due to cirrhosis, portal hypertension, and KELSEY. s/p Permacath insertion on R IJ w tunnel catheter Post OP day #1 - Monitor wound site for bleeding Kinjal Fairbanks PGY-1
[2017-12-08 10:01] LABS: LYMPHOCYTE 4 % (20-40); MONOCYTE 5 % (0-10); NEUTROPHIL 91 % (50-75); PLATELET ESTIMATE DECREASED (NORMAL); TOTAL CELLS COUNTED 100
[2017-12-08 10:02] LABS: ANISOCYTOSIS MODERATE; HYPOCHROMIC SLIGHT; POIKILOCYTOSIS SLIGHT; TARGET CELLS MODERATE
[2017-12-08 10:03] LABS: OVALOCYTES SLIGHT
--- NOTE | 2017-12-08 10:12 | RAD ---
PROCEDURE: Intraoperative Fluoroscopy. HISTORY: RENAL FAILURE FINDINGS: Fluoroscopic assistance was provided. Please refer to the operative
--- NOTE | 2017-12-08 12:25 | CP.PCM.PN ---
Subjective - Date & Time of Evaluation Date of Evaluation: 12/08/17 Time of Evaluation: 12:22 - Subjective Subjective: CC: portal vein thrombosis No clinical changes. Now in dialysis for hepatorenal syndrome Remains jaundiced. Main c/o is constipation, on Lactulose on anticoag for portal vein thrombosis, and Methylprednisolone for Alcoholic hepatitis awaiting transfer to [facility] Objective - Vital Signs/Intake and Output Vital Signs (last 24 hours): Temp Pulse Resp BP Pulse Ox 97.5 F L 72 18 128/73 96 12/08/17 09:50 12/08/17 09:50 12/08/17 09:50 12/08/17 11:20 12/08/17 09:50 Intake and Output: 12/08/17 12/08/17 06:59 18:59 Intake Total 770 Balance 770 - Medications Medications: Current Medications Albumin Human (Albumin Human 25% (12.5 Gm/50 Ml)) 12.5 gm IV Q8 [facility] Last Admin: 12/08/17 05:35 Dose: 12.5 gm Albuterol/Ipratropium (Duoneb 3 Mg/0.5 Mg (3 Ml) Ud) 3 ml INH RQ6 PRN PRN Reason: Shortness of Breath Calcium Acetate (Phoslo) 667 mg PO TIDCC [facility] Last Admin: 12/08/17 08:37 Dose: 667 mg Piperacillin Sod/Tazobactam Sod (Zosyn 2.25 Gm Iv Premix) 2.25 gm in 50 mls @ 100 mls/hr IVPB Q8H [facility] Last Admin: 12/08/17 05:38 Dose: 100 mls/hr Sodium Bicarbonate 150 meq/ (Potassium Chloride/Dextrose) 1,150 mls @ 100 mls/ hr IV .[id number] [facility] Potassium Chloride 20 meq/Sodium Bicarbonate 150 meq/Dextrose 1,160 mls @ 100 mls/hr IV .[id number] [facility] Last Admin: 12/07/17 19:36 Dose: 100 mls/hr Lactulose (Enulose) 20 gm PO BID [facility] Last Admin: 12/07/17 22:55 Dose: 20 gm Methylprednisolone (Solu-Medrol) 32 mg IV DAILY [facility] Last Admin: 12/07/17 10:36 Dose: 32 mg Midodrine (Proamatine) 7.5 mg PO TID [facility] Last Admin: 12/08/17 09:03 Dose: 7.5 mg Oxycodone/Acetaminophen (Percocet 5/325 Mg Tab) 2 tab PO Q4H PRN PRN Reason: Pain, severe (8-10) Stop: 12/10/17 17:34 Pantoprazole Sodium (Protonix Ec Tab) 40 mg PO DAILY [facility] Last Admin: 12/07/17 10:39 Dose: 40 mg Promethazine HCl (Phenergan Syrup) 6.25 mg PO Q6H PRN PRN Reason: Cough Last Admin: 12/07/17 02:35 Dose: 6.25 mg - Labs Labs: 12/08/17 07:01 12/08/17 07:01 PT 27.4 SECONDS (9.7-12.2) H 12/08/17 07:01 INR 2.4 12/08/17 07:01 APTT 70 SECONDS (21-34) H D 12/07/17 06:59 - Constitutional Appears: Chronically Ill - Eye Exam Eye Exam: Scleral icterus - Respiratory Exam Respiratory Exam: NORMAL BREATHING PATTERN - Cardiovascular Exam Cardiovascular Exam: REGULAR RHYTHM - GI/Abdominal Exam GI & Abdominal Exam: Soft. absent: Distended, Tenderness, Mass Assessment and Plan (1) Alcoholic cirrhosis Assessment & Plan: decompensated Supportive care Status: Chronic (2) Renal failure Assessment & Plan: On dialysis now. Function has not recovered with Albumin, Midodrine and fluids Status: Acute (3) Portal vein thrombosis Assessment & Plan: On Heparin Jaundiced Status: Chronic (4) Cholelithiasis Status: Acute (5) Hepatorenal syndrome Assessment & Plan: Continue supportive care Awaiting transfer to [facility] Perhaps a candidate for Liver Transplant or experimental treatment protocol for HRS as discussed with [facility] Status: Chronic (6) Acute alcoholic hepatitis Assessment & Plan: On Methylprednisolone for elevated DF Remains jaundiced with very high bilirubins Status: Acute (7) Constipation Assessment & Plan: On lactulose Will prescribe additional laxatives Status: Acute
--- NOTE | 2017-12-08 12:43 | CP.PCM.PN ---
Subjective - Date & Time of Evaluation Date of Evaluation: 12/08/17 Time of Evaluation: 13:00 - Subjective Subjective: For dialysis Objective - Vital Signs/Intake and Output Vital Signs (last 24 hours): Temp Pulse Resp BP Pulse Ox 97.5 F L 72 18 128/73 96 12/08/17 09:50 12/08/17 09:50 12/08/17 09:50 12/08/17 11:20 12/08/17 09:50 Intake and Output: 12/08/17 12/08/17 06:59 18:59 Intake Total 770 Balance 770 - Medications Medications: Current Medications Albumin Human (Albumin Human 25% (12.5 Gm/50 Ml)) 12.5 gm IV Q8 [facility] Last Admin: 12/08/17 05:35 Dose: 12.5 gm Albuterol/Ipratropium (Duoneb 3 Mg/0.5 Mg (3 Ml) Ud) 3 ml INH RQ6 PRN PRN Reason: Shortness of Breath Calcium Acetate (Phoslo) 667 mg PO TIDCC [facility] Last Admin: 12/08/17 08:37 Dose: 667 mg Piperacillin Sod/Tazobactam Sod (Zosyn 2.25 Gm Iv Premix) 2.25 gm in 50 mls @ 100 mls/hr IVPB Q8H [facility] Last Admin: 12/08/17 05:38 Dose: 100 mls/hr Sodium Bicarbonate 150 meq/ (Potassium Chloride/Dextrose) 1,150 mls @ 100 mls/ hr IV .[id number] [facility] Potassium Chloride 20 meq/Sodium Bicarbonate 150 meq/Dextrose 1,160 mls @ 100 mls/hr IV .[id number] [facility] Last Admin: 12/07/17 19:36 Dose: 100 mls/hr Lactulose (Enulose) 20 gm PO BID [facility] Last Admin: 12/07/17 22:55 Dose: 20 gm Methylprednisolone (Solu-Medrol) 32 mg IV DAILY [facility] Last Admin: 12/07/17 10:36 Dose: 32 mg Midodrine (Proamatine) 7.5 mg PO TID [facility] Last Admin: 12/08/17 09:03 Dose: 7.5 mg Oxycodone/Acetaminophen (Percocet 5/325 Mg Tab) 2 tab PO Q4H PRN PRN Reason: Pain, severe (8-10) Stop: 12/10/17 17:34 Pantoprazole Sodium (Protonix Ec Tab) 40 mg PO DAILY [facility] Last Admin: 12/07/17 10:39 Dose: 40 mg Promethazine HCl (Phenergan Syrup) 6.25 mg PO Q6H PRN PRN Reason: Cough Last Admin: 12/07/17 02:35 Dose: 6.25 mg - Labs Labs: 12/08/17 07:01 12/08/17 07:01 PT 27.4 SECONDS (9.7-12.2) H 12/08/17 07:01 INR 2.4 12/08/17 07:01 APTT 70 SECONDS (21-34) H D 12/07/17 06:59 - Head Exam Head Exam: ATRAUMATIC - Eye Exam Eye Exam: Scleral icterus - ENT Exam ENT Exam: Mucous Membranes Dry - Respiratory Exam Respiratory Exam: NORMAL BREATHING PATTERN - Cardiovascular Exam Cardiovascular Exam: +S1, +S2 - GI/Abdominal Exam GI & Abdominal Exam: Normal Bowel Sounds Assessment and Plan (1) Portal vein thrombosis Assessment & Plan: was on heparin drip Status: Chronic (2) Coagulopathy Assessment & Plan: prior heparin and liver disease Status: Acute (3) Anemia Assessment & Plan: chronic disease and renal disease Status: Chronic
--- NOTE | 2017-12-08 13:16 | CP.PCM.PN ---
<Christine Sampson - Last Filed: 12/08/17 18:11> Subjective - Date & Time of Evaluation Date of Evaluation: 12/08/17 Time of Evaluation: 07:00 - Subjective Subjective: PGY1- Medicine Note- Dr. Steen's service Patient seen and examined at bedside and in no acute distress. Patient is POD 1 s/p R IJ permacath. Patient had increased appetite after permacath placement and said he ate more than he has so far during his hospital admission. Patient denies any chest pain, shortness of breath, abdominal pain, nausea, vomiting, diarrhea, or constipation. Objective - Vital Signs/Intake and Output Vital Signs (last 24 hours): Temp Pulse Resp BP Pulse Ox 97.5 F L 63 18 118/72 99 12/08/17 12:20 12/08/17 12:20 12/08/17 12:20 12/08/17 12:20 12/08/17 12:20 Intake and Output: 12/08/17 12/08/17 06:59 18:59 Intake Total 770 Balance 770 - Medications Medications: Current Medications Albumin Human (Albumin Human 25% (12.5 Gm/50 Ml)) 12.5 gm IV Q8 [facility] Last Admin: 12/08/17 05:35 Dose: 12.5 gm Albuterol/Ipratropium (Duoneb 3 Mg/0.5 Mg (3 Ml) Ud) 3 ml INH RQ6 PRN PRN Reason: Shortness of Breath Calcium Acetate (Phoslo) 667 mg PO TIDCC [facility] Last Admin: 12/08/17 08:37 Dose: 667 mg Piperacillin Sod/Tazobactam Sod (Zosyn 2.25 Gm Iv Premix) 2.25 gm in 50 mls @ 100 mls/hr IVPB Q8H [facility] Last Admin: 12/08/17 05:38 Dose: 100 mls/hr Sodium Bicarbonate 150 meq/ (Potassium Chloride/Dextrose) 1,150 mls @ 100 mls/ hr IV .[id number] [facility] Potassium Chloride 20 meq/Sodium Bicarbonate 150 meq/Dextrose 1,160 mls @ 100 mls/hr IV .[id number] [facility] Last Admin: 12/07/17 19:36 Dose: 100 mls/hr Lactulose (Enulose) 20 gm PO BID [facility] Last Admin: 12/07/17 22:55 Dose: 20 gm Methylprednisolone (Solu-Medrol) 32 mg IV DAILY [facility] Last Admin: 12/07/17 10:36 Dose: 32 mg Midodrine (Proamatine) 7.5 mg PO TID [facility] Last Admin: 12/08/17 09:03 Dose: 7.5 mg Oxycodone/Acetaminophen (Percocet 5/325 Mg Tab) 2 tab PO Q4H PRN PRN Reason: Pain, severe (8-10) Stop: 12/10/17 17:34 Pantoprazole Sodium (Protonix Ec Tab) 40 mg PO DAILY [facility] Last Admin: 12/07/17 10:39 Dose: 40 mg Promethazine HCl (Phenergan Syrup) 6.25 mg PO Q6H PRN PRN Reason: Cough Last Admin: 12/07/17 02:35 Dose: 6.25 mg - Labs Labs: 12/08/17 07:01 12/08/17 07:01 PT 27.4 SECONDS (9.7-12.2) H 12/08/17 07:01 INR 2.4 12/08/17 07:01 APTT 70 SECONDS (21-34) H D 12/07/17 06:59 - Additional Findings Additional findings: - Constitutional Appears: No Acute Distress, Chronically Ill - Head Exam Head Exam: ATRAUMATIC, NORMAL INSPECTION - Eye Exam Eye Exam: Scleral icterus - Respiratory Exam Respiratory Exam: NORMAL BREATHING PATTERN - Cardiovascular Exam Cardiovascular Exam: +S1, +S2 - GI/Abdominal Exam GI & Abdominal Exam: Distended, Rigid, Normal Bowel Sounds. absent: Tenderness - Extremities Exam Extremities Exam: Normal Inspection - Neurological Exam Neurological Exam: Alert, Awake, Oriented x3 - Psychiatric Exam Psychiatric exam: Normal Affect, Normal Mood - Skin Skin Exam: absent: Normal Color (jaundice) Additional comments: [facility] pramodacat Assessment and Plan - Assessment and Plan (Free Text) Assessment: 1) Obstructive Jaundice secondary to: Portal vein thrombosis, History of Liver Cirrhosis, Transaminitis , Alcohol Use, Intrahepatic Biliary dilatation, Cholelithiasis * Admitted to ICU * MELD 44; 90-Day Mortality Rate: 0.94 * Discriminant Function>32 indicated poor prognosis and patient may benefit from glucocorticoid therapy * GI (Dr. Ham) on board-->Help appreciated * Chronic alcoholic cirrhosis now with superimposed hepatic injury due to acute alcoholic hepatitis * DF= 84, indicating > 50% 30 day mortality * Alcohol cessation discussed with patient * Will start Prednisolone for acute alcoholic hepatitis with elevated Discriminant Funtion and high mortality * Solumedrol 32mg IV daily * Hematology (Dr. Mindy Castro) on board-->help appreciated * Obstructive series (12/01/17): nonspecific bowel gas pattern. No evidence of mechanical bowel obstruction. Clear lungs * Abdominal US (12/01/16): Blood flow could not be documented in portal vein in region of yohan hepatitis raising suspicion for portal vein thrombosis. Cirrhosis of the liver and small perihepatic ascites. Severe intrahepatic biliary ductal dilatation, worse in the left hepatic lobe and cholelithiasis * CT abdomen and Pelvis (12/01/16): hepatic splenomegaly. Hepatic cirrhosis. Ascites. Extensive intrapheatic biliary dilatation. Common bile duct not adequately demonstrated. DD: choledocholithaisis, bilary neoplasm, colitis. Enteritis. Cholelithiasis * Abdominal US (12/02/16): somewhat limited study to patient's body habitus. Advanced cirrhosis. Findings suspicious for portal vein thrombosis. Dilated intrahepatic biliary ducts of uncertain etiology. Splenomegaly. Small ascites. Gallstones without definite evidence of acute cholecystitis. Dilated CBD 10.6mm. * Abdominal MRI (12/02/16): tubular shaped dilated branching structures in the liver may represent dilated protal vein versus dilated intrahepatic biliary ducts. No definite evidence of mass liesion in the yohan hepatis region in this study. Advanced cirrhosis. Splenomegaly and small ascites. The CBD is not dilated. The main pancreatic duct is not dilated. Gallstones without evidence of acute cholecystitis * Patient started on Heparin Drip for Portal vein thrombosis * Patient has elevated ammonia on admission he is awake/alert/oriented X3 * Start Zosyn 2.25 IV Q 8Hours (active since 12/01/16) 2) Acute Renal Failure Secondary to Hepatorenal syndrome * POD #1 s/p R IJ permacath * dialysis today * Nephrology (Dr. Balderrama) on board-->help appreciated * Recommend IV bicarb gtt * serial chemistires * avoid paracentesis * octeotride drip * monitor intake and output * Prostate adenocarcinoma (biopsy 04/04/17) rojas: 6 3) Sepsis Elevated INR * Urine culture (12/01/17): no growth * Blood culture (12/01/17): negative to date * Elevated procalcitonin (5.29-->5.20) * Significantly higher in CKD patients w/o infections prior to starting renal replacement therapy * Order procalcitonin when patient starts dialysis to see if drops * Zosyn 2.25g IVPB Q8H (active since 12/01/17) 4) Alcoholic Cardiomyopathy * Echocardiogram (12/01/17): normal LV EF and Doppler * Cardiology (Dr. Vigil) on board-->help appreciated * Echo demonstrates normal LV EF. 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 * Unable to give aspirin secondary to elevated INR * Unable to give ARB/Statin secondary to ARF 5) Hyponatremia * Nephrology (Dr. Balderrama) on board-->help appreciated * serum osmolarity: 287 * urine osmolarity: 338 * Urine sodium: <5 6) History of Alcohol Use * Blood alcohol <10 * Patient reports last drink was around [place] * Patient does not appear in withdrawal 7) History of Anemia * HgB/Hct are stable * Heme-onc (Dr. Mindy Castro) on consult 8) GI PPx * Protonix 40mg PO daily 9) DVT ppx * Discontinued heparin drip on 12/07/17- INR: 2.4 10) Cough * Chest X Ray 12/03/17 showed mild to moderate pulmonary vascular congestion however this was not heard on Respiratory exam 12/04/17 * Promethazine DM 5ml PO Q6H PRN cough * Duoneb PRN Q6H PRN shortness of breathe 11) Constipation * Lactulose 20 gm PO 2x/day. 12). Hyocalcemia * Calcium Acetate 667 mg po TIDCC On 12/05/[address] Alcocer: discussed with GI, patient accepted under Chief of Hepatology Dr. Rodriguez [phone] at [facility]. EMTLA is filled out. We are awaiting bed availablility. <Den Steen - Last Filed: 12/08/17 20:22> Objective - Vital Signs/Intake and Output Vital Signs (last 24 hours): Temp Pulse Resp BP Pulse Ox 97.5 F L 63 20 151/80 H 100 12/08/17 15:17 12/08/17 16:00 12/08/17 15:17 12/08/17 15:17 12/08/17 15:17 - Medications Medications: Current Medications Albumin Human (Albumin Human 25% (12.5 Gm/50 Ml)) 12.5 gm IV Q8 [facility] Last Admin: 12/08/17 15:30 Dose: 12.5 gm Albuterol/Ipratropium (Duoneb 3 Mg/0.5 Mg (3 Ml) Ud) 3 ml INH RQ6 PRN PRN Reason: Shortness of Breath Calcium Acetate (Phoslo) 667 mg PO TIDCC [facility] Last Admin: 12/08/17 18:00 Dose: 667 mg Piperacillin Sod/Tazobactam Sod (Zosyn 2.25 Gm Iv Premix) 2.25 gm in 50 mls @ 100 mls/hr IVPB Q8H [facility] Last Admin: 12/08/17 15:00 Dose: 100 mls/hr Sodium Bicarbonate 150 meq/ (Potassium Chloride/Dextrose) 1,150 mls @ 100 mls/ hr IV .[id number] [facility] Last Admin: 12/08/17 15:07 Dose: Not Given Lactulose (Enulose) 20 gm PO BID [facility] Last Admin: 12/08/17 18:14 Dose: 20 gm Methylprednisolone (Solu-Medrol) 32 mg IV DAILY [facility] Last Admin: 12/08/17 13:21 Dose: 32 mg Midodrine (Proamatine) 7.5 mg PO TID [facility] Last Admin: 12/08/17 18:14 Dose: 7.5 mg Oxycodone/Acetaminophen (Percocet 5/325 Mg Tab) 2 tab PO Q4H PRN PRN Reason: Pain, severe (8-10) Stop: 12/10/17 17:34 Pantoprazole Sodium (Protonix Ec Tab) 40 mg PO DAILY [facility] Last Admin: 12/08/17 13:20 Dose: 40 mg Promethazine HCl (Phenergan Syrup) 6.25 mg PO Q6H PRN PRN Reason: Cough Last Admin: 12/07/17 02:35 Dose: 6.25 mg - Labs Labs: 12/08/17 07:01 12/08/17 07:01 PT 27.4 SECONDS (9.7-12.2) H 12/08/17 07:01 INR 2.4 12/08/17 07:01 APTT 70 SECONDS (21-34) H D 12/07/17 06:59 Attending/Attestation - Attestation I have personally seen and examined this patient.: Yes I have fully participated in the care of the patient.: Yes I have reviewed all pertinent clinical information, including history, physical exam and plan: Yes Notes (Text): 12/08/17 20:20 Patient was seen and examined at 3:45 PM. Exam, assessment and plan were thoroughly gone over with the resident. Patient was also started on Phoslo 667 PO TID. Charge Nurse Torrie called [facility] and bed is still not available. Den Steen D.O.
[2017-12-08] MEDS: Pantoprazole 40 mg EC Tab PO SCH (13:20)
[2017-12-08] MEDS: MethylPREDNISolone 40 mg Vial IV SCH (13:21)
--- NOTE | 2017-12-08 13:34 | CP.PCM.PN ---
Subjective - Date & Time of Evaluation Date of Evaluation: 12/08/17 Time of Evaluation: 13:32 - Subjective Subjective: Seen at dialysis Has had bleeding at exit site- permcath placed 12/07 Dialysis rescheduled for today as cath placed late on 12/07 Still very jaundiced; oliguric Not toxic appearing, poor appetite Objective - Vital Signs/Intake and Output Vital Signs (last 24 hours): Temp Pulse Resp BP Pulse Ox 97.5 F L 63 18 118/72 99 12/08/17 12:20 12/08/17 12:20 12/08/17 12:20 12/08/17 12:20 12/08/17 12:20 Intake and Output: 12/08/17 12/08/17 06:59 18:59 Intake Total 770 Balance 770 - Medications Medications: Current Medications Albumin Human (Albumin Human 25% (12.5 Gm/50 Ml)) 12.5 gm IV Q8 [facility] Last Admin: 12/08/17 05:35 Dose: 12.5 gm Albuterol/Ipratropium (Duoneb 3 Mg/0.5 Mg (3 Ml) Ud) 3 ml INH RQ6 PRN PRN Reason: Shortness of Breath Calcium Acetate (Phoslo) 667 mg PO TIDCC [facility] Last Admin: 12/08/17 13:20 Dose: 667 mg Piperacillin Sod/Tazobactam Sod (Zosyn 2.25 Gm Iv Premix) 2.25 gm in 50 mls @ 100 mls/hr IVPB Q8H [facility] Last Admin: 12/08/17 05:38 Dose: 100 mls/hr Sodium Bicarbonate 150 meq/ (Potassium Chloride/Dextrose) 1,150 mls @ 100 mls/ hr IV .[id number] [facility] Potassium Chloride 20 meq/Sodium Bicarbonate 150 meq/Dextrose 1,160 mls @ 100 mls/hr IV .[id number] [facility] Last Admin: 12/07/17 19:36 Dose: 100 mls/hr Lactulose (Enulose) 20 gm PO BID [facility] Last Admin: 12/08/17 13:20 Dose: 20 gm Methylprednisolone (Solu-Medrol) 32 mg IV DAILY [facility] Last Admin: 12/08/17 13:21 Dose: 32 mg Midodrine (Proamatine) 7.5 mg PO TID [facility] Last Admin: 12/08/17 13:20 Dose: 7.5 mg Oxycodone/Acetaminophen (Percocet 5/325 Mg Tab) 2 tab PO Q4H PRN PRN Reason: Pain, severe (8-10) Stop: 12/10/17 17:34 Pantoprazole Sodium (Protonix Ec Tab) 40 mg PO DAILY [facility] Last Admin: 12/08/17 13:20 Dose: 40 mg Promethazine HCl (Phenergan Syrup) 6.25 mg PO Q6H PRN PRN Reason: Cough Last Admin: 12/07/17 02:35 Dose: 6.25 mg - Labs Labs: 12/08/17 07:01 12/08/17 07:01 PT 27.4 SECONDS (9.7-12.2) H 12/08/17 07:01 INR 2.4 12/08/17 07:01 APTT 70 SECONDS (21-34) H D 12/07/17 06:59 - Constitutional Appears: No Acute Distress, Chronically Ill - Head Exam Head Exam: ATRAUMATIC, NORMAL INSPECTION - Eye Exam Eye Exam: EOMI, Scleral icterus - Neck Exam Neck Exam: Normal Inspection. absent: Tenderness - Respiratory Exam Respiratory Exam: Clear to Ausculation Bilateral, NORMAL BREATHING PATTERN - Cardiovascular Exam Cardiovascular Exam: REGULAR RHYTHM, +S1 - GI/Abdominal Exam GI & Abdominal Exam: Distended, Soft - Extremities Exam Extremities Exam: Normal Inspection, Pedal Edema. absent: Tenderness - Neurological Exam Neurological Exam: Awake, CN II-XII Intact - Skin Skin Exam: Dry, Warm Assessment and Plan (1) KELSEY (acute kidney injury) Status: Acute (2) Hepatorenal syndrome Status: Chronic (3) Alcoholic cirrhosis Status: Chronic - Assessment and Plan (Free Text) Plan: Dialysis MWF D/C IV fluids continue mododrine follow up lytes If blleding persists- use FFP or DDAVP ? UMDN[facility] darbyal
[2017-12-08] MEDS: SODIUM BICARBONATE IV SCH (16:34)
[2017-12-08] MEDS: [UNRECOGNIZED DRUG - OTHER] IV SCH (16:34)
[2017-12-08] MEDS: POTASSIUM CHLORIDE IV SCH (16:34)
[2017-12-08] MEDS: DEXTROSE 5% IV SCH (16:34)
[2017-12-09] MEDS: Promethazine 6.25 MG/5 ML CUP PO PRN (05:34)
[2017-12-09] MEDS: Piperacill/Tazo 2.25gm in Dex 2.25 GM/50 ML BAG IVPB SCH (05:35)
[2017-12-09] MEDS: Albumin Human 25% (12.5 gm/50 ml) IV SCH ×3 (05:35→22:24)
[2017-12-09 06:53] LABS: BASO % 0.1 % (0.0-2.0); EOS % 0.1 % (0.0-4.0); HEMOGLOBIN 8.1 g/dL (12.0-18.0); LYMPH # 0.6 K/uL (1.0-4.3); MEAN CELL VOLUME 78.7 fL (80.0-94.0); MEAN CORPUSCULAR HEMOGLOBIN 27.4 pg (27.0-31.0); MEAN CORPUSCULAR HGB CONC 34.8 g/dL (33.0-37.0); MEAN PLATELET VOLUME 9.3 fL (7.2-11.7); MONO # 1.3 K/uL (0.0-0.8); MONO % 6.8 % (0.0-10.0); NEUT # 16.9 K/uL (1.8-7.0); PLATELET COUNT 57 K/uL (130-400); RBC 2.96 Mil/uL (4.40-5.90); RED CELL DISTRIBUTION WIDTH 29.8 % (11.5-14.5); WHITE BLOOD COUNT 18.8 K/uL (4.8-10.8)
[2017-12-09 06:58] LABS: INR 2.2; PROTHROMBIN TIME 25.7 SECONDS (9.7-12.2)
[2017-12-09 07:04] LABS: ALB/GLOB RATIO 0.9 (1.0-2.1); ALBUMIN 2.8 g/dL (3.5-5.0); CALCIUM 6.1 mg/dl (8.6-10.4); MAGNESIUM 2.2 mg/dL (1.6-2.3)
--- NOTE | 2017-12-09 07:25 | CP.PCM.PN ---
<Lupe Kincaid - Last Filed: 12/09/17 16:19> Subjective - Date & Time of Evaluation Date of Evaluation: 12/09/17 Time of Evaluation: 07:28 - Subjective Subjective: Progress note for Dr. Den Steen Patient seen and examined at bedside. No acute events overnight. Patient is aware he is awaiting for transfer. Patient's permacath dressing changed at bedside overnight twice and once at bedside at time of visit. Patient states he tolerated dialysis well. H Objective - Vital Signs/Intake and Output Vital Signs (last 24 hours): Temp Pulse Resp BP Pulse Ox 97 F L 63 20 106/55 L 94 L 12/09/17 05:00 12/09/17 05:00 12/09/17 05:00 12/09/17 05:00 12/09/17 05:00 - Medications Medications: Current Medications Albumin Human (Albumin Human 25% (12.5 Gm/50 Ml)) 12.5 gm IV Q8 [facility] Last Admin: 12/09/17 05:35 Dose: 12.5 gm Albuterol/Ipratropium (Duoneb 3 Mg/0.5 Mg (3 Ml) Ud) 3 ml INH RQ6 PRN PRN Reason: Shortness of Breath Calcium Acetate (Phoslo) 667 mg PO TIDCC [facility] Last Admin: 12/08/17 18:00 Dose: 667 mg Piperacillin Sod/Tazobactam Sod (Zosyn 2.25 Gm Iv Premix) 2.25 gm in 50 mls @ 100 mls/hr IVPB Q8H [facility] Last Admin: 12/09/17 05:35 Dose: 100 mls/hr Lactulose (Enulose) 20 gm PO BID [facility] Last Admin: 12/08/17 18:14 Dose: 20 gm Methylprednisolone (Solu-Medrol) 32 mg IV DAILY [facility] Last Admin: 12/08/17 13:21 Dose: 32 mg Midodrine (Proamatine) 7.5 mg PO TID [facility] Last Admin: 12/08/17 18:14 Dose: 7.5 mg Oxycodone/Acetaminophen (Percocet 5/325 Mg Tab) 2 tab PO Q4H PRN PRN Reason: Pain, severe (8-10) Stop: 12/10/17 17:34 Pantoprazole Sodium (Protonix Ec Tab) 40 mg PO DAILY [facility] Last Admin: 12/08/17 13:20 Dose: 40 mg Promethazine HCl (Phenergan Syrup) 6.25 mg PO Q6H PRN PRN Reason: Cough Last Admin: 12/09/17 05:34 Dose: 6.25 mg - Labs Labs: 12/09/17 06:34 12/09/17 06:34 PT 25.7 SECONDS (9.7-12.2) H 12/09/17 06:34 INR 2.2 12/09/17 06:34 APTT 70 SECONDS (21-34) H D 12/07/17 06:59 - Constitutional Appears: Non-toxic - Head Exam Head Exam: NORMAL INSPECTION - Eye Exam Eye Exam: EOMI, Normal appearance - ENT Exam ENT Exam: Mucous Membranes Moist - Neck Exam Neck Exam: Full ROM, Normal Inspection. absent: Thyromegaly - Respiratory Exam Respiratory Exam: NORMAL BREATHING PATTERN. absent: Accessory Muscle Use, Respiratory Distress - Cardiovascular Exam Cardiovascular Exam: REGULAR RHYTHM, +S1, +S2. absent: Bradycardia, Tachycardia - GI/Abdominal Exam GI & Abdominal Exam: Soft. absent: Tenderness - Extremities Exam Extremities Exam: Full ROM - Back Exam Back Exam: Full ROM, NORMAL INSPECTION - Neurological Exam Neurological Exam: Alert, Awake, CN II-XII Intact, Normal Gait - Skin Skin Exam: Dry, Pallor. absent: Normal Color Additional comments: jaundice permacath in placed on right upper chest Assessment and Plan - Assessment and Plan (Free Text) Assessment: 1) Obstructive Jaundice secondary to: Portal vein thrombosis, History of Liver Cirrhosis, Transaminitis , Alcohol Use, Intrahepatic Biliary dilatation, Cholelithiasis * Admitted to ICU * MELD 44; 90-Day Mortality Rate: 0.94 * Discriminant Function>32 indicated poor prognosis and patient may benefit from glucocorticoid therapy * GI (Dr. Ham) on board-->Help appreciated * Chronic alcoholic cirrhosis now with superimposed hepatic injury due to acute alcoholic hepatitis * DF= 84, indicating > 50% 30 day mortality * Alcohol cessation discussed with patient * Will start Prednisolone for acute alcoholic hepatitis with elevated Discriminant Funtion and high mortality * Solumedrol 32mg IV daily * Hematology (Dr. Mindy Castro) on board-->help appreciated * Obstructive series (12/01/17): nonspecific bowel gas pattern. No evidence of mechanical bowel obstruction. Clear lungs * Abdominal US (12/01/16): Blood flow could not be documented in portal vein in region of yohan hepatitis raising suspicion for portal vein thrombosis. Cirrhosis of the liver and small perihepatic ascites. Severe intrahepatic biliary ductal dilatation, worse in the left hepatic lobe and cholelithiasis * CT abdomen and Pelvis (12/01/16): hepatic splenomegaly. Hepatic cirrhosis. Ascites. Extensive intraphepatic biliary dilatation. Common bile duct not adequately demonstrated. DD: choledocholithaisis, bilary neoplasm, colitis. Enteritis. Cholelithiasis * Abdominal US (12/02/16): somewhat limited study to patient's body habitus. Advanced cirrhosis. Findings suspicious for portal vein thrombosis. Dilated intrahepatic biliary ducts of uncertain etiology. Splenomegaly. Small ascites. Gallstones without definite evidence of acute cholecystitis. Dilated CBD 10.6mm. * Abdominal MRI (12/02/16): tubular shaped dilated branching structures in the liver may represent dilated portal vein versus dilated intrahepatic biliary ducts. No definite evidence of mass liesion in the yohan hepatis region in this study. Advanced cirrhosis. Splenomegaly and small ascites. The CBD is not dilated. The main pancreatic duct is not dilated. Gallstones without evidence of acute cholecystitis * Patient started on Heparin Drip for Portal vein thrombosis * Patient has elevated ammonia on admission he is awake/alert/oriented X3 * Start Zosyn 2.25 IV Q 8Hours (active since 12/01/16) 2) Acute Renal Failure Secondary to Hepatorenal syndrome * POD #2 s/p R IJ permacath 12/07 * dialysis today * Nephrology (Dr. Balderrama) on board-->help appreciated * Recommend IV bicarb gtt * serial chemistires * avoid paracentesis * octeotride drip * monitor intake and output * Prostate adenocarcinoma (biopsy 04/04/17) rojas: 6 * 750cc over 24 hour 3) Sepsis Elevated INR * Urine culture (12/01/17): no growth * Blood culture (12/01/17): negative to date * Elevated procalcitonin (5.29-->5.20) * Significantly higher in CKD patients w/o infections prior to starting renal replacement therapy * Order procalcitonin when patient starts dialysis to see if drops * Zosyn 2.25g IVPB Q8H (active since 12/01/17) 4) Alcoholic Cardiomyopathy * Echocardiogram (12/01/17): normal LV EF and Doppler * Cardiology (Dr. Vigil) on board-->help appreciated * Echo demonstrates normal LV EF. 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 * Unable to give aspirin secondary to elevated INR * Unable to give ARB/Statin secondary to ARF 5) Hyponatremia * Nephrology (Dr. Balderrama) on board-->help appreciated * serum osmolarity: 287 * urine osmolarity: 338 * Urine sodium: <5 6) History of Alcohol Use * Blood alcohol <10 * Patient reports last drink was around [place] * Patient does not appear in withdrawal 7) History of Anemia * HgB/Hct are stable * Heme-onc (Dr. Mindy Castro) on consult 8) GI PPx * Protonix 40mg PO daily 9) DVT ppx * Discontinued heparin drip on 12/07/17- INR: 2.4 10) Cough * Chest X Ray 12/03/17 showed mild to moderate pulmonary vascular congestion however this was not heard on Respiratory exam 12/04/17 * Promethazine DM 5ml PO Q6H PRN cough * Duoneb PRN Q6H PRN shortness of breathe 11) Constipation * Lactulose 20 gm PO 2x/day. 12). Hyocalcemia * Calcium Acetate 667 mg po TIDCC On 12/05/[address] Alcocer: discussed with GI, patient accepted under Chief of Hepatology Dr. Rodriguez [phone] [facility]. EMTLA is filled out. We are awaiting bed availablility. Lupe Kincaid DO PGY1 <Den Steen - Last Filed: 12/09/17 17:39> Objective - Vital Signs/Intake and Output Vital Signs (last 24 hours): Temp Pulse Resp BP Pulse Ox 98.0 F 70 20 132/66 96 12/09/17 16:14 12/09/17 16:14 12/09/17 16:14 12/09/17 16:14 12/09/17 16:14 - Medications Medications: Current Medications Albumin Human (Albumin Human 25% (12.5 Gm/50 Ml)) 12.5 gm IV Q8 [facility] Last Admin: 12/09/17 14:15 Dose: 12.5 gm Albuterol/Ipratropium (Duoneb 3 Mg/0.5 Mg (3 Ml) Ud) 3 ml INH RQ6 PRN PRN Reason: Shortness of Breath Calcium Acetate (Phoslo) 667 mg PO TIDCC [facility] Last Admin: 12/09/17 14:21 Dose: 667 mg Lactulose (Enulose) 20 gm PO BID [facility] Last Admin: 12/09/17 09:47 Dose: 20 gm Methylprednisolone (Solu-Medrol) 32 mg IV DAILY [facility] Last Admin: 12/09/17 09:48 Dose: 32 mg Midodrine (Proamatine) 7.5 mg PO TID [facility] Last Admin: 12/09/17 14:21 Dose: 7.5 mg Oxycodone/Acetaminophen (Percocet 5/325 Mg Tab) 2 tab PO Q4H PRN PRN Reason: Pain, severe (8-10) Stop: 12/10/17 17:34 Pantoprazole Sodium (Protonix Ec Tab) 40 mg PO DAILY [facility] Last Admin: 12/09/17 09:52 Dose: 40 mg Promethazine HCl (Phenergan Syrup) 6.25 mg PO Q6H PRN PRN Reason: Cough Last Admin: 12/09/17 05:34 Dose: 6.25 mg - Labs Labs: 12/09/17 06:34 12/09/17 06:34 PT 25.7 SECONDS (9.7-12.2) H 12/09/17 06:34 INR 2.2 12/09/17 06:34 APTT 70 SECONDS (21-34) H D 12/07/17 06:59 Attending/Attestation - Attestation I have personally seen and examined this patient.: Yes I have fully participated in the care of the patient.: Yes I have reviewed all pertinent clinical information, including history, physical exam and plan: Yes Notes (Text): 12/09/17 17:37 Patient was seen and examined at 11:15 AM. Exam, assessment and plan were thoroughly gone over with the resident. Patient is also on Phoslo 667 PO TID. Awaiting transfer to [facility]/[place], [place]. Den Steen D.O.
[2017-12-09 09:36] LABS: LYMPHOCYTE 5 % (20-40); MONOCYTE 7 % (0-10); NEUTROPHIL 88 % (50-75); TOTAL CELLS COUNTED 100
[2017-12-09 09:37] LABS: PLATELET ESTIMATE DECREASED (NORMAL)
[2017-12-09 09:38] LABS: ANISOCYTOSIS MARKED; HYPOCHROMIC MARKED; POIKILOCYTOSIS MODERATE
[2017-12-09 09:39] LABS: BURR CELLS SLIGHT; POLYCHROMIC SLIGHT; SCHISTOCYTES SLIGHT
[2017-12-09 09:42] LABS: TARGET CELLS MODERATE
[2017-12-09 09:43] LABS: OVALOCYTES MODERATE; TOXIC GRANULATION PRESENT
[2017-12-09] MEDS: MethylPREDNISolone 40 mg Vial IV SCH (09:48)
[2017-12-09] MEDS: Pantoprazole 40 mg EC Tab PO SCH (09:52)
--- NOTE | 2017-12-09 11:58 | CP.PCM.PN ---
Subjective - Date & Time of Evaluation Date of Evaluation: 12/09/17 Time of Evaluation: 11:35 - Subjective Subjective: tolerated HD yesterday, 0.5 kg uf says he is urinating when he moves his bowels r appetite ok no chest pain no cough abdominal distention no rash no fever no headache tentative transfer to [facility] chronic hyponatremia Objective - Vital Signs/Intake and Output Vital Signs (last 24 hours): Temp Pulse Resp BP Pulse Ox 97.4 F L 86 18 127/65 98 12/09/17 08:00 12/09/17 08:00 12/09/17 08:00 12/09/17 08:00 12/09/17 08:00 - Medications Medications: Current Medications Albumin Human (Albumin Human 25% (12.5 Gm/50 Ml)) 12.5 gm IV Q8 [facility] Last Admin: 12/09/17 05:35 Dose: 12.5 gm Albuterol/Ipratropium (Duoneb 3 Mg/0.5 Mg (3 Ml) Ud) 3 ml INH RQ6 PRN PRN Reason: Shortness of Breath Calcium Acetate (Phoslo) 667 mg PO TIDCC [facility] Last Admin: 12/09/17 09:52 Dose: 667 mg Lactulose (Enulose) 20 gm PO BID [facility] Last Admin: 12/09/17 09:47 Dose: 20 gm Methylprednisolone (Solu-Medrol) 32 mg IV DAILY [facility] Last Admin: 12/09/17 09:48 Dose: 32 mg Midodrine (Proamatine) 7.5 mg PO TID [facility] Last Admin: 12/09/17 09:51 Dose: 7.5 mg Oxycodone/Acetaminophen (Percocet 5/325 Mg Tab) 2 tab PO Q4H PRN PRN Reason: Pain, severe (8-10) Stop: 12/10/17 17:34 Pantoprazole Sodium (Protonix Ec Tab) 40 mg PO DAILY [facility] Last Admin: 12/09/17 09:52 Dose: 40 mg Promethazine HCl (Phenergan Syrup) 6.25 mg PO Q6H PRN PRN Reason: Cough Last Admin: 12/09/17 05:34 Dose: 6.25 mg - Labs Labs: 12/09/17 06:34 12/09/17 06:34 PT 25.7 SECONDS (9.7-12.2) H 12/09/17 06:34 INR 2.2 12/09/17 06:34 APTT 70 SECONDS (21-34) H D 12/07/17 06:59 - Constitutional Appears: Chronically Ill, Other (jaundiced) - Eye Exam Eye Exam: Scleral icterus - Neck Exam Neck Exam: Full ROM. absent: Lymphadenopathy - Respiratory Exam Respiratory Exam: Decreased Breath Sounds. absent: Prolonged Expiratory Phase - Cardiovascular Exam Cardiovascular Exam: REGULAR RHYTHM. absent: Rubs - GI/Abdominal Exam GI & Abdominal Exam: Distended, Soft Additional comments: ascites - Extremities Exam Extremities Exam: Pedal Edema - Neurological Exam Neurological Exam: Alert, Awake Assessment and Plan - Assessment and Plan (Free Text) Assessment: decompensated cirrohosis, now on dialysis hyponatremia due to volume overload HD scheduled for Monday for transfer to liver center
--- NOTE | 2017-12-09 11:59 | CP.PCM.PN ---
Subjective - Date & Time of Evaluation Date of Evaluation: 12/09/17 Time of Evaluation: 11:55 - Subjective Subjective: COVERING DR NIXON/DILSHAD No pain or bleeding. hgb dropped to 8.1 but no melena. Anticoagulation stopped due to "auto-anticoagulation" status. Objective - Vital Signs/Intake and Output Vital Signs (last 24 hours): Temp Pulse Resp BP Pulse Ox 97.4 F L 86 18 127/65 98 12/09/17 08:00 12/09/17 08:00 12/09/17 08:00 12/09/17 08:00 12/09/17 08:00 - Medications Medications: Current Medications Albumin Human (Albumin Human 25% (12.5 Gm/50 Ml)) 12.5 gm IV Q8 [facility] Last Admin: 12/09/17 05:35 Dose: 12.5 gm Albuterol/Ipratropium (Duoneb 3 Mg/0.5 Mg (3 Ml) Ud) 3 ml INH RQ6 PRN PRN Reason: Shortness of Breath Calcium Acetate (Phoslo) 667 mg PO TIDCC [facility] Last Admin: 12/09/17 09:52 Dose: 667 mg Lactulose (Enulose) 20 gm PO BID [facility] Last Admin: 12/09/17 09:47 Dose: 20 gm Methylprednisolone (Solu-Medrol) 32 mg IV DAILY [facility] Last Admin: 12/09/17 09:48 Dose: 32 mg Midodrine (Proamatine) 7.5 mg PO TID [facility] Last Admin: 12/09/17 09:51 Dose: 7.5 mg Oxycodone/Acetaminophen (Percocet 5/325 Mg Tab) 2 tab PO Q4H PRN PRN Reason: Pain, severe (8-10) Stop: 12/10/17 17:34 Pantoprazole Sodium (Protonix Ec Tab) 40 mg PO DAILY [facility] Last Admin: 12/09/17 09:52 Dose: 40 mg Promethazine HCl (Phenergan Syrup) 6.25 mg PO Q6H PRN PRN Reason: Cough Last Admin: 12/09/17 05:34 Dose: 6.25 mg - Labs Labs: 12/09/17 06:34 12/09/17 06:34 PT 25.7 SECONDS (9.7-12.2) H 01/13/18 06:34 INR 2.2 12/09/17 06:34 APTT 70 SECONDS (21-34) H D 12/07/17 06:59 - Constitutional Appears: No Acute Distress - Head Exam Head Exam: ATRAUMATIC, NORMOCEPHALIC - Eye Exam Eye Exam: Scleral icterus - Respiratory Exam Respiratory Exam: Decreased Breath Sounds - Cardiovascular Exam Cardiovascular Exam: REGULAR RHYTHM - GI/Abdominal Exam GI & Abdominal Exam: Distended, Soft, Normal Bowel Sounds. absent: Tenderness Additional comments: ascites - Extremities Exam Extremities Exam: Pedal Edema - Neurological Exam Neurological Exam: Awake, Oriented x3 Assessment and Plan - Assessment and Plan (Free Text) Assessment: Alcoholic cirrhosis Portal hypertension Anemia Portal Vein thrombosis Hepatorenal syndrome on dialysis Awaitng transfer to [facility] for investigational protocol when bed available Continue supportive care 'Monitor for active bleeding Prognosis guarded
[2017-12-09 16:16] VITALS: RESP 20
--- NOTE | 2017-12-09 16:21 | CP.PCM.PN ---
Subjective - Date & Time of Evaluation Date of Evaluation: 12/09/17 Time of Evaluation: 16:19 - Subjective Subjective: Vascular Surgery Dr. Russo Pt S&E @bedside. NAEO. pt has no complaints. rports dressing change by nursing this morning. pt denies F/C, N/V. tolerating diet. Objective - Vital Signs/Intake and Output Vital Signs (last 24 hours): Temp Pulse Resp BP Pulse Ox 98.0 F 70 20 132/66 96 12/09/17 16:14 12/09/17 16:14 12/09/17 16:14 12/09/17 16:14 12/09/17 16:14 - Medications Medications: Current Medications Albumin Human (Albumin Human 25% (12.5 Gm/50 Ml)) 12.5 gm IV Q8 [facility] Last Admin: 12/09/17 14:15 Dose: 12.5 gm Albuterol/Ipratropium (Duoneb 3 Mg/0.5 Mg (3 Ml) Ud) 3 ml INH RQ6 PRN PRN Reason: Shortness of Breath Calcium Acetate (Phoslo) 667 mg PO TIDCC [facility] Last Admin: 12/09/17 14:21 Dose: 667 mg Lactulose (Enulose) 20 gm PO BID [facility] Last Admin: 12/09/17 09:47 Dose: 20 gm Methylprednisolone (Solu-Medrol) 32 mg IV DAILY [facility] Last Admin: 12/09/17 09:48 Dose: 32 mg Midodrine (Proamatine) 7.5 mg PO TID [facility] Last Admin: 12/09/17 14:21 Dose: 7.5 mg Oxycodone/Acetaminophen (Percocet 5/325 Mg Tab) 2 tab PO Q4H PRN PRN Reason: Pain, severe (8-10) Stop: 12/10/17 17:34 Pantoprazole Sodium (Protonix Ec Tab) 40 mg PO DAILY [facility] Last Admin: 12/09/17 09:52 Dose: 40 mg Promethazine HCl (Phenergan Syrup) 6.25 mg PO Q6H PRN PRN Reason: Cough Last Admin: 12/09/17 05:34 Dose: 6.25 mg - Labs Labs: 12/09/17 06:34 12/09/17 06:34 PT 25.7 SECONDS (9.7-12.2) H 12/09/17 06:34 INR 2.2 12/09/17 06:34 APTT 70 SECONDS (21-34) H D 12/07/17 06:59 - Constitutional Appears: Non-toxic, No Acute Distress - Head Exam Head Exam: NORMAL INSPECTION - Eye Exam Eye Exam: Scleral icterus - ENT Exam ENT Exam: Mucous Membranes Moist - Neck Exam Additional comments: permacath in place dressing intact though stained - Respiratory Exam Respiratory Exam: NORMAL BREATHING PATTERN. absent: Accessory Muscle Use, Respiratory Distress - Extremities Exam Extremities Exam: Normal Inspection - Neurological Exam Neurological Exam: Alert, Awake, Oriented x3 - Psychiatric Exam Psychiatric exam: Normal Affect, Normal Mood - Skin Skin Exam: Dry, Warm. absent: Normal Color (Jaundice) Assessment and Plan - Assessment and Plan (Free Text) Assessment: 67 y/o M POD#2 s/p permacath placement - dressing changes PRN - cont dialysis per Nephrology - pt cleared for transfer from surgical standpoint - no futher surgical intervention at this time. - cont medical management Pt discussed w/ Dr. Karan Hua DO PGY2
[2017-12-10] MEDS: Albumin Human 25% (12.5 gm/50 ml) IV SCH ×2 (05:15→13:28)
[2017-12-10 08:01] LABS: ALBUMIN 3.1 g/dL (3.5-5.0); CALCIUM 6.5 mg/dl (8.6-10.4)
--- NOTE | 2017-12-10 08:28 | CP.PCM.PN ---
Addendum entered and electronically signed by Lupe Kincaid DO 12/10/17 12:01: of note, hbg is stable at 8.2 Patient's platelets are 110 today PE: 2+ pitting edema of lower extremities Original Note: <Lupe Kincaid - Last Filed: 12/10/17 11:31> Subjective - Date & Time of Evaluation Date of Evaluation: 12/10/17 Time of Evaluation: 08:28 - Subjective Subjective: Progress note for Dr. Den Steen Patient seen and examined at bedside. No acute events overnight. Patient had dressings changed and reinforced overnight.Patient continues to have oozing. 1 unit of platelets administered overnight. Objective - Vital Signs/Intake and Output Vital Signs (last 24 hours): Temp Pulse Resp BP Pulse Ox 97.3 F L 71 20 130/73 95 12/10/17 02:40 12/10/17 04:10 12/10/17 02:40 12/10/17 02:40 12/09/17 23:35 - Medications Medications: Current Medications Albumin Human (Albumin Human 25% (12.5 Gm/50 Ml)) 12.5 gm IV Q8 [facility] Last Admin: 12/10/17 05:15 Dose: 12.5 gm Albuterol/Ipratropium (Duoneb 3 Mg/0.5 Mg (3 Ml) Ud) 3 ml INH RQ6 PRN PRN Reason: Shortness of Breath Calcium Acetate (Phoslo) 667 mg PO TIDCC [facility] Last Admin: 12/09/17 18:58 Dose: 667 mg Lactulose (Enulose) 20 gm PO BID [facility] Last Admin: 12/09/17 18:58 Dose: 20 gm Methylprednisolone (Solu-Medrol) 32 mg IV DAILY [facility] Last Admin: 12/09/17 09:48 Dose: 32 mg Midodrine (Proamatine) 7.5 mg PO TID [facility] Last Admin: 12/09/17 18:58 Dose: 7.5 mg Oxycodone/Acetaminophen (Percocet 5/325 Mg Tab) 2 tab PO Q4H PRN PRN Reason: Pain, severe (8-10) Stop: 12/10/17 17:34 Pantoprazole Sodium (Protonix Ec Tab) 40 mg PO DAILY [facility] Last Admin: 12/09/17 09:52 Dose: 40 mg Promethazine HCl (Phenergan Syrup) 6.25 mg PO Q6H PRN PRN Reason: Cough Last Admin: 12/09/17 05:34 Dose: 6.25 mg - Labs Labs: 12/09/17 06:34 12/10/17 07:30 PT 25.7 SECONDS (9.7-12.2) H 12/09/17 06:34 INR 2.2 12/09/17 06:34 APTT 70 SECONDS (21-34) H D 12/07/17 06:59 Assessment and Plan - Assessment and Plan (Free Text) Assessment: 1) Obstructive Jaundice secondary to: Portal vein thrombosis, History of Liver Cirrhosis, Transaminitis , Alcohol Use, Intrahepatic Biliary dilatation, Cholelithiasis * Admitted to ICU * MELD 44; 90-Day Mortality Rate: 0.94 * Discriminant Function>32 indicated poor prognosis and patient may benefit from glucocorticoid therapy * GI (Dr. Ham) on board-->Help appreciated * Chronic alcoholic cirrhosis now with superimposed hepatic injury due to acute alcoholic hepatitis * DF= 84, indicating > 50% 30 day mortality * Alcohol cessation discussed with patient * Will start Prednisolone for acute alcoholic hepatitis with elevated Discriminant Function and high mortality * Solumedrol 32mg IV daily * Hematology (Dr. Mindy Castro) on board-->help appreciated * Obstructive series (12/01/17): nonspecific bowel gas pattern. No evidence of mechanical bowel obstruction. Clear lungs * Abdominal US (12/01/16): Blood flow could not be documented in portal vein in region of yohan hepatitis raising suspicion for portal vein thrombosis. Cirrhosis of the liver and small perihepatic ascites. Severe intrahepatic biliary ductal dilatation, worse in the left hepatic lobe and cholelithiasis * CT abdomen and Pelvis (12/01/16): hepatic splenomegaly. Hepatic cirrhosis. Ascites. Extensive intraphepatic biliary dilatation. Common bile duct not adequately demonstrated. DD: choledocholithaisis, bilary neoplasm, colitis. Enteritis. Cholelithiasis * Abdominal US (12/02/16): somewhat limited study to patient's body habitus. Advanced cirrhosis. Findings suspicious for portal vein thrombosis. Dilated intrahepatic biliary ducts of uncertain etiology. Splenomegaly. Small ascites. Gallstones without definite evidence of acute cholecystitis. Dilated CBD 10.6mm. * Abdominal MRI (12/02/16): tubular shaped dilated branching structures in the liver may represent dilated portal vein versus dilated intrahepatic biliary ducts. No definite evidence of mass liesion in the yohan hepatis region in this study. Advanced cirrhosis. Splenomegaly and small ascites. The CBD is not dilated. The main pancreatic duct is not dilated. Gallstones without evidence of acute cholecystitis * Patient started on Heparin Drip for Portal vein thrombosis * Patient has elevated ammonia on admission he is awake/alert/oriented X3 * Start Zosyn 2.25 IV Q 8Hours (active since 12/01/16) 2) Acute Renal Failure Secondary to Hepatorenal syndrome * POD #3 s/p R IJ permacath 12/07 * dialysis today * Nephrology (Dr. Balderrama) on board-->help appreciated * Recommend IV bicarb gtt * serial chemistires * avoid paracentesis * octeotride drip * monitor intake and output * Prostate adenocarcinoma (biopsy 04/04/17) rojas: 6 * 750cc over 24 hour 3) Sepsis Elevated INR * Urine culture (12/01/17): no growth * Blood culture (12/01/17): negative to date * Elevated procalcitonin (5.29-->5.20) * Significantly higher in CKD patients w/o infections prior to starting renal replacement therapy * Order procalcitonin when patient starts dialysis to see if drops * Zosyn 2.25g IVPB Q8H (active since 12/01/17) 4) Alcoholic Cardiomyopathy * Echocardiogram (12/01/17): normal LV EF and Doppler * Cardiology (Dr. Vigil) on board-->help appreciated * Echo demonstrates normal LV EF. 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 * Unable to give aspirin secondary to elevated INR * Unable to give ARB/Statin secondary to ARF 5) Hyponatremia * Nephrology (Dr. Balderrama) on board-->help appreciated * serum osmolarity: 287 * urine osmolarity: 338 * Urine sodium: <5 6) History of Alcohol Use * Blood alcohol <10 * Patient reports last drink was around Joel * Patient does not appear in withdrawal 7) History of Anemia * HgB/Hct are stable * Heme-onc (Dr. Mindy Castro) on consult 8) GI PPx * Protonix 40mg PO daily 9) DVT ppx * Discontinued heparin drip on 12/07/17- INR: 2.4 10) Cough * Chest X Ray 12/03/17 showed mild to moderate pulmonary vascular congestion however this was not heard on Respiratory exam 12/04/17 * Promethazine DM 5ml PO Q6H PRN cough * Duoneb PRN Q6H PRN shortness of breathe 11) Constipation * Lactulose 20 gm PO 2x/day. 12). Hyocalcemia * Calcium Acetate 667 mg po TIDCC On 12/05/[address] Alcocer: discussed with GI, patient accepted under Chief of Hepatology Dr. Rodriguez [phone] at [facility]. EMTLA is filled out. We are awaiting bed availablility. 12/10 awaiting AM CBC, ordered, no results as of 11:30am, will follow Lupe Kincaid DO PGY1 <Den Steen - Last Filed: 12/10/17 20:38> Objective - Vital Signs/Intake and Output Vital Signs (last 24 hours): Temp Pulse Resp BP Pulse Ox 97.3 F L 74 20 125/78 97 12/10/17 15:00 12/10/17 16:00 12/10/17 15:00 12/10/17 15:00 12/10/17 15:00 - Medications Medications: Current Medications Albumin Human (Albumin Human 25% (12.5 Gm/50 Ml)) 12.5 gm IV Q8 [facility] Last Admin: 12/10/17 13:28 Dose: 12.5 gm Albuterol/Ipratropium (Duoneb 3 Mg/0.5 Mg (3 Ml) Ud) 3 ml INH RQ6 PRN PRN Reason: Shortness of Breath Calcium Acetate (Phoslo) 667 mg PO TIDCC [facility] Last Admin: 12/10/17 17:12 Dose: 667 mg Ciprofloxacin (Cipro) 500 mg PO DAILY [facility] Last Admin: 12/10/17 14:46 Dose: 500 mg Lactulose (Enulose) 20 gm PO BID [facility] Last Admin: 12/10/17 17:11 Dose: 20 gm Methylprednisolone (Solu-Medrol) 32 mg IV DAILY [facility] Last Admin: 12/10/17 09:35 Dose: 32 mg Midodrine (Proamatine) 7.5 mg PO TID [facility] Last Admin: 12/10/17 17:12 Dose: 7.5 mg Pantoprazole Sodium (Protonix Ec Tab) 40 mg PO DAILY [facility] Last Admin: 12/10/17 09:41 Dose: 40 mg Promethazine HCl (Phenergan Syrup) 6.25 mg PO Q6H PRN PRN Reason: Cough Last Admin: 12/09/17 05:34 Dose: 6.25 mg - Labs Labs: 12/10/17 11:32 12/10/17 11:32 PT 25.7 SECONDS (9.7-12.2) H 12/09/17 06:34 INR 2.2 12/09/17 06:34 APTT 70 SECONDS (21-34) H D 12/07/17 06:59 Attending/Attestation - Attestation I have personally seen and examined this patient.: Yes I have fully participated in the care of the patient.: Yes I have reviewed all pertinent clinical information, including history, physical exam and plan: Yes Notes (Text): 12/10/17 20:34 Patient was seen and examined at 11:15 AM 12/10/17. Exam, assessment and plan were thoroughly gone over with the resident. Please note that there is dramatic rise in WBC today. Patient is on Solumedrol as he has elevated Discriminant Function and may account for the elevated WBC. However, considering the Ascites, SBP is also a possibility. GI Dr. Gerber who is covering for Dr. Ham has started Criprofloxacin to cover for possible SBP. Patient is for HD Monday12/11/17 through Right Chest PermACath. Medicine Team: if there is continued delay in transfer to [facility], then please have IR perform Paracentesis if this is possible. Den Steen D.O.
--- NOTE | 2017-12-10 08:46 | CP.PCM.PN ---
Subjective - Date & Time of Evaluation Date of Evaluation: 12/10/17 Time of Evaluation: 06:50 - Subjective Subjective: Vascular Surgery Dr. Russo Pt S&E @bedside. Paged for bleeding/oozing from permacath overnight. Dressing reinforced. This morning, dressing saturated and leaking. Pt has no complaints. denies F/C, N/V, D/C. tolerating diet. Objective - Vital Signs/Intake and Output Vital Signs (last 24 hours): Temp Pulse Resp BP Pulse Ox 97.3 F L 71 20 130/73 95 12/10/17 02:40 12/10/17 04:10 12/10/17 02:40 12/10/17 02:40 12/09/17 23:35 - Medications Medications: Current Medications Albumin Human (Albumin Human 25% (12.5 Gm/50 Ml)) 12.5 gm IV Q8 [facility] Last Admin: 12/10/17 05:15 Dose: 12.5 gm Albuterol/Ipratropium (Duoneb 3 Mg/0.5 Mg (3 Ml) Ud) 3 ml INH RQ6 PRN PRN Reason: Shortness of Breath Calcium Acetate (Phoslo) 667 mg PO TIDCC [facility] Last Admin: 12/09/17 18:58 Dose: 667 mg Lactulose (Enulose) 20 gm PO BID [facility] Last Admin: 12/09/17 18:58 Dose: 20 gm Methylprednisolone (Solu-Medrol) 32 mg IV DAILY [facility] Last Admin: 12/09/17 09:48 Dose: 32 mg Midodrine (Proamatine) 7.5 mg PO TID [facility] Last Admin: 12/09/17 18:58 Dose: 7.5 mg Oxycodone/Acetaminophen (Percocet 5/325 Mg Tab) 2 tab PO Q4H PRN PRN Reason: Pain, severe (8-10) Stop: 12/10/17 17:34 Pantoprazole Sodium (Protonix Ec Tab) 40 mg PO DAILY [facility] Last Admin: 12/09/17 09:52 Dose: 40 mg Promethazine HCl (Phenergan Syrup) 6.25 mg PO Q6H PRN PRN Reason: Cough Last Admin: 12/09/17 05:34 Dose: 6.25 mg - Labs Labs: 12/09/17 06:34 12/10/17 07:30 PT 25.7 SECONDS (9.7-12.2) H 12/09/17 06:34 INR 2.2 12/09/17 06:34 APTT 70 SECONDS (21-34) H D 12/07/17 06:59 - Constitutional Appears: Non-toxic, No Acute Distress - Head Exam Head Exam: NORMAL INSPECTION - Eye Exam Eye Exam: Scleral icterus - ENT Exam ENT Exam: Mucous Membranes Moist - Neck Exam Additional comments: permacath in place dressing saturated clotted blood present surrounding catheter - Respiratory Exam Respiratory Exam: NORMAL BREATHING PATTERN. absent: Accessory Muscle Use, Respiratory Distress - Extremities Exam Extremities Exam: Normal Inspection - Neurological Exam Neurological Exam: Alert, Awake, Oriented x3 - Psychiatric Exam Psychiatric exam: Normal Affect, Normal Mood - Skin Skin Exam: Dry, Warm. absent: Normal Color (Jaundice) Assessment and Plan - Assessment and Plan (Free Text) Assessment: 67 y/o M POD#3 s/p permacath placement - dressing changes PRN - apply pressure dressing supraclavicular PRN - cont dialysis per Nephrology - pt cleared for transfer from surgical standpoint - no futher surgical intervention at this time. - cont medical management Pt discussed w/ Dr. Karan Hua DO PGY2
[2017-12-10] MEDS: MethylPREDNISolone 40 mg Vial IV SCH (09:35)
[2017-12-10] MEDS: Pantoprazole 40 mg EC Tab PO SCH (09:41)
[2017-12-10 11:47] LABS: BASO % 0.1 % (0.0-2.0); EOS % 0.1 % (0.0-4.0); HEMOGLOBIN 8.2 g/dL (12.0-18.0); LYMPH # 0.7 K/uL (1.0-4.3); LYMPH % 2.4 % (20.0-40.0); MEAN CELL VOLUME 79.2 fL (80.0-94.0); MEAN CORPUSCULAR HEMOGLOBIN 27.6 pg (27.0-31.0); MEAN CORPUSCULAR HGB CONC 34.8 g/dL (33.0-37.0); MEAN PLATELET VOLUME 9.3 fL (7.2-11.7); MONO # 1.8 K/uL (0.0-0.8); MONO % 5.9 % (0.0-10.0); NEUT # 28.3 K/uL (1.8-7.0); NEUT % 91.5 % (50.0-75.0); RBC 2.98 Mil/uL (4.40-5.90); RED CELL DISTRIBUTION WIDTH 30.7 % (11.5-14.5)
[2017-12-10 11:52] LABS: PLATELET COUNT 110 K/uL (130-400); WHITE BLOOD COUNT 30.9 K/uL (4.8-10.8)
[2017-12-10 12:03] LABS: ALBUMIN 3.3 g/dL (3.5-5.0); CALCIUM 6.6 mg/dl (8.6-10.4); MAGNESIUM 2.3 mg/dL (1.6-2.3)
[2017-12-10 12:13] LABS: ANISOCYTOSIS MARKED; BANDS 3 % (0-2); LYMPHOCYTE 2 % (20-40); MONOCYTE 7 % (0-10); NEUTROPHIL 88 % (50-75); PLATELET ESTIMATE SLIGHTLY DECREASED (NORMAL); TOTAL CELLS COUNTED 100
[2017-12-10 12:14] LABS: HYPOCHROMIC MODERATE; OVALOCYTES SLIGHT; POIKILOCYTOSIS SLIGHT; POLYCHROMIC SLIGHT; TARGET CELLS SLIGHT
[2017-12-10 12:15] LABS: BURR CELLS SLIGHT; SCHISTOCYTES SLIGHT
[2017-12-10 12:16] LABS: LARGE PLATELETS PRESENT; TOXIC GRANULATION PRESENT
--- NOTE | 2017-12-10 12:39 | CP.PCM.PN ---
Subjective - Date & Time of Evaluation Date of Evaluation: 12/10/17 Time of Evaluation: 12:36 - Subjective Subjective: No new c/o WBC up to 30K today T Bili rising as well Objective - Vital Signs/Intake and Output Vital Signs (last 24 hours): Temp Pulse Resp BP Pulse Ox 97.5 F L 86 20 126/62 95 12/10/17 07:00 12/10/17 08:00 12/10/17 07:00 12/10/17 07:00 12/10/17 07:00 - Medications Medications: Current Medications Albumin Human (Albumin Human 25% (12.5 Gm/50 Ml)) 12.5 gm IV Q8 [facility] Last Admin: 12/10/17 05:15 Dose: 12.5 gm Albuterol/Ipratropium (Duoneb 3 Mg/0.5 Mg (3 Ml) Ud) 3 ml INH RQ6 PRN PRN Reason: Shortness of Breath Calcium Acetate (Phoslo) 667 mg PO TIDCC [facility] Last Admin: 12/10/17 09:00 Dose: 667 mg Lactulose (Enulose) 20 gm PO BID [facility] Last Admin: 12/10/17 09:35 Dose: 20 gm Methylprednisolone (Solu-Medrol) 32 mg IV DAILY [facility] Last Admin: 12/10/17 09:35 Dose: 32 mg Midodrine (Proamatine) 7.5 mg PO TID [facility] Last Admin: 12/10/17 09:40 Dose: 7.5 mg Oxycodone/Acetaminophen (Percocet 5/325 Mg Tab) 2 tab PO Q4H PRN PRN Reason: Pain, severe (8-10) Stop: 12/10/17 17:34 Pantoprazole Sodium (Protonix Ec Tab) 40 mg PO DAILY [facility] Last Admin: 12/10/17 09:41 Dose: 40 mg Promethazine HCl (Phenergan Syrup) 6.25 mg PO Q6H PRN PRN Reason: Cough Last Admin: 12/09/17 05:34 Dose: 6.25 mg - Labs Labs: 12/10/17 11:32 12/10/17 11:32 PT 25.7 SECONDS (9.7-12.2) H 12/09/17 06:34 INR 2.2 12/09/17 06:34 APTT 70 SECONDS (21-34) H D 12/07/17 06:59 - Constitutional Appears: No Acute Distress - Eye Exam Eye Exam: Scleral icterus - Respiratory Exam Respiratory Exam: Decreased Breath Sounds, NORMAL BREATHING PATTERN - Cardiovascular Exam Cardiovascular Exam: REGULAR RHYTHM - GI/Abdominal Exam GI & Abdominal Exam: Distended, Soft. absent: Tenderness, Mass, Rebound Additional comments: large ascites - Extremities Exam Extremities Exam: Pedal Edema Assessment and Plan (1) Acute alcoholic hepatitis Assessment & Plan: On steroids Status: Acute (2) Cholelithiasis Status: Acute (3) Hepatorenal syndrome Status: Chronic (4) Portal vein thrombosis Assessment & Plan: Heparin stopped by primary care team due to elevated INR Status: Chronic (5) Anasarca Assessment & Plan: GIven elevation of WBC's and presence of ascites patient should be on abx propylaxis for SBP. Will begin Cipro 500mg po daily Consider repeat paracentesis if transfer to [facility] is not immenent. Status: Acute (6) Leukocytosis, unspecified Assessment & Plan: Maybe somewhat related to steroids but acute elevation may be due to infection. Cipro started for SBP prophylaxis. Further work up per primary care team Status: Acute
[2017-12-10 16:39] VITALS: TEMP 97.3
--- NOTE | 2017-12-10 19:36 | CP.PCM.PN ---
Subjective - Date & Time of Evaluation Date of Evaluation: 12/09/17 Time of Evaluation: 19:00 - Subjective Subjective: No complaints Oozing from dialysis access; for platelet transfusion Objective - Vital Signs/Intake and Output Vital Signs (last 24 hours): Temp Pulse Resp BP Pulse Ox 97.3 F L 74 20 125/78 97 12/10/17 15:00 12/10/17 16:00 12/10/17 15:00 12/10/17 15:00 12/10/17 15:00 - Medications Medications: Current Medications Albumin Human (Albumin Human 25% (12.5 Gm/50 Ml)) 12.5 gm IV Q8 [facility] Last Admin: 12/10/17 13:28 Dose: 12.5 gm Albuterol/Ipratropium (Duoneb 3 Mg/0.5 Mg (3 Ml) Ud) 3 ml INH RQ6 PRN PRN Reason: Shortness of Breath Calcium Acetate (Phoslo) 667 mg PO TIDCC [facility] Last Admin: 12/10/17 17:12 Dose: 667 mg Ciprofloxacin (Cipro) 500 mg PO DAILY [facility] Last Admin: 12/10/17 14:46 Dose: 500 mg Lactulose (Enulose) 20 gm PO BID [facility] Last Admin: 12/10/17 17:11 Dose: 20 gm Methylprednisolone (Solu-Medrol) 32 mg IV DAILY [facility] Last Admin: 12/10/17 09:35 Dose: 32 mg Midodrine (Proamatine) 7.5 mg PO TID [facility] Last Admin: 12/10/17 17:12 Dose: 7.5 mg Pantoprazole Sodium (Protonix Ec Tab) 40 mg PO DAILY [facility] Last Admin: 12/10/17 09:41 Dose: 40 mg Promethazine HCl (Phenergan Syrup) 6.25 mg PO Q6H PRN PRN Reason: Cough Last Admin: 12/09/17 05:34 Dose: 6.25 mg - Labs Labs: 12/10/17 11:32 12/10/17 11:32 PT 25.7 SECONDS (9.7-12.2) H 12/09/17 06:34 INR 2.2 12/09/17 06:34 APTT 70 SECONDS (21-34) H D 12/07/17 06:59 - Head Exam Head Exam: ATRAUMATIC - Eye Exam Eye Exam: Scleral icterus - ENT Exam ENT Exam: Mucous Membranes Dry - Respiratory Exam Respiratory Exam: NORMAL BREATHING PATTERN - Cardiovascular Exam Cardiovascular Exam: +S1, +S2 - GI/Abdominal Exam GI & Abdominal Exam: Normal Bowel Sounds Assessment and Plan (1) Thrombocytopenia Assessment & Plan: platelet dysfunction from uremia pHTN, liver cirrhosis for platelet transfusion given bleeding from dialysis access Status: Acute (2) Portal vein thrombosis Assessment & Plan: heparin held for dialysis access bleeding Status: Chronic (3) Coagulopathy Assessment & Plan: liver disease Status: Acute (4) Anemia Assessment & Plan: chronic disease and renal disease Status: Chronic
--- NOTE | 2017-12-10 19:39 | CP.PCM.PN ---
Subjective - Date & Time of Evaluation Date of Evaluation: 12/10/17 Time of Evaluation: 14:00 - Subjective Subjective: Still oozing from dialysis access s/p 1 bag platelets overnight Objective - Vital Signs/Intake and Output Vital Signs (last 24 hours): Temp Pulse Resp BP Pulse Ox 97.3 F L 74 20 125/78 97 12/10/17 15:00 12/10/17 16:00 12/10/17 15:00 12/10/17 15:00 12/10/17 15:00 - Medications Medications: Current Medications Albumin Human (Albumin Human 25% (12.5 Gm/50 Ml)) 12.5 gm IV Q8 [facility] Last Admin: 12/10/17 13:28 Dose: 12.5 gm Albuterol/Ipratropium (Duoneb 3 Mg/0.5 Mg (3 Ml) Ud) 3 ml INH RQ6 PRN PRN Reason: Shortness of Breath Calcium Acetate (Phoslo) 667 mg PO TIDCC [facility] Last Admin: 12/10/17 17:12 Dose: 667 mg Ciprofloxacin (Cipro) 500 mg PO DAILY [facility] Last Admin: 12/10/17 14:46 Dose: 500 mg Lactulose (Enulose) 20 gm PO BID [facility] Last Admin: 12/10/17 17:11 Dose: 20 gm Methylprednisolone (Solu-Medrol) 32 mg IV DAILY [facility] Last Admin: 12/10/17 09:35 Dose: 32 mg Midodrine (Proamatine) 7.5 mg PO TID [facility] Last Admin: 12/10/17 17:12 Dose: 7.5 mg Pantoprazole Sodium (Protonix Ec Tab) 40 mg PO DAILY [facility] Last Admin: 12/10/17 09:41 Dose: 40 mg Promethazine HCl (Phenergan Syrup) 6.25 mg PO Q6H PRN PRN Reason: Cough Last Admin: 12/09/17 05:34 Dose: 6.25 mg - Labs Labs: 12/10/17 11:32 12/10/17 11:32 PT 25.7 SECONDS (9.7-12.2) H 12/09/17 06:34 INR 2.2 12/09/17 06:34 APTT 70 SECONDS (21-34) H D 12/07/17 06:59 - Head Exam Head Exam: ATRAUMATIC - Eye Exam Eye Exam: Scleral icterus - ENT Exam ENT Exam: Mucous Membranes Dry - Respiratory Exam Respiratory Exam: NORMAL BREATHING PATTERN - Cardiovascular Exam Cardiovascular Exam: +S1, +S2 - GI/Abdominal Exam GI & Abdominal Exam: Normal Bowel Sounds Assessment and Plan (1) Thrombocytopenia Assessment & Plan: liver disease, pHTN plt dysfunction s/p 1 bag plt overnight Status: Acute (2) Portal vein thrombosis Assessment & Plan: heparin held Status: Chronic (3) Coagulopathy Assessment & Plan: liver disease Status: Acute (4) Anemia Assessment & Plan: chronic disease, renal disease, mild dialysis access bleeding Status: Chronic
[2017-12-10 21:36] VITALS: BP 149/76; PULSE 82; O2SAT 98
== END 2017-12-10 23:24 | disposition short-term general hospital (02) | DRG 871 ==
LOC: C.ER 11:41 → C.9E 13:49 → C.9I 21:15 → C.9E 21:31 → C.9I 22:22 → C.6T 12-06 14:17
PROVIDERS: ADMIT Family Medicine; ATTEND Family Medicine
PROC: 3E0234Z Introduction of Serum, Toxoid and Vaccine into Muscle, Percutaneous Approach (ICD-10-PCS; principal; 2017-12-03)
PROC: 02HV33Z Insertion of Infusion Device into Superior Vena Cava, Percutaneous Approach (ICD-10-PCS; 2017-12-07)
PROC: B548ZZA Ultrasonography of Superior Vena Cava, Guidance (ICD-10-PCS; 2017-12-07)
PROC: 5A1D70Z Performance of Urinary Filtration, Intermittent, Less than 6 Hours Per Day (ICD-10-PCS; 2017-12-07)
DX: A41.9 Sepsis, unspecified organism (principal); I81 Portal vein thrombosis; K76.7 Hepatorenal syndrome; N17.9 Acute kidney failure, unspecified; I13.2 Hypertensive heart and chronic kidney disease with heart failure and with stage 5 chronic kidney disease, or end stage renal disease; D69.6 Thrombocytopenia, unspecified; B37.81 Candidal esophagitis; N18.6 End stage renal disease; E87.1 Hypo-osmolality and hyponatremia; E87.2 Acidosis; I42.6 Alcoholic cardiomyopathy; I13.0 Hypertensive heart and chronic kidney disease with heart failure and stage 1 through stage 4 chronic kidney disease, or unspecified chronic kidney disease; K76.6 Portal hypertension; I50.9 Heart failure, unspecified; E86.1 Hypovolemia; K59.00 Constipation, unspecified; K70.31 Alcoholic cirrhosis of liver with ascites; K72.90 Hepatic failure, unspecified without coma; Z66 Do not resuscitate; Z51.5 Encounter for palliative care; Z99.2 Dependence on renal dialysis; Z85.46 Personal history of malignant neoplasm of prostate; Z23 Encounter for immunization; Z68.35 Body mass index [BMI] 35.0-35.9, adult